=== PATIENT | male | born 1950 | race Caucasian/White ===

== ENCOUNTER → 2017-06-02 10:41 | Outpatient (CLI) | payer MEDICARE, OTHER, SELFPAY ==
--- NOTE | 2017-06-02 11:30 | MRI_ITS ---
STUDY: MRI RIGHT SHOULDER REASON FOR EXAM: Right arm pain and decreased range of motion for 2 months. TECHNIQUE: Standardized fat and water weighted pulse sequences were obtained in all 3 orthogonal planes. COMPARISON: None. FINDINGS: There is a signal void in the distal anterior supraspinatus tendon measuring approximately 1.1 cm in length (T2 coronal image 13) suggestive of calcific tendinitis. There is no discrete tear of the supraspinatus tendon. Normal infraspinatus tendon. Normal subscapularis tendon. Normal teres minor tendon. There is a cyst at the supraspinatus musculotendinous junction (T2 coronal image 16). Normal infraspinatus muscle. Normal subscapularis muscle. Normal teres minor muscle. There is a small glenohumeral joint effusion with fluid extending into the bicipital tendon sheath. There is mild cystic change of the greater tuberosity. There is a branching band of signal in the superior labrum extending into the biceps labral anchor (T2 coronal images 11-13) suggestive of a SLAP lesion. Normal intracapsular long biceps tendon. Normal capsulo- ligamentous complex. There is acromioclavicular arthrosis with undersurface osteophytes of the distal clavicle effacing the subacromial fat (T2 sagittal series 7 images 9, 10). There is a Type I morphology (flat undersurface), with a neutral orientation. There is a small volume of subacromial-subdeltoid bursal fluid (T2 coronal images 9-16). Normal visualized coracohumeral and coracoacromial ligaments. Normal deltoid muscle. Normal trapezius muscle. MRI/Upper Ext Joint Only(Routine) IMPRESSION: Supraspinatus calcific tendinitis. SLAP lesion. Acromioclavicular arthrosis. Mild subacromial-subdeltoid bursitis. Small glenohumeral joint effusion. No demonstrated rotator cuff tear. Electronically Signed: Marino Parekh MD at 14:59 EDT Tel , Service support ,
== END ==
PROVIDERS: Family Provider Family Medicine; PCP Family Medicine
DX: M61.411 Other calcification of muscle, right shoulder (principal); M75.41 Impingement syndrome of right shoulder
CPT/HCPCS: 73221

== ENCOUNTER 2017-06-05 10:00 | Outpatient (RCR) | payer MEDICARE, OTHER, SELFPAY ==
--- NOTE | 2017-05-17 13:00 | HP.OTEVAL_ITS ---
Patient's Visit Information KEEGAN PRIEST is a 66 year old M, referred to Occupational Therapy by KRIS SANTOS,KRIS SANTOS, with a diagnosis of Right LF trigger finger, synovitis and tenosynovitis right forarm/CTS. Date of Evaluation: 05/17/17 Occupational Therapist: Roxanna Matson, AMANDA/Ramiro, CHT - Subjective Subjective: Pt arrives to OT following his 3rd right CTR and a right LF trigger finger release. pt states most numbness/tingling has resolved. pt states tingling through ulnar side of right ring/little finger. Pt states he has had issues with CTS for over a year and decided to have sx. PT staets he feels the sx was sucessful and has started to return to his BADLS. He states sorness or pain stop him from completing tasks. 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 with BADLs and IADLS by D/C Goal:: pt will report pain no greater than 1/10 with use of right hand with BADLS and IADLS such as cleaning and meal prep. by D/C Goal:: pt will demo understanding of scar mtg by end of 2nd session. - Rehabilitation General Assessment: Pt underwent a revision of right CTR and right LF trigger finger release and right wrist flexor tenosynovectomy, and decompression of ulnar nerve right wrist- vascularized hypothenar flap- on April 20, 2017. pt demo a decrease in right functional strength to perform BADls and IADLS at a ind. ability. OT will initiate tx to increase strength and decrease scar adhesions. Rehabilitation Potential: Excellent - Anticipated Interventions Anticipated Interventions: A/AAROM/PROM, Strengthening, Scar Care, Triggerpoint Release, Modalities - Visit Plan Frequency: 2x /Week Duration: 3 Weeks General Plan: OT will initiate tx 2xweek x 3 weeks to increase pts functional strength decrease scar adhesions and increase pts ind. with BADLS and IADLS. Tx will initiate with PRE and progress pt to ind. as able. TEXT: Thank you for the opportunity to evaluate your patient. For Medicare and Medicare HMO plans, please review the plan of care and approve it. It will need to be FAXED BACK to us at [phone] for Medicare purposes. Please let me know if there are questions or concerns regarding this plan of care. Physician Signature: Date:
--- NOTE | 2017-06-05 10:25 | HP.OTDCSUM_ITS ---
HP - OT D/C Summary It has been my pleasure to treat KEEGAN PRIEST under orders from KRIS SANTOS, for the diagnosis of Right LF trigger finger, synovitis and tenosynovitis right forearm/CTS for a total of 6 visit(s). Please see the following information for a summary of their discharge status. - Overall Improvement % Improvement: 90 - Objective Objective/Function: right wrist 55/50. 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 right lateral pinch 14# a increase from 12# right tripod pinch 10# no change in tripod pinch- pt demo increase in functional ROM and strength and has returned to his PLOF- - Goals Patient Goals: Regain Mobility, Regain Strength, Decrease Pain, Use Hand/Wrist/ Arm Normally Again Goal:: pt will demo a increase in right regional transportation manager strength by 30# to increse his ind. with BADLs and IADLS by D/C Goal:: pt will report pain no greater than 1/10 with use of right hand with BADLS and IADLS such as cleaning and meal prep. by D/C Goal:: pt will demo understanding of scar mtg by end of 2nd session. - Plan Plan: D/C - D/C Information Discharge Comments: Pt was seen visits of OT- treatment included ROM- scar mtg- and PRE- pt has met all functional goals in therapy and is D/C at this time. If there are questions or concerns regarding this patient's occupational therapy , please fell free to call me at [phone]. Thank you for the referral of this patient. Sincerely, Roxanna Matson, OTR/L, CHT
== END 2017-06-05 19:00 | disposition home or self-care (01) ==
LOC: OT 10:00
PROVIDERS: Family Provider Family Medicine; PCP Family Medicine
DX: G56.01 Carpal tunnel syndrome, right upper limb (principal); M65.351 Trigger finger, right little finger; M65.839 Other synovitis and tenosynovitis, unspecified forearm
CPT/HCPCS: 97035; 97110; 97140; 97166; 97168

== ENCOUNTER → 2017-08-25 10:17 | Outpatient (CLI) | payer MEDICARE, OTHER, SELFPAY ==
[2017-08-25 12:50] LABS: Vitamin B12 458 pg/mL (211-911)
[2017-08-25 12:53] LABS: AST(SGOT) 23 U/L (15-37); Alanine Aminotransfer ALT/SGPT 34 U/L (16-61); Anion Gap 7 (5-15); BUN 15 mg/dL (7-18); BUN/Creat Ratio 17.3 RATIO (10-20); Calcium,Total 8.2 mg/dL (8.5-10.1); Chloride 104 mmol/L (98-107); Cholesterol 206 mg/dL (200); Creatinine, Serum 0.87 mg/dL (0.70-1.30); EST Glomerular Filtration Rate 93 mL/min (>60); Est Glom Filt Rate - Afr Amer 113 mL/min (>60); Free T3 2.6 pg/mL (2.18-3.98); Glucose 79 mg/dL (74-106); High Density Lipoprotein 51 mg/dL; Sodium Level 141 mmol/L (136-145); T4 Total, Thyroxin 12.3 ug/dL (4.5-12.1); Thyroid Stim Hormone (TSH) 0.87 uIU/mL (0.358-3.74); Triglycerides 111 mg/dL; Very Low Density Lipoprotein 22 mg/dL (5-40)
== END ==
PROVIDERS: Family Provider Family Medicine; PCP Family Medicine; Visit Provider Family Medicine
DX: E78.5 Hyperlipidemia, unspecified (principal); E03.9 Hypothyroidism, unspecified; R20.2 Paresthesia of skin
CPT/HCPCS: 36415; 80048; 80061; 82607; 84436; 84443; 84450; 84460; 84481

== ENCOUNTER → 2017-09-07 12:43 | Outpatient (CLI) | payer MEDICARE, OTHER, SELFPAY ==
--- NOTE | 2017-09-07 12:45 | ECHOCS_ITS ---
Reason For Study: MURMUR Procedure This was a 2D Doppler, Color Flow transthoracic echocardiogram. The study was technically difficult. Contrast injection was performed. Exam performed in department. Left Ventricle Normal LV size. Left ventricular systolic function is normal. The estimated ejection fraction is 70 %. Normal diastology for age. No regional wall motion abnormalities noted. Right Ventricle Normal RV size. Normal systolic function. Atria Normal left atrium. Normal right atrium. No doppler evidence for ASD. Mitral Valve There is no mitral annular calcification. Normal mitral valve. Trivial mitral valve insufficiency. Tricuspid Valve Normal tricuspid valve. Trivial tricuspid valve insufficiency. Unable to estimate RV systolic pressure/pulmonary artery pressure due to technically difficult study. Aortic Valve Trisinus/trileaflet aortic valve. Moderate diffuse aortic valve calcification. Mild aortic stenosis. Pulmonic Valve The pulmonic valve is not well visualized. Great Vessels Moderately dilated ascending aorta. Pericardium/Pleural No pericardial effusion. Medication 22 gauge I.V. with prn adaptor inserted into right arm. Diluted definity 3ml given slow IV push to enhance endocardial definition. MMode/2D Measurements & Calculations LVIDd: 4.4 cm IVSd: 0.86 cm LVOT diam: 2.0 cm LVIDs: 2.6 cm LVPWd: 1.0 cm LVOT area: 3.1 cm2 RVDd: 2.5 cm FS: 41.6 % Ao root diam: 3.6 cm LAV(MOD-bp): 32.0 ml LA A4 area: 11.2 cm2 LA dimension: 2.9 cm LAV(MOD-bp) Indexed: 15.7 ml/m2 LAV(MOD-sp2): 45.8 ml LAV(MOD-sp4): 21.9 ml RA A4 area: 14.1 cm2 Time Measurements MV dec time: 0.24 sec Doppler Measurements & Calculations MV E max thomas: 78.4 cm/sec Lat Peak E' Thomas: 11.4 cm/sec Med Peak E' Thomas: 9.0 cm/sec MV A max thomas: 111.3 cm/sec E/E' lat: 6.9 E/E' med: 8.7 MV E/A: 0.70 Ao V2 max: 224.2 cm/sec LV V1 max: 106.7 cm/sec SV(LVOT): 84.5 ml Ao max P.1 mmHg LV V1 max P.6 mmHg Ao V2 mean: 174.0 cm/sec LV V1 mean P.0 mmHg Ao mean P.0 mmHg LV V1 mean: 82.5 cm/sec Ao V2 VTI: 49.7 cm LV V1 VTI: 27.1 cm DOC(I,D): 1.7 cm2 DOC(V,D): 1.5 cm2 PA V2 max: 96.1 cm/sec Interpretation Summary The study was technically difficult. Contrast injection was performed. Left ventricular systolic function is normal. The estimated ejection fraction is 70 %. Trivial mitral valve insufficiency. Trivial tricuspid valve insufficiency. Mild aortic stenosis. Moderately dilated ascending aorta. (approximately 5.0 cm) Unable to estimate RV systolic pressure/pulmonary artery pressure due to technically difficult study. Normal diastology for age. Comment: Consider further evaluation of the thoracic aorta for thoracic aortic aneurysm with Chest CT scan (IV contrast) if clinically indicated. Ordering Physician: Yecenia Okeefe Referring Physician: Yecenia Okeefe Performed By: Daria Mejias RDCS
== END ==
PROVIDERS: Family Provider Family Medicine; PCP Family Medicine; Visit Provider Family Medicine
DX: R01.1 Cardiac murmur, unspecified (principal)
CPT/HCPCS: 93306; Q9957; A4216; C8929

== ENCOUNTER → 2017-09-21 16:49 | Outpatient (CLI) | payer MEDICARE, OTHER, SELFPAY ==
--- NOTE | 2017-09-21 16:56 | CT_ITS ---
STUDY: CTA CHEST REASON FOR EXAM: Male, 67 years old. Thoracic aortic aneurysm on echo RADIATION DOSAGE (If Supplied By Facility): CTDIvol = ( 17.58 ) mGy, DLP = ( 572.12 ) mGycm TECHNIQUE: The examination was performed with the intravenous administration of 100ml ml of Isovue 370 contrast material. Post-processing of the angiographic images was performed, with multiplanar reformation and 3D reconstruction. Individualized dose optimization techniques were used for this CT. COMPARISON: None. FINDINGS: There is a 5.1 x 4.8 cm aneurysm of the ascending aorta. The aortic arch and descending thoracic aorta are normal in caliber. There is no evidence of thoracic aortic dissection. There is no evidence of pulmonary embolus. There are no pulmonary nodules or masses. There are no pulmonary infiltrates or pleural effusions. The heart is normal size. There is no pericardial effusion. There is no thoracic lymphadenopathy. Images through the upper abdomen demonstrate no significant abnormality. There are no destructive osseous lesions. CT/CTA Chest W/WO Contrast IMPRESSION: 5.1 x 4.8 cm ascending aortic aneurysm. Normal caliber aortic arch and descending thoracic aorta. No evidence of thoracic aortic dissection. No evidence of pulmonary embolus. Clear lungs. Electronically Signed: Akil Reyes, at 16:56 EDT Tel , Service support ,
== END ==
PROVIDERS: Family Provider Family Medicine; PCP Family Medicine; Visit Provider Family Medicine
DX: R93.1 Abnormal findings on diagnostic imaging of heart and coronary circulation (principal)
CPT/HCPCS: 71275; Q9967

== ENCOUNTER → 2017-10-17 11:39 | Outpatient (CLI) | payer MEDICARE, OTHER, SELFPAY ==
[2017-10-17 12:36] LABS: PSA,Total - Annual Screen 3.03 ng/mL (0.00-4.00)
== END ==
PROVIDERS: Family Provider Family Medicine; PCP Family Medicine; Visit Provider Nurse Practitioner Adult Health
DX: Z12.5 Encounter for screening for malignant neoplasm of prostate (principal)
CPT/HCPCS: 36415; 84153; G0103

== ENCOUNTER → 2017-10-24 11:58 | Outpatient (CLI) | payer MEDICARE, OTHER, SELFPAY ==
--- NOTE | 2017-10-24 12:00 | CT_ITS ---
STUDY: CT ABDOMEN AND PELVIS WITH AND WITHOUT CONTRAST REASON FOR EXAM: Male, 67 years old. Gross hematuria RADIATION DOSAGE (If Supplied By Facility): CTDIvol = ( 19.59 ) mGy, DLP = ( 1671.18 ) mGycm TECHNIQUE: Transaxial images were obtained from the dome of the diaphragm to the symphysis pubis without oral contrast. 100 ml of Isovue 300 contrast was administered. Sagittal and coronal images were reconstructed. Individualized dose optimization techniques were used for this CT. COMPARISON: Limited comparison September 21, 2017 CT chest FINDINGS: The visualized lung bases are unremarkable. The visualized portions of the heart are within normal limits. The liver is borderline enlarged and fatty infiltrated. Normal gallbladder and extrahepatic biliary system. Normal spleen. Normal pancreas. Normal bilateral adrenal glands. Normal right kidney. Normal left kidney. Normal visualized stomach. Normal small intestine. There is moderate stool in the colon from the cecum to the rectum. The appendix is visualized and appears normal. There is partial calcification of the aorta. There is calcification of the takeoff of the right greater than left artery. Normal inferior vena cava. Normal retroperitoneum. The wall the bladder is mildly thickened. The prostate is enlarged and lobulated on the cranial side within homogeneity. There prostate pushes into the base of the bladder. The prostate measures approximately 5.7 x 4.0 x 4.1 cm. There few nonspecific pelvic lymph nodes demonstrated measuring less than 1 cm. There are phleboliths in the pelvis. There are bilateral fatty inguinal hernias. There are diffuse degenerative changes of the visualized lumbar spine. CT/CT Abd/Pelvis W/WO Contrast IMPRESSION: No visualize renal ureteral bladder calculi or evidence of mass. Enlarged prostate projecting into the base of the bladder mild wall thickening consider cystitis. Recommend correlation with laboratory values for the prostate and clinical exam. Prostate cancer should be excluded. Borderline enlarged fatty infiltrated liver. Bilateral fatty inguinal hernias. Degenerative change lumbar spine. Electronically Signed: Kyung Kat MD at 17:16 EDT Tel , Service support ,
[2017-10-24 12:10] LABS: CREATININE FINGERSTICK 0.8 mg/dL (0.70-1.30)
== END ==
PROVIDERS: Family Provider Family Medicine; PCP Family Medicine; Visit Provider Nurse Practitioner Adult Health
DX: R31.0 Gross hematuria (principal)
CPT/HCPCS: 74178; Q9967

== ENCOUNTER 2017-11-29 12:51 | Day surgery (SDC) | payer MEDICARE, OTHER, SELFPAY ==
[2017-11-22 09:20] VITALS: BP 129/69; PULSE 83; RESP 16; TEMP 36.5; O2SAT 97; BMI 29.5
[2017-11-22 10:07] LABS: Hematocrit 42.1 % (40-54); Mean Corp Hgb Conc 33.3 g/gl (32-36); Mean Corpuscular Hgb 30.6 pg (27.0-32.0); Mean Corpuscular Volume 91.9 fL (80-94); Mean Platelet Vol. 9.6 fl (6.2-12.0); Platelet Count 234 K/mm3 (150-450); RBC Distribution Width CV 12.6 % (11.6-14.6); RBC Distribution Width SD 42.3 fl (35.1-43.9); Red Blood Count 4.58 M/mm3 (4.6-6.2); Scan Indicated on CBC? Y/N NO
[2017-11-22 10:51] LABS: Anion Gap 6 (5-15); BUN 16 mg/dL (7-18); BUN/Creat Ratio 17.4 RATIO (10-20); Calcium,Total 8.5 mg/dL (8.5-10.1); Chloride 106 mmol/L (98-107); Creatinine, Serum 0.92 mg/dL (0.70-1.30); EST Glomerular Filtration Rate 87 mL/min (>60); Est Glom Filt Rate - Afr Amer 105 mL/min (>60); Estimated Creatinine Clearance 77.92 ml/min; Glucose 95 mg/dL (74-106); Potassium 3.6 mmol/L (3.5-5.1); Sodium Level 139 mmol/L (136-145)
[2017-11-29] VITALS (9 sets, daily range): BP systolic 119–135; BP diastolic 68–98; PULSE 56–82; RESP 16–18; TEMP 36–36.8; O2SAT 94–100; BMI 29.5
[2017-11-29] MEDS: Cefazolin 2 GM in 0.9% Normal Saline 100 ML IV (14:11)
--- NOTE | 2017-11-29 14:40 | PROS_PTH ---
PATIENT: KEEGAN PRIEST LOC[place] [facility] [place][id number] AGE/SX: 67/M ROOM: RE11/29/[address]: Dr. Zach Romero MD : 1950 BED: DIS: 11/30/2017 SPEC #: [id number] RECD: 11/29/17 16:09 STATUS: MANAN REValentine #: [id number] ANDREW: 11/29/17 14:[address]: Zach Romero DEPT: SURGICAL PATHOLOGY RECD BY: You Delacruz ENTERED: 11/30/17 07:52 SP TYPE: TURP OTHR DR: Dr. Yecenia Okeefe MD Tissues: Prostate, NOS Procedures: Surgery Specimen Level IV HEADER OPERATION: Cysto, TUR, prostate, [employer] PRE-OP DIAGNOSIS: Benign prostatic hyperplasia with lower urinary tract symptoms, gross hematuria TISSUE SUBMITTED: Prostate tissue MICROSCOPIC DIAGNOSIS Prostate tissue, TUR: Benign prostatic hyperplasia, glandular and stromal type. Acute and chronic inflammation and basal cell hyperplasia. FLORES:rudy 12/01/17 MICROSCOPIC DESCRIPTION Slides are reviewed. GROSS DESCRIPTION Received is one container labeled with the patient's name and designated prostate tissue. The specimen consists of multiple irregular fragments of pink-meyer, rubbery, soft tissue that in aggregate weigh 9.6 gm and measure in aggregate 5 x 5 x 2 cm. The entire specimen is submitted in ten cassettes. / FLORES:rudy 11/30/17 TC:5 CPT: 91492
--- NOTE | 2017-11-29 14:53 | PCM.OPRPT ---
Report of Operation Date of Procedure: 11/29/17 Pre-Operative Diagnosis: BPH with obstruction Post-Operative Diagnosis: Same Surgery/Procedure Performed:: Transurethral resection of the prostate Description of Surgical Findings:: 67-year-old male been having difficulty with urination bleeding off and on cystoscopy was found to have a large amount of growth of tissue at the floor of the prostate growing into the bladder causing obstruction really at the angle the scope will high up to get over this median lobe growth into the prostate recommend we proceed with a transurethral resection of his growth. 67-year-old male taken back to the operating room after smooth induction of general anesthesia he was placed supine on the table, penis and testicles are prepped and draped in usual sterile fashion, went into the bladder with a 24 Icelandic continuous flow resectoscope I then started by going over the top of his large growth going into the bladder resected all the way back down to the bladder fiber next and brought the bladder neck and then there is a lot of tissue at the floor the bladder this was resected back to the verumontanum he did have a nice wide open channel from the sphincter all the way into the bladder was nice and wide open after resecting all this tissue Ellik out all the tissue, did a flow test and had a nice wide open flow all the chips were removed put a 22 Icelandic catheter into the bladder this is placed on continuous bladder irrigation, the resection time was about 45 minutes. Patient tolerated procedure well taken back to PACU good condition follow-up in a few weeks. Type of Anesthesia:: General Drains: 22fr 3 way - Admit VTE Documentation VTE Present on Admission: No VTE Mechan Device Prophylaxis: SCD's VTE Pharm Prophylaxis ordered?: No Reason prophylaxis not ordered:: Treatment Not Indicated
--- NOTE | 2017-11-29 14:58 | DCINST_ITS ---
Discharge Diet: Light diet - advance as tolerated Discharge Activity: Return to Normal Activity Call your doctor if your incision/area has: Continuous Slow Oozing, Sudden Increased Bleeding, Increased Pain/ Swelling, Increased Redness Suture Line Care: Avoid Pulling/Pushing, Avoid Pinching/Bending Instructions: Transurethral Resection of the Prostate (TURP): Home Recovery Allergies/Adverse Reactions: Allergies mold spores Adverse Reaction (Uncoded 11/22/17 09:18) Unknown Medications to take at Discharge Duloxetine Hcl [Cymbalta] 60 mg PO DAILY 12/13/12 Sumatriptan Succinate [Imitrex] 100 mg PO .X1 PRN PRN 12/13/12 levothyroxine 150 mcg capsule 150 mcg PO DAILY 10/04/17 Acetaminophen [Tylenol Extra Strength] 500 - 1,000 mg PO Q6H PRN PRN 11/22/17 Primary Care Physician: Yecenia Okeefe MD [Primary Care Provider] - Test Results: Test results from this visit will be discussed in further detail at your follow- up appointment, if applicable. Please Follow Up With: Zach Romero MD When: please call to make an appointment. Proposed Discharge Date: 11/29/17
[2017-11-29] MEDS: 0.9% Normal Saline 1,000 ML 75 ML IV (17:52)
[2017-11-29] MEDS: Acetaminophen 325 MG Tablet PO (21:00)
[2017-11-29] MEDS: Ciprofloxacin 500 MG Tablet PO (21:00)
[2017-11-29] MEDS: Docusate Sodium 100 MG Capsule PO (21:00)
[2017-11-30] MEDS: Rizatriptan Benzoate 10 MG Tablet PO (00:22)
[2017-11-30 02:38] VITALS: BP 124/79; PULSE 61; RESP 18; TEMP 36.6; O2SAT 100
[2017-11-30 02:48] VITALS: PULSE 61
[2017-11-30] MEDS: 0.9% Normal Saline 1,000 ML 75 ML IV (07:25)
[2017-11-30 08:05] VITALS: BP 117/57; PULSE 66; RESP 16; TEMP 36.4; O2SAT 100
[2017-11-30] MEDS: Pantoprazole Sodium 40 MG Tablet PO (09:28)
[2017-11-30] MEDS: Ciprofloxacin 500 MG Tablet PO (09:28)
== END 2017-11-30 12:35 | disposition home or self-care (01) ==
LOC: SDC 12:51 → AC 12:52 → MS3 14:23
PROVIDERS: Anesthesiology; Family Provider Family Medicine; PCP Family Medicine; Referring Provider Urology; Visit Provider Urology
PROC: (CPT 52630; principal; 2017-11-29 14:30)
DX: N41.0 Acute prostatitis (principal); N41.1 Chronic prostatitis; N40.1 Benign prostatic hyperplasia with lower urinary tract symptoms; R39.11 Hesitancy of micturition; R31.0 Gross hematuria; F41.9 Anxiety disorder, unspecified; F32.9 Major depressive disorder, single episode, unspecified; E89.0 Postprocedural hypothyroidism; I71.2 Thoracic aortic aneurysm, without rupture; G47.30 Sleep apnea, unspecified; Z23 Encounter for immunization; Z87.891 Personal history of nicotine dependence; Z79.899 Other long term (current) drug therapy
CPT/HCPCS: 00914; 52630; 80048; 84443; 85027; 88305; G0008; J7030; J7120; 90686; J2405

== ENCOUNTER → 2018-04-02 07:40 | Outpatient (CLI) | payer MEDICARE, OTHER, SELFPAY ==
[2017-11-29 16:38] VITALS: BMI 29.5
--- NOTE | 2018-04-02 07:43 | CT_ITS ---
STUDY: CTA CHEST REASON FOR EXAM: Male, 67 years old. Follow-up of abdominal aorta RADIATION DOSAGE (If Supplied By Facility): CTDIvol = ( 22.75 ) mGy, DLP = ( 548.69 ) mGycm TECHNIQUE: The examination was performed with the intravenous administration of Isovue 300 100CC IV. Post-processing of the angiographic images was performed, with multiplanar reformation and 3D reconstruction. Individualized dose optimization techniques were used for this CT. COMPARISON: 09/21/2017 chest x-ray FINDINGS: Normal enhancement of the main pulmonary artery and right and left pulmonary arteries. Normal enhancement of the bilateral peripheral pulmonary arteries. There is no demonstrated pulmonary embolism. The ascending thoracic aorta measures 4.8 x 5.0 cm at the level of the left pulmonary artery. At this same level on the prior study. It measures 4.8 x 5 cm. There is no demonstrated aortic dissection. The heart is of normal size. There is a suggestion of calcification of the left anterior descending coronary arteries. Normal mediastinum. There is a small lymph node in the left hilar region measuring 6.3 mm stable since prior study. Normal visualized trachea and bronchi. The lungs are well expanded. Normal pulmonary parenchyma. Normal pleura. Normal chest wall structures. There are degenerative changes of thoracic spine. Moderate stool in the colon in the upper abdomen. CT/CTA Chest W/WO Contrast IMPRESSION: No evidence of pulmonary embolism. Stable ascending thoracic aortic aneurysm. Electronically Signed: Kyung Kat MD at 23:11 EST Tel , Service support ,
[2018-04-02 08:20] LABS: EGFR FINGERSTICK > 60.0000 mL/min (>60)
[2018-04-02 09:08] LABS: Anion Gap 6 (5-15); BUN 16 mg/dL (7-18); BUN/Creat Ratio 18.3 RATIO (10-20); Calcium,Total 8.5 mg/dL (8.5-10.1); Chloride 107 mmol/L (98-107); Creatinine, Serum 0.88 mg/dL (0.70-1.30); EST Glomerular Filtration Rate 92 mL/min (>60); Est Glom Filt Rate - Afr Amer 112 mL/min (>60); Glucose 88 mg/dL (74-106); Potassium 3.9 mmol/L (3.5-5.1); Sodium Level 141 mmol/L (136-145)
== END ==
PROVIDERS: Family Provider Family Medicine; PCP Family Medicine; Referring Provider Internal Medicine Cardiovascular Disease; Visit Provider Internal Medicine Cardiovascular Disease
DX: I71.2 Thoracic aortic aneurysm, without rupture (principal)
CPT/HCPCS: 36415; 71275; 80048; Q9967

== ENCOUNTER → 2018-04-16 06:28 | Outpatient (CLI) | payer MEDICARE, OTHER, SELFPAY ==
[2018-04-10 14:18] VITALS: BMI 30.1
--- NOTE | 2018-04-16 15:24 | STRESSREP ---
Stress Test Report Exercise myocardial perfusion stress test. 67-year-old man with a history of dyspnea. Medications levothyroxine. Stress protocol. Resting EKG demonstrates normal sinus rhythm with a rate of 60 bpm normal intervals are noted resting blood pressure 130 over 80 mmHg. The patient exercised according to regular Davis protocol for a total duration of 6 minutes completing stage II of the Davis protocol the maximum heart rate attained was 146 bpm which was 95% of maximum predicted heart rate the maximum workload was 7 metabolic equivalents. At rest there were no ST or T wave changes noted to suggest ischemia peak exercise upsloping ST changes were noted we did not meet the criteria for ischemia. The resting blood pressure 7 and 30 over 80 mmHg with a peak blood pressure 174/70 mmHg. Test was terminated due to shortness of breath. Myocardial perfusion protocol. 14.5 mCi of technetium 99m sestamibi was injected at rest. The patient exercised according to regular Davis protocol for 6 minutes. At peak exercise 44.6 mCi of technetium 99m sestamibi was injected stress images were obtained. Stress images were obtained stress and rest images were reconstructed and compared in the short axis vertical and horizontal long axis. Gated images were also obtained.. Perfusion SPECT analysis: Review of the stress images demonstrate normal uptake of tracer noted in all areas of the myocardium stress and rest images demonstrate no evidence of ischemia. No previous infarct is noted. Gated SPECT analysis: The gated ejection fraction is noted to be 79%. Conclusion: Normal exercise myocardial perfusion stress test at a moderate workload. No clinical angina.
== END ==
PROVIDERS: Family Provider Family Medicine; PCP Family Medicine; Referring Provider Internal Medicine Cardiovascular Disease; Visit Provider Internal Medicine Cardiovascular Disease
DX: R06.09 Other forms of dyspnea (principal)
CPT/HCPCS: 78452; 93017; A9500; A4216

== ENCOUNTER → 2018-05-15 07:26 | Outpatient (CLI) | payer MEDICARE, OTHER, SELFPAY ==
[2018-04-10 14:18] VITALS: BMI 30.1
--- NOTE | 2018-05-15 10:43 | NEURO ---
NCS and/or EMG Patient Report Ordering Doctor: Yecenia Okeefe DATE OF SERVICE: 05/15/18 This is a left upper extremity G and nerve conduction study performed on this 67-year-old male with a history of multiple carpal tunnel release surgeries on the right, and carpal tunnel release on the left approximately 15 years ago. He has been experiencing burning sensation in his left forearm. There is also a history of neck fusion. He says none of his fingers are affected but he does have neck pain. Left upper extremity sensory motor nerve conduction study demonstrates mild to moderate prolongation of the median motor distal latency with preservation of amplitudes and mild reduction of conduction velocity. The ulnar motor and sensory and radial sensory responses are normal. The left median F wave is mildly prolonged compared to the ulnar f wave. Left upper extremity needle electromyography is performed. Muscles evaluated included the first interosseous, abductor pollicis brevis, brachial radialis, biceps, triceps and deltoid muscles. The abductor pollicis nevus did demonstrate large motor units but pathologic spontaneous activity and abnormal insertional activity were both absent. All other muscles demonstrated normal insertional activity with absence of pathologic spontaneous activity, and normal motor unit recruitment pattern as well as amplitude. Impression: Abnormal electrophysiologic study of the left upper extremity consistent with mild to moderate carpal tunnel syndrome at the left wrist, likely residual.
== END ==
PROVIDERS: Family Provider Family Medicine; PCP Family Medicine; Referring Provider Family Medicine; Visit Provider Family Medicine
DX: G56.02 Carpal tunnel syndrome, left upper limb (principal)
CPT/HCPCS: 95886; 95909

== ENCOUNTER → 2018-07-23 | Outpatient (CLI) | payer MEDICARE, OTHER, SELFPAY ==
[2018-04-10 14:18] VITALS: BMI 30.1
--- NOTE | 2018-07-23 07:42 | MRI_ITS ---
STUDY: MRI LUMBAR SPINE WITHOUT CONTRAST REASON FOR EXAM: Male, 68 years old. pain in R buttock tingling in thigh burning down leg x 2 yrs. TECHNIQUE: Standardized fat and water weighted pulse sequences were obtained in the sagittal and axial planes. COMPARISON: November 24, 2015 FINDINGS: T12-L1: Sagittal only. There is moderate disc space narrowing and endplates spondylosis. There does not appear to be significant central canal or foraminal stenosis. Findings are stable since the prior examination Normal lumbar lordosis. There is no substantial scoliosis. Normal conus medullaris that terminates at the L1 L1-2: There is mild disc space narrowing and endplates spondylosis. Mild disc bulge and facet arthropathy without significant central canal or foraminal stenosis. Findings are stable since the prior examination L2-3: There is mild disc space narrowing and endplates spondylosis. Mild disc bulge and facet arthropathy. Decompression laminectomy. There is no significant central canal stenosis. There is mild bilateral foraminal stenosis. L3-4: There is mild disc space narrowing and endplates spondylosis.. Mild disc bulge and facet arthropathy. Decompression laminectomy. The central canal widely patent. There is stable moderate right and mild left foraminal stenosis. L4-5: There is minimal disc space narrowing and endplates spondylosis. Mild disc bulge and facet arthropathy with moderate central canal stenosis. There is mild right and mild left foraminal stenosis. Findings are stable since prior examination L5-S1: There is mild disc space narrowing and endplates spondylosis. Mild disc bulge and facets but the without significant central canal or foraminal stenosis. Normal visualized sacral ala. Normal visualized paraspinous soft tissue structures. MRI/Spine Lumbar (Routine) IMPRESSION: Stable multilevel degenerative changes. L3/L4: Moderate right foraminal stenosis. Electronically Signed: Wanda Rojas MD at 8:07 EDT Tel , Service support ,
== END | disposition home or self-care (01) ==
LOC: MRI 07:01
PROVIDERS: Family Provider Family Medicine; PCP Family Medicine; Referring Provider Family Medicine; Visit Provider Family Medicine
DX: M48.061 Spinal stenosis, lumbar region without neurogenic claudication (principal)
CPT/HCPCS: 72148

== ENCOUNTER → 2018-08-27 | Outpatient (CLI) | payer MEDICARE, OTHER, SELFPAY ==
[2018-04-10 14:18] VITALS: BMI 30.1
[2018-08-27 13:03] LABS: T4 Total, Thyroxin 11.2 ug/dL (4.5-12.1); Thyroid Stim Hormone (TSH) 0.31 uIU/mL (0.358-3.74)
== END | disposition home or self-care (01) ==
LOC: MTLAB 10:07
PROVIDERS: Family Provider Family Medicine; PCP Family Medicine; Referring Provider Family Medicine; Visit Provider Family Medicine
DX: E03.9 Hypothyroidism, unspecified (principal)
CPT/HCPCS: 36415; 84436; 84443

== ENCOUNTER → 2018-10-04 | Outpatient (CLI) | payer MEDICARE, OTHER, SELFPAY ==
[2018-04-10 14:18] VITALS: BMI 30.1
--- NOTE | 2018-10-04 07:41 | CT_ITS ---
STUDY: CTA CHEST/THORAX REASON FOR EXAM: Male, 68 years old. Thoracic aortic aneurysm follow-up. RADIATION DOSAGE (If Supplied By Facility): CTDIvol = ( 7.07 ) mGy, DLP = ( 483.19 ) mGycm TECHNIQUE: The examination was performed with the intravenous administration of 100 IV Isovue 370. Post-processing of the angiographic images was performed, with multiplanar reformation and 3D reconstruction. Individualized dose optimization techniques were used for this CT. COMPARISON: CTA Chest April 02, 2018. FINDINGS: Normal enhancement of the main pulmonary artery and right and left pulmonary arteries. Normal enhancement of the bilateral peripheral pulmonary arteries. There is no demonstrated pulmonary embolism. Some calcification again seen at the aortic valve leaflets. There is stable 4.9 x 4.8 cm fusiform aneurysmal dilatation of the mid descending aorta. Borderline diverticulum at the insertion of the ligamentum arteriosum on the inner curve of the posterior thoracic aortic arch. The descending thoracic aorta is mildly tortuous, but normal in caliber. There is no demonstrated aortic dissection. Normal heart and pericardium. There are stable atherosclerotic calcifications of the coronary arteries. Normal mediastinum. Normal hilar regions. Normal visualized trachea and bronchi. The lungs are well expanded. There is stable minor linear scarring in the inferior left lung base. Normal pleura. Normal chest wall structures. There are stable degenerative changes of the thoracic spine with multilevel bridging and near bridging endplate osteophytes. Normal visualized upper abdomen. CT/CTA Chest W/WO Contrast IMPRESSION: 1. Stable 4.9 cm fusiform aneurysmal dilatation of the mid ascending aorta. No demonstrated pulmonary embolism or arterial dissection. 2. Heart size remains within normal limits. Calcific plaquing of the coronary arteries again noted. 3. Stable minor linear scarring in the inferior left lung base. Electronically Signed: Aditya Khan MD at 17:15 EDT , Service support ,
[2018-10-04 08:00] LABS: EGFR FINGERSTICK > 60.0000 mL/min (>60)
== END | disposition home or self-care (01) ==
LOC: CT 07:40
PROVIDERS: Family Provider Family Medicine; PCP Family Medicine; Referring Provider Internal Medicine Cardiovascular Disease; Visit Provider Internal Medicine Cardiovascular Disease
DX: R06.09 Other forms of dyspnea (principal); I35.0 Nonrheumatic aortic (valve) stenosis; I71.2 Thoracic aortic aneurysm, without rupture
CPT/HCPCS: 71275; Q9967

== ENCOUNTER → 2018-12-11 | Outpatient (CLI) | payer MEDICARE, OTHER, SELFPAY ==
[2018-10-12 14:31] VITALS: BMI 28.8
[2018-12-11 14:06] LABS: Thyroid Stim Hormone (TSH) 2.32 uIU/mL (0.358-3.74)
== END | disposition home or self-care (01) ==
LOC: MTLAB 11:18
PROVIDERS: Family Provider Family Medicine; PCP Family Medicine; Referring Provider Family Medicine; Visit Provider Family Medicine
DX: E03.9 Hypothyroidism, unspecified (principal)
CPT/HCPCS: 36415; 84443

== ENCOUNTER → 2019-04-02 13:59 | Outpatient (CLI) | payer MEDICARE, OTHER, SELFPAY ==
[2018-10-12 14:31] VITALS: BMI 28.8
[2019-04-02 14:45] LABS: PSA,Total- Diagnostic 1.31 ng/mL (0.0-4.0)
== END ==
PROVIDERS: PCP Family Medicine; Referring Provider Urology; Visit Provider Urology
DX: N40.1 Benign prostatic hyperplasia with lower urinary tract symptoms (principal)
CPT/HCPCS: 36415; 84153

== ENCOUNTER → 2019-06-28 11:41 | Outpatient (CLI) | payer MEDICARE, OTHER, SELFPAY ==
[2018-10-12 14:31] VITALS: BMI 28.8
[2019-06-28 16:11] LABS: Creatinine, Serum 0.95 mg/dL (0.70-1.30); EST Glomerular Filtration Rate 83 mL/min (>60); Est Glom Filt Rate - Afr Amer 101 mL/min (>60)
== END ==
PROVIDERS: PCP Family Medicine; Referring Provider Nurse Practitioner Acute Care; Visit Provider Nurse Practitioner Acute Care
DX: M48.062 Spinal stenosis, lumbar region with neurogenic claudication (principal)
CPT/HCPCS: 36415; 82565

== ENCOUNTER → 2019-07-03 09:59 | Outpatient (CLI) | payer MEDICARE, OTHER, SELFPAY ==
[2018-10-12 14:31] VITALS: BMI 28.8
--- NOTE | 2019-07-03 10:23 | MRI_ITS ---
STUDY: MRI LUMBAR SPINE WITH AND WITHOUT CONTRAST REASON FOR EXAM: Male, 69 years old. radiculopathy, right leg burning, weakness bilat legs, hx prior surgeries TECHNIQUE: Standardized fat and water weighted pulse sequences were obtained in the sagittal and axial planes. IV Dotarem 20ml was administered for the contrast portion of the examination. COMPARISON: July 23, 2018 FINDINGS: Lumbar lordosis preserved. No scoliosis. Uncomplicated postsurgical changes at the L4-5 levels. No acute fracture. No dislocation. No bone destruction. No abnormal/unexpected contrast enhancement. Paraspinal muscle atrophy. Surgical scar. Sacrum intact. Normal retroperitoneum. Normal aorta. T12-L1: Endplate spondylosis with Schmorl''s nodes. Disc bulge with mild/moderate central canal narrowing (sagittal images only). Facet joint arthrosis. Suspected lateral recess narrowing. Normal bilateral intervertebral neural foramina. L1-2: Endplate spondylosis with Schmorl''s nodes. Disc desiccation. Facet joint arthrosis. Normal central canal and bilateral lateral recesses. Normal bilateral intervertebral neural foramina. L2-3: Endplate spondylosis with Schmorl''s nodes. Shallow disc bulge. Facet joint arthrosis. Normal central canal and bilateral lateral recesses. Normal bilateral intervertebral neural foramina. Postsurgical changes. L3-4: Endplate spondylosis with Schmorl''s nodes. Shallow disc bulge. Facet joint arthrosis. Normal central canal and bilateral lateral recesses. Bilateral neural foraminal narrowing with impingement. Postsurgical changes. L4-5: Endplate spondylosis with Schmorl''s nodes. Shallow disc bulge, slightly prominent centrally, without central canal narrowing. Facet joint arthrosis. Normal central canal and bilateral lateral recesses. Neural foraminal narrowing without impingement. Postsurgical changes. L5-S1: Endplate spondylosis with Schmorl''s nodes. Shallow disc bulge. Facet joint arthrosis. Normal central canal and bilateral lateral recesses. Neural foraminal narrowing with impingement on the right. Postsurgical changes. MRI/Spine Lumbar W/WO Contrast IMPRESSION: Multilevel intervertebral disc disease with central canal narrowing most pronounced at the T12-L1 level (sagittal images only; consider thoracic imaging) Suspected lateral recess narrowing at the T12-L1 level (consider thoracic imaging) Multilevel neural foraminal narrowing with impingement of the bilateral L3 and right L5 nerve roots Uncomplicated postsurgical changes at the lower lumbar spine Electronically Signed: Jay Sanchez DO at 13:04 EDT Tel , Service support ,
== END ==
PROVIDERS: PCP Family Medicine; Referring Provider Nurse Practitioner Acute Care; Visit Provider Nurse Practitioner Acute Care
DX: M54.16 Radiculopathy, lumbar region (principal)
CPT/HCPCS: 72158; A9575

== ENCOUNTER → 2019-09-06 10:42 | Outpatient (CLI) | payer MEDICARE, OTHER, SELFPAY ==
[2018-10-12 14:31] VITALS: BMI 28.8
[2019-09-06 12:46] LABS: Vitamin D,25 Hydroxy 36.6 ng/mL
[2019-09-06 13:01] LABS: T4 Total, Thyroxin 11.7 ug/dL (4.5-12.1); Thyroid Stim Hormone (TSH) 1.02 uIU/mL (0.358-3.74)
== END ==
PROVIDERS: PCP Family Medicine; Referring Provider Family Medicine; Visit Provider Family Medicine
DX: E03.9 Hypothyroidism, unspecified (principal); E55.9 Vitamin D deficiency, unspecified
CPT/HCPCS: 36415; 82306; 84436; 84443

== ENCOUNTER → 2019-10-02 07:36 | Outpatient (CLI) | payer MEDICARE, OTHER, SELFPAY ==
[2018-10-12 14:31] VITALS: BMI 28.8
--- NOTE | 2019-10-02 07:36 | CT_ITS ---
STUDY: CTA CHEST REASON FOR EXAM: Male, 69 years old. TAA FOLLOW-UP RADIATION DOSAGE (If Supplied By Facility): CTDIvol = ( 14.36 ) mGy, DLP = ( 693.89 ) mGycm TECHNIQUE: The examination was performed with the intravenous administration of 100 ML ISOVUE 370. Post-processing of the angiographic images was performed, with multiplanar reformation and 3D reconstruction. Individualized dose optimization techniques were used for this CT. COMPARISON: 10/04/2018 FINDINGS: Normal enhancement of the main pulmonary artery and right and left pulmonary arteries. Normal enhancement of the bilateral peripheral pulmonary arteries. There is no demonstrated pulmonary embolism. Stable 4.9 cm aneurysm of the ascending thoracic aorta without evidence of acute complication. There is no demonstrated aortic dissection. Normal heart and pericardium. Normal mediastinum. Normal hilar regions. Normal visualized trachea and bronchi. The lungs are well expanded. Normal pulmonary parenchyma. Normal pleura. Normal chest wall structures. Cervical spine fusions. Normal visualized upper abdomen. CT/CTA Chest W/WO Contrast IMPRESSION: Stable 4.9 cm aneurysm of the ascending thoracic aorta without evidence of acute complication. Electronically Signed: Damien Nichols MD at 17:26 EDT Tel , Service support ,
[2019-10-02 08:06] LABS: CREATININE FINGERSTICK 0.9 mg/dL (0.70-1.30); EGFR FINGERSTICK > 60.0000 mL/min (>60)
== END ==
PROVIDERS: PCP Family Medicine; Referring Provider Internal Medicine Cardiovascular Disease; Visit Provider Internal Medicine Cardiovascular Disease
DX: I77.810 Thoracic aortic ectasia (principal); I35.0 Nonrheumatic aortic (valve) stenosis; R06.00 Dyspnea, unspecified
CPT/HCPCS: 71275; Q9967

== ENCOUNTER → 2019-10-29 09:41 | Outpatient (CLI) | payer MEDICARE, OTHER, SELFPAY ==
[2019-10-15 09:49] VITALS: BMI 29.3
--- NOTE | 2019-10-29 09:41 | ECHOD_ITS ---
Reason For Study: MURMUR Procedure This was a 2D Doppler, Color Flow transthoracic echocardiogram. Exam performed in department. Left Ventricle Normal LV size. Left ventricular systolic function is normal. The estimated ejection fraction is 65 %. Stage 1 diastolic dysfunction. No regional wall motion abnormalities noted. Right Ventricle Normal right ventricle. Normal systolic function. Atria Normal left atrium. Normal right atrium. Mitral Valve Normal mitral valve. Tricuspid Valve Normal tricuspid valve. Mild tricuspid valve insufficiency. Pulmonary artery systolic pressure is 30 mmHg. Aortic Valve Trisinus/trileaflet aortic valve. Mild focal aortic valve calcification. Peak aortic valve gradient 24 mmHg. Mean aortic valve gradient 14 mmHg. Calculated aortic valve area (continuity equation) is 1.7 cm2. Pulmonic Valve Normal pulmonic valve. Great Vessels Calcified aortic root. Mildly dilated aortic root. The pulmonary artery is normal size. Inferior vena cava collapse with respiration. Pericardium/Pleural No pericardial effusion. MMode/2D Measurements & Calculations LVIDd: 3.8 cm IVSd: 1.0 cm LVOT diam: 2.0 cm LVIDs: 2.6 cm LVPWd: 1.0 cm LVOT area: 3.2 cm2 RVDd: 3.0 cm FS: 31.8 % Ao root diam: 3.9 cm LAV(MOD-bp): 29.3 ml LVAd ap4: 30.8 cm2 LAV(MOD-bp) Indexed: 14.4 ml/m2 EDV(MOD-sp4): 82.5 ml LAV(MOD-sp2): 35.3 ml EDV(sp4-el): 84.4 ml LAV(MOD-sp4): 24.2 ml LVAs ap4: 15.9 cm2 ESV(MOD-sp4): 26.9 ml ESV(sp4-el): 27.8 ml EF(MOD-sp4): 67.4 % EF(sp4-el): 67.0 % SV(MOD-sp4): 55.6 ml SV(sp4-el): 56.6 ml LA A4 area: 12.5 cm2 LA dimension(2D): 3.4 cm RA A4 area: 12.7 cm2 Time Measurements MV dec time: 0.30 sec Doppler Measurements & Calculations MV E max thomas: 81.7 cm/sec Lat Peak E' Thomas: 12.4 cm/sec Med Peak E' Thomas: 9.5 cm/sec MV A max thomas: 99.1 cm/sec E/E' lat: 6.6 E/E' med: 8.6 MV E/A: 0.82 Ao V2 max: 246.2 cm/sec LV V1 max: 130.0 cm/sec SV(LVOT): 103.8 ml Ao max P.2 mmHg LV V1 max P.8 mmHg Ao V2 mean: 181.8 cm/sec LV V1 mean P.0 mmHg Ao mean P.5 mmHg LV V1 mean: 94.4 cm/sec Ao V2 VTI: 54.5 cm LV V1 VTI: 32.4 cm DOC(I,D): 1.9 cm2 DOC(V,D): 1.7 cm2 PA V2 max: 85.9 cm/sec TR max thomas: 251.9 cm/sec TR max P.4 mmHg Interpretation Summary Normal LV size. Left ventricular systolic function is normal. The estimated ejection fraction is 65 %. Mean aortic valve gradient 14 mmHg. Stage 1 diastolic dysfunction. Calcified aortic root. Mildly dilated aortic root. Ordering Physician: Shane Toribio Referring Physician: JOHNSON FOX Performed By: Daria Mejias RDCS
== END ==
PROVIDERS: PCP Family Medicine; Referring Provider Internal Medicine Cardiovascular Disease; Visit Provider Internal Medicine Cardiovascular Disease
DX: Z01.810 Encounter for preprocedural cardiovascular examination (principal); R01.1 Cardiac murmur, unspecified; I36.1 Nonrheumatic tricuspid (valve) insufficiency
CPT/HCPCS: 93306

== ENCOUNTER → 2020-02-19 10:50 | Outpatient (CLI) | payer MEDICARE, OTHER, SELFPAY ==
[2019-10-15 09:49] VITALS: BMI 29.3
--- NOTE | 2020-02-19 10:57 | EKG12_ITS ---
Test Reason : ROUTINE Blood Pressure : / mmHG Vent. Rate : 069 BPM Atrial Rate : 069 BPM P-R Int : 178 ms QRS Dur : 076 ms QT Int : 384 ms P-R-T Axes : 033 014 029 degrees QTc Int : 411 ms Normal sinus rhythm Low voltage QRS Borderline ECG Confirmed by MAGNUS ABAD, ANATOLY ([id number]), supervising editor news reel LOUIE GARCES ([id number]) on 02/20/2020 10:46:12 AM Referred By: Ena Irizarry Confirmed By:ANATOLY AGUDELO MD
[2020-02-19 12:43] LABS: Anion Gap 6 (5-15); BUN 22 mg/dL (7-18); BUN/Creat Ratio 23.3 RATIO (10-20); Calcium,Total 8.5 mg/dL (8.5-10.1); Chloride 104 mmol/L (98-107); Creatinine, Serum 0.94 mg/dL (0.70-1.30); EST Glomerular Filtration Rate 84 mL/min (>60); Est Glom Filt Rate - Afr Amer 102 mL/min (>60); Glucose 77 mg/dL (74-106); Potassium 4.2 mmol/L (3.5-5.1); Sodium Level 139 mmol/L (136-145)
[2020-02-19 12:55] LABS: Absolute Lymphocyte Count 1.82 X10^3/uL (0.83-4.51); Basophil# 0.04 X10^3/uL; Basophil% 0.7 % (0-1); Eosinophil# 0.24 X10^3/uL; Eosinophils% 4.1 % (0-5); Hemoglobin 13.7 g/dL (13.0-16.5); Lymphocyte # 1.82 X10^3/ul (4.0); Lymphocyte % 30.8 % (19-41); Mean Corp Hgb Conc 32.6 g/dL (32-36); Mean Corpuscular Hgb 30.6 pg (27.0-32.0); Mean Corpuscular Volume 93.8 fL (80-94); Mean Platelet Vol. 10.3 fl (6.2-12.0); Monocyte# 0.77 X10^3/uL; Monocyte% 13.1 % (0-10); NRBC Flagged by Analyzer 0 % (0-5); Neutrophil # 3.02 X10^3/uL (2.7-7.7); Neutrophil % 51.1 % (47-70); Platelet Count 273 K/mm3 (150-450); RBC Distribution Width CV 11.9 % (11.6-14.6); Red Blood Count 4.48 M/mm3 (4.6-6.2); White Blood Count 5.9 K/mm3 (4.4-11.0)
== END ==
PROVIDERS: PCP Family Medicine; Referring Provider Registered Nurse; Visit Provider Registered Nurse
DX: Z01.818 Encounter for other preprocedural examination (principal)
CPT/HCPCS: 36415; 80048; 85025; 93005

== ENCOUNTER → 2020-06-25 08:10 | Outpatient (CLI) | payer MEDICARE, OTHER, SELFPAY ==
[2019-10-15 09:49] VITALS: BMI 29.3
--- NOTE | 2020-06-25 10:24 | NEURO_ITS ---
NCS and/or EMG Patient Report Ordering Doctor: Ba Givens DATE OF SERVICE: 06/25/20 Indication: Chronic neck pain status post decompression and fusion. History of carpal tunnel release on the right. Intermittent radicular pain and sensory disturbances in the left upper extremity. Evaluate for cervical radiculopathy and/or entrapment neuropathy. Findings: Nerve conduction studies were performed in the left upper extremity. The left median motor study recording the abductor pollicis brevis showed a normal amplitude, borderline prolonged distal latency and normal conduction velocity. The left ulnar motor study recording the abductor digiti minimi showed a normal amplitude, normal distal latency and normal conduction velocity. No conduction block or focal slowing was present across the elbow. The left median sensory response recording digit two showed a normal amplitude, borderline prolonged latency and slowed conduction velocity. The left ulnar sensory response recording digit five showed a normal amplitude, latency and conduction velocity. The left radial sensory response recording over the extensor snuff box showed a normal amplitude, latency and conduction velocity. As routine median motor and sensory studies only demonstrated mild abnormalities, additional internal comparison studies were done to confirm this finding. Left median-ulnar lumbrical / interosseous motor latencies showed a prolonged median latency compared to the ulnar. Needle EMG of the left upper extremity muscles was performed. The cervical paraspinal muscles were not sampled due to the patient's history of prior neck surgery. No active denervation was present in any of the examined muscles. Motor units were large, long and polyphasic with reduced recruitment in the triceps and flexor carpi radialis. Motor units were slightly large, slightly long duration and mildly polyphasic with normal recruitment in the abductor pollicis brevis. All other muscles demonstrated normal motor unit morphology activation and recruitment patterns. Impression: This is an abnormal and complex study. There is electrophysiologic evidence consistent with: 1. 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 2. A moderate, chronic, left C6-7 radiculopathy without active features. Thus, the patient has a double crush, two separate conditions that may result in upper extremity pain and similar sensory symptoms. Clinical correlation is needed in helping to determine the relative contributions of the two to the [facility] symptoms. Lastly, please note: because of the two co-existent conditions, this study would be theoretically insensitive in detecting an additional superimposed brachial plexopathy. Martir Garg D.O.
== END ==
PROVIDERS: PCP Family Medicine; Referring Provider Physician Assistant; Visit Provider Physician Assistant
DX: G56.02 Carpal tunnel syndrome, left upper limb (principal)
CPT/HCPCS: 95886; 95910

== ENCOUNTER → 2020-09-08 15:06 | Outpatient (CLI) | payer MEDICARE, OTHER, SELFPAY ==
[2019-10-15 09:49] VITALS: BMI 29.3
[2020-09-08 18:11] LABS: PSA,Total - Annual Screen 1.35 ng/mL (0.00-4.00); T4 Total, Thyroxin 9.6 ug/dL (4.5-12.1); Thyroid Stim Hormone (TSH) 3.34 uIU/mL (0.358-3.74)
== END ==
PROVIDERS: PCP Family Medicine; Referring Provider Family Medicine; Visit Provider Family Medicine
DX: E03.9 Hypothyroidism, unspecified (principal); Z12.5 Encounter for screening for malignant neoplasm of prostate
CPT/HCPCS: 36415; 84153; 84436; 84443; G0103

== ENCOUNTER → 2020-11-13 11:41 | Outpatient (CLI) | payer MEDICARE, OTHER, SELFPAY ==
[2020-11-13 12:45] LABS: Anion Gap 5 (5-15); BUN 15 mg/dL (7-18); BUN/Creat Ratio 17.7 RATIO (10-20); Calcium,Total 8.6 mg/dL (8.5-10.1); Chloride 106 mmol/L (98-107); Creatinine, Serum 0.85 mg/dL (0.70-1.30); EST Glomerular Filtration Rate 95 mL/min (>60); Est Glom Filt Rate - Afr Amer 115 mL/min (>60); Glucose 103 mg/dL (74-106); Potassium 3.8 mmol/L (3.5-5.1); Sodium Level 141 mmol/L (136-145)
== END ==
PROVIDERS: PCP Family Medicine; Referring Provider Internal Medicine Cardiovascular Disease; Visit Provider Internal Medicine Cardiovascular Disease
DX: I35.0 Nonrheumatic aortic (valve) stenosis (principal); I71.2 Thoracic aortic aneurysm, without rupture
CPT/HCPCS: 36415; 80048

== ENCOUNTER → 2020-11-30 13:36 | Outpatient (CLI) | payer MEDICARE, OTHER, SELFPAY ==
--- NOTE | 2020-11-30 13:37 | ECHOD_ITS ---
Reason For Study: Murmur Procedure This was a 2D Doppler, Color Flow transthoracic echocardiogram. Exam performed in department. Left Ventricle Normal LV size. Left ventricular systolic function is normal. The estimated ejection fraction is 60 %. Stage 1 diastolic dysfunction. No regional wall motion abnormalities noted. Right Ventricle Normal RV size. Normal systolic function. Atria Normal left atrium. Normal right atrium. Mitral Valve Normal mitral valve. Mild (1+) eccentric mitral valve insufficiency. Tricuspid Valve Normal tricuspid valve. Mild tricuspid valve insufficiency. Pulmonary artery systolic pressure is 25 mmHg. Aortic Valve Trisinus/trileaflet aortic valve. Mild focal aortic valve calcification. Peak aortic valve gradient 22 mmHg. Mean aortic valve gradient 13 mmHg. Pulmonic Valve Normal pulmonic valve. Great Vessels Moderately dilated aortic root. The pulmonary artery is normal size. Inferior vena cava collapse with sniff. Pericardium/Pleural No pericardial effusion. MMode/2D Measurements & Calculations LVIDd: 4.0 cm IVSd: 0.85 cm LVOT diam: 2.0 cm LVIDs: 2.3 cm LVPWd: 1.0 cm LVOT area: 3.3 cm2 RVDd: 3.7 cm FS: 41.4 % Ao root diam: 5.0 cm LAV(MOD-bp): 17.8 ml LVAd ap4: 21.2 cm2 ACS: 0.96 cm LAV(MOD-bp) Indexed: 8.6 ml/m2 LVLd ap4: 8.3 cm LAV(MOD-sp2): 24.1 ml EDV(MOD-sp4): 45.0 ml LAV(MOD-sp4): 11.5 ml EDV(sp4-el): 46.0 ml LVAs ap4: 10.3 cm2 LVLs ap4: 6.5 cm ESV(MOD-sp4): 15.1 ml ESV(sp4-el): 14.0 ml EF(MOD-sp4): 66.5 % EF(sp4-el): 69.6 % SV(MOD-sp4): 29.9 ml SV(sp4-el): 32.0 ml LA A4 area: 7.6 cm2 LA dimension(2D): 3.1 cm RA A4 area: 11.7 cm2 Doppler Measurements & Calculations MV E max thomas: 67.9 cm/sec Lat Peak E' Thomas: 9.2 cm/sec Med Peak E' Thomas: 8.3 cm/sec MV A max thomas: 91.1 cm/sec E/E' lat: 7.4 E/E' med: 8.2 MV E/A: 0.75 Ao V2 max: 236.2 cm/sec LV V1 max: 109.8 cm/sec SV(LVOT): 76.4 ml Ao max P.3 mmHg LV V1 max P.8 mmHg Ao V2 mean: 168.8 cm/sec LV V1 mean P.9 mmHg Ao mean P.7 mmHg LV V1 mean: 82.0 cm/sec Ao V2 VTI: 51.0 cm LV V1 VTI: 23.4 cm DOC(I,D): 1.5 cm2 DOC(V,D): 1.5 cm2 PA V2 max: 81.5 cm/sec TR max thomas: 229.6 cm/sec TR max P.1 mmHg ECHO/Echo Complete Interpretation Summary Normal LV size. Left ventricular systolic function is normal. The estimated ejection fraction is 60 %. Stage 1 diastolic dysfunction. Moderately dilated aortic root. Mean aortic valve gradient 13 mmHg. Compares to the previous the dilated aortic root is worse. Pulmonary artery systolic pressure is 25 mmHg. Ordering Physician: Shane Toribio Referring Physician: Yecenia Okeefe Performed By: Jennifer Treadwell RDCS, RVT
--- NOTE | 2020-11-30 14:33 | CT_ITS ---
STUDY: CTA CHEST REASON FOR EXAM: Male, 70 years old. TAA RADIATION DOSAGE (If Supplied By Facility): CTDIvol = ( 14.45 ) mGy, DLP = ( 610.53 ) mGycm TECHNIQUE: The examination was performed with the intravenous administration of IV 100mL Isovue-370. Post-processing of the angiographic images was performed, with multiplanar reformation and 3D reconstruction. Individualized dose optimization techniques were used for this CT. COMPARISON: 10/02/2019 FINDINGS: Thyroid gland is surgically absent. Normal enhancement of the main pulmonary artery and right and left pulmonary arteries. Normal enhancement of the bilateral peripheral pulmonary arteries. There is no demonstrated pulmonary embolism. Fusiform aneurysm of the ascending thoracic aorta measuring 5.0 cm is not significantly changed since prior study. There is no demonstrated aortic dissection. Normal heart and pericardium. There are calcifications of the coronary arteries. Normal mediastinum. Normal hilar regions. Normal visualized trachea and bronchi. The lungs are well expanded. Normal pulmonary parenchyma. Normal pleura. Normal chest wall structures. There are degenerative changes of thoracic spine. Normal visualized upper abdomen. CT/CTA Chest W/WO Contrast IMPRESSION: Since 10/02/2019, stable ascending thoracic aortic aneurysm. No thoracic aortic dissection. Electronically Signed: Barrington Senior MD ([place]) at 15:24 EDT , Service support ,
== END ==
PROVIDERS: PCP Family Medicine; Visit Provider Internal Medicine Cardiovascular Disease
DX: I71.2 Thoracic aortic aneurysm, without rupture (principal); I35.0 Nonrheumatic aortic (valve) stenosis
CPT/HCPCS: 71275; 93306; Q9967

== ENCOUNTER 2021-05-18 09:44 | Outpatient (CLI) | payer MEDICARE, OTHER, SELFPAY ==
--- NOTE | 2021-05-18 10:18 | CR.ITP_ITS ---
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, HYPERLIPIDEMAI, AORTIC ANEURYSM WITHOUT RUPTURE REPAIR Personal Learning Style:: Audio/Visual, Written Barriers to Learning: Vision Impairment Gave educational material for:: Treating Heart Disease, Emotions & Heart Disease, Stress Management & Relaxation, Sleep Disorders & Heart Disease, How The Heart Works, What it means to have Heart Disease, How Coronary Artery Disease is Diagnosed, Heart Procedures, What Heart Medications Do, Risk Factors & Modifications, Living an Active Life, Nutrition - Education/Goals Individual Counseling: Initial Assessment: Abnormal Cholesterol Levels, Overweight/Obesity Cardiac Rehabilitation Goals: 1. Maintain the individual as the primary focus of care. 2. To improve the patient's quality of life. 3. Identification of cardiac risk factors and provide cardiac risk factor management. 4. Enhance the psychosocial status of the patient. 5. Reconditioning enough to allow the patient to resume customary activities. 6. Control symptoms of cardiac disease Personal Goals: Initial Assessment: Improve management of stress and emotions, Improve energy level, Participate in home exercise program, Get back to work, or to resume activities faster, Improve diet and eating habits (eat healthier), Control risk factors (learn risk factor modification) Scale for measuring improvement of personal goals: Enter appropriate number in Comments. 2 = Unchanged. 3 = Slightly Better. 4 = Moderate Improvement. 5 = Met my Goal - Diagnosis & Disease Process Outcomes/Goals: Pt IDs own risk factors & lifestyle modifications by Session 10, Verbalizes symptoms of angina & response by session 3., Pt independently manages Plan/Interventions: Assist Pt to ID & engage in lifestyle modification to reduce CVD risk, Instruct on individual risk factors, Review symptoms of angina & emergency actions, Review secondary diagnosis & identify educational needs. - Safety Referral to Physical Therapy: No Referral to [facility] Case Management: No Fall Risk Assessed:: No Assistive Devices:: None Exercise - Initial Assessment - Visit Date of Eval: 05/18/21 Session #:: 0 - PRE-CARDIAC REHAB EVALUATION Mets: Pre-: >7 METS for 30 minutes by discharge - Physician Prescribed Exercise Modalities: Treadmill, Airdyne, NuStep, Lateral [place] Frequency: 3x/week for 12 weeks [36 sessions] Intensity: 60-80% of age predicted maximum heart rate reserve Current METSs:: 3.0 Target Heart Rate:: 98-127 Resting Blood Pressure: 122/65 EKG Type: NORMAL SINUS RHYTHM - Outcomes & Goals Goals:: Verbalizes understanding of THR, RPE & goal METS by session 6, Documents in home exercise log/reports 30 min aerobic 5 day/wk by DC, Demonstrates accurate pulse taking by DC - Intervention & Plan Exercise Program Goals: Instruct on personal THR & RPE, Instruct on MET level & personal MET goal, Show patient to take own pulse /validate performance until accurate, Instruct on home exercise - Physical Activity Home Exercise Physical Activity - Home Exercise: Safe Exercise, Warm-up, Self-monitoring, Cool-Down, Home Exercise > 30 min Daily, Sitting Time <3 hours/daily - Outcomes & Goals Outcomes/Goals: Demonstrates correct Warm-up/exercise Cool-Down (S3) if = 2.5 METs, Verbalizes symptoms of exercise intolerance by Session 3 (S3), Demonstrate safe equipment use (S3) & follows exercise prescrition (6) - Intervention & Plan Plan/Intervention: Instruct warm-up & cool-down if exercising at > 2 METs, Instruct on symptoms of exercise intolerance & actions to take, Instruct & monitor on saf, Assess intial functional capacity & safety risk Nutrition - Initial Assessment - Program Goals Nutrition Program Goals: LDL <100 optimal. 100 - 129 Near optimal. 130 - 159 Borderline High. 160 - 189 High. Total Cholesterol <200 desirable. 200 - 239 Borderline High. >/= 240 High. HDL < 40 Low >/=60 High. Triglycerides <150 desirable. <199 optimal. VlDL 5 - 40. HgbA1C <7%. BMI <25 Patient has diagnosis of Hyperlipidemia (ICD E78)?: Yes - Visit Date of Assessment:: 05/18/21 Session #:: 0 - PRE-CARDIAC REHAB EVALUATION - Cholesterol/Lipids Triglycerides (mg/dL): 111 - 08/25/2017 Total Cholesterol (mg/dL): 206 LDL Cholesterol (mg/dL): 133 HDL Cholesterol (mg/dL): 51 Determine presence & major risk factors that modify LDL goal: Hypertension or hypertensive medication, Family history of premature CHD in Male < 55 years: female <65 yearsFa, Age men > 45 years; women >/= 55 years Outcomes/Goals: Pt IDs own risk factors & lifestyle modifications by Session 10, Verbalizes symptoms of angina & response by session 3., Pt independently manages Intervention/Plan: Instruct on personal lipid levels & lipid goals/NCEP guidelines, Instruct on cholesterol Referral to dietitian:: Yes - MEDICAL NUTRITION THERAPY - Diabetes (Other Core Measures) Diabetes Type: Not Applicable - Weight Mgt (Other Care) Height: 5 ft 8 in Weight:: 189 lb BMI: 28.7 Diagnosis Overweight/Obesity BMI> 30% ICD-10 E66: No Diagnosis High BMI/Morbid Obesity BMI> 35% ICD-10 Z68: No Outcomes/Goals: Pt sets, maintains & shows weight loss goal & trend during rehab Intervention/Plan: Instruct on ideal BMI & set weight loss goal w/patient, Assist pt to ID & incorporate diet changes for weight loss by S9 - Healthy Eating Habits Will attend diet classes:: Yes Outcomes/Goals:: Consume diet rich in vegs,fruits,whole grain/high fiber,fish,lean meat, Limit sat/trans fats,cholesterol & added salts & sugars Intervention/Plan:: Assess current eating habits - Education Gave educational materials for:: Healthy eating Nutrition - 30-Day Assessment Nutrition - 60-Day Assessment Nutrition - 90-Day Assessment Nutrition - Final Assessment Medical - Initial Assessment - Visit Date of Eval: 05/18/21 Session #:: 0 - PRE-CARDIAC REHAB EVALUATION - Medication Compliance Preventative Medication(s):: Aspirin, Beta elvis H/O mental health issues: depression, anxiety, or addiction?: No Doesn?t believe in the benefits of treatment?: No Believes medications are unnecessary or harmful?: No Has a concern about medication side effects?: No Expresses concern over the cost of medications?: No Outcomes/Goals: Verbalizes medications,desired effect & common side effects @ DC, Pt self-reports following medication regimen, Keeps card in wallet w/medications listed by DC Interventions/plans: Instruct on medication effects & side effects, Review medication list w/patient every two weeks, Instruct importance of taking meds as ordered & assist problem solving - Tobacco Use Tobacco Use: Non-smoker - Hypertension Resting Blood Pressure:: 122/65 [place] [employer] Hypertension Guidelines: [place] [employer] Hypertension Guidelines. Normal BP Less than 120/80. Elevated BP 120/80. Hypertension Stage 1: BP 130-139/80-89. Hypertesnion Stage 2: BP 140 or higher/90 or higher. Hypertension Crisis: BP higher than 180/120 Outcomes/Goals: Able to verbalize/achieve optimal blood pressure <130/80, Incorporates diet changes & exercise for blood pressure control by DC Interventions/plan: Instruct on optimal blood pressure, hypertension & medications - Tobacco Cessation Referral Smoking Cessation Referral:: No Individual Education/Counseling:: No Education Schedule Given:: Yes Medical- 30-Day Assessment Medical- 60-Day Assessment Medical- 90-Day Assessment Medical - Final Assessment Psychosocial - Initial Assess - VIsit Date of Eval: 05/18/21 Session #:: 0 - PRE-CARDIAC REHAB EVALUATION Not Applicable: Yes History of previous Mental disease:: No - Psychosocial Test Tool Used:: [employer] Power QOL Cardiac, PHQ-9 Questionnaire phq-9 Severity: Severity. 1-4 Minimal Depression. 5-9 Mild Depression. 10-14 Moderate Depression. 15-19 Moderately Sever Depression. 20-27 Severe Depression. Rule: - Referral to Behavioral Health PS - Interventions: Yes Attend Stress Management Classes, No Referral to Behavioral Health if PHQ-9 score >9:, No Referral to [facility], No Referral to Physician if PHQ-9 if score is 5-9: - Outcomes/Goals: See list Psychosocial Outcomes/Goals:: ID's personal stressors & 2 strategies to manage stress by discharge - Intervention/Plan: See List Interventions/Plan:: Assess stressors,coping strategies & signs of derpression on admission, Instruct/assist pt to develop coping & personal stress Mgt strategies, Instruct patient to recognize signs & symptoms of depression, Instruct patient to recog Psychosocial - 30-Day Assess Psychosocial - 60-Day Assess Psychosocial - 90-Day Assess Psychosocial - Final Assessmen Patient Health Questionnaire Initial Assessment 1. Little interest or pleasure in doing things: Not at all 2. Feeling down, depressed, or hopeless: Not at all 3. Trouble falling or staying asleep, or sleeping too much: Several days 4. Feeling tired or having little energy: Several days 5. Poor appetite or overeating: Not at all 6. Feeling bad about yourself -- or that you are a failure or have let yourself or your family down: Not at all 7. Trouble concentrating on things, such as reading the newspaper or watching television: Not at all 8. Moving or speaking so slowly that other people could have noticed. Or the opposite - being so fidgety or restless that you have been moving around a lot more than usual: Not at all 9. Thoughts that you would be better off , or of hurting yourself in some way: Not at all How difficult have these problems made it for you to do your work, take care of things at home, or get along with other people?: Not difficult at all Total Score: 2 RAVEN-Q SV Test - Statements CAD is a disease of the arteries in the heart: False Examples of risk factors for heart disease: True Angina is chest pain or discomfort: True The benefits of resistance training include: True Eating more meat and dairy products: False Anti-platelet medications such as aspirin are important: True The only effective way to manage stress: False An exercise warm-up slowly increases heart rate: True Prepared, processed foods usually have high sodium: True Depression is common after a heart attack: True The statin medications lower cholesterol: I Don't Know To control blood pressure, lower the amount of sodium: I Don't Know If someone gets chest discomfort during walking: False Transfats are partially hydrogenated vegetable oils: True Sleep apnea that is not treated increases the risk: False To control cholesterol, one should become a vegetarian: False Someone knows if he/she is exercising at the right level: I Don't Know Diabetes cannot be prevented with exercise & health eating: False Stress is a large risk for heart attack: True A diet that can help lower blood pressure is rich in: True - Total Score Total Correct Responses: 17 Self-Efficacy Initial Assessment We would like to know how confident you are in doing certain activities. Please select your confidence level for:: Select your confidence level for the following using the scale 1-10 where 1 is not at all confident and 10 is totally confident. Your score is the average of all 6 responses. Fatigue: How confident are you that you can keep the fatigue caused by your disease from interfering with the things you want to do? Select Number: 9 Physical Discomfort or Pain: How confident are you that you can keep the physical discomfort or pain of your disease from interfering with the things you want to do? Select Number: 9 Emotional Distress: How confident are you that you can keep the emotional distress caused by your disease from interfering with the things you want to do? Select Number: 10 Other Symptoms or Health Problems: How confident are you that you can keep other symptoms or health problems from interfering with the things you want to do? Select Number: 7 Different Tasks and Activities: How confident are you that you can do the different tasks and activities needed to manage your health condition so as to reduce your need to see a doctor? Select Number: 9 Medication: How confident are you that you can do things other than just taking medication to reduce how much your illness affects your everyday life? Select Number: 9 Total Score:: 8 Nutrition Survey - Nutrition Survey Initial Have you lost >10 lbs over the past 2 months without trying?: Yes Are you following a special diet at home for diabetes, low fat, or low salt?: No Are you interested in meeting with a dietitian for help understanding your diet?: Yes Do you eat less than 3 meals a day?: No Do you eat fatty meats (vance, sausage, ribs, etc), fried foods, desserts, large amounts of salad dressings, margarine, butter, or cheese most days?: No Do you have food allergies? [Enter types in comment field]: No Do you eat in restaurants more than 3 times a week?: No Do you season food with salt, seasoning salt, or garlic salt?: Yes Do you used canned, boxed, frozen meals, or soups, seasoning packets?: Yes Total Score:: 4
--- NOTE | 2021-05-18 10:18 | PCM.CR.HP2 ---
CR - History & Physical - General Arrival date:: 05/18/21 Arrival time:: 10:00 Date of Referral:: 05/03/20 Date of CR Evaluation:: 05/18/21 Referring Physician: DR. SHANE AGUDELO Primary Diagnosis: S/P SINGLE VESSEL BYPASS - HEART VALVE REPLACEMENT - History of Present Cardiac Event Onset Date: Enter Onset Date of cardiac illnesses in Comment field below Coronary Artery Bypass Graft:: Yes - 04/22/2021 SINGLE VESSEL BYPASS - AORTIC ANEURYSM REPAIR Heart valve replacement or repair:: Yes - AORTIC VALVE REPLACEMENT - XENOGENIC HEART VALVE ON 04/22/2021 Type of Symptoms:: NO SYMPTOMS, STARTED WITH THE HEART MURMER AND OVER TIME BECAME MORE SHORT OF BREATH WITH ACTIVITIES AND A LOSS OF ENERGY ETC. Were there any complications?: NONE - Sleep Disorder Evaluation Hx of Sleep Apnea: Yes Do you snore loudly (louder than talking or can be heard through closed doors)?: Yes Do you often feel tired/ fatigued/ sleepy during daytime?: No Has anyone observed you stop breathing during sleep?: No History of Hypertension (for STOP score): Yes - PREVIOUS DIAGNOSIS BUBBA - HAS HOME EQUIPMENT STOP Results: Positive - Medications Home Medications: Ambulatory Orders Medication Instructions Recorded duloxetine 60 mg PO DAILY 12/13/12 levothyroxine 150 mcg capsule 150 mcg PO DAILY 10/04/17 acetaminophen 500 - 1,000 mg PO Q6H PRN PRN 11/22/17 sumatriptan succinate 100 mg tablet 100 mg PO .X1 PRN PRN 10/15/19 gabapentin 100 mg capsule 100 mg PO BID 11/13/20 aspirin 81 mg tablet,delayed 81 mg PO DAILY 05/03/21 release atorvastatin 20 mg tablet 20 mg PO QPM 05/03/21 metoprolol succinate 50 mg 50 mg PO DAILY 05/03/21 tablet,extended release 24 hr - Allergies Allergies/Adverse Reactions: Allergies mold spores Adverse Reaction (Uncoded 11/13/20 10:51) Unknown Advanced Directives - Advanced Directives Power of [employer] Professor: Yes - SPOUSE IS POA FOR HEALTH CARE Living Will: Yes Advance Directives Information Provided: No Advance Directives on File: Yes DNR Order?:: No - MOLST See MOLST form: No Past Medical History - Covid-19 Screening Fever: No Unexplained muscle aches: No Current respiratory symptoms: No Upper respiratory infections symptoms: No Gastro-intestinal symptoms: No [id number] symptoms: No Date of testin05/18/21 - FULLY VACCINED WITH BOOSTER Had contact w/person w/symptoms or Covid-19 (+) last 14 days: No Has High Risk Exposures ID'd by Health dept/Inf Control team: No 65 years or older:: Yes Lives in Assisted Living facility:: No Has a chronic lung disease or moderate to severe asthma:: No Has a serious heart condition:: Yes Immunocompromised:: Yes Severely obese (Body Mass Index of 40 or higher):: No Diabetic:: No Has chronic kidney disease undergoing dialysis:: No Has liver disease:: No - Past Medical Illness Medical History: Past Medical History (Last Updated 05/03/21 @ 12:25 by Miriam Ricketts) Atherosclerotic heart disease of [place] coronary artery without angina pectoris I25.10 BPH (benign prostatic hyperplasia) N40.0 DDD (degenerative disc disease), cervical M50.30 Depression F32.9 Erectile dysfunction N52.9 Hyperlipidemia E78.5 Hypothyroidism E03.9 Lupus anticoagulant disorder D68.62 Migraines G43.909 Non-rheumatic aortic stenosis I35.0 Obstructive sleep apnea G47.33 Paresthesia and pain of extremity R20.2, M79.609 Thoracic aortic aneurysm I71.2 Fusiform aneurysm of the ascending thoracic aorta measuring 5.0 cm is not significantly changed since prior study - Past Surgical History Surgical History: Past Surgical History (Last Updated 05/03/21 @ 12:01 by Miriam Ricketts) Cervical vertebral fusion M43.22 H/O coronary artery bypass surgery Onset Date: 04/22/21 Z95.1 CABG x 1 MAC-LAD and AVR(#23 Inspiris), Ascending aortic replacement( #30 Gelweave graft) 04/22/2021 H/O thyroidectomy Z98.890 History of aortic valve replacement with bioprosthetic valve Onset Date: 04/22/21 Z95.3 AVR(#23 Inspiris), Ascending aortic replacement( #30 Gelweave graft)04/22/2021 History of ascending aorta repair Onset Date: 04/22/21 Z98.890 AVR(#23 Inspiris), Ascending aortic replacement( #30 Gelweave graft) 04/22/2021 History of back surgery Onset Date: 08/2018 Z98.890 History of bilateral carpal tunnel release Z98.890 History of left heart catheterization Onset Date: 03/22/21 Z98.890 History of lumbar laminectomy Z98.890 History of nasal septoplasty Z98.890 History of rhinoplasty Z98.890 History of transurethral resection of prostate Z98.890, Z90.79 History of uvulopalatopharyngoplasty Z98.890 S/P trigger finger release Z98.890 - Family History Summary Family History: Family History (Last Reviewed 11/13/20 @ 11:[address] Shane Agudelo MD) Brother CAD (coronary artery disease) Cancer Myocardial infarction age 69 Father Cancer CVA (cerebral vascular accident) CAD (coronary artery disease) Mother Heart disease chf Social History - Smoking History Smoking Status: Former smoker - Alcohol Use Alcohol Usage: Yes - OCCASIONALLY; DOUBLE SCOTCH NOW AND THEN - Substance Abuse Hx Substance Use: No - Occupation Occupation (List type of work in comments):: Retired - Hobbies, Recreation, Social Activities Hobbies: Other - [employer] Recreational Activities: I am able to engage in all my recreational activities - WALKING TO THE MAILBOX NOW AND WALKING Social Environment - Status Marital Status: - Current Living Arrangements Living Environment:: Spouse - Children How many children do you have?: 0 Do any of your children live nearby?: No - Safety Do you feel safe in your surroundings?: Yes - Assistance Do you need any assistance at home?: NO Review of Systems - Review of Systems Hints: Right click = Denies (Slash). Left click = Reports ([place]) Review of Present Symptoms: Reports: Wound Healing, Appetite - Normal - TOO NORMAL, Appetite - Special Diet - REDUCE TO NO SODIUM, DECREASE SWEETS, Sleep - Normal. Denies: Shortness of Breath at Rest, Shortness of Breath with Exertion, Dizziness/Lightheadedness, Fatigue, Heart Arrhythmia/Irregularities, Sexual Changes - Pain Is Patient Pain Free?: Yes Pain Location: back - SEVERE LUMBAR STENOSIS, LUMBARECTOMY, FUSIONS ETC. Risk Factor Assessment - Chief Complaint Chief Complaint: PT IS A 70 YR OLD MALE WITH MEDICAL HISTORY SIGNIFICANT FOR CAD, THORACIC AORTIC ANEURYSM, BICUSPID AORTIC VALVE, BUBBA, GERD HYPOTHYROIDISM ADN HYPERTENSION. - Vital Signs Temperature: 96.8 F Respiratory Rate: 20 Pulse Ox: 98 Blood Pressure: 122/65 - Pulse Pulse Rate: 74 Pulse Rhythm: Regular - Hypertension Blood Pressure Sitting - Left Arm: 122/65 - Blood Cholesterol/Lipids Total Cholesterol (mg/dL) Goal = less than 200 mg/dL: 206 - 08/25/2017 HDL Cholesterol (mg/dL) Goal = less than 40 mg/dL: 51 LDL Cholesterol (mg/dL) Goal = less than 70 mg/dL: 133 Triglycerides (mg/dL) Goal = less than 150 mg/dL: 111 - Obesity Height: 5 ft 9 in Weight:: 189 lb Weight in Pounds: 189.0 lbs Weight Source: Stated by Patient Body Mass Index (BMI): 27.8 Nutritional Referral for Obesity: No - Physical Inactivity Physical Inactivity: Reg Exercise 30 min/day, Recreational activity - WALKING DAILY - Risk Stratification Risk Guidelines: Lowest Risk: Risk Factor for Dyslipidemia - Family History Family History: Family History (Last Reviewed 11/13/20 @ 11:[address] Shane Agudelo MD) Brother CAD (coronary artery disease) Cancer Myocardial infarction Father Cancer CVA (cerebral vascular accident) CAD (coronary artery disease) Mother Heart disease Motivation - Motivation to Participate On a scale of 1 to 10, how prepared are you to commit to attending program?: 10 What do you see as barriers to successfully being able to complete the program?: NO What do you see as the benefits of succesfully completing the program? In other words, what do you hope to get out of participating in the program?: ENDURANCE, STRENGTH Are there issues you are dealing with that will interfere with completing the program?: STENOSIS Do you have a spouse or signficant other, family or friends who will help support you to complete the program?: YES
[2021-05-18 10:45] VITALS: BP 122/65; PULSE 74; RESP 20; TEMP 36; O2SAT 98; BMI 27.8; BMI 28.7
== END 2021-05-18 23:59 | disposition home or self-care (01) ==
LOC: CR 09:49
PROVIDERS: PCP Family Medicine; Referring Provider Internal Medicine Cardiovascular Disease; Visit Provider Internal Medicine Cardiovascular Disease
DX: E03.9 Hypothyroidism, unspecified (principal); E78.5 Hyperlipidemia, unspecified; I25.10 Atherosclerotic heart disease of native coronary artery without angina pectoris

== ENCOUNTER 2021-05-25 14:27 | Outpatient (CLI) | payer MEDICARE, OTHER, SELFPAY ==
[2021-05-18 10:45] VITALS: BMI 28.7
[2021-05-25 15:27] LABS: AST(SGOT) 24 U/L (15-37); Alanine Aminotransfer ALT/SGPT 34 U/L (16-61); Albumin, Serum 3.7 g/dL (3.2-5.0); Alkaline Phosphatase 124 U/L (45-117); Bilirubin, Direct 0.12 mg/dL (0.00-0.30); Cholesterol 124 mg/dL (200); Globulin 3.8 g/dL (2.2-4.2); High Density Lipoprotein 42 mg/dL; Protein, Total 7.5 g/dL (6.4-8.2); Triglycerides 93 mg/dL; Very Low Density Lipoprotein 19 mg/dL (5-40)
== END 2021-05-25 23:59 | disposition home or self-care (01) ==
LOC: LAB 14:29
PROVIDERS: PCP Family Medicine; Referring Provider Internal Medicine Cardiovascular Disease; Visit Provider Internal Medicine Cardiovascular Disease
DX: E78.00 Pure hypercholesterolemia, unspecified (principal)
CPT/HCPCS: 36415; 80061; 80076

== ENCOUNTER 2021-06-11 10:30 | Outpatient (RCR) | payer MEDICARE, OTHER, SELFPAY ==
[2021-05-18 10:45] VITALS: BMI 28.7
== END 2021-06-12 23:59 ==
LOC: CR 10:30
PROVIDERS: PCP Family Medicine; Referring Provider Internal Medicine Cardiovascular Disease; Visit Provider Internal Medicine Cardiovascular Disease
DX: I25.10 Atherosclerotic heart disease of native coronary artery without angina pectoris (principal); Z95.3 Presence of xenogenic heart valve; Z98.890 Other specified postprocedural states; Z95.1 Presence of aortocoronary bypass graft; I71.2 Thoracic aortic aneurysm, without rupture; I35.0 Nonrheumatic aortic (valve) stenosis; E78.5 Hyperlipidemia, unspecified
CPT/HCPCS: 93798

== ENCOUNTER 2021-07-09 10:30 | Outpatient (RCR) | payer MEDICARE, OTHER, SELFPAY ==
[2021-05-18 10:45] VITALS: BMI 28.7
--- NOTE | 2021-06-15 06:39 | CR.ITP_ITS ---
Diagnosis Exercise - 30-day Assessment - Visit Date of Eval: 06/15/21 Session #:: 10 - Patient 100% compliance to date - Physician Prescribed Exercise Modalities: Treadmill, Airdyne, NuStep Frequency: 3x/week for 12 weeks [36 sessions] Intensity: 60-80% of age predicted maximum heart rate reserve Current METSs:: 5.0 Target Heart Rate:: 98-127 Current RPE:: 11-13 Maximum Excercise HR:: 131 Resting Blood Pressure: 122/64 Maximum Exercise Blood Pressure: 158/72 EKG Type: NSR to sinus tach with occasional PAC and PVC Current Physical Activity or Exercising minutes: 46 - Outcomes & Goals Goals:: Verbalizes understanding of THR, RPE & goal METS by session 6, Documents in home exercise log/reports 30 min aerobic 5 day/wk by DC, Demonstrates accurate pulse taking by DC - Intervention & Plan Exercise Program Goals: Instruct on personal THR & RPE, Instruct on MET level & personal MET goal, Show patient to take own pulse /validate performance until accurate, Instruct on home exercise - 30-day Reassessments 30 day Reassessments:: Progressing - Physical Activity Home Exercise Physical Activity - Home Exercise: Safe Exercise, Warm-up, Self-monitoring, Cool-Down, Home Exercise > 30 min Daily, Sitting Time <3 hours/daily - Outcomes & Goals Outcomes/Goals: Demonstrates correct Warm-up/exercise Cool-Down (S3) if = 2.5 METs, Verbalizes symptoms of exercise intolerance by Session 3 (S3), Demonstrate safe equipment use (S3) & follows exercise prescrition (6) - Intervention & Plan Plan/Intervention: Instruct warm-up & cool-down if exercising at > 2 METs, Instruct on symptoms of exercise intolerance & actions to take, Instruct & monitor on saf, Assess intial functional capacity & safety risk - 30-day Reassessments 30 day Reassessments:: Met Nutrition - Initial Assessment Nutrition - 30-Day Assessment - Program Goals Nutrition Program Goals: LDL <100 optimal. 100 - 129 Near optimal. 130 - 159 Borderline High. 160 - 189 High. Total Cholesterol <200 desirable. 200 - 239 Borderline High. >/= 240 High. HDL < 40 Low >/=60 High. Triglycerides <150 desirable. <199 optimal. VlDL 5 - 40. HgbA1C <7%. BMI <25 Patient has diagnosis of Hyperlipidemia (ICD E78)?: Yes - Visit Date of Assessment:: 06/15/21 Session #:: 10 - Cholesterol/Lipids Triglycerides (mg/dL): 111 Total Cholesterol (mg/dL): 206 LDL Cholesterol (mg/dL): 133 HDL Cholesterol (mg/dL): 51 Determine presence & major risk factors that modify LDL goal: Hypertension or hypertensive medication, Family history of premature CHD in Male < 55 years: female <65 yearsFa, Age men > 45 years; women >/= 55 years Outcomes/Goals: Pt IDs own risk factors & lifestyle modifications by Session 10, Verbalizes symptoms of angina & response by session 3., Pt independently manages Intervention/Plan: Instruct on personal lipid levels & lipid goals/NCEP guidelines, Instruct on cholesterol Referral to dietitian:: Yes - Medical Nutrition Therapy 30-day Reassessments:: Progressing - Diabetes (Other Core Measures) Diabetes Type: Not Applicable - Weight Mgt (Other Care) Not Applicable: Yes Height: 5 ft 8 in Weight:: 182 lb 8 oz BMI: 27.7 Diagnosis Overweight/Obesity BMI> 30% ICD-10 E66: No Diagnosis High BMI/Morbid Obesity BMI> 35% ICD-10 Z68: No Outcomes/Goals: Pt sets, maintains & shows weight loss goal & trend during rehab Intervention/Plan: Instruct on ideal BMI & set weight loss goal w/patient 30 day Reassessments:: Progressing - Healthy Eating Habits Will attend diet classes:: Yes Outcomes/Goals:: Consume diet rich in vegs,fruits,whole grain/high fiber,fish,lean meat, Limit sat/trans fats,cholesterol & added salts & sugars Intervention/Plan:: Assess current eating habits 30-day Reassessments:: Progressing - Education Gave educational materials for:: Healthy eating Nutrition - 60-Day Assessment Nutrition - 90-Day Assessment Nutrition - Final Assessment Medical - Initial Assessment Medical- 30-Day Assessment - Visit Date of Eval: 06/15/21 Session #:: 10 - Medication Compliance Preventative Medication(s):: Aspirin, Statin/lipid, Beta elvis H/O mental health issues: depression, anxiety, or addiction?: No Doesn?t believe in the benefits of treatment?: No Believes medications are unnecessary or harmful?: No Has a concern about medication side effects?: No Expresses concern over the cost of medications?: No Outcomes/Goals: Verbalizes medications,desired effect & common side effects @ DC, Pt self-reports following medication regimen, Keeps card in wallet w/medications listed by DC Interventions/plans: Instruct on medication effects & side effects, Review medication list w/patient every two weeks, Instruct importance of taking meds as ordered & assist problem solving 30-day Reassessments:: Progressing - Tobacco Use Tobacco Use: Non-smoker - Hypertension Hypertension Diagnosis:: Hypertension ICD-10 I10 Resting Blood Pressure:: 122/64 [place] [employer] Hypertension Guidelines: [place] [employer] Hypertension Guidelines. Normal BP Less than 120/80. Elevated BP 120/80. Hypertension Stage 1: BP 130-139/80-89. Hypertesnion Stage 2: BP 140 or higher/90 or higher. Hypertension Crisis: BP higher than 180/120 Peak Exercise Blood Pressure:: 158/72 Outcomes/Goals: Able to verbalize/achieve optimal blood pressure <130/80, Incorporates diet changes & exercise for blood pressure control by DC Interventions/plan: Instruct on optimal blood pressure, hypertension & medications, Instruct on effects of sodium, alcohol, stress, exercise &hypertension 30 day Reassessments:: Progressing - Tobacco Cessation Referral Smoking Cessation Referral:: No Individual Education/Counseling:: No Education Schedule Given:: Yes Medical- 60-Day Assessment Medical- 90-Day Assessment Medical - Final Assessment Psychosocial - Initial Assess Psychosocial - 30-Day Assess - VIsit Date of Eval: 06/15/21 Session #:: 10 Not Applicable: Yes History of previous Mental disease:: No - Psychosocial Test Tool Used:: PHQ-9 Questionnaire phq-9 Severity: Severity. 1-4 Minimal Depression. 5-9 Mild Depression. 10-14 Moderate Depression. 15-19 Moderately Sever Depression. 20-27 Severe Depression. Rule: - Referral to Behavioral Health PS - Interventions: Yes Attend Stress Management Classes, No Referral to Behavioral Health if PHQ-9 score >9:, No Referral to [facility], No Referral to Physician if PHQ-9 if score is 5-9: - Outcomes/Goals: See list Psychosocial Outcomes/Goals:: ID's personal stressors & 2 strategies to manage stress by discharge - Intervention/Plan: See List Interventions/Plan:: Assess stressors,coping strategies & signs of derpression on admission, Instruct/assist pt to develop coping & personal stress Mgt strategies, Instruct patient to recognize signs & symptoms of depression, Instruct patient to recog - 30-day Reassessments: 30 day Reassessments:: Progressing Psychosocial - 60-Day Assess Psychosocial - 90-Day Assess Psychosocial - Final Assessmen Patient Health Questionnaire 30-Day Re-eval Assessment 1. Little interest or pleasure in doing things: Not at all 2. Feeling down, depressed, or hopeless: Not at all 3. Trouble falling or staying asleep, or sleeping too much: Not at all 4. Feeling tired or having little energy: Not at all 5. Poor appetite or overeating: Not at all 6. Feeling bad about yourself -- or that you are a failure or have let yourself or your family down: Not at all 7. Trouble concentrating on things, such as reading the newspaper or watching television: Not at all 8. Moving or speaking so slowly that other people could have noticed. Or the opposite - being so fidgety or restless that you have been moving around a lot more than usual: Not at all 9. Thoughts that you would be better off , or of hurting yourself in some way: Not at all How difficult have these problems made it for you to do your work, take care of things at home, or get along with other people?: Not difficult at all Total Score: 0 Self-Efficacy 30-Day Re-eval Assessment We would like to know how confident you are in doing certain activities. Please select your confidence level for:: Select your confidence level for the following using the scale 1-10 where 1 is not at all confident and 10 is totally confident. Your score is the average of all 6 responses. Fatigue: How confident are you that you can keep the fatigue caused by your disease from interfering with the things you want to do? Select Number: 9 Physical Discomfort or Pain: How confident are you that you can keep the physical discomfort or pain of your disease from interfering with the things you want to do? Select Number: 10 Emotional Distress: How confident are you that you can keep the emotional distress caused by your disease from interfering with the things you want to do? Select Number: 10 Other Symptoms or Health Problems: How confident are you that you can keep other symptoms or health problems from interfering with the things you want to do? Select Number: 8 Different Tasks and Activities: How confident are you that you can do the different tasks and activities needed to manage your health condition so as to reduce your need to see a doctor? Select Number: 9 Medication: How confident are you that you can do things other than just taking medication to reduce how much your illness affects your everyday life? Select Number: 10 Total Score:: 9 Nutrition Survey
[2021-06-15 06:58] VITALS: BP 122/64; BP 158/72; BMI 27.7
== END 2021-07-13 23:59 ==
LOC: CR 10:30
PROVIDERS: PCP Family Medicine; Referring Provider Internal Medicine Cardiovascular Disease; Visit Provider Internal Medicine Cardiovascular Disease
DX: I25.10 Atherosclerotic heart disease of native coronary artery without angina pectoris (principal); Z95.3 Presence of xenogenic heart valve; Z98.890 Other specified postprocedural states; Z95.1 Presence of aortocoronary bypass graft; I71.2 Thoracic aortic aneurysm, without rupture; I35.0 Nonrheumatic aortic (valve) stenosis; E78.5 Hyperlipidemia, unspecified
CPT/HCPCS: 93798

== ENCOUNTER 2021-08-11 10:30 | Outpatient (RCR) | payer MEDICARE, OTHER, SELFPAY ==
[2021-06-15 06:58] VITALS: BMI 27.7
[2021-07-14 01:04] VITALS: BP 122/64; BP 158/72
--- NOTE | 2021-07-16 12:07 | PCM.CR.ITP ---
Diagnosis Exercise - 60-day Assessment - Visit Date of Eval: 07/16/21 Session #:: 23 - Physician Prescribed Exercise Modalities: Treadmill, Airdyne, NuStep Frequency: 3x/week for 12 weeks [36 sessions] Intensity: 60-80% of age predicted maximum heart rate reserve Current METSs:: 5.5 Target Heart Rate:: 98-127 Current RPE:: 12-13 Maximum Excercise HR:: 120 Resting Blood Pressure: 110/56 Maximum Exercise Blood Pressure: 140/70 EKG Type: NSR to sinus tach w/occasional PAC and PVC Current Physical Activity or Exercising minutes: 38:08 - Outcomes & Goals Goals:: Verbalizes understanding of THR, RPE & goal METS by session 6, Documents in home exercise log/reports 30 min aerobic 5 day/wk by DC, Demonstrates accurate pulse taking by DC - Intervention & Plan Exercise Program Goals: Instruct on personal THR & RPE, Instruct on MET level & personal MET goal, Show patient to take own pulse /validate performance until accurate, Instruct on home exercise - 30-day Reassessments 30 day Reassessments:: Progressing - Physical Activity Home Exercise Physical Activity - Home Exercise: Safe Exercise, Warm-up, Self-monitoring, Cool-Down, Home Exercise > 30 min Daily, Sitting Time <3 hours/daily - Outcomes & Goals Outcomes/Goals: Demonstrates correct Warm-up/exercise Cool-Down (S3) if = 2.5 METs, Verbalizes symptoms of exercise intolerance by Session 3 (S3), Demonstrate safe equipment use (S3) & follows exercise prescrition (6) - Intervention & Plan Plan/Intervention: Instruct warm-up & cool-down if exercising at > 2 METs, Instruct on symptoms of exercise intolerance & actions to take, Instruct & monitor on saf, Assess intial functional capacity & safety risk - 30-day Reassessments 30 day Reassessments:: Progressing Nutrition - Initial Assessment Nutrition - 30-Day Assessment Nutrition - 60-Day Assessment - Program Goals Nutrition Program Goals: LDL <100 optimal. 100 - 129 Near optimal. 130 - 159 Borderline High. 160 - 189 High. Total Cholesterol <200 desirable. 200 - 239 Borderline High. >/= 240 High. HDL < 40 Low >/=60 High. Triglycerides <150 desirable. <199 optimal. VlDL 5 - 40. HgbA1C <7%. BMI <25 Patient has diagnosis of Hyperlipidemia (ICD E78)?: Yes - Visit Date of Assessment:: 07/16/21 Session #:: 23 - Cholesterol/Lipids Triglycerides (mg/dL): 111 Total Cholesterol (mg/dL): 206 LDL Cholesterol (mg/dL): 133 HDL Cholesterol (mg/dL): 51 Determine presence & major risk factors that modify LDL goal: Hypertension or hypertensive medication, Family history of premature CHD in Male < 55 years: female <65 yearsFa, Age men > 45 years; women >/= 55 years Outcomes/Goals: Pt IDs own risk factors & lifestyle modifications by Session 10, Verbalizes symptoms of angina & response by session 3., Pt independently manages Intervention/Plan: Instruct on personal lipid levels & lipid goals/NCEP guidelines, Instruct on cholesterol Referral to dietitian:: No - Patient declined services 30-day Reassessments:: Progressing - Diabetes (Other Core Measures) Diabetes Type: Not Applicable - Weight Mgt (Other Care) Height: 5 ft 8 in Weight:: 183 lb 8 oz BMI: 27.8 Diagnosis Overweight/Obesity BMI> 30% ICD-10 E66: No Diagnosis High BMI/Morbid Obesity BMI> 35% ICD-10 Z68: No Outcomes/Goals: Pt sets, maintains & shows weight loss goal & trend during rehab Intervention/Plan: Instruct on ideal BMI & set weight loss goal w/patient 30 day Reassessments:: Met - Healthy Eating Habits Will attend diet classes:: Yes Outcomes/Goals:: Consume diet rich in vegs,fruits,whole grain/high fiber,fish,lean meat, Limit sat/trans fats,cholesterol & added salts & sugars Intervention/Plan:: Assess current eating habits 30-day Reassessments:: Met - Education Gave educational materials for:: Healthy eating Nutrition - 90-Day Assessment Nutrition - Final Assessment Medical - Initial Assessment Medical- 30-Day Assessment Medical- 60-Day Assessment - Visit Date of Eval: 07/16/21 Session #:: 23 - Medication Compliance Preventative Medication(s):: Aspirin, Statin/lipid, Beta elvis H/O mental health issues: depression, anxiety, or addiction?: No Doesn?t believe in the benefits of treatment?: No Believes medications are unnecessary or harmful?: No Has a concern about medication side effects?: No Expresses concern over the cost of medications?: No Outcomes/Goals: Verbalizes medications,desired effect & common side effects @ DC, Pt self-reports following medication regimen, Keeps card in wallet w/medications listed by DC Interventions/plans: Instruct on medication effects & side effects, Review medication list w/patient every two weeks, Instruct importance of taking meds as ordered & assist problem solving 30-day Reassessments:: Met - Tobacco Use Tobacco Use: Non-smoker - Hypertension Hypertension Diagnosis:: Hypertension ICD-10 I10 Resting Blood Pressure:: 110/56 [employer] Hypertension Guidelines: [place] [employer] Hypertension Guidelines. Normal BP Less than 120/80. Elevated BP 120/80. Hypertension Stage 1: BP 130-139/80-89. Hypertesnion Stage 2: BP 140 or higher/90 or higher. Hypertension Crisis: BP higher than 180/120 Peak Exercise Blood Pressure:: 140/70 Outcomes/Goals: Able to verbalize/achieve optimal blood pressure <130/80, Incorporates diet changes & exercise for blood pressure control by DC Interventions/plan: Instruct on optimal blood pressure, hypertension & medications, Instruct on effects of sodium, alcohol, stress, exercise &hypertension 30 day Reassessments:: Met - Tobacco Cessation Referral Smoking Cessation Referral:: No Individual Education/Counseling:: No Education Schedule Given:: Yes Medical- 90-Day Assessment Medical - Final Assessment Psychosocial - Initial Assess Psychosocial - 30-Day Assess Psychosocial - 60-Day Assess - VIsit Date of Eval: 07/16/21 Session #:: 23 Not Applicable: Yes History of previous Mental disease:: No - Psychosocial Test Tool Used:: PHQ-9 Questionnaire phq-9 Severity: Severity. 1-4 Minimal Depression. 5-9 Mild Depression. 10-14 Moderate Depression. 15-19 Moderately Sever Depression. 20-27 Severe Depression. Rule: - Referral to Behavioral Health PS - Interventions: Yes Attend Stress Management Classes, No Referral to Behavioral Health if PHQ-9 score >9:, No Referral to [facility], No Referral to Physician if PHQ-9 if score is 5-9: - Outcomes/Goals: See list Psychosocial Outcomes/Goals:: ID's personal stressors & 2 strategies to manage stress by discharge - Intervention/Plan: See List Interventions/Plan:: Assess stressors,coping strategies & signs of derpression on admission, Instruct/assist pt to develop coping & personal stress Mgt strategies, Instruct patient to recognize signs & symptoms of depression, Instruct patient to recog - 30-day Reassessments: 30 day Reassessments:: Met Psychosocial - 90-Day Assess Psychosocial - Final Assessmen Patient Health Questionnaire 60-Day Re-eval Assessment 1. Little interest or pleasure in doing things: Not at all 2. Feeling down, depressed, or hopeless: Not at all 3. Trouble falling or staying asleep, or sleeping too much: Not at all 4. Feeling tired or having little energy: Not at all 5. Poor appetite or overeating: Not at all 6. Feeling bad about yourself -- or that you are a failure or have let yourself or your family down: Not at all 7. Trouble concentrating on things, such as reading the newspaper or watching television: Not at all 8. Moving or speaking so slowly that other people could have noticed. Or the opposite - being so fidgety or restless that you have been moving around a lot more than usual: Not at all 9. Thoughts that you would be better off , or of hurting yourself in some way: Not at all How difficult have these problems made it for you to do your work, take care of things at home, or get along with other people?: Not difficult at all Total Score: 0 Self-Efficacy 60-Day Re-eval Assessment We would like to know how confident you are in doing certain activities. Please select your confidence level for:: Select your confidence level for the following using the scale 1-10 where 1 is not at all confident and 10 is totally confident. Your score is the average of all 6 responses. Fatigue: How confident are you that you can keep the fatigue caused by your disease from interfering with the things you want to do? Select Number: 9 Physical Discomfort or Pain: How confident are you that you can keep the physical discomfort or pain of your disease from interfering with the things you want to do? Select Number: 10 Emotional Distress: How confident are you that you can keep the emotional distress caused by your disease from interfering with the things you want to do? Select Number: 10 Other Symptoms or Health Problems: How confident are you that you can keep other symptoms or health problems from interfering with the things you want to do? Select Number: 10 Different Tasks and Activities: How confident are you that you can do the different tasks and activities needed to manage your health condition so as to reduce your need to see a doctor? Select Number: 10 Medication: How confident are you that you can do things other than just taking medication to reduce how much your illness affects your everyday life? Select Number: 10 Total Score:: 9 Nutrition Survey
[2021-07-16 12:14] VITALS: BP 110/56; BP 140/70; BMI 27.8
--- NOTE | 2021-08-13 08:11 | CR.ITP_ITS ---
Diagnosis Exercise - Final/Discharge - Visit Date of Eval: 08/13/21 Session #:: 33 - Physician Prescribed Exercise Modalities: Treadmill, Airdyne, NuStep Frequency: 3x/week for 12 weeks [36 sessions] Intensity: 60-80% of age predicted maximum heart rate reserve Current METSs:: 5.5 Target Heart Rate:: 98-127 Current RPE:: 13-14 Maximum Excercise HR:: 131 Resting Blood Pressure: 112/60 Maximum Exercise Blood Pressure: 164/72 EKG Type: NSR to sinus tach with occasional PAC and PVC Current Physical Activity or Exercising minutes: 38:24 - Outcomes & Goals Goals:: Verbalizes understanding of THR, RPE & goal METS by session 6, Documents in home exercise log/reports 30 min aerobic 5 day/wk by DC, Demonstrates accurate pulse taking by DC - Intervention & Plan Exercise Program Goals: Instruct on personal THR & RPE, Instruct on MET level & personal MET goal, Show patient to take own pulse /validate performance until accurate, Instruct on home exercise - 30-day Reassessments 30 day Reassessments:: Met - Physical Activity Home Exercise Physical Activity - Home Exercise: Safe Exercise, Warm-up, Self-monitoring, Cool-Down, Home Exercise > 30 min Daily, Sitting Time <3 hours/daily - Outcomes & Goals Outcomes/Goals: Demonstrates correct Warm-up/exercise Cool-Down (S3) if = 2.5 METs, Verbalizes symptoms of exercise intolerance by Session 3 (S3), Demonstrate safe equipment use (S3) & follows exercise prescrition (6) - Intervention & Plan Plan/Intervention: Instruct warm-up & cool-down if exercising at > 2 METs, Instruct on symptoms of exercise intolerance & actions to take, Instruct & monitor on saf, Assess intial functional capacity & safety risk - 30-day Reassessments 30 day Reassessments:: Met Nutrition - Initial Assessment Nutrition - 30-Day Assessment Nutrition - 60-Day Assessment Nutrition - 90-Day Assessment Nutrition - Final Assessment - Program Goals Nutrition Program Goals: LDL <100 optimal. 100 - 129 Near optimal. 130 - 159 Borderline High. 160 - 189 High. Total Cholesterol <200 desirable. 200 - 239 Borderline High. >/= 240 High. HDL < 40 Low >/=60 High. Triglycerides <150 desirable. <199 optimal. VlDL 5 - 40. HgbA1C <7%. BMI <25 Patient has diagnosis of Hyperlipidemia (ICD E78)?: Yes - Visit Date of Assessment:: 08/13/21 Session #:: 33 - Cholesterol/Lipids Determine presence & major risk factors that modify LDL goal: Hypertension or hypertensive medication, Age men > 45 years; women >/= 55 years Outcomes/Goals: Pt IDs own risk factors & lifestyle modifications by Session 10, Verbalizes symptoms of angina & response by session 3., Pt independently manages Intervention/Plan: Instruct on personal lipid levels & lipid goals/NCEP guidelines, Instruct on cholesterol Referral to dietitian:: No 30-day Reassessments:: Progressing - Diabetes (Other Core Measures) Diabetes Type: Not Applicable - Weight Mgt (Other Care) Not Applicable: Yes Height: 5 ft 8 in Weight:: 184 lb BMI: 27.9 Diagnosis Overweight/Obesity BMI> 30% ICD-10 E66: No Diagnosis High BMI/Morbid Obesity BMI> 35% ICD-10 Z68: No Outcomes/Goals: Pt sets, maintains & shows weight loss goal & trend during rehab Intervention/Plan: Instruct on ideal BMI & set weight loss goal w/patient 30 day Reassessments:: Met - Healthy Eating Habits Will attend diet classes:: Yes Outcomes/Goals:: Consume diet rich in vegs,fruits,whole grain/high fiber,fish,lean meat, Limit sat/trans fats,cholesterol & added salts & sugars Intervention/Plan:: Assess current eating habits 30-day Reassessments:: Met - Education Gave educational materials for:: Healthy eating Medical - Initial Assessment Medical- 30-Day Assessment Medical- 60-Day Assessment Medical- 90-Day Assessment Medical - Final Assessment - Visit Date of Eval: 08/13/21 Session #:: 33 - Medication Compliance Preventative Medication(s):: Aspirin, Statin/lipid, Beta elvis H/O mental health issues: depression, anxiety, or addiction?: No Doesn?t believe in the benefits of treatment?: No Believes medications are unnecessary or harmful?: No Has a concern about medication side effects?: No Expresses concern over the cost of medications?: No Outcomes/Goals: Verbalizes medications,desired effect & common side effects @ DC, Pt self-reports following medication regimen, Keeps card in wallet w/medications listed by DC Interventions/plans: Instruct on medication effects & side effects, Review medication list w/patient every two weeks, Instruct importance of taking meds as ordered & assist problem solving 30-day Reassessments:: Met - Tobacco Use Tobacco Use: Non-smoker - Hypertension Hypertension Diagnosis:: Hypertension ICD-10 I10 Resting Blood Pressure:: 112/60 [place] [employer] Hypertension Guidelines: [place] [employer] H ypertension Guidelines. Normal BP Less than 120/80. Elevated BP 120/80. Hypertension Stage 1: BP 130-139/80-89. Hypertesnion Stage 2: BP 140 or higher/90 or higher. Hypertension Crisis: BP higher than 180/120 Peak Exercise Blood Pressure:: 164/72 Outcomes/Goals: Able to verbalize/achieve optimal blood pressure <130/80, Incorporates diet changes & exercise for blood pressure control by DC Interventions/plan: Instruct on optimal blood pressure, hypertension & medications, Instruct on effects of sodium, alcohol, stress, exercise &hypertension 30 day Reassessments:: Met - Tobacco Cessation Referral Smoking Cessation Referral:: No Individual Education/Counseling:: No Education Schedule Given:: Yes Psychosocial - Initial Assess Psychosocial - 30-Day Assess Psychosocial - 60-Day Assess Psychosocial - 90-Day Assess Psychosocial - Final Assessmen - VIsit Date of Eval: 08/13/21 Session #:: 33 Not Applicable: Yes History of previous Mental disease:: No - Psychosocial Test Tool Used:: PHQ-9 Questionnaire phq-9 Severity: Severity. 1-4 Minimal Depression. 5-9 Mild Depression. 10-14 Moderate Depression. 15-19 Moderately Sever Depression. 20-27 Severe Depression. Rule: - Referral to Behavioral Health PS - Interventions: Yes Attend Stress Management Classes, No Referral to Behavioral Health if PHQ-9 score >9:, No Referral to [facility], No Referral to Physician if PHQ-9 if score is 5-9: - Outcomes/Goals: See list Psychosocial Outcomes/Goals:: ID's personal stressors & 2 strategies to manage stress by discharge - Intervention/Plan: See List Interventions/Plan:: Assess stressors,coping strategies & signs of derpression on admission, Instruct/assist pt to develop coping & personal stress Mgt strategies, Instruct patient to recognize signs & symptoms of depression, Instruct patient to recog - 30-day Reassessments: 30 day Reassessments:: Met Patient Health Questionnaire Discharge Assessment 1. Little interest or pleasure in doing things: Not at all 2. Feeling down, depressed, or hopeless: Not at all 3. Trouble falling or staying asleep, or sleeping too much: Not at all 4. Feeling tired or having little energy: Not at all 5. Poor appetite or overeating: Not at all 6. Feeling bad about yourself -- or that you are a failure or have let yourself or your family down: Not at all 7. Trouble concentrating on things, such as reading the newspaper or watching television: Not at all 8. Moving or speaking so slowly that other people could have noticed. Or the opposite - being so fidgety or restless that you have been moving around a lot more than usual: Not at all 9. Thoughts that you would be better off , or of hurting yourself in some way: Not at all How difficult have these problems made it for you to do your work, take care of things at home, or get along with other people?: Not difficult at all Total Score: 0 Self-Efficacy Discharge Assessment We would like to know how confident you are in doing certain activities. Please select your confidence level for:: Select your confidence level for the following using the scale 1-10 where 1 is not at all confident and 10 is totally confident. Your score is the average of all 6 responses. Fatigue: How confident are you that you can keep the fatigue caused by your disease from interfering with the things you want to do? Select Number: 10 Physical Discomfort or Pain: How confident are you that you can keep the physical discomfort or pain of your disease from interfering with the things you want to do? Select Number: 10 Emotional Distress: How confident are you that you can keep the emotional distress caused by your disease from interfering with the things you want to do? Select Number: 10 Other Symptoms or Health Problems: How confident are you that you can keep other symptoms or health problems from interfering with the things you want to do? Select Number: 10 Different Tasks and Activities: How confident are you that you can do the differ ent tasks and activities needed to manage your health condition so as to reduce your need to see a doctor? Select Number: 10 Medication: How confident are you that you can do things other than just taking medication to reduce how much your illness affects your everyday life? Select Number: 10 Total Score:: 10 Nutrition Survey
[2021-08-13 08:17] VITALS: BP 112/60; BP 164/72; BMI 27.9
== END 2021-08-12 23:59 ==
LOC: CR 10:30
PROVIDERS: PCP Family Medicine; Referring Provider Internal Medicine Cardiovascular Disease; Visit Provider Internal Medicine Cardiovascular Disease
DX: I25.10 Atherosclerotic heart disease of native coronary artery without angina pectoris (principal); I71.2 Thoracic aortic aneurysm, without rupture; I35.0 Nonrheumatic aortic (valve) stenosis; E78.5 Hyperlipidemia, unspecified; Z95.3 Presence of xenogenic heart valve; Z98.890 Other specified postprocedural states; Z95.1 Presence of aortocoronary bypass graft
CPT/HCPCS: 93798

== ENCOUNTER 2021-08-13 08:53 | Outpatient (RCR) | payer MEDICARE, OTHER, SELFPAY ==
[2021-07-16 12:14] VITALS: BMI 27.8
[2021-08-13 00:37] VITALS: BP 110/56; BP 140/70
== END 2021-09-12 23:59 ==
LOC: CR 08:53
PROVIDERS: PCP Family Medicine; Referring Provider Internal Medicine Cardiovascular Disease; Visit Provider Internal Medicine Cardiovascular Disease
DX: I25.10 Atherosclerotic heart disease of native coronary artery without angina pectoris (principal); I71.2 Thoracic aortic aneurysm, without rupture; I35.0 Nonrheumatic aortic (valve) stenosis; E78.5 Hyperlipidemia, unspecified; Z95.3 Presence of xenogenic heart valve; Z98.890 Other specified postprocedural states; Z95.1 Presence of aortocoronary bypass graft
CPT/HCPCS: 93798

== ENCOUNTER → 2021-11-18 | Outpatient (CLI) | payer MEDICARE, OTHER, SELFPAY ==
[2021-09-13 00:28] VITALS: BMI 27.8
[2021-11-18 09:53] LABS: AST(SGOT) 26 U/L (15-37); Alanine Aminotransfer ALT/SGPT 40 U/L (16-61); Albumin, Serum 3.7 g/dL (3.2-5.0); Alkaline Phosphatase 82 U/L (45-117); Bilirubin, Direct 0.11 mg/dL (0.00-0.30); Cholesterol 155 mg/dL (200); Globulin 3.7 g/dL (2.2-4.2); High Density Lipoprotein 51 mg/dL; Protein, Total 7.4 g/dL (6.4-8.2); Triglycerides 113 mg/dL; Very Low Density Lipoprotein 23 mg/dL (5-40)
== END | disposition home or self-care (01) ==
LOC: LAB 08:00
PROVIDERS: PCP Family Medicine; Visit Provider Internal Medicine Cardiovascular Disease
DX: E78.00 Pure hypercholesterolemia, unspecified (principal); I25.10 Atherosclerotic heart disease of native coronary artery without angina pectoris
CPT/HCPCS: 36415; 80061; 80076

== ENCOUNTER → 2022-02-15 | Outpatient (CLI) | payer MEDICARE, OTHER, SELFPAY ==
[2021-09-13 00:28] VITALS: BMI 27.8
[2022-02-15 15:58] LABS: PSA,Total - Annual Screen 0.97 ng/mL (0.00-4.00)
== END | disposition home or self-care (01) ==
LOC: LAB 14:46
PROVIDERS: PCP Family Medicine; Visit Provider Registered Nurse
DX: Z12.5 Encounter for screening for malignant neoplasm of prostate (principal)
CPT/HCPCS: 36415; 84153; G0103

== ENCOUNTER → 2022-03-30 | Outpatient (CLI) | payer MEDICARE, OTHER, SELFPAY ==
[2021-09-13 00:28] VITALS: BMI 27.8
[2022-03-30 18:04] LABS: T4 Total, Thyroxin 10.1 ug/dL (4.5-12.1); Thyroid Stim Hormone (TSH) 3.81 uIU/mL (0.358-3.74)
== END | disposition home or self-care (01) ==
LOC: MFPLAB 11:14
PROVIDERS: PCP Family Medicine; Referring Provider Family Medicine; Visit Provider Family Medicine
DX: E03.9 Hypothyroidism, unspecified (principal)
CPT/HCPCS: 36415; 84436; 84443

== ENCOUNTER → 2022-04-27 | Outpatient (CLI) | payer MEDICARE, OTHER, SELFPAY ==
[2021-09-13 00:28] VITALS: BMI 27.8
--- NOTE | 2022-04-27 12:46 | CT_ITS ---
STUDY: CTA CHEST REASON FOR EXAM: Male, 71 years old. Aortic valve placement RADIATION DOSAGE (If Supplied By Facility): CTDIvol = ( 12.43 ) mGy, DLP = ( 366.63 ) mGycm TECHNIQUE: The examination was performed with the intravenous administration of IV 100mL Isovue-370. Post-processing of the angiographic images was performed, with multiplanar reformation and 3D reconstruction. Individualized dose optimization techniques were used for this CT. COMPARISON: 11/30/2020 FINDINGS: Normal enhancement of the main pulmonary artery and right and left pulmonary arteries. Normal enhancement of the bilateral peripheral pulmonary arteries. There is no demonstrated pulmonary embolism. Since the previous study, patient has undergone aortic valve replacement. There is a significant decrease in size of the descending thoracic aorta since the previous study. On the previous study it measured 4.8 cm, on current study it measures 3.43 cm. There is no demonstrated aortic dissection. There has been a previous CABG No suspicious axillary, mediastinal, or perihilar mass or adenopathy. There is peribronchial thickening. The lungs are well expanded. Interstitial edema noted in both lung bl[place] without an organized infiltrate or effusion. No suspicious noncalcified mass or nodule. Normal pleura. Normal chest wall structures. There are degenerative changes of thoracic spine. Normal visualized upper abdomen. CT/CTA Chest W/WO Contrast IMPRESSION: Since the previous study, patient has undergone aortic valve repair and there is significant decrease in size of the thoracic aorta compared to the previous study. There is no longer aneurysmal dilatation of the descending thoracic aorta. On the previous study measured 4.8 cm, on current study measures 3.4 cm. No demonstrated PE, or thoracic aortic dissection Interstitial edema in the lung bl[place] without organized infiltrate or effusion No suspicious adenopathy Degenerative bony changes Electronically Signed: Aditya Ledesma MD at 14:16 EDT ,
[2022-04-27 13:25] LABS: CREATININE FINGERSTICK < 0.9 mg/dL (0.70-1.30); EGFR FINGERSTICK > 60.0000 mL/min (>60)
== END | disposition home or self-care (01) ==
LOC: CT 12:45
PROVIDERS: PCP Family Medicine; Referring Provider Internal Medicine Cardiovascular Disease; Visit Provider Internal Medicine Cardiovascular Disease
DX: Z98.890 Other specified postprocedural states (principal)
CPT/HCPCS: 71275; Q9967

== ENCOUNTER → 2022-05-02 | Outpatient (CLI) | payer MEDICARE, OTHER, SELFPAY ==
[2021-09-13 00:28] VITALS: BMI 27.8
--- NOTE | 2022-05-02 07:52 | RAD_ITS ---
STUDY: X-RAY - ESOPHAGUS (BARIUM SWALLOW) WITH FLUOROSCOPY REASON FOR EXAM: Male, 71 years old. DYSPHAGIA TECHNIQUE: 14 view(s) of the esophagus were obtained following swallowing of barium. FLUOROSCOPY TIME (if supplied): (26 seconds) minutes/seconds. 8.05 mgy COMPARISON: None. FINDINGS: There is no demonstrated esophageal foreign body. There is no demonstrated stricture or mucosal abnormality. Normal gastroesophageal junction, without a demonstrated hiatal hernia. The patient ingested a 12 mm tablet of barium without any difficulty. There is atherosclerotic calcification of the aortic arch with tortuosity of the descending aorta. Normal visualized pulmonary parenchyma. Evidence of prior mitral valve placement. There are diffuse degenerative changes of the visualized thoracic spine. RAD/Esophagus Dual Contrast IMPRESSION: Normal plain film x-ray examination (barium swallow) of the esophagus. Electronically Signed: Dinesh Mojica MD at 15:14 EDT ,
== END | disposition home or self-care (01) ==
LOC: RAD 07:51
PROVIDERS: PCP Family Medicine; Referring Provider Otolaryngology; Visit Provider Otolaryngology
DX: R13.10 Dysphagia, unspecified (principal)
CPT/HCPCS: 74221

== ENCOUNTER → 2022-05-26 | Outpatient (CLI) | payer MEDICARE, OTHER, SELFPAY ==
[2021-09-13 00:28] VITALS: BMI 27.8
[2022-05-26 09:56] LABS: AST(SGOT) 41 U/L (15-37); Alanine Aminotransfer ALT/SGPT 51 U/L (16-61); Albumin, Serum 3.7 g/dL (3.2-5.0); Alkaline Phosphatase 72 U/L (45-117); Bilirubin, Direct 0.13 mg/dL (0.00-0.30); Cholesterol 163 mg/dL (200); Globulin 3.3 g/dL (2.2-4.2); High Density Lipoprotein 56 mg/dL; Triglycerides 70 mg/dL; Very Low Density Lipoprotein 14 mg/dL (5-40)
== END | disposition home or self-care (01) ==
LOC: LAB 08:41
PROVIDERS: PCP Family Medicine; Referring Provider Internal Medicine Cardiovascular Disease; Visit Provider Internal Medicine Cardiovascular Disease
DX: E78.5 Hyperlipidemia, unspecified (principal); I25.10 Atherosclerotic heart disease of native coronary artery without angina pectoris
CPT/HCPCS: 36415; 80061; 80076

== ENCOUNTER → 2022-06-07 | Outpatient (CLI) | payer MEDICARE, OTHER, SELFPAY ==
[2021-09-13 00:28] VITALS: BMI 27.8
--- NOTE | 2022-06-07 08:52 | ECHOD_ITS ---
Reason For Study: S/P CABG Procedure This was a 2D Doppler, Color Flow transthoracic echocardiogram. Exam performed in department. Left Ventricle Normal LV size. Left ventricular systolic function is normal. The estimated ejection fraction is 70 %. No regional wall motion abnormalities noted. Right Ventricle Normal RV size. Normal systolic function. Atria Normal left atrium. Normal right atrium. Mitral Valve Normal mitral valve. Tricuspid Valve Normal tricuspid valve. Mild tricuspid valve insufficiency. Aortic Valve Peak aortic valve gradient 16 mmHg. Mean aortic valve gradient 8.5 mmHg. Normal prosthetic aortic valve. Pulmonic Valve Normal pulmonic valve. Great Vessels Normal aortic root. The pulmonary artery is normal size. Normal inferior vena cava. Pericardium/Pleural No pericardial effusion. MMode/2D Measurements & Calculations LVIDd: 3.9 cm IVSd: 0.81 cm LVOT diam: 2.0 cm LVIDs: 2.9 cm LVPWd: 1.2 cm LVOT area: 3.1 cm2 RVDd: 3.3 cm FS: 25.2 % Ao root diam: 2.9 cm LAV(MOD-bp): 36.9 ml LVAd ap4: 19.2 cm2 LAV(MOD-bp) Indexed: 18.1 ml/m2 LVLd ap4: 7.5 cm LAV(MOD-sp2): 52.4 ml EDV(MOD-sp4): 39.5 ml LAV(MOD-sp4): 22.3 ml EDV(sp4-el): 41.7 ml LVAs ap4: 9.6 cm2 LVLs ap4: 6.2 cm ESV(MOD-sp4): 13.9 ml ESV(sp4-el): 12.7 ml EF(MOD-sp4): 64.7 % EF(sp4-el): 69.5 % SV(MOD-sp4): 25.6 ml SV(sp4-el): 29.0 ml LA A4 area: 12.2 cm2 LA dimension(2D): 4.0 cm RA A4 area: 12.6 cm2 Time Measurements MV dec time: 0.28 sec Doppler Measurements & Calculations MV E max thomas: 83.0 cm/sec Lat Peak E' Thomas: 11.9 cm/sec Med Peak E' Thomas: 7.3 cm/sec MV A max thomas: 78.0 cm/sec E/E' lat: 7.0 E/E' med: 11.3 MV E/A: 1.1 MV V2 max: 91.4 cm/sec Ao V2 max: 201.8 cm/sec MV max P.3 mmHg MV dec slope: 303.0 cm/sec2 Ao max P.3 mmHg MV V2 mean: 64.8 cm/sec Ao V2 mean: 133.7 cm/sec MV mean P.8 mmHg Ao mean P.5 mmHg MV V2 VTI: 35.0 cm Ao V2 VTI: 49.3 cm AV (velocity ratio): 0.70 MVA(VTI): 3.1 cm2 DOC(I,D): 2.2 cm2 DOC(V,D): 2.3 cm2 LV V1 max: 150.8 cm/sec SV(LVOT): 107.2 ml PA V2 max: 94.6 cm/sec LV V1 max P.1 mmHg PA V2 mean: 75.6 cm/sec LV V1 mean P.8 mmHg LV V1 mean: 115.1 cm/sec LV V1 VTI: 34.6 cm TR max thomas: 217.1 cm/sec TR max P.9 mmHg ECHO/Echo Complete Interpretation Summary Normal LV size. Left ventricular systolic function is normal. The estimated ejection fraction is 70 %. Normal prosthetic aortic valve. Mean aortic valve gradient 8.5 mmHg. Mild tricuspid valve insufficiency. Ordering Physician: Shane Toribio Referring Physician: Shane Toribio Performed By: Evelyn Hines RCS
== END | disposition home or self-care (01) ==
LOC: CVS 08:52
PROVIDERS: PCP Family Medicine; Referring Provider Internal Medicine Cardiovascular Disease; Visit Provider Internal Medicine Cardiovascular Disease
DX: I25.10 Atherosclerotic heart disease of native coronary artery without angina pectoris (principal)
CPT/HCPCS: 93306

== ENCOUNTER → 2022-10-07 | Outpatient (CLI) | payer MEDICARE, OTHER, SELFPAY ==
[2021-09-13 00:28] VITALS: BMI 27.8
[2022-10-07 12:41] LABS: Thyroid Stim Hormone (TSH) 1.29 uIU/mL (0.358-3.74)
== END | disposition home or self-care (01) ==
LOC: MFPLAB 11:02
PROVIDERS: PCP Family Medicine; Visit Provider Family Medicine
DX: E03.9 Hypothyroidism, unspecified (principal)
CPT/HCPCS: 36415; 84443

== ENCOUNTER → 2022-11-22 | Outpatient (CLI) | payer MEDICARE, OTHER, SELFPAY ==
[2021-09-13 00:28] VITALS: BMI 27.8
[2022-11-22 11:25] LABS: AST(SGOT) 25 U/L (15-37); Alanine Aminotransfer ALT/SGPT 51 U/L (16-61); Albumin, Serum 3.6 g/dL (3.2-5.0); Alkaline Phosphatase 88 U/L (45-117); Bilirubin, Direct 0.11 mg/dL (0.00-0.30); Cholesterol 159 mg/dL (200); Globulin 3.4 g/dL (2.2-4.2); High Density Lipoprotein 51 mg/dL; Triglycerides 93 mg/dL; Very Low Density Lipoprotein 19 mg/dL (5-40)
== END | disposition home or self-care (01) ==
LOC: LAB 10:22
PROVIDERS: PCP Family Medicine; Referring Provider Nurse Practitioner Family; Visit Provider Nurse Practitioner Family
DX: E78.00 Pure hypercholesterolemia, unspecified (principal)
CPT/HCPCS: 80061; 80076

== ENCOUNTER → 2023-03-13 | Outpatient (CLI) | payer MEDICARE, OTHER, SELFPAY ==
[2021-09-13 00:28] VITALS: BMI 27.8
--- OUTSIDE RECORDS SUMMARY | 2023-03-13 12:04 | XMS RPT_ITS | CCD ---
Author Name Unknown Address [address] [place] [address] Organization [facility] Care Team Providers Care Submersible Pilot Name Role Phone Eduardo Harvey Unavailable Unavailable PROVIDER, UNKNOWN Unavailable Unavailable Yecenia Okeefe Unavailable Unavailable Yecenia Okeefe Primary Care Provider [phone] [place], [place] Unavailable Ken Quintanilla MD Unavailable Yecenia Okeefe Primary Care Provider [phone] [place], [place] Unavailable Ken Quintanilla MD Unavailable [phone] JOSIAH MCGOVERN Referring Unavailable YECENIA OKEEFE Primary Care Unavailable YECENIA OKEEFE Primary Care Unavailable ANNIE HSU Attending Unavailable LIAM RICHARDS Referring Unavailable Allergies Allergy Classification Reported Allergen(s) Allergy Type Date of Onset Reaction(s) Facility (4 sources) Mold Spores; Translations: [MOLD SPORES] Propensity to adverse reactions 04-17-2006 Intolerance [facility] Medications Current Medications Medication Drug Class(es) Dates Sig (Normalized) Sig (Original) perflutren lipid microspheres 1.3 mL in NaCl (PF) 0.9% 10 mL injection (DEFINITY) (1 source) Start: 07-27-2021 End: 10-26-2022 perflutren lipid microspheres 1.3 mL in NaCl (PF) 0.9% 10 mL injection (DEFINITY) 125 ml sodium chloride 9 mg/ml prefilled syringe (1 source) Start: 07-27-2021 End: 10-26-2022 sodium chloride 0.9 % (flush) 10 mL (BD POSIFLUSH) Completed/Discontinued Medications Medication Drug Class(es) Dates Sig (Normalized) Sig (Original) acetaminophen 1000 mg oral tablet (3 sources) take 1000 mg by mout h once daily at bedtime acetaminophen (TYLENOL ORAL) Take 1,000 mg by mouth daily at bedtime. 0 Active Problems Active Problems Problem Classification Problem Date Documented Da te Episodic/Chronic Aortic; peripheral; and visceral artery aneurysms (6 sources) Dissection of thoracic aorta; Translations: [Dissection of thoracic aorta] Onset: 1 01-18-2021 Chronic Cardiac and circulatory congenital anomalies (3 sources) Bicuspid aortic valve; Translations: [Congenital insufficiency of aortic valve] Onset: 2 04-27-2021 Chronic Coagulation and hemorrhagic disorders (3 sources) Platelet count below reference range; Translations: [Thrombocytopenia, unspecified] Onset: 2 04-27-2021 Chronic Coronary atherosclerosis and other heart disease (9 sources) Stable angina; Translations: [Other forms of angina pectoris] Onset: 1 01-18-2021 Chronic Disorders of lipid metabolism (3 sources) Dyslipidemia; Translations: [Hyperlipidemia, unspecified] Onset: 1 01-18-2021 Chronic Esophageal disorders (3 sources) Gastroesophageal reflux disease; Translations: [Gastro-esophageal reflux disease without esophagitis] Onset: 0 09-29-2009 Chronic Essential hypertension (3 sources) Essential hypertension; Translations: [Essential (primary) hypertension] Onset: 2 04-27-2021 Chronic Heart valve disorders (6 sources) Aortic stenosis, non-rheumatic ; Translations: [Nonrheumatic aortic (valve) stenosis] Onset: 2 03-23-2021 Chronic Hyperplasia of prostate (6 sources) Benign prostatic hypertrophy with outflow obstruction; Translations: [Benign prostatic hyperplasia with lower urinary tract symptoms] Onset: 6 10-03-2005 Chronic Other diseases of bladder and urethra (3 sources) Bladder neck obstruction; Translations: [Bladder-neck obstruction] Onset: 6 10-03-2005 Chronic Other gastrointestinal disorders (3 sources) Irritable bowel syndrome; Translations: [Irritable bowel syndrome without diarrhea] Onset: 0 09-22-2009 Chronic Other injuries and conditions due to external causes (1 source) Injury of blood vessel; Translations: [Other injury of unspecified body region, initial encounter] Episodic Other male genital disorders (3 sources) Secondary erectile dysfunction; Translations: [Male erectile dysfunction, unspecified] Onset: 9 01-05-2009 Chronic Other male genital disorders (3 sources) Male erectile dysfunction, unspecified; Translations: [Impotence of organic origin] Onset: 2 03-31-2011 Chronic Other nutritional; endocrine; and metabolic disorders (3 sources) Obese class I; Translations: [Obesity, unspecified] Onset: 2 04-25-2021 Chronic Residual codes; unclassified (3 sources) Obstructive sleep apnea syndrome; Translations: [Obstructive sleep apnea (adult) (pediatric)] Onset: 1 01-18-2021 Chronic Thyroid disorders (3 sources) Acquired hypothyroidism; Translations: [Hypothyroidism, unspecified] Onset: 2 04-27-2021 Chronic Unclassified (2 sources) Other cervical disc degeneration at C6-C7 level; Translations: [Other cervical disc degeneration at C6-C7 level] Onset: 7 Past or Other Problems Problem Classification Problem Date Documented Date Episodic/Chronic Administrative/social admission (3 sources) Patient encounter status; Translations: [Persons encountering health services in other specified circumstances] Onset: 04-26-2021 04-28-2021 Episodic Deficiency and other anemia (3 sources) Anemia; Translations: [Anemia, unspecified] Onset: 04-24-2021 04-27-2021 Episodic Fluid and electrolyte disorders (3 sources) Hypervolemia; Translations: [Fluid overload, unspecified] Onset: 04-24-2021 04-27-2021 Episodic Gastritis and duodenitis (3 sources) Acute gastritis; Translations: [Acute gastritis without bleeding] Onset: 09-29-2009 09-29-2009 Episodic Genitourinary symptoms and ill-defined conditions (12 sources) Urgent desire to urinate; Translations: [Urgency of urination] Onset: 03-31-2011 03-31-2011 Episodic Other connective tissue disease (2 sources) Arthrodesis status; Translations: [Arthrodesis status] Onset: 12-29-2016 Episodic Other nervous system disorders (3 sources) Postoperative pain ; Translations: [Other acute postprocedural pain] Onset: 04-22-2021 04-27-2021 Episodic Other screening for suspected conditions (not mental disorders or infectious disease) (3 sources) Raised prostate specific antigen; Translations: [Elevated prostate specific antigen [PSA]] Onset: 03-31-2011 03-31-2011 Episodic Pleurisy; pneumothorax; pulmonary collapse (3 sources) Atelectasis; Translations: [Atelectasis] Onset: 04-22-2021 04-27-2021 Episodic Residual codes; unclassified (3 sources) Family history of cancer of colon; Translations: [Family history of malignant neoplasm of digestive organs] Onset: 08-30-2017 08-30-2017 Episodic Residual codes; unclassified (3 sources) Family history of cardiac disorder; Translations: [Family history of ischemic heart disease and other diseases of the circulatory system] Onset: 01-18-2021 01-18-2021 Episodic Spondylosis; intervertebral disc disorders; other back problems (2 sources) Spinal stenosis, cervical region; Translations: [Spinal stenosis, cervical region] Onset: 12-29-2016 Episodic Results Test Name Value Interpretation Reference Range Facil ity Encounters Encounter Date Encounter Type Care Provider Facility Start: 04-28-2022 ambulatory Roxann Huizar RN [facility] Start: 07-26-2021 End: 07-26-2021 ambulatory YECENIA OKEEFE Facility:[facility] Start: 07-26-2021 End: 07-26-2021 Subsequent hospital visit by physician Ct Main J (I-Stat) Work Phone: Radiology Procedures Date Procedure Procedure Detail Performing Clinician Start: 07-26-2021 Ct angiography chest w/contrast/noncontrast Josiah Mcgovern SR. MEDIA MANAGER.ASSOCIATE PROGRAM MANAGER Work Phone: Start: 07-26-2021 Creatinine [Mass/vol ume] in Serum or Plasma [facility] Provider Start: 03-23-2021 History of thyroidectomy S/P thyroid ectomy Maggy Oneill RN Start: 09-25-2017 Colonoscopy Maggy Skinner RN Plan of Treatment Date Care Activity Detail Author Start: 04-28-2024 DIABETES SCREEN DIABETES SCREEN [facility] Start: 05-15-2023 Urine microalbumin profile DTA P,TDAP,TD (2 - Td or Tdap) [facility] Start: 09-25-2022 Colonoscopy COLONOSCOPY [facility] Start: 09-25-2022 COLORECTAL CANCER SCREENING COLORECTAL CANCER SCREENING [facility] Start: 07-26-2022 BP CONTROLLED (<130/80) BP CONTROLLE D (<130/80) [facility] Start: 03-24-2022 BP CONTROLLED (<130/80) BP CONTROLLE D (<130/80) [facility] Start: 02-13-2022 ADVANCE DIRECTIVE DISCUSSION ADVANCE DIRECTIVE DISCUSSION [facility] Start: 02-13-2022 DEPRESSION ASSESSMENT DEPRESSION ASS ESSMENT [facility] Start: 10-14-2021 Influenza vaccination INFLUENZA (#1) [facility] Start: 08-05-2021 COVID-19 VACCINE (4 - Booster for [place] series) COVID-19 VACCINE (4 - Booster for [place]ce[place] series) [facility] Start: 02-13-2021 ADVANCE DIRECTIVE DISCUSSION ADVANCE DIRECTIVE DISCUSSION [facility] Start: 06-25-2015 PNEUMOVAX AGE 65 AND OVER WITH 5YR LOOKBACK (#1) PNEUMOVAX AGE 65 AND OVER WITH 5YR LOOKBACK (#1) [facility] Start: 02-28-2015 FECAL OCCULT BLOOD FECAL OCCULT BLOO D [facility] Start: 2000 SHINGRIX VACCINE (1 of 2) SHINGRIX V ACCINE (1 of 2) [facility] Start: 06-25-1995 COLOGUARD (FIT-DNA) COLOGUARD (FIT-D NA) [facility] Start: 06-25-[address] COLONOGRAPHY [facility] Start: 06-25-1995 SIGMOIDOSCOPY SIGMOIDOSCOPY [facility] Start: 1985 LIPID SCREEN LIPID SCREEN [facility] Start: 1969 Urine microalbumin profile DTAP,TDAP ,TD (1 - Tdap) [facility] Start: 1968 ANNUAL PCP TEAM MULCHER OPERATOR MATT DISEASE VISIT ANNUAL PCP TEAM CHRONIC DISEASE VISIT [facility] Start: 1968 Hepatitis B surface antibody level LDL CHOLESTEROL [facility] Start: 1968 HEPATITIS C SCREENING HEPATITIS C SC VELASQUEZNING [facility] Start: 1962 Adult depression scr eening assessment DEPRESSION SCREENING [facility] Start: 1950 ABDOMINAL AORTIC ANE URYSM SCREENING ABDOMINAL AORTIC ANEURYSM SCREENING [facility] Immunizations Immunization Date Immunization Notes Care Provider Chary dascarolina 12-02-2020 influenza, injectabl e, quadrivalent, preservative free Ct (I-Stat) Work Phone: [facility] 11-29-2019 influenza, injectabl e, quadrivalent, preservative free Ct (I-Stat) Work Phone: [facility] 03-20-[address] (I-Stat) Work Phone: [facility] 01-15-[address] (I-Stat) Work Phone: [facility] 12-12-2018 pneumococcal polysaccharide vaccine, [address] (I-Stat) Work Phone: [facility] 12-07-2018 Seasonal trivalent influenza vaccine, adjuvanted, preservative free Ct (I-Stat) Work Phone: [facility] 11-30-2017 influenza, seasonal, injectable, preservative free Ct (I-Stat) Work Phone: [facility] 12-19-2016 influenza, injectabl e, quadrivalent, contains preservative Ct (I-Stat) Work Phone: [facility] 05-20-2016 pneumococcal conjuga te vaccine, [address] (I-Stat) Work Phone: [facility] 11-09-2015 influenza, seasonal, injectable Ct (I-Stat) Work Phone: [facility] 11-21-2014 influenza, seasonal, injectable Ct (I-Stat) Work Phone: [facility] 05-14-2013 tetanus toxoid, redu dalia diphtheria toxoid, and acellular pertussis vaccine, adsorbed Ct (I-Stat) Work Phone: [facility] 02-23-2009 novel influenza-H1N1 -09, preservative-free, injectable Ct (I-Stat) Work Phone: [facility] Payers Date Payer Category Payer Medicare 2015 Medicare MEDICARE MEDICAR E A AND B [id number] 2015-Present [phone] [address] [address] [place] [address] Medicare [id number] 2015 Medicare [id number] 2015 Private Health Insurance [facility] AARP SUPPLEMENT [id number] 2015-Present [phone] [address] [place] [address] Indemnity [id number] 2015 Private Health Insurance [facility] AARP SUPPLEMENT [id number] 2015-Present [phone] [address] [place] [address] Indemnity [id number] 2015 Unknown [id number] Social History Date Type Detail Facility [facility]: [facility] End: 04-04-2001 History of tobacco use Current smoker [facility] End: 04-04-2001 History of tobacco use Pipe Smoker [facility] End: 05-14-2016 History of tobacco use User of smokeless tobacco [facility] Start: 03-23-2021 End: 07-26-2021 Alcohol intake Current drinker of alcohol (finding) [facility] Start: 01-18-2021 History SDOH Alcohol Comment qod scotch [facility] Start: 1950 Sex Assigned At Not on file [facility] Start: 03-23-2021 End: 07-26-2021 Exposure to SARS-CoV-2 (event) Not sure [facility] Start: 01-18-2021 Tobacco use and exposure Nikki tavarez smokeless tobacco user [facility] Medical Equipment Procedure Code Equipment Code Equipment Original Text Equipment Identifier Dates Graft Gelweave 3 0mm Straight Gelatin Polyester Woven 30cm Cardiovascular - [id number] Start: 04-22-2021 [place] Thk1.65mm P tfe 4x.5in Cardiovascular Sterile - [id number] Start: 04-22-2021 Patch Thk.5mm Bruce vine Pericardial 67o57fe Cardiovascular Resilience Durable - [id number] Start: 04-22-2021 Valve James In spiris Resilia 23mm Pericardial Aortic Bioprosthesis - [id number] Start: 04-22-2021 Clinical Notes 04-22-2021 to 04-28-2022 Roxann Huizar RN - 04/28/2022 10:16 AM RT Trevor(R) - 07/26/2021 11:15 AM Zohra Cortez RN - 07/26/2021 11:15 AM EDT Note Date & Type Note Facility 04-28-2022 Note Patient Outreach (ABBY BROOKSN) MARINO HERRERA ([id number]) 1950 M Date Time Provider Department 04/28/22 ROXANN HUIZAR During your visit today, we recorded the following information about you: Roxann Huizar RN 04/28/2022 10:17 AM Signed QOL Call Tracking Documentation Follow-Up Type: Phone Call Call Attempt: 1st Attempt Call Status: Left Message Allergies As of Date: 04/28/2022 Noted Allergy Reaction MOLD SPORES 04/17/2006 5 - Intolerance Date Reviewed: 07/26/2021 Reviewed by: Alie Quesada Ma - Fully Assessed Prescriptions as of 04/28/2022 - aspirin 81 mg chewable tablet Take 1 tablet by mouth once daily. - atorvastatin (LIPITOR) 20 mg tablet Take 1 tablet by mouth daily at bedtime. - furosemide (LASIX) 20 mg tablet Take 1 tablet by mouth once daily. - metoprolol succinate ER (TOPROL XL) 50 mg 24 hr tablet Take 1 tablet by mouth once daily. - potassium chloride ER (K-DUR, KLOR-CON) 10 mEq tablet Take 1 tablet by mouth once daily. - levothyroxine (SYNTHROID) 150 mcg tablet 150 mcg as directed. 6 days week - gabapentin (NEURONTIN) 100 mg capsule Take 100 mg by mouth once daily. - SUMAtriptan (IMITREX) 100 mg tablet Take 100 mg by mouth as needed. - acetaminophen (TYLENOL ORAL) Take 1,000 mg by mouth daily at bedtime. - DULoxetine (CYMBALTA) 60 mg capsule Take 60 mg by mouth once daily. Facility-Administered Medications as of 04/28/2022 - perflutren lipid microspheres 1.3 mL in NaCl (PF) 0.9% 10 mL injection (DEFINITY) - sodium chloride 0.9 % (flush) 10 mL (BD POSIFLUSH) Problem List As Of Date 04/28/2022 Noted Resolved BLADDER NECK OBSTRUCTION [N32.0] 10/03/2005 HYPERTROPHY PROSTATE WITH OBST [N40.1, N13.8] 10/03/2005 Impotence of Organic Origin [N52.9] 01/05/2009 IBS (Irritable Bowel Syndrome) [K58.9] 09/22/2009 Esophageal Reflux [K21.9] 09/29/2009 Acute Gastritis without Mention of Hemorrhage [*09/29/2009 Impotence [N52.9] 03/31/2011 Elevated PSA [R97.20] 03/31/2011 Urgency of urination [R39.15] 03/31/2011 Frequency of urination [R35.0] 03/31/2011 Nocturia [R35.1] 03/31/2011 BPH (benign prostatic hyperplasia) [N40.0] 12/19/2012 Hematuria [R31.9] 12/19/2012 Family history of colon cancer in father [Z80.0]08/30/2017 Dissection of thoracic aorta (HCC) [I71.019] 01/18/2021 Thoracic ascending aortic aneurysm (HCC) [I71.2*01/18/2021 Stable angina (HCC) [I20.8] 01/18/2021 Coronary artery calcification [I25.10, I25.84] 01/18/2021 Family history of heart disease [Z82.49] 01/18/2021 BUBBA (obstructive sleep apnea) [G47.33] 01/18/2021 Dyslipidemia [E78.5] 01/18/2021 Discharge planning issues [Z02.9] 03/22/2021 04/26/2021 Pre-op testing [Z01.818] 03/22/2021 04/26/2021 S/P thyroidectomy [E89.0] 03/23/2021 Nonrheumatic aortic valve stenosis [I35.0] 03/23/2021 Nonrheumatic aortic valve insufficiency [I35.1] 03/23/2021 Bicuspid aortic valve [Q23.1] 03/23/2021 Coronary artery disease involving [place]an*04/22/2021 Atelectasis [J98.11] 04/22/2021 Post-op pain [G89.18] 04/22/2021 Postoperative hypovolemia [E89.89, E86.1] 04/22/2021 04/23/2021 Acquired hypothyroidism [E03.9] 04/22/2021 Fluid overload [E87.70] 04/24/2021 Thrombocytopenia (HCC) [D69.6] 04/24/2021 Postoperative anemia [D64.9] 04/24/2021 Essential hypertension [I10] 04/25/2021 Obesity, Class I, BMI 30-34.9 [E66.9] 04/25/2021 Encounter for support and coordination of trans*04/26/2021 Encounter Status:Closed by ROXANN HUIZAR on 04/28/22 [facility] 04-28-2022 Note HNO ID: [id number] Author: Roxann Huizar RN Service: ? Author Type: Registered Nurse Type: Progress Notes Filed: 04/28/2022 10:17 AM Note Text: QOL Call Tracking Documentation Follow-Up Type: Phone Call Call Attempt: 1st Attempt Call Status: Left Message [facility] 04-28-2022 History of Presen t illness Narrative QOL Call Tracking Documentation Follow-Up Type: Phone Call Call Attempt: 1st Attempt Call Status: Left Message documented in this encounter [facility] 07-26-2021 Note HNO ID: [id number] Author: Annie Hsu APRN.GAME TRAPPER Service: ? Author Type: Clinical Nurse Specialist Type: Progress Notes Filed: 07/27/2021 11:23 AM Note Text: FOLLOW-UP Aortic Aneurysm, Aortic Repair, Bicuspid Aortic Valve and AVR Patient Type: Established PCP: Yecenia Okeefe MD ([facility]) [address] [place] [address] Other Physician: Liam Richards [address] [facility] [address] Patient Mr. Herrera returns, now 3 months following the open repair of his ascending Aortic Aneurysm and Bicuspid Aortic Valve. The patient is asymptomatic He does report an increase with migraines since surgery. The CT scan was reviewed and reveals a stable aortic repair and normal caliber aorta beyond the graft. 04/22/2021 -- Dr Richards AVR(#23 Inspiris), Ascending aortic replacement( #30 Gelweave graft), CABG x1 (LAD-MAC) REVIEW OF SYSTEMS GENERAL: No weight loss, malaise or fevers HEENT: No changes in hearing or vision, no nose bleeds or other nasal problems RESPIRATORY: Negative for cough, hemoptysis, wheezing, COPD, dyspnea or shortness of breath CARDIOVASCULAR: Negative for chest pain, leg swelling, CHF or palpitations MUSCULOSKELETAL: back pain HEMATOLOGY/LYMPHOLOGY: Negative for prolonged bleeding, bruising easily or swollen nodes NEURO: Migraine headaches ENDOCRINE: Negative for cold or heat intolerance, polyuria, polydipsia and goiter All other systems reviewed and are negative. PHYSICAL EXAMINATION: BP 108/54 Pulse 65 Resp 12 Ht 172.7 cm (5' 8 ) Wt 78.9 kg (174 lb) SpO2 98% BMI 26.46 kg/m? General appearance: Well appearing, alert, in no acute distress, well-hydrated, well nourished. Lungs: lungs clear to auscultation. No wheezing, rhonchi, rales Heart: RRR without murmur, gallop, or rubs. No ectopy Abdomen: Abdomen soft, non-tender. Bowel sounds normal. Extremities: No deformities, edema, skin discoloration, clubbing or cyanosis. Good capillary refill. Musculoskeletal: No joint swelling, deformity, or tenderness Neuro: Gait normal. Sensation grossly intact. Impression: The patient is doing well, after aortic repair. Plan: He will return to see us in 9 months The following studies will be necessary: - CT gated thoracic aorta with contrast - Echocardiogram Annie Hsu APRN.GAME TRAPPER Medical Decision Making: Problems: Moderate: 2+ stable chronic illnesses Data: Unique test result(s) reviewed: 2 Unique test(s) ordered: 2 Medical Decision Making Level: 4 - Moderate [facility] 07-26-2021 Note HNO ID: [id number] Author: RT Jo(R) Service: Radiology Author Type: Technologist Type: Progress Notes Filed: 07/26/2021 11:29 AM Note Text: Radiology Service Progress Note PATIENT NAME: Marino Herrera DATE OF SERVICE: July 26, 2021 TIME: 11:29 AM PATIENT IDENTITY VERIFICATION COMPLETED USING TWO (2) IDENTIFIERS: Name and Date of confirmed by patient verbally and Name and Date of confirmed by identification band. FALL SCREENING: Has the patient had 2 falls in the last year or 1 fall with injury or currently using an Ambulatory Assistive Device (Walker, Cane, Wheelchair, Crutches, etc.)? No PATIENT GENDER DATA: Male PATIENT RELEVANT IMPLANT DATA REVIEWED: Yes RADIOLOGY DEPARTMENT: CT; Exam(s) Completed: Cardiac PERIPHERAL IV DATA: Site assessment: Clean,Dry and Intact, Site disposition Discontinued SIGNED BY: RT Jo(R) July 26, 2021 11:29 AM [facility] 07-26-2021 Note HNO ID: [id number] Author: Otf Cortez RN Service: Nursing Author Type: Registered Nurse Type: Progress Notes Filed: 07/26/2021 11:08 AM Note Text: Radiology Service Progress Note DATE OF SERVICE: July 26, 2021 TIME: 11:00 AM PATIENT WEIGHT: 184LBS PATIENT IDENTITY VERIFICATION COMPLETED USING TWO (2) STANDARD IDENTIFIERS: Name and Date of confirmed by patient verbally. FALL SCREENING: Has the patient had 2 falls in the last year or 1 fall with injury or currently using an Ambulatory Assistive Device (Walker, Cane, Wheelchair, Crutches, etc.)? No PATIENT GENDER DATA: Male ALLERGIES: Reviewed and unchanged CONTRAST ALLERGY: No EXAM: CT -CONTRAST INDUCED NEPHROPATHY RISK FACTORS: Patient age > 60 years CREATININE: Creatinine Date Value Ref Range Status 04/28/2021 0.88 0.73 - 1.22 mg/dL Final 04/27/2021 0.79 0.73 - 1.22 mg/dL Final 04/26/2021 0.74 0.73 - 1.22 mg/dL Final Estimated Glomerular Filtration Rate Date Value Ref Range Status 04/28/2021 93 >=60 mL/min/1.73m? Final Comment: Estimated Glomerular Filtration Rate (eGFR) is calculated using the 2020 CKD-EPI creatinine equation. This equation utilizes serum creatinine, sex, and age as parameters. The creatinine assay has traceable calibration to isotope dilution-mass spectrometry. Refer to KDIGO guidelines for clinical interpretation. In patients with unstable renal function, e.g. those with acute kidney injury, the eGFR may not accurately reflect actual GFR. eGFR- Date Value Ref Range Status 03/22/2021 >60 Final P.O.C.T. RESULTS: POC done: Yes, See Lab Tab July 26, 2021 TREATMENT: No Hydration needed. IV SITE: Ambulatory: A peripheral IV was started in the Right antecubital site with a Angio cath: 20 gauge. and A Saline lock was inserted per protocol IV SITE APPEARANCE: Clean,Dry and Intact SIGNATURE: Otf Cortez RN PATIENT NAME: Marino Herrera DATE: July 26, 2021 TIME: 11:00 AM [facility] 07-26-2021 History of Presen t illness Narrative Radiology Service Progress Note PATIENT NAME: Marino Herrera DATE OF SERVICE: July 26, 2021 TIME: 11:29 AM PATIENT IDENTITY VERIFICATION COMPLETED USING TWO (2) IDENTIFIERS: Name and Date of confirmed by patient verbally and Name and Date of confirmed by identification band. FALL SCREENING: Has the patient had 2 falls in the last year or 1 fall with injury or currently using an Ambulatory Assistive Device (Walker, Cane, Wheelchair, Crutches, etc.)? No PATIENT GENDER DATA: Male PATIENT RELEVANT IMPLANT DATA REVIEWED: Yes RADIOLOGY DEPARTMENT: CT; Exam(s) Completed: Cardiac PERIPHERAL IV DATA: Site assessment: Clean,Dry and Intact, Site disposition Discontinued SIGNED BY: RT Jo(R) July 26, 2021 11:29 AM Radiology Service Progress Note DATE OF SERVICE: July 26, 2021 TIME: 11:00 AM PATIENT WEIGHT: 184LBS PATIENT IDENTITY VERIFICATION COMPLETED USING TWO (2) STANDARD IDENTIFIERS: Name and Date of confirmed by patient verbally. FALL SCREENING: Has the patient had 2 falls in the last year or 1 fall with injury or currently using an Ambulatory Assistive Device (Walker, Cane, Wheelchair, Crutches, etc.)? No PATIENT GENDER DATA: Male ALLERGIES: Reviewed and unchanged CONTRAST ALLERGY: No EXAM: CT -CONTRAST INDUCED NEPHROPATHY RISK FACTORS: Patient age > 60 years CREATININE: Creatinine Date Value Ref Range Status 04/28/2021 0.88 0.73 - 1.22 mg/dL Final 04/27/2021 0.79 0.73 - 1.22 mg/dL Final 04/26/2021 0.74 0.73 - 1.22 mg/dL Final Estimated Glomerular Filtration Rate Date Value Ref Range Status 04/28/2021 93 >=60 mL/min/1.73m Final Comment: Estimated Glomerular Filtration Rate (eGFR) is calculated using the 2020 CKD-EPI creatinine equation. This equation utilizes serum creatinine, sex, and age as parameters. The creatinine assay has traceable calibration to isotope dilution-mass spectrometry. Refer to KDIGO guidelines for clinical interpretation. In patients with unstable renal function, e.g. those with acute kidney injury, the eGFR may not accurately reflect actual GFR. eGFR- Date Value Ref Range Status 03/22/2021 >60 Final P.O.C.T. RESULTS: POC done: Yes, See Lab Tab July 26, 2021 TREATMENT: No Hydration needed. IV SITE: Ambulatory: A peripheral IV was started in the Right antecubital site with a Angio cath: 20 gauge. and A Saline lock was inserted per protocol IV SITE APPEARANCE: Clean,Dry and Intact SIGNATURE: Otf Cortez RN PATIENT NAME: Marino Herrera DATE: July 26, 2021 TIME: 11:00 AM documented in this encounter [facility] 05-04-2021 Miscellaneous Notes SURVEY INFORMATION #1 Registered Nurse: Maggy Oneill Date: 05/04/2021 1:03:46 PM Call Outcome: All Clear Call Day: 6 Summary: 1. We are calling to check on how you are doing since our last phone call. Are you having any medical concerns we can help you with today? (Standard Question) No Overall Comments: all clear Maggy Oneill RN documented in this encounter [facility] documented as of this encounter (statuses as of 05/04/2021) [facility]03-10-2022 History of Past illness Narrative* Problem Noted Date Resolved Date Postoperative hypovolemia 04/22/20212021 Overview: History: post op Assessment: fluid shifting Plan: PRN volume resuscitation Discharge planning issues 03/22/20212021 Overview: This is a 70 y/o male from [place], [place] here for surgery that may benefit from [facility]. Pre-op testing 03/22/2021 04/26/2021 [facility] Informed Consent Completed:yes ptt runs high saw hem ok to have surgery per Gabby Mcguire rescheduled STS Score: REDO:No CAD: No Is intended procedure a CABG: No - is a beta elvis ordered? No - reason: ni H & P completed: Yes PA/LAT: Completed CT: Completed MRI: N/A LE US: N/A Cath: Yes - reviewed: Yes EKG: Completed Is patient on Amiodarone? No Echo:Completed EF %: 62% PI's: done Carotid: done Mapping: N/A Dental: Cleared PFT's: N/A Recent Labs 03/22/21 0824 WBC 5.37 HB 13.6 HCT 40.7 PLT 254 INR 1.0 CREAT 0.81 UA: Normal HCG:N/A ABO/ABO Confirmed: yes NEEDS TS DOS OK BY RUFUS Blood ordered: No SA Swab: Yes - results: Pending Last Dose of Anticoagulation: none Anticoagulant & Antiplatelet Medications Patient Encounter Information Not Found Op Note: N/A Pacer Check: NA Implants: no Consults: heme ok to proceed GABBY K DM: No Cardiac Surgical prep: N/A SIGNATURE: Kiran Priest RN DATE of SERVICE: 03/22/2021 TIME of SERVICE: 1:58 PM CHECKED BY: bill documented as of this encounter (statuses as of 07/27/2021) [facility]03-10-2022 History of Past illness Narrative* Problem Noted Date Resolved Date Postoperative hypovolemia 04/22/20212021 Overview: History: post op Assessment: fluid shifting Plan: PRN volume resuscitation Discharge planning issues 03/22/20212021 Overview: This is a 70 y/o male from [place], [place] here for surgery that may benefit from [facility]. Pre-op testing 03/22/2021 04/26/2021 [facility] Informed Consent Completed:yes ptt runs high saw hem ok to have surgery per Gabby Mcguire rescheduled STS Score: REDO:No CAD: No Is intended procedure a CABG: No - is a beta elvis ordered? No - reason: ni H & P completed: Yes PA/LAT: Completed CT: Completed MRI: N/A LE US: N/A Cath: Yes - reviewed: Yes EKG: Completed Is patient on Amiodarone? No Echo:Completed EF %: 62% PI's: done Carotid: done Mapping: N/A Dental: Cleared PFT's: N/A Recent Labs 03/22/21 0824 WBC 5.37 HB 13.6 HCT 40.7 PLT 254 INR 1.0 CREAT 0.81 UA: Normal HCG:N/A ABO/ABO Confirmed: yes NEEDS TS DOS OK BY RUFUS Blood ordered: No SA Swab: Yes - results: Pending Last Dose of Anticoagulation: none Anticoagulant & Antiplatelet Medications Patient Encounter Information Not Found Op Note: N/A Pacer Check: NA Implants: no Consults: heme ok to proceed GABBY K DM: No Cardiac Surgical prep: N/A SIGNATURE: Kiran Priest RN DATE of SERVICE: 03/22/2021 TIME of SERVICE: 1:58 PM CHECKED BY: bill documented as of this encounter (statuses as of 04/28/2022) [facility] V[facility] Injury to blood vessels, unspecified site documented in this encounter [facility] Summary Purpose Family History No Family History Records FoundNo Family History Records Found Advance Directives No Advanced Directives Records FoundDocuments on File Type Date 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 Advance Directive(s) 03/27/2021 4:31 PM Advance Directive(s) 03/22/2021 6:47 AM Advance Directive(s) 03/02/2021 2:10 PM Mc Advance Directive(s) 02/25/2021 3:34 PM Advance Directive(s) 02/01/2021 10:19 AM Advance Directive(s) 01/29/2021 4:33 PM Advance Directive(s) 09/25/2017 11:09 AM Documents on File Type Date 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 Advance Directive(s) 03/27/2021 4:31 PM Advance Directive(s) 03/22/2021 6:47 AM Advance Directive(s) 03/02/2021 2:10 PM Mc Advance Directive(s) 02/25/2021 3:34 PM Advance Directive(s) 02/01/2021 10:19 AM Advance Directive(s) 01/29/2021 4:33 PM Advance Directive(s) 09/25/2017 11:09 AM Documents on File Type Date 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 Advance Directive(s) 03/22/2021 6:47 AM Reason for Referral Specialty Diagnoses / Procedures Referred By Lynette t Referred To Contact CT IMAGING Diagnoses Vascular injury Procedures CTA CHEST (GATED) W IVCON CT ANGIOGRAPHY CHEST W/CONTRAST/NONCONTRAST Josiah Mcgovern APRN.ASSOCIATE PROGRAM MANAGER [id number] [place] [address] Ct Imaging Referral ID Status Reason Start Date Expiration Date V isits Requested Visits Authorized [id number] Closed Auto-Generate d Referral 07/27/2021 05/26/2022 1 1 Additional Source Comments (unrecognized sect ion and content) No Status Records FoundNo Status Records Found INFORMATION SOURCE (unrecogn ized section and content) DATE CREATED AUTHOR AUTHOR'S LAURO ATION 04/29/2022 [facility] Source Comments (unrecognize d section and content) In the event this informatio n is protected by the Federal Confidentiality of Alcohol and Drug Abuse Patient Records regulations: The Federal rules restrict any use of the information to criminally investigate or prosecute any alcohol or drug abuse patient.[facility] the event this information is protected by the Federal Confidentiality of Alcohol and Drug Abuse Patient Records regulations: The Federal rules restrict any use of the information to criminally investigate or prosecute any alcohol or drug abuse patient.[facility] the event this information is protected by the Federal Confidentiality of Alcohol and Drug Abuse Patient Records regulations: The Federal rules restrict any use of the information to criminally investigate or prosecute any alcohol or drug abuse patient.[facility] Reason for Visit (unrecogniz ed section and content) Reason Comments Radiology CT Specialty Diagnoses / Procedures Referred By Contac t Referred To Contact CT IMAGING Diagnoses Vascular injury Procedures CTA CHEST (GATED) W IVCON CT ANGIOGRAPHY CHEST W/CONTRAST/NONCONTRAST Josiah Mcgovern APRN.ASSOCIATE PROGRAM MANAGER [id number] [place] [address] Ct Imaging Referral ID Status Reason Start Date Expiration Date V isits Requested Visits Authorized [id number] Closed Auto-Generate d Referral 07/27/2021 05/26/2022 1 1 Care Teams (unrecognized sec tion and content) Submersible Pilot Relationship Specialty Start Date End Date Yecenia Okeefe [address] [place] [address] PCP - General 05/27/03 Catarino, [place] S [address] [place] [address] Referring Cardiology 01/18/21 Ken Quintanilla MD [address] [place] [address] Primary Staff Physician Cardiology 03/01/21 Submersible Pilot Relationship Specialty Start Date End Date Yecenia Okeefe [address] [place] [address] PCP - General 05/27/03 Actarino, Shane S [address] [place] [address] Referring Cardiology 01/18/21 Kne Quintanilla MD [address] [place] [address] Primary Staff Physician Cardiology 03/01/21 FOR RECORDS PERTAINING TO PATIENTS WHO ARE OR HAVE BEEN ENROLLED IN A CHEMICAL DEPENDENCY/SUBSTANCEABUSE PROGRAM, SOME INFORMATION MAY BE OMITTED. This clinical summary was aggregated from multiple sources. Caution should be exercised in using it in the provision of clinical care. This summary normalizes information from multiple sources, and as a consequence, information in this document may materially change the coding, format and clinical context of patient data. In addition, data may be omitted in some cases. CLINICAL DECISIONS SHOULD BE BASED ON THE PRIMARY CLINICAL RECORDS. [facility]. provides no warranty or guarantee of the accuracy or completeness of information in this document.
[2023-03-13 13:01] LABS: PSA,Total - Annual Screen 0.98 ng/mL (0.00-4.00)
== END | disposition home or self-care (01) ==
LOC: LAB 11:26
PROVIDERS: PCP Family Medicine; Referring Provider Nurse Practitioner; Visit Provider Nurse Practitioner
DX: Z12.5 Encounter for screening for malignant neoplasm of prostate (principal)
CPT/HCPCS: 36415; 84153; G0103

== ENCOUNTER → 2023-04-10 | Outpatient (CLI) | payer MEDICARE, OTHER, SELFPAY ==
[2021-09-13 00:28] VITALS: BMI 27.8
[2023-04-10 16:17] LABS: Anion Gap 6 (5-15); BUN 20 mg/dL (7-18); BUN/Creat Ratio 24.6 RATIO (10-20); Calcium,Total 8.9 mg/dL (8.5-10.1); Chloride 107 mmol/L (98-107); Creatinine, Serum 0.81 mg/dL (0.70-1.30); EST Glomerular Filtration Rate 99 mL/min (>60); Est Glom Filt Rate - Afr Amer 120 mL/min (>60); Glucose 77 mg/dL (74-106); Potassium 3.8 mmol/L (3.5-5.1); Sodium Level 140 mmol/L (136-145); T4 Total, Thyroxin 12.6 ug/dL (4.5-12.1); Thyroid Stim Hormone (TSH) 0.24 uIU/mL (0.358-3.74)
== END | disposition home or self-care (01) ==
LOC: MFPLAB 11:29
PROVIDERS: PCP Family Medicine; Visit Provider Family Medicine
DX: I10 Essential (primary) hypertension (principal); E03.9 Hypothyroidism, unspecified
CPT/HCPCS: 36415; 80048; 84436; 84443

== ENCOUNTER → 2023-05-24 | Outpatient (CLI) | payer MEDICARE, OTHER, SELFPAY ==
[2021-09-13 00:28] VITALS: BMI 27.8
--- NOTE | 2023-05-24 15:34 | MRI_ITS ---
STUDY: MRI THORACIC SPINE WITH CONTRAST REASON FOR EXAM: Male, 72 years old. S/P LUMBAR FUSION TECHNIQUE: Standardized fat and water weighted pulse sequences were obtained in the sagittal and axial planes. 17 mL of Clariscan intravenous contrast used for the exam. COMPARISON: Lumbar spine MRI obtained in conjunction with this exam. FINDINGS: Normal kyphosis of the thoracic spine. There is no substantial scoliosis. T8 vertebral body, 11 mm focal circumscribed lesion with peripheral fatty signal consistent with benign lesion, likely atypical hemangioma. Typical high T1 and high T2 subcentimeter hemangioma seen at T1 and T2 vertebral bodies; benign findings. Degenerative endplate herniation pits seen at T9-10, T10-11 and T11-T12 and T12-L1 levels. Multilevel disc desiccation and height loss. Anterior disc herniations and anterior osteophyte formation noted/distal thoracic spine. T3-4 tiny posterior disc herniation slightly indenting the anterior thecal sac with no significant central spinal canal stenosis. No neural foraminal narrowing. T6-7 small posterior disc herniation slightly indents the anterior thecal sac with trace flattening of the anterior cord despite generous CSF anterior to the cord, mild stenosis. T7-8 small central disc protrusion focally indents the anterior thecal sac with trace anterior cord flattening, mild stenosis. No other posterior disc herniations. There are no areas of neural foraminal narrowing. Neurostimulator wire posterior to the thecal sac assistance up to the T7-8 disc level. There is some susceptibility artifact, most notably at the T10, T11, T12 and L1 vertebral body levels limiting visualization of the cord and with very limited assessment of the central spinal canal. Normal visualized thoracic cord. Normal conus medullaris that terminates below the [id number]. Please reference comparison lumbar spine MRI. Normal signal of the cord no myelopathy. Paraspinal soft tissues are within normal limits. Postcontrast enhanced images show no evidence of intramedullary mass. No paraspinal fluid collection or laboratory changes. MRI/Spine Thoracic W/WO Contrast IMPRESSION: 1. Small, posterior disc herniations T3-4, T6-7 and T7-8 result in mild central spinal canal narrowing. 2. Neurostimulator wires posterior thecal sac extend up to the T7-8 disc level. This results in susceptibility artifact limiting assessment of the central spinal canal, especially at the T10-L1 levels. 3. Multilevel degenerative disc and endplate changes as described above. Electronically Signed: Guero Moise DO at 21:46 EDT ,
--- NOTE | 2023-05-24 15:35 | MRI_ITS ---
INDICATION: LUMBAR FUSION EXAMINATION: MRI - MR Spine Lumbar W/ Contrast TECHNIQUE: Multiplanar and multisequence MR images of the lumbar spine. IV Contrast Dosage and Agent: None. COMPARISON: MR Lumbar SpineMay 2019 FINDINGS: VERTEBRAE: Vertebral body heights are preserved. Normal vertebral bodies and posterior elements. VERTEBRAL ALIGNMENT: No spondylolisthesis. There is preservation of the normal lumbar lordosis. CORD: Normal position and signal intensity of the conus medullaris. L1/L2, L2/L3: Mild degenerative disc disease without significant stenosis of the spinal canal, lateral recesses and neuroforamina. L3/L4: Endplate spondylosis. Decreased disc height and small circumferential disc bulge. Degenerative changes of the bilateral facet joints. Mild narrowing of the central canal and moderate narrowing of the intervertebral neural foramina. L4/L5: Postsurgical changes and posterior fusion in good alignment Normal spinal canal, lateral recesses and neuroforamina. L5/S1: Mild degenerative changes in the facet joints and in the disc without significant disc bulge. Mild narrowing of the neuroforamina. SOFT TISSUES: There is no abnormal enhancement after contrast administration. MRI/Spine Lumbar WITH Contrast IMPRESSION: Multilevel degenerative changes more prominent at L3-4 Electronically Signed: Tracie Ernandez MD at 8:18 EDT ,
[2023-05-24 16:08] LABS: CREATININE FINGERSTICK < 1.0 mg/dL (0.70-1.30); EGFR FINGERSTICK > 60.0000 mL/min (>60)
== END | disposition home or self-care (01) ==
LOC: MRI 15:23
PROVIDERS: PCP Family Medicine; Referring Provider Orthopaedic Surgery; Visit Provider Orthopaedic Surgery
DX: Z98.1 Arthrodesis status (principal)
CPT/HCPCS: 72149; 72157; A9575

== ENCOUNTER → 2023-05-26 | Outpatient (CLI) | payer MEDICARE, OTHER, SELFPAY ==
[2021-09-13 00:28] VITALS: BMI 27.8
--- NOTE | 2023-05-26 11:38 | CT_ITS ---
INDICATION: Arthrodesis status EXAMINATION: CT THORACIC SPINE - CT Spine Thoracic with internal thecal contrast administration. TECHNIQUE: Helically acquired images were obtained of the thoracic spine. 2D reformats were reviewed. A radiation dose optimization technique was used for this scan. IV Contrast dosage and agent: None. COMPARISON: None. FINDINGS: VERTEBRAE: Mild degree of multilevel spondylosis. No discrete lytic or blastic abnormality observed. VERTEBRAL ALIGNMENT: Unremarkable. There is preservation of the normal thoracic kyphosis. DISCS: Mild degree of multilevel disc space narrowing. Minimal posterior central spondylosis at the T6-T7 level causing minimal central deformity of the anterior thecal sac. There is evidence of a hypertrophy of the ligamenta flava on the right posterior-lateral aspect of the T12 vertebral level causing narrowing of the right intervertebral foramen. VISUALIZED THORAX: Electrodes from a spinal cord stimulator device are seen. CT/Spine Thoracic WITH Contrast IMPRESSION: Right posterolateral spinal stenosis T12 vertebral level due to posterior spondylosis and hypertrophy of the ligamenta flava. Electronically Signed: Dinesh Mojica MD at 14:50 EDT ,
--- NOTE | 2023-05-26 11:38 | CT_ITS ---
STUDY: CT LUMBAR SPINE WITH INTRATHECAL CONTRAST (LUMBAR CT MYELOGRAM) REASON FOR EXAM: Male, 72 years old. Arthrodesis status RADIATION DOSAGE (If Supplied By Facility): CTDIvol = ( 27.17 ) mGy, DLP = ( 756.84 ) mGycm TECHNIQUE: Transaxial images were obtained from the L1 vertebra through the S1 vertebral level, following intrathecal administration of 15 ml of Isovue-M 300 contrast material, performed by Dr. Mojica. Please refer to this physicians technical notes for procedural details. Coronal and sagittal reconstructions were obtained. Individualized dose optimization techniques were used for this CT. COMPARISON: None. FINDINGS: Normal lumbar lordosis. There is no substantial scoliosis. Normal vertebrae of the lumbar spine. There is dependent layering of contrast material in the distal thecal sac. The conus medullaris terminates in a normal position at the T12-L1 level. There is no demonstrated cauda equina nerve root abnormality or intraspinal mass. Right paracentral disc protrusion and spondylosis and hypertrophy of the right ligamenta flava and right facet joint at the T12-L1 level causing canal stenosis and right neural foraminal stenosis. L1-2: Mild degree of disc space narrowing and spondylosis. No significant stenosis is seen. L2-3: Mild degree of disc space narrowing and disc degeneration with spondylosis. Facet joint osteoarthritis. Mild bilateral neural foraminal stenosis. L3-4: Mild degree of disc space narrowing and spondylosis. L4-5: The patient is status post L4-L5 laminectomy with interpedicular screw fixation. L5-S1: Normal endplates. Normal disc height and morphology. Normal bilateral facet joints. Normal central canal and bilateral lateral recesses. Normal bilateral intervertebral neural foramina. Normal visualized sacroiliac joints. Normal visualized paraspinous soft tissue structures. CT/Spine Lumbar WITH Contrast IMPRESSION: Status post laminectomy and pedicle screw fixation at the L4-L5 level. Right paracentral disc protrusion and spondylosis and hypertrophy of the right ligamenta flava and facet joint causing narrowing at the T12-L1 level with canal stenosis and right neural foraminal stenosis. Electronically Signed: Dinesh Mojica MD at 14:56 EDT ,
--- NOTE | 2023-05-26 11:43 | RAD_ITS ---
PROCEDURE: LUMBAR MYELOGRAM DATE OF EXAMINATION: May 26, 2023. INDICATION: Male, 72 years old. Low back pain. PHYSICIAN: Dinesh Mojica M.D. CONSENT: The patient''s history and physical findings were reviewed. The lumbar myelogram procedure was discussed with the patient prior to signing a consent. SEDATION: Local anesthesia with 3 mL of 1% lidocaine was used. FLUOROSCOPY TIME (if supplied): (2:45) minutes/seconds. 55.32 mGy. Injection Information: 10 cc of the Isovue-M 300 Number of images obtained: 4 TECHNIQUE: Digital fluoroscopy was used to identify a safe approach for the lumbar myelogram. The back was prepped and draped in usual fashion. Local anesthesia was utilized. Under fluoroscopic guidance a 22-gauge spinal needle was inserted into the spinal canal at the L4-5 level. Clear spinal fluid was seen. 20 mL of Isovue 200 M was injected into the spinal canal. There is good opacification of the spinal fluid. The nerve root sheaths are asymmetrically identified. There is no extradural defects. The patient is status post laminectomy and fusion at the L4-L5 level. RAD/Myelography 2/> Spine Regions IMPRESSION: Status post laminectomy and fusion at the L4-L5 level. Electronically Signed: Dinesh Mojica MD at 14:44 EDT ,
[2023-05-26 11:55] VITALS: BP 159/66; PULSE 74; RESP 16; TEMP 35.7; O2SAT 98; BMI 28.5
[2023-05-26] MEDS: Lidocaine 2% (5ml sdv) 5 ML VIAL.MPF INFILT (12:35)
[2023-05-26 13:07] VITALS: BP 149/69; PULSE 64; RESP 16; O2SAT 99
[2023-05-26 13:15] VITALS: BP 148/73; PULSE 62; RESP 18; O2SAT 100
[2023-05-26 13:30] VITALS: BP 142/72; PULSE 63; RESP 16; O2SAT 99
[2023-05-26 13:50] VITALS: BP 143/67; PULSE 61; RESP 16; O2SAT 99
== END | disposition home or self-care (01) ==
PROVIDERS: PCP Family Medicine; Referring Provider Orthopaedic Surgery; Visit Provider Orthopaedic Surgery
DX: Z98.1 Arthrodesis status (principal)
CPT/HCPCS: 62305; 72129; 72132; Q9967

== ENCOUNTER → 2024-01-03 | Outpatient (CLI) | payer MEDICARE, OTHER, SELFPAY ==
[2021-09-13 00:28] VITALS: BMI 27.8
== END | disposition home or self-care (01) ==
LOC: MFPLAB 15:26
PROVIDERS: PCP Family Medicine; Visit Provider Family Medicine
DX: E03.9 Hypothyroidism, unspecified (principal)
CPT/HCPCS: 36415; 84443

== ENCOUNTER → 2024-03-19 | Outpatient (CLI) | payer MEDICARE, OTHER, SELFPAY ==
[2021-09-13 00:28] VITALS: BMI 27.8
[2024-03-19 13:16] LABS: PSA,Total - Annual Screen 1.02 ng/mL (0.00-4.00)
== END | disposition home or self-care (01) ==
LOC: MFPLAB 11:03
PROVIDERS: PCP Family Medicine; Referring Provider Family Medicine; Visit Provider Family Medicine
DX: Z12.5 Encounter for screening for malignant neoplasm of prostate (principal)
CPT/HCPCS: 36415; 84153; G0103

== ENCOUNTER → 2024-03-26 | Outpatient (CLI) | payer MEDICARE, OTHER, SELFPAY ==
[2021-09-13 00:28] VITALS: BMI 27.8
[2024-03-26 13:53] LABS: PSA,Total - Annual Screen 1.05 ng/mL (0.00-4.00)
== END | disposition home or self-care (01) ==
LOC: LAB 10:34
PROVIDERS: PCP Family Medicine; Referring Provider Urology; Visit Provider Urology
DX: Z12.5 Encounter for screening for malignant neoplasm of prostate (principal)
CPT/HCPCS: 36415; 84153; G0103

== ENCOUNTER → 2024-07-25 | Outpatient (CLI) | payer MEDICARE, OTHER, SELFPAY ==
[2021-09-13 00:28] VITALS: BMI 27.8
[2024-07-25 12:36] LABS: Absolute Lymphocyte Count 1.61 X10^3/uL (0.83-4.51); Basophil# 0.03 X10^3/uL; Basophil% 0.7 % (0-1); Eosinophil# 0.23 X10^3/uL; Eosinophils% 5.2 % (0-5); Hematocrit 40.6 % (40-54); Hemoglobin 13.6 g/dL (13.0-16.5); Lymphocyte # 1.61 X10^3/ul (0.83-4.51); Lymphocyte % 36.5 % (19-41); Mean Corp Hgb Conc 33.5 g/dL (32-36); Mean Corpuscular Hgb 30.4 pg (27.0-32.0); Mean Corpuscular Volume 90.6 fL (80-94); Mean Platelet Vol. 10.3 fl (6.2-12.0); Monocyte# 0.55 X10^3/uL; Monocyte% 12.5 % (0-10); NRBC Flagged by Analyzer 0 % (0-5); Neutrophil # 1.98 X10^3/uL (2.7-7.7); Neutrophil % 44.9 % (47-70); Platelet Count 237 K/mm3 (150-450); RBC Distribution Width CV 12.3 % (11.6-14.6); RBC Distribution Width SD 41.1 fl (35.1-43.9); Red Blood Count 4.48 M/mm3 (4.6-6.2); White Blood Count 4.4 K/mm3 (4.4-11.0)
[2024-07-25 13:14] LABS: Anion Gap 11 (5-15); BUN 17 mg/dL (4-19); BUN/Creat Ratio 18.5 RATIO (10-20); Carbon Dioxide 26.5 mmol/L (21.0-32.0); Chloride 104 mmol/L (98-108); Creatinine, Serum 0.93 mg/dL (0.70-1.20); EST Glomerular Filtration Rate 86 (>60); Glucose 85 mg/dL (70-99); Potassium 4.3 mmol/L (3.3-5.1); Pro- Brain NATRIURETIC PEPTIDE 77 pg/mL (<=900); Sodium Level 142 mmol/L (133-145); Thyroid Stim Hormone (TSH) 0.575 uIU/mL (0.300-4.200)
== END | disposition home or self-care (01) ==
LOC: LAB 11:32
PROVIDERS: PCP Family Medicine; Referring Provider Nurse Practitioner Family; Visit Provider Nurse Practitioner Family
DX: R06.09 Other forms of dyspnea (principal); R53.83 Other fatigue; Z95.1 Presence of aortocoronary bypass graft; Z95.3 Presence of xenogenic heart valve; Z98.890 Other specified postprocedural states
CPT/HCPCS: 36415; 80048; 83880; 84439; 84443; 85025

== ENCOUNTER 2024-08-21 11:15 | Day surgery (SDC) | payer MEDICARE, OTHER, SELFPAY ==
[2021-09-13 00:28] VITALS: BMI 27.8
--- NOTE | 2024-08-20 14:49 | PAT.ANESEVAL ---
Pre-Assessment Diagnosis/Proposed Procedure Planned Operative Procedure(s): COLONOSCOPY/EGD Anesthesia History Anesthesia History - customer resource specialist: Anesthesia History - customer resource specialist Hx Hospitalization Yes: BACK SURGERY 12/0608/20/24 14:40 Any Problems With Anesthesia No 08/20/24 14:40 Cholinesterase deficiency No 08/20/24 14:40 You/Your Family Experience No 08/20/24 14:40 fever (hyperthermia) with Relationship Recent Exposure to Contagious No 11/29/17 13:19 Disease Does patient have nerve No 08/20/24 14:40 stimulator Patient instructed to have device shut off --Does patient have Pacemaker or ICD? When Was Last Pacemaker Check QUESTION #4 FULL TEXT: You/Your Family Experience fever (hyperthermia) with Anesthesia Last Oral Intake Last Oral intake: Last Oral Intake NPO since Meds taken in AM with sips of water? Meds patient instructed to take am of surgery PONV PONV - customer resource specialist: PONV - customer resource specialist Female No 08/20/24 14:40 HX of Motion Sickness No 08/20/24 14:40 HX of N/V After Surgery No 08/20/24 14:40 Non-Smoker Yes 08/20/24 14:40 Duration of Surgery greater No 08/20/24 14:40 than 60 minutes Number of Risk Factors 1 08/20/24 14:40 PONV Score Low Risk 08/20/24 14:40 Height & Weight Height & Weight: Anesthesia: Height & Weight Height 5 ft 9 in 07/25/24 10:46 Respiratory Assessment Respiratory Assessment - customer resource specialist: Respiratory Tract Infection Hx - customer resource specialist Hx Respiratory Tract Infection No 08/20/24 14:40 STOP Sleep Apnea STOP Sleep Apnea - customer resource specialist: STOP Sleep Apnea - customer resource specialist Hx Hypertension No 08/20/24 14:40 Hx Sleep Apnea No 08/20/24 14:40 CPAP No 08/20/24 14:40 BIPAP No 08/20/24 14:40 Do you snore loudly (louder No 08/20/24 14:40 than talking or can be heard Do you often feel tired/ No 08/20/24 14:40 fatigued/ sleepy during daytime? Has anyone observed you stop No 08/20/24 14:40 breathing during sleep? STOP Results Negative 08/20/24 14:40 QUESTION #5 FULL TEXT : Do you snore loudly (louder than talking or can be heard through closed doors)? 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 Specify any problems LARGE BUMPS/GOOSEBUMPS 08/20/24 14:40 Hx of Preganancy in last 3 N/A 08/20/24 14:40 Months Nurse Filling Out Transfusion VCHRISTIN 08/20/24 14:40 & Questions: Date: 08/20/24 08/20/24 14:40 Time: 14:42 08/20/24 14:40 Patient unable to answer at this time (ie. confused, unrespo /Reproduction History /Reproductive History - customer resource specialist: /Reproductive Hx- customer resource specialist Hx Now No 08/20/24 14:40 Gestational Age (in weeks): EDC: Hx Hx Para Hx Section SAB No 08/20/24 14:40 PFS Medical History (Updated 08/20/24 @ 14:40 by Gracie Marquis) Wears hearing aid Cancer Wears glasses Anxiety Alcohol use Thyroid disease Arthritis Back pain History of IBS Gastric reflux Former smoker CPAP (continuous positive airway pressure) dependence Sleep apnea History of echocardiogram History of stress test Hypertension Cardiology follow-up encounter Chest pain Aortic stenosis with bicuspid valve Lupus anticoagulant disorder Atherosclerotic heart disease of [place] coronary artery without angina pectoris Obstructive sleep apnea Paresthesia and pain of extremity Hyperlipidemia DDD (degenerative disc disease), cervical Erectile dysfunction Depression BPH (benign prostatic hyperplasia) Migraines Hypothyroidism Thoracic aortic aneurysm Home Medications ?Medication ?Instructions ?Recorded ?Last Taken ?Type sumatriptan succinate 100 mg tablet 100 mg PO .X1 PRN PRN MIGRAINES 10/15/19 Unknown History amoxicillin 500 mg capsule 2,000 mg (4 x 500 mg) PO .COMPLEX 06/21/21 Unknown Rx #4 caps levothyroxine 150 mcg tablet 150 mcg PO MOTUWETHFRSA 05/26/22 Unknown History aspirin 81 mg tablet,delayed 81 mg PO QDAY 02/01/24 Unknown History release (Adult Low Dose Aspirin) duloxetine 60 mg capsule,delayed 60 mg PO QDAY 06/21/24 Unknown History release pantoprazole 40 mg tablet,delayed 40 mg PO BID #60 tabs 06/21/24 Unknown Rx release clobetasol 0.05 % topical cream 1 applic topical PRN 07/25/24 Unknown History atorvastatin 20 mg tablet 20 mg PO QPM #90 tabs 08/06/24 Unknown Rx metoprolol succinate 25 mg 25 mg PO DAILY #90 tabs 08/06/24 Unknown Rx tablet,extended release 24 hr gabapentin 100 mg capsule 100 mg PO BID 08/20/24 Unknown History gabapentin 100 mg capsule 200 mg PO QHS 08/20/24 Unknown History methocarbamol 750 mg tablet 750 mg PO 4X/DAY 08/20/24 Unknown History Allergy/AdvReac Type Severity Reaction Status Date / Time No Known Allergies Allergy Verified 08/20/24 14:22 Family History Brother CAD (coronary artery disease) Cancer Myocardial infarction age 69 Father Cancer CVA (cerebral vascular accident) CAD (coronary artery disease) Mother Heart disease chf Surgical History (Updated 08/20/24 @ 14:40 by Gracie Marquis) History of open heart surgery History of spinal fusion (~11/2023) Spinal cord stimulator status (10/2022) History of left heart catheterization (03/22/21) History of ascending aorta repair (04/22/21) History of aortic valve replacement with bioprosthetic valve (04/22/21) H/O coronary artery bypass surgery (04/22/21) History of back surgery (08/2018) S/P trigger finger release History of transurethral resection of prostate Cervical vertebral fusion History of uvulopalatopharyngoplasty H/O thyroidectomy History of nasal septoplasty History of rhinoplasty History of lumbar laminectomy History of bilateral carpal tunnel release Social History Smoking Status: Former smoker how long ago did patient quit smoking: Stopped smoking a pipe 15 year ago, Stopped chewing tobacco 4 years ago alcohol intake: current alcohol intake frequency: holidays/special occasions only Alcohol type: beer and other substance use type: does not use caffeine: No Audit: Pertinent Findings Pertinent Findings EKG Perinent findings: May 25, 2021. Sinus rhythm. Negative precordial T waves. May be normal?consider anterior-septal ischemia. In 2020 inverted T waves are noticed in V1 but not in V2. So T inversion in V2 is new. Echo (EF%) pertinent findings: June 07, 2022. EF is 70%. Mean aortic valve gradient is 8.5 mmHg. Normal prosthetic aortic valve. Heart catheterization pertinent findings: March 22, 2021. Proximal LAD narrowed 60%. Mid LAD narrowed 75%. Third diagonal is narrowed at 70% at the ostium. Consult pertinent findings: July 25, 2024. Roof NPC. 1. History of coronary artery bypass surgery-CABG x 1?chronic patient has a CABG 2 MAC to the LAD and AVR. Ascending aortic replacement. Patient's chest pain has improved since last visit. However his worsening of fatigue and shortness of breath warrants a stress test. 2. History of aortic valve replacement with bioprosthetic valve?chronic-stable. Patient is to continue antibiotic prophylaxis. Repeat echo to evaluate ongoing shortness of breath. 3. History of ascending aorta repair?acute-most recent CTA showed improvement in the aortic size to 3.4 cm. Continue blood pressure and heart rate control. 4. Dyspnea on exertion-this could be due to general deconditioning and musculoskeletal limitation. However could be also related to cardiac history. Proceed with stress test and echo. Recommendation Anesthesia Recommendation Anesthesia recommendation: F/U recommended (Last cardiac workup July 25, 2024, indicated patient needs a stress test and echo. These have not been done at this time. Would like these completed prior to elective procedure.)
--- NOTE | 2024-08-20 16:57 | PAT.ANESEVAL ---
Pre-Assessment Diagnosis/Proposed Procedure Planned Operative Procedure(s): COLONOSCOPY/EGD Anesthesia History Anesthesia History - supply chain vice president: Anesthesia History - supply chain vice president Hx Hospitalization Yes: BACK SURGERY 12/0608/20/24 14:40 Any Problems With Anesthesia No 08/20/24 14:40 Cholinesterase deficiency No 08/20/24 14:40 You/Your Family Experience No 08/20/24 14:40 fever (hyperthermia) with Relationship Recent Exposure to Contagious No 11/29/17 13:19 Disease Does patient have nerve No 08/20/24 14:40 stimulator Patient instructed to have device shut off --Does patient have Pacemaker or ICD? When Was Last Pacemaker Check QUESTION #4 FULL TEXT: You/Your Family Experience fever (hyperthermia) with Anesthesia Last Oral Intake Last Oral intake: Last Oral Intake NPO since Meds taken in AM with sips of water? Meds patient instructed to take am of surgery PONV PONV - supply chain vice president: PONV - supply chain vice president Female No 08/20/24 14:40 HX of Motion Sickness No 08/20/24 14:40 HX of N/V After Surgery No 08/20/24 14:40 Non-Smoker Yes 08/20/24 14:40 Duration of Surgery greater No 08/20/24 14:40 than 60 minutes Number of Risk Factors 1 08/20/24 14:40 PONV Score Low Risk 08/20/24 14:40 Height & Weight Height & Weight: Anesthesia: Height & Weight Height 5 ft 9 in 07/25/24 10:46 Respiratory Assessment Respiratory Assessment - supply chain vice president: Respiratory Tract Infection Hx - supply chain vice president Hx Respiratory Tract Infection No 08/20/24 14:40 STOP Sleep Apnea STOP Sleep Apnea - supply chain vice president: STOP Sleep Apnea - supply chain vice president Hx Hypertension No 08/20/24 14:40 Hx Sleep Apnea No 08/20/24 14:40 CPAP No 08/20/24 14:40 BIPAP No 08/20/24 14:40 Do you snore loudly (louder No 08/20/24 14:40 than talking or can be heard Do you often feel tired/ No 08/20/24 14:40 fatigued/ sleepy during daytime? Has anyone observed you stop No 08/20/24 14:40 breathing during sleep? STOP Results Negative 08/20/24 14:40 QUESTION #5 FULL TEXT : Do you snore loudly (louder than talking or can be heard through closed doors)? Tobacco Use History Tobacco Use History - supply chain vice president: Tobacco Use History - supply chain vice president Tobacco Use Smoking Status Former smoker 08/20/24 14:40 Hx Tobacco Use Yes 08/20/24 14:40 Years Smoking Packs Smoked per Day Smoking Cessation Date was No - quit smoking greater 08/20/24 14:40 within the last 15 years than 15 years ago Hx Smoking Cessation Date Hx Smoking Cessation Counseling Hematologic Medial History Hematologic Hx - supply chain vice president: Hematologic Medical Hx - dog food dough mixer Hx of Blood Transfusion Yes 08/20/24 14:40 Hx of Transfusion in last 3 No 08/20/24 14:40 Months Date of Last Transfusion (if within last 3 months) Ever experience any problems Yes 08/20/24 14:40 with transfusion(s)? Specify any problems LARGE BUMPS/GOOSEBUMPS 08/20/24 14:40 Hx of Preganancy in last 3 N/A 08/20/24 14:40 Months Nurse Filling Out Transfusion VCHRISTIN 08/20/24 14:40 & Questions: Date: 08/20/24 08/20/24 14:40 Time: 14:42 08/20/24 14:40 Patient unable to answer at this time (ie. confused, unrespo /Reproduction History /Reproductive History - supply chain vice president: /Reproductive Hx- supply chain vice president Hx Now No 08/20/24 14:40 Gestational Age (in weeks): EDC: Hx Hx Para Hx Section SAB No 08/20/24 14:40 PFS Medical History (Updated 08/20/24 @ 14:40 by Gracie Marquis) Wears hearing aid Cancer Wears glasses Anxiety Alcohol use Thyroid disease Arthritis Back pain History of IBS Gastric reflux Former smoker CPAP (continuous positive airway pressure) dependence Sleep apnea History of echocardiogram History of stress test Hypertension Cardiology follow-up encounter Chest pain Aortic stenosis with bicuspid valve Lupus anticoagulant disorder Atherosclerotic heart disease of [place] coronary artery without angina pectoris Obstructive sleep apnea Paresthesia and pain of extremity Hyperlipidemia DDD (degenerative disc disease), cervical Erectile dysfunction Depression BPH (benign prostatic hyperplasia) Migraines Hypothyroidism Thoracic aortic aneurysm Home Medications ?Medication ?Instructions ?Recorded ?Last Taken ?Type sumatriptan succinate 100 mg tablet 100 mg PO .X1 PRN PRN MIGRAINES 10/15/19 Unknown History amoxicillin 500 mg capsule 2,000 mg (4 x 500 mg) PO .COMPLEX 06/21/21 Unknown Rx #4 caps levothyroxine 150 mcg tablet 150 mcg PO MOTUWETHFRSA 05/26/22 Unknown History aspirin 81 mg tablet,delayed 81 mg PO QDAY 02/01/24 Unknown History release (Adult Low Dose Aspirin) duloxetine 60 mg capsule,delayed 60 mg PO QDAY 06/21/24 Unknown History release pantoprazole 40 mg tablet,delayed 40 mg PO BID #60 tabs 06/21/24 Unknown Rx release clobetasol 0.05 % topical cream 1 applic topical PRN 07/25/24 Unknown History atorvastatin 20 mg tablet 20 mg PO QPM #90 tabs 08/06/24 Unknown Rx metoprolol succinate 25 mg 25 mg PO DAILY #90 tabs 08/06/24 Unknown Rx tablet,extended release 24 hr gabapentin 100 mg capsule 100 mg PO BID 08/20/24 Unknown History gabapentin 100 mg capsule 200 mg PO QHS 08/20/24 Unknown History methocarbamol 750 mg tablet 750 mg PO 4X/DAY 08/20/24 Unknown History Allergy/AdvReac Type Severity Reaction Status Date / Time No Known Allergies Allergy Verified 08/20/24 14:22 Family History Brother CAD (coronary artery disease) Cancer Myocardial infarction age 69 Father Cancer CVA (cerebral vascular accident) CAD (coronary artery disease) Mother Heart disease chf Surgical History (Updated 08/20/24 @ 14:40 by Gracie Marquis) History of open heart surgery History of spinal fusion (~11/2023) Spinal cord stimulator status (10/2022) History of left heart catheterization (03/22/21) History of ascending aorta repair (04/22/21) History of aortic valve replacement with bioprosthetic valve (04/22/21) H/O coronary artery bypass surgery (04/22/21) History of back surgery (08/2018) S/P trigger finger release History of transurethral resection of prostate Cervical vertebral fusion History of uvulopalatopharyngoplasty H/O thyroidectomy History of nasal septoplasty History of rhinoplasty History of lumbar laminectomy History of bilateral carpal tunnel release Social History Smoking Status: Former smoker how long ago did patient quit smoking: Stopped smoking a pipe 15 year ago, Stopped chewing tobacco 4 years ago alcohol intake: current alcohol intake frequency: holidays/special occasions only Alcohol type: beer and other substance use type: does not use caffeine: No Audit: Pertinent Findings HISTORY of Pertinent Findings History of Pertinent Findings: EKG Pertinent Findings EKG Perinent findings May 25, 2021. Sinus 08/20/24 14:57 rhythm. Negative precordial T waves. May be normal? consider anterior-septal ischemia. In 2020 inverted T waves are noticed in V1 but not in V2. So T inversion in V2 is new. Echo Pertinent Findings Echo (EF%) pertinent findings June 07, 2022. EF is 70%. 08/20/24 15:01 Mean aortic valve gradient is 8.5 mmHg. Normal prosthetic aortic valve. Heart Catheterization Pertinent Findings Heart catheterization March 22, 2021. Proximal 08/20/24 15:10 pertinent findings LAD narrowed 60%. Mid LAD narrowed 75%. Third diagonal is narrowed at 70% at the ostium. Consult Pertinent Findings Consult pertinent findings July 25, 2024. Eben FOOTE. 08/20/24 15:16 1. History of coronary artery bypass surgery-CABG x 1?chronic patient has a CABG 2 MAC to the LAD and AVR. Ascending aortic replacement. Patient's chest pain has improved since last visit. However his worsening of fatigue and shortness of breath warrants a stress test. 2. History of aortic valve replacement with bioprosthetic valve?chronic- stable. Patient is to continue antibiotic prophylaxis. Repeat echo to evaluate ongoing shortness of breath. 3. History of ascending aorta repair?acute-most recent CTA showed improvement in the aortic size to 3.4 cm. Continue blood pressure and heart rate control. 4. Dyspnea on exertion-this could be due to general deconditioning and musculoskeletal limitation. However could be also related to cardiac history. Proceed with stress test and echo. Pertinent Findings Consult pertinent findings: August 20, 2024. Eben [place]. Patient may proceed with monitored anesthesia care despite not having echocardiogram or stress test. Recommendation Anesthesia Recommendation Anesthesia recommendation: OPTIMIZED for anesthesia (According to cardiology note. Patient is cleared to proceed with MAC anesthesia.)
[2024-08-21] VITALS (8 sets, daily range): BP systolic 103–121; BP diastolic 66–73; PULSE 60–65; RESP 14–16; TEMP 36.2–36.8; O2SAT 97–99; BMI 27.0
--- NOTE | 2024-08-21 12:04 | PCM.HP.STD ---
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 He said his father had colon cancer and would like screening. States last colon was 5 years ago. Has HX of GERD. Takes Pantoprazole 40mg qd. Says his sx are only somewhat controlled. Does have abdominal pain when he eats. Sates he had lumbar surgery last November and used to have constipation. States his BMs are better now. [facility] Medical History Wears hearing aid Cancer Wears glasses Anxiety Alcohol use Thyroid disease Arthritis Back pain History of IBS Gastric reflux Former smoker CPAP (continuous positive airway pressure) dependence Sleep apnea History of echocardiogram History of stress test Hypertension Cardiology follow-up encounter Chest pain Aortic stenosis with bicuspid valve Lupus anticoagulant disorder Atherosclerotic heart disease of [place] coronary artery without angina pectoris Obstructive sleep apnea Paresthesia and pain of extremity Hyperlipidemia DDD (degenerative disc disease), cervical Erectile dysfunction Depression BPH (benign prostatic hyperplasia) Migraines Hypothyroidism Thoracic aortic aneurysm Home Medications ?Medication ?Instructions ?Recorded ?Last Taken ?Type sumatriptan succinate 100 mg tablet 100 mg PO .X1 PRN PRN MIGRAINES 10/15/19 Unknown History amoxicillin 500 mg capsule 2,000 mg (4 x 500 mg) PO .COMPLEX 06/21/21 Unknown Rx #4 caps levothyroxine 150 mcg tablet 150 mcg PO MOTUWETHFRSA 05/26/22 08/21/24 08:00 History aspirin 81 mg tablet,delayed 81 mg PO QDAY 02/01/24 Unknown History release (Adult Low Dose Aspirin) duloxetine 60 mg capsule,delayed 60 mg PO QDAY 06/21/24 Unknown History release pantoprazole 40 mg tablet,delayed 40 mg PO BID #60 tabs 06/21/24 Unknown Rx release clobetasol 0.05 % topical cream 1 applic topical PRN 07/25/24 Unknown History atorvastatin 20 mg tablet 20 mg PO QPM #90 tabs 08/06/24 Unknown Rx metoprolol succinate 25 mg 25 mg PO DAILY #90 tabs 08/06/24 08/20/24 Rx tablet,extended release 24 hr gabapentin 100 mg capsule 100 mg PO BID 08/20/24 Unknown History gabapentin 100 mg capsule 200 mg PO QHS 08/20/24 Unknown History methocarbamol 750 mg tablet 750 mg PO 4X/DAY 08/20/24 Unknown History Allergy/AdvReac Type Severity Reaction Status Date / Time No Known Allergies Allergy Verified 08/21/24 11:52 Family History Brother CAD (coronary artery disease) Cancer Myocardial infarction age 69 Father Cancer CVA (cerebral vascular accident) CAD (coronary artery disease) Mother Heart disease chf Surgical History History of open heart surgery History of spinal fusion (~11/2023) Spinal cord stimulator status (10/2022) History of left heart catheterization (03/22/21) History of ascending aorta repair (04/22/21) History of aortic valve replacement with bioprosthetic valve (04/22/21) H/O coronary artery bypass surgery (04/22/21) History of back surgery (08/2018) S/P trigger finger release History of transurethral resection of prostate Cervical vertebral fusion History of uvulopalatopharyngoplasty H/O thyroidectomy History of nasal septoplasty History of rhinoplasty History of lumbar laminectomy History of bilateral carpal tunnel release Social History Smoking Status: Former smoker how long ago did patient quit smoking: Stopped smoking a pipe 15 year ago, Stopped chewing tobacco 4 years ago alcohol intake: current alcohol intake frequency: holidays/special occasions only Alcohol type: beer and other substance use type: does not use caffeine: No ROS Constitutional Constitutional: Denies fatigue, fever(s), poor appetite, weight gain or weight loss Gastrointestinal Gastrointestinal: Denies belching, bloating, change in bowel habits, change in stool character, chewing difficulty, coffee ground emesis, constipation, cramping, diarrhea, dyspepsia, dysphagia, early satiety, excessive flatus, fecal incontinence, heartburn, hematemesis, hematochezia, hemorrhoids, loose stools, melena, nausea, odynophagia, rectal bleeding, tenesmus, vomiting or weight changes Physical Exam Const alert, oriented x3, no apparent distress and healthy appearing General Appearance: cooperative GI normal to inspection, nondistended, normoactive bowel sounds, soft to palpation, non-tender and non-distended Percussion: normal to percussion Rectal Exam: deferred Assessment & Plan Assessment/Plan (1) Screening for colon cancer: (2) Abdominal pain: PLAN: Assessment and Plan Assessment and Plan (1) Abdominal pain: Status: Acute Plan: Differential diagnosis for his abdominal pain does include peptic ulcer disease, H. pylori associated gastritis, hiatal hernia, NSAID induced gastritis secondary to aspirin therapy. He is also having atypical reflux symptoms. He will undergo upper endoscopy noted upper GI tract. I will increase his pantoprazole to 40 mg p.o. twice daily until we undergo upper endoscopy. (2) Screening for colon cancer: Status: Acute Plan: He would need to undergo screening colonoscopy. He was explained alternatives, risk and benefits of the nondistended bleeding, infection, sepsis, perforation, need for surgery . He will have an ASA of 3. Medications:
[2024-08-21] MEDS: Lactated Ringers 1,000 ML 15 ML IV (12:15)
--- NOTE | 2024-08-21 12:47 | PCM.PRE.AN2 ---
ASA Classification* ASA Classification ASA Classification: 2 Assessment & Plan Anesthesia* Anesthesia Assessment Anesthesia Assessment: Discussed sedation and/or anesthesia options, risks, benefits, and alternatives with patient/parents/legal guardian/POA. Questions invited. The patient/parents/legal guardian/POA seems to understand and agrees to proceed with anesthesia plan. Reviewed the physical assessment, medical history, allergy history and patient home medications list prior to surgery/procedure/anesthetic and documented any changes. Performed airway and anesthesia risk assessments. Anesthesia Type Anesthesia Type: MAC History Source History Obtained from:: Patient and Chart Anesthesia Focused Assessment* Temperature: 98.3 F Pulse Rate: 65 Blood Pressure: 117/66 Respiratory Rate: 16 Pulse Ox: 99 Oxygen Delivery Method: Room Air Airway Assessment Mouth opens: >3 cm Mallampati Score: II Teeth Condition: Intact Neck Range of motion (ROM): Full ROM Labs Anesthesia Preop lab: CBC WBC 4.4 K/mm3 (4.4-11.0) 07/25/24 11:40 07/25/24 RBC 4.48 M/mm3 (4.6-6.2) L 07/25/24 11:40 07/25/24 Hgb 13.6 g/dL (13.0-16.5) 07/25/24 11:40 07/25/24 Hct 40.6 % (40-54) 07/25/24 11:40 07/25/24 Plt Count 237 K/mm3 (150-450) 07/25/24 11:40 07/25/24 CHEMISTRY Potassium 4.3 mmol/L (3.3-5.1) 07/25/24 11:40 07/25/24 Sodium 142 mmol/L (133-145) 07/25/24 11:40 07/25/24 BUN 17 mg/dL (4-19) 07/25/24 11:40 07/25/24 Creatinine 0.93 mg/dL (0.70-1.20) 07/25/24 11:40 07/25/24 Glucose 85 mg/dL (70-99) 07/25/24 11:40 07/25/24 TSH 0.575 uIU/mL (0.300-4.200) 07/25/24 11:40 07/25/24 COAG PT 12.4 SECONDS (11.9-14.4) 02/15/13 15:57 02/15/13 Pre-Assessment Diagnosis/Proposed Procedure Planned Operative Procedure(s): COLONOSCOPY/EGD Anesthesia History Anesthesia History - pediatric dermatologist: Anesthesia History - pediatric dermatologist Hx Hospitalization Yes: BACK SURGERY 12/0608/20/24 14:40 Any Problems With Anesthesia No 08/20/24 14:40 Cholinesterase deficiency No 08/20/24 14:40 You/Your Family Experience No 08/20/24 14:40 fever (hyperthermia) with Relationship Recent Exposure to Contagious No 08/21/24 11:55 Disease Does patient have nerve No 08/20/24 14:40 stimulator Patient instructed to have device shut off --Does patient have Pacemaker No 08/21/24 11:55 or ICD? When Was Last Pacemaker Check QUESTION #4 FULL TEXT: You/Your Family Experience fever (hyperthermia) with Anesthesia Last Oral Intake Last Oral intake: Last Oral Intake NPO since 09:08/21/24 11:55 Meds taken in AM with sips of Yes 08/21/24 11:55 water? Meds patient instructed to take am of surgery PONV PONV - pediatric dermatologist: PONV - pediatric dermatologist Female No 08/20/24 14:40 HX of Motion Sickness No 08/20/24 14:40 HX of N/V After Surgery No 08/20/24 14:40 Non-Smoker Yes 08/20/24 14:40 Duration of Surgery greater No 08/20/24 14:40 than 60 minutes Number of Risk Factors 1 08/20/24 14:40 PONV Score Low Risk 08/20/24 14:40 Height & Weight Height & Weight: Anesthesia: Height & Weight Height 5 ft 9 in 08/21/24 11:55 Weight: 83 kg 08/21/24 11:55 Body Mass Index (BMI) 27.0 08/21/24 11:55 Respiratory Assessment Respiratory Assessment - pediatric dermatologist: Respiratory Tract Infection Hx - pediatric dermatologist Hx Respiratory Tract Infection No 08/20/24 14:40 STOP Sleep Apnea STOP Sleep Apnea - pediatric dermatologist: STOP Sleep Apnea - pediatric dermatologist Hx Hypertension No 08/20/24 14:40 Hx Sleep Apnea No 08/20/24 14:40 CPAP No 08/20/24 14:40 BIPAP No 08/20/24 14:40 Do you snore loudly (louder No 08/20/24 14:40 than talking or can be heard Do you often feel tired/ No 08/20/24 14:40 fatigued/ sleepy during daytime? Has anyone observed you stop No 08/20/24 14:40 breathing during sleep? STOP Results Negative 08/20/24 14:40 QUESTION #5 FULL TEXT : Do you snore loudly (louder than talking or can be heard through closed doors)? 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 Specify any problems LARGE BUMPS/GOOSEBUMPS 08/20/24 14:40 Hx of Preganancy in last 3 N/A 08/20/24 14:40 Months Nurse Filling Out Transfusion VCHRISTIN 08/20/24 14:40 & Questions: Date: 08/20/24 08/20/24 14:40 Time: 14:42 08/20/24 14:40 Patient unable to answer at this time (ie. confused, unrespo /Reproduction History /Reproductive History - pediatric dermatologist: /Reproductive Hx- pediatric dermatologist Hx Now No 08/20/24 14:40 Gestational Age (in weeks): EDC: Hx Hx Para Hx Section SAB No 08/20/24 14:40 Active Medications Active Medications: Current Medications Generic Name Dose Route Start Last Admin Trade Name Freq PRN Reason Stop Dose Admin Lactated Ringer's 1,000 mls @ 15 mls/hr 08/21/24 11:45 08/21/24 12:15 IV 15 mls/hr .Q48H ANNABELLA Administration PFSH Medical History Wears hearing aid Cancer Wears glasses Anxiety Alcohol use Thyroid disease Arthritis Back pain History of IBS Gastric reflux Former smoker CPAP (continuous positive airway pressure) dependence Sleep apnea History of echocardiogram History of stress test Hypertension Cardiology follow-up encounter Chest pain Aortic stenosis with bicuspid valve Lupus anticoagulant disorder Atherosclerotic heart disease of [place] coronary artery without angina pectoris Obstructive sleep apnea Paresthesia and pain of extremity Hyperlipidemia DDD (degenerative disc disease), cervical Erectile dysfunction Depression BPH (benign prostatic hyperplasia) Migraines Hypothyroidism Thoracic aortic aneurysm Home Medications ?Medication ?Instructions ?Recorded ?Last Taken ?Type sumatriptan succinate 100 mg tablet 100 mg PO .X1 PRN PRN MIGRAINES 10/15/19 Unknown History amoxicillin 500 mg capsule 2,000 mg (4 x 500 mg) PO .COMPLEX 06/21/21 Unknown Rx #4 caps levothyroxine 150 mcg tablet 150 mcg PO MOTUWETHFRSA 05/26/22 08/21/24 08:00 History aspirin 81 mg tablet,delayed 81 mg PO QDAY 02/01/24 Unknown History release (Adult Low Dose Aspirin) duloxetine 60 mg capsule,delayed 60 mg PO QDAY 06/21/24 Unknown History release pantoprazole 40 mg tablet,delayed 40 mg PO BID #60 tabs 06/21/24 Unknown Rx release clobetasol 0.05 % topical cream 1 applic topical PRN 07/25/24 Unknown History atorvastatin 20 mg tablet 20 mg PO QPM #90 tabs 08/06/24 Unknown Rx metoprolol succinate 25 mg 25 mg PO DAILY #90 tabs 08/06/24 08/20/24 Rx tablet,extended release 24 hr gabapentin 100 mg capsule 100 mg PO BID 08/20/24 Unknown History gabapentin 100 mg capsule 200 mg PO QHS 08/20/24 Unknown History methocarbamol 750 mg tablet 750 mg PO 4X/DAY 08/20/24 Unknown History Allergy/AdvReac Type Severity Reaction Status Date / Time No Known Allergies Allergy Verified 08/21/24 11:52 Family History Brother CAD (coronary artery disease) Cancer Myocardial infarction age 69 Father Cancer CVA (cerebral vascular accident) CAD (coronary artery disease) Mother Heart disease chf Surgical History History of open heart surgery History of spinal fusion (~11/2023) Spinal cord stimulator status (10/2022) History of left heart catheterization (03/22/21) History of ascending aorta repair (04/22/21) History of aortic valve replacement with bioprosthetic valve (04/22/21) H/O coronary artery bypass surgery (04/22/21) History of back surgery (08/2018) S/P trigger finger release History of transurethral resection of prostate Cervical vertebral fusion History of uvulopalatopharyngoplasty H/O thyroidectomy History of nasal septoplasty History of rhinoplasty History of lumbar laminectomy History of bilateral carpal tunnel release Social History Smoking Status: Former smoker how long ago did patient quit smoking: Stopped smoking a pipe 15 year ago, Stopped chewing tobacco 4 years ago alcohol intake: current alcohol intake frequency: holidays/special occasions only Alcohol type: beer and other substance use type: does not use caffeine: No Review of Systems (Anesthesia) ROS Narrative System reviewed and no additional complaints, except as documented.
--- NOTE | 2024-08-21 13:00 | EGD_PTH ---
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 Isaiah Will DO : 1950 BED: DIS: 08/21/2024 SPEC #: [id number] RECD: 08/21/24 14:59 STATUS: MANAN REValentine #: [id number] ANDREW: 08/21/24 13:[address]: Isaiah Will DEPT: SURGICAL PATHOLOGY RECD BY: Yo Jones ENTERED: 08/21/24 15:45 SP TYPE: EGD BIOPSY DAVIDSON DR: Dr. Yecenia Okeefe MD Tissues: A - Duodenum, NOS B - Gastric mucous membrane C - Esophagus, NOS Procedures: Immunohistochemical Stains Surgery Specimen Level IV HEADER OPERATION: Colonoscopy, EGD, biopsy PRE-OP DIAGNOSIS: Screening for colon cancer, abdominal pain TISSUE SUBMITTED: A- Duodenum biopsy, B- Gastric body biopsy, C- Distal esophagus biopsy MICROSCOPIC DIAGNOSIS A. Duodenum, colon, biopsy: Unremarkable duodenal mucosa. Negative for histologic signs of celiac disease.B. Gastric body, biopsy: Focal reactive gastropathy. Negative for H. pylori on routine stains. C. Distal esophagus, biopsy: Unremarkable gastric type mucosa. Negative for intestinal metaplasia, dysplasia or malignancy. MICROSCOPIC DESCRIPTION Slides are reviewed. All matched controls reacted appropriately. These tests were developed and their performance characteristics determined by [facility]. They may not have been cleared or approved by the U.S. Food and Drug Administration. The FDA has determined that such clearance or approval is not necessary. The above immunohistochemical/dualISH markers are viewed by the Pathologist. GROSS DESCRIPTION A. Received in fixative is one container labeled with the patient's name and designated Duodenum biopsy. The specimen consists of one irregular fragment of light meyer soft tissue that measures 0.6 cm. The specimen is totally submitted in one cassette. B. Received in fixative is one container labeled with the patient's name and designated Gastric body biopsy. The specimen consists of three irregular fragments of light meyer soft tissue that in aggregate measure 0.3 to 0.5 cm. The specimen is totally submitted in one cassette. C. Received in fixative is one container labeled with the patient's name and designated Distal esophagus biopsy. The specimen consists of one irregular fragment of light meyer soft tissue that measures 0.6 cm. The specimen is totally submitted in one cassette. 08/21/2024 CPT:63046i5
--- NOTE | 2024-08-21 13:50 | OP.CCLET_ITS ---
08/21/2024 Yecenia Okeefe [address] [place] [address] Re : Upper GI endoscopy procedure for Marino Herrera Dear Dr. Okeefe This procedure was performed on Wednesday, August 21, 2024. My impressions and recommendations are as follows: Impressions : - Z-line irregular, 40 cm from the incisors. Biopsied. - Erythematous mucosa in the gastric body and antrum. Biopsied. - Erythematous duodenopathy. Biopsied. Recommendations : - Discharge patient to home. - Resume previous diet. - Continue present medications. - Await pathology results. My findings are described in the full procedure note, which is enclosed. If I can be of further assistance, please feel free to contact me at . Sincerely, Isaiah Will, 08/21/2024 1:50:17 PM This report has been signed electronically.
--- NOTE | 2024-08-21 13:50 | OP.EGD_ITS ---
Patient Name: Marino Herrera Procedure Date: 08/21/2024 1:11 PM Date of : 1950 Age: 74 Procedure: Upper GI endoscopy Indications: Epigastric abdominal pain, Functional Dyspepsia, Suspected esophageal reflux Providers: Isaiah Will DO Referring MD: Yecenia Okeefe Medicines: Monitored Anesthesia Care Patient Profile: This is a 74 year old male. Refer to note in patient chart for documentation of history and physical. Patient has symptoms of acute epigastric abdominal pain, chronic dyspepsia and chronic heartburn. Complications: No immediate complications. Procedure: Pre-Anesthesia Assessment: - Prior to the procedure, a History and Physical was performed, and patient medications and allergies were reviewed. The patient is competent. The risks and benefits of the procedure and the sedation options and risks were discussed with the patient. All questions were answered and informed consent was obtained. Patient identification and proposed procedure were verified by the physician in the pre-procedure area. Mental Status Examination: alert and oriented. Airway Examination: normal oropharyngeal airway and neck mobility. Respiratory Examination: clear to auscultation. CV Examination: normal. Prophylactic Antibiotics: The patient does not require prophylactic antibiotics. Prior Anticoagulants: The patient has taken no anticoagulant or antiplatelet agents except for NSAID medication. ASA Grade Assessment: III - A patient with severe systemic disease. After reviewing the risks and benefits, the patient was deemed in satisfactory condition to undergo the procedure. The anesthesia plan was to use monitored anesthesia care (MAC). Immediately prior to administration of medications, the patient was re-assessed for adequacy to receive sedatives. The heart rate, respiratory rate, oxygen saturations, blood pressure, adequacy of pulmonary ventilation, and response to care were monitored throughout the procedure. The physical status of the patient was re-assessed after the procedure. After obtaining informed consent, the endoscope was passed under direct vision. Throughout the procedure, the patient's blood pressure, pulse, and oxygen saturations were monitored continuously. The Colonoscope was introduced through the mouth, and advanced to the fourth part of the duodenum. Small bowel enteroscopy was deemed necessary. The upper GI endoscopy was accomplished without difficulty. The patient tolerated the procedure well. Scope In: 1:26:50 PM Scope Out: 1:30:35 PM Total Procedure Duration Time 0 hours 3 minutes 45 seconds Findings: The Z-line was irregular and was found 40 cm from the incisors. Biopsies were taken with a cold forceps for histology. Verification of patient identification for the specimen was done. Estimated blood loss was minimal. Patchy mildly erythematous mucosa without bleeding was found in the gastric body and in the gastric antrum. Biopsies were taken with a cold forceps for histology. Biopsies were taken with a cold forceps for Helicobacter pylori testing. Verification of patient identification for the specimen was done. Estimated blood loss was minimal. Patchy mildly erythematous mucosa without active bleeding and with no stigmata of bleeding was found in the entire duodenum. Biopsies were taken with a cold forceps for histology. Verification of patient identification for the specimen was done. Estimated blood loss was minimal. Impression: - Z-line irregular, 40 cm from the incisors. Biopsied. - Erythematous mucosa in the gastric body and antrum. Biopsied. - Erythematous duodenopathy. Biopsied. Recommendation: - Discharge patient to home. - Resume previous diet. - Continue present medications. - Await pathology results. Procedure Code(s): --- Professional --- 22449, Small intestinal endoscopy, enteroscopy beyond second portion of duodenum, not including ileum; with biopsy, single or multiple CPT copyright 2021 [employer]. All rights reserved. The codes documented in this report are preliminary and upon segmental wall installer review may be revised to meet current compliance requirements. Isaiah Will DO 08/21/2024 1:50:17 PM This report has been signed electronically. Number of Addenda: 0 Note Initiated On: 08/21/2024 1:11 PM
--- NOTE | 2024-08-21 13:53 | PCM.POST.ANE ---
Anesthesia: Postop Eval I Current Vital Signs Temperature: 97.1 F Pulse Rate: 61 Blood Pressure: 103/71 Respiratory Rate: 16 Pulse Ox: 98 Oxygen Delivery Method: Room Air Assessment Airway patent: Yes Spontaneous unlabored respirations: Yes Mental status: Asleep nausea: No Vomiting: No Anesthesia Complication: No Fluid Hydration Crystalloid volume administer (ml): 700 Total IV fluid infused: 700 Progress Note Anesthesia document: Postop Eval 1 completed: Yes
--- NOTE | 2024-08-21 13:54 | OP.CCLET_ITS ---
08/21/2024 Yecenia Okeefe [address] [place] [address] Re : Colonoscopy procedure for Marino Herrera Dear Dr. Okeefe This procedure was performed on Wednesday, August 21, 2024. My impressions and recommendations are as follows: Impressions : - Diverticulosis in the recto-sigmoid colon and in the sigmoid colon. - The examination was otherwise normal on direct and retroflexion views. - No specimens collected. Recommendations : - Discharge patient to home. - Resume previous diet. - Continue present medications. - Repeat colonoscopy in 10 years for screening purposes. My findings are described in the full procedure note, which is enclosed. If I can be of further assistance, please feel free to contact me at . Sincerely, Isaiah Will, 08/21/2024 1:53:56 PM This report has been signed electronically.
--- NOTE | 2024-08-21 13:54 | OP.COLON_ITS ---
Patient Name: Marino Herrera Procedure Date: 08/21/2024 1:30 PM Date of : 1950 Age: 74 Procedure: Colonoscopy Indications: Screening for colorectal malignant neoplasm Providers: Isaiah Will DO Referring MD: Yecenia Okeefe Medicines: Monitored Anesthesia Care Patient Profile: This is a 74 year old male. Refer to note in patient chart for documentation of history and physical. Patient has symptoms of acute epigastric abdominal pain, chronic dyspepsia and chronic heartburn. Last Colonoscopy: more than 10 years ago. Complications: No immediate complications. Procedure: Pre-Anesthesia Assessment: - Prior to the procedure, a History and Physical was performed, and patient medications and allergies were reviewed. The patient is competent. The risks and benefits of the procedure and the sedation options and risks were discussed with the patient. All questions were answered and informed consent was obtained. Patient identification and proposed procedure were verified by the physician in the pre-procedure area. Mental Status Examination: alert and oriented. Airway Examination: normal oropharyngeal airway and neck mobility. Respiratory Examination: clear to auscultation. CV Examination: normal. Prophylactic Antibiotics: The patient does not require prophylactic antibiotics. Prior Anticoagulants: The patient has taken no anticoagulant or antiplatelet agents except for NSAID medication. ASA Grade Assessment: III - A patient with severe systemic disease. After reviewing the risks and benefits, the patient was deemed in satisfactory condition to undergo the procedure. The anesthesia plan was to use monitored anesthesia care (MAC). Immediately prior to administration of medications, the patient was re-assessed for adequacy to receive sedatives. The heart rate, respiratory rate, oxygen saturations, blood pressure, adequacy of pulmonary ventilation, and response to care were monitored throughout the procedure. The physical status of the patient was re-assessed after the procedure. After I obtained informed consent, the scope was passed under direct vision. Throughout the procedure, the patient's blood pressure, pulse, and oxygen saturations were monitored continuously. The Colonoscope was introduced through the anus and advanced to the terminal ileum. The colonoscopy was performed without difficulty. The patient tolerated the procedure well. The quality of the bowel preparation was adequate. The ileocecal valve, appendiceal orifice, and rectum were photographed. Scope In: 1:32:02 PM Scope Withdrawal Time 0 hours 7 minutes 37 seconds Scope Out: 1:43:01 PM Total Procedure Duration Time 0 hours 10 minutes 59 seconds Findings: The perianal and digital rectal examinations were normal. Multiple small and large-mouthed diverticula were found in the recto-sigmoid colon and sigmoid colon. The exam was otherwise without abnormality on direct and retroflexion views. Impression: - Diverticulosis in the recto-sigmoid colon and in the sigmoid colon. - The examination was otherwise normal on direct and retroflexion views. - No specimens collected. Recommendation: - Discharge patient to home. - Resume previous diet. - Continue present medications. - Repeat colonoscopy in 10 years for screening purposes. Procedure Code(s): --- Professional --- 78379, Colonoscopy, flexible; diagnostic, including collection of specimen(s) by brushing or washing, when performed (separate procedure) CPT copyright 2021 [employer]. All rights reserved. The codes documented in this report are preliminary and upon aluminum container tester review may be revised to meet current compliance requirements. Isaiah Will DO 08/21/2024 1:53:56 PM This report has been signed electronically. Number of Addenda: 0 Note Initiated On: 08/21/2024 1:30 PM
--- NOTE | 2024-08-21 14:13 | PCM.POSTANE2 ---
Anesthesia Postop Eval I Sum Postop Eval Completion status Anesthesia document: Postop Eval 1 completed: Yes Anesthesia Postop Eval I Summary Anesthesia Postop Eval I Summary: Anesthesia Postop Eval I: Assessment Summary Airway patent Yes 08/21/24 13:54 [email or web address] Spontaneous unlabored Yes 08/21/24 13:54 [email or web address] respirations Mental status Asleep 08/21/24 13:54 [email or web address] nausea No 08/21/24 13:54 [email or web address] Vomiting No 08/21/24 13:54 [email or web address] Anesthesia Postop Eval I: Fluid Summary Crystalloid volume administer 700 08/21/24 13:54 [email or web address] (ml) Colloids volume administered ( ml) Blood Product volume administered (ml) Total IV fluid infused 700 08/21/24 13:54 [email or web address] Anesthesia Postop Eval I: Summary Notes Anesthesia Complication No 08/21/24 13:54 [email or web address] Anesthesia Complication Comment: Post-operative progress note Anesthesia: Postop Eval II Evaluation Mental status: Awake and Calm Pain Level: 1 nausea: No Vomiting: No Complications Anesthesia Complication: No
== END 2024-08-21 15:05 | disposition home or self-care (01) ==
LOC: EN 11:17 → AC 11:18
PROVIDERS: PCP Family Medicine; Referring Provider Family Medicine; Visit Provider Internal Medicine Gastroenterology
PROC: 0DJD8ZZ Inspection of Lower Intestinal Tract, Via Natural or Artificial Opening Endoscopic (ICD-10-PCS; CPT 45378; principal; 2024-08-21 12:55)
DX: Z12.11 Encounter for screening for malignant neoplasm of colon (principal); I10 Essential (primary) hypertension; Z87.891 Personal history of nicotine dependence; I25.10 Atherosclerotic heart disease of native coronary artery without angina pectoris; E78.5 Hyperlipidemia, unspecified; K21.9 Gastro-esophageal reflux disease without esophagitis; Z80.0 Family history of malignant neoplasm of digestive organs; E03.9 Hypothyroidism, unspecified; Z79.890 Hormone replacement therapy; Z79.899 Other long term (current) drug therapy; K57.30 Diverticulosis of large intestine without perforation or abscess without bleeding; K31.9 Disease of stomach and duodenum, unspecified
CPT/HCPCS: 43239; 45378; 88305; 88342; J2405

== ENCOUNTER → 2024-09-02 | Outpatient (CLI) | payer MEDICARE, OTHER, SELFPAY ==
[2021-09-13 00:28] VITALS: BMI 27.8
--- NOTE | 2024-09-02 07:02 | ECHOD_ITS ---
Reason For Study Reason For Study: VALVE REPLACEMENT Procedure This was a 2D Doppler, Color Flow transthoracic echocardiogram. Exam performed in department. Left Ventricle Normal LV size. The left ventricular ejection fraction is 65 %. No regional wall motion abnormalities noted. Right Ventricle Normal RV size. Normal systolic function. Mitral Valve Normal mitral valve. Tricuspid Valve Normal tricuspid valve. Aortic Valve Peak aortic valve gradient 17 mmHg. Mean aortic valve gradient 9 mmHg. Bioprosthetic aortic valve. Pulmonic Valve Normal pulmonic valve. Great Vessels Normal aortic root. The pulmonary artery is normal size. Normal inferior vena cava. Pericardium/Pleural No pericardial effusion. MMode/2D Measurements & Calculations LVIDd: 4.7 cm IVSd: 0.84 cm LVOT diam: 2.0 cm LVIDs: 2.3 cm LVPWd: 0.65 cm LVOT area: 3.2 cm2 RVDd: 3.2 cm FS: 49.8 % Ao root diam: 3.1 cm LAV(MOD-bp): 46.3 ml LVAd ap4: 23.9 cm2 LAV(MOD-bp) Indexed: 23.4 ml/m2 LVLd ap4: 8.8 cm LAV(MOD-sp2): 51.3 ml EDV(MOD-sp4): 53.6 ml LAV(MOD-sp4): 37.3 ml EDV(sp4-el): 54.9 ml LVAs ap4: 12.1 cm2 LVLs ap4: 7.0 cm ESV(MOD-sp4): 18.2 ml ESV(sp4-el): 17.6 ml EF(MOD-sp4): 65.9 % EF(sp4-el): 67.9 % SV(MOD-sp4): 35.3 ml SV(sp4-el): 37.3 ml LA A4 area: 16.0 cm2 SI(MOD-sp4): 17.8 ml/m2 LA dimension(2D): 4.1 cm RA A4 area: 14.4 cm2 Time Measurements MV dec time: 0.20 sec Doppler Measurements & Calculations MV E max thomas: 88.0 cm/sec Lat Peak E' Thomas: 10.9 cm/sec Med Peak E' Thomas: 6.3 cm/sec MV A max thomas: 82.9 cm/sec E/E' lat: 8.1 E/E' med: 13.9 MV E/A: 1.1 MV V2 max: 123.1 cm/sec Ao V2 max: 207.5 cm/sec MV max P.1 mmHg MV dec slope: 439.8 cm/sec2 Ao max P.2 mmHg MV V2 mean: 67.3 cm/sec Ao V2 mean: 141.4 cm/sec MV mean P.2 mmHg Ao mean P.3 mmHg MV V2 VTI: 45.6 cm Ao V2 VTI: 55.7 cm AV (velocity ratio): 0.74 MVA(VTI): 2.9 cm2 DOC(I,D): 2.4 cm2 DOC(V,D): 2.4 cm2 LV V1 max: 159.2 cm/sec SV(LVOT): 130.9 ml PA V2 max: 73.9 cm/sec LV V1 max P.1 mmHg PA V2 mean: 55.2 cm/sec LV V1 mean P.0 mmHg LV V1 mean: 116.4 cm/sec LV V1 VTI: 41.4 cm ECHO/Echo Complete Interpretation Summary Normal LV size. The left ventricular ejection fraction is 65 %. Bioprosthetic aortic valve. Mean aortic valve gradient 9 mmHg. Ordering Physician: Reji Treadwell Referring Physician: Reji Treadwell Performed By: Evelyn Hines RCS
--- OUTSIDE RECORDS SUMMARY | 2024-09-02 07:06 | XMS RPT_ITS | CCD ---
Author Organization [facility] Care Team Providers Care Hydrostatic Tubing Tester Name Role Phone Eduardo Angulo Unavailable Unavailable PROVIDER, UNKNOWN Unavailable Unavailable Yecenia Okeefe Unavailable Unavailable Yecenia Okeefe Primary Care Provider Shane Toribio Unavailable Dwight ABAD, Ken Antoine Unavailable Dr. Yecenia Okeefe Primary Care Provider Miriam Ricketts Attending Provider Unavailable Dr. Yecenia Okeefe Referring Provider Dr. Shane Toribio Attending Provider Dr. Yecenia Okeefe Primary Care Provider Dr. Yecenia Okeefe Primary Care Provider Dr. Yecenia Okeefe Referring Provider [facility] CABLE BRAIDER, CABLE BRAIDER-Zhane Deleon Attending Provider Dr. Shane Toribio Attending Provider Dr. Yecenia Okeefe Primary Care Provider Dr. Yecenia Okeefe Referring Provider Dr. Shane Toribio Attending Provider Yecenia Okeefe Primary Care Provider Shane Toribio Unavailable Ken Quintanilla MD Unavailable [phone] Dr. Yecenia Okeefe Primary Care Provider Dr. Yecenia Okeefe Referring Provider Roof CABLE BRAIDER, MARIJA-C Reji Deleon Attending Provider Dr. Shane Toribio Attending Provider Jolliff, Yecenia Nehemiah Primary Care Provider [phone] Shane Toribio MD Unavailable Dwight ABAD, Ken Antoine Unavailable CORKY WRIGHT Attending Unavailable CORKY WRIGHT Admitting Unavailable JOLLIFF, YECENIA NEHEMIAH Primary Care Unavailable JOLLIFF, YECENIA NEHEMIAH Primary Care Unavailable PACENTA, JORDAN Referring Unavailable JOLLIFF, YECENIA NEHEMIAH Primary Care Unavailable BUTT, BILAL DONNA Referring Unavailable JOLLIFF, YECENIA NEHEMIAH Primary Care Unavailable VAUGHN D ELOS SANTOS Referring Unavailable JOLLIFF, YECENIA NEHEMIAH Primary Care Unavailable JOLLIFF, YECENIA NEHEMIAH Primary Care Unavailable PACENTA, JORDAN Referring Unavailable BUTT, BILAL DONNA Attending Unavailable JOLLIFF, YECENIA NEHEMIAH Primary Care Unavailable JOLLIFF, YECENIA NEHEMIAH Primary Care Unavailable BUTT, BILAL DONNA Referring Unavailable JOLLIFF, YECENIA NEHEMIAH Primary Care Unavailable BUTT, BILAL DONNA Referring Unavailable BUTT, BILAL DONNA Attending Unavailable BUTT, BILAL DONNA Admitting Unavailable JOLLIFF, YECENIA NEHEMIAH Primary Care Unavailable BUTT, BILAL DONNA Attending Unavailable JOLLIFF, YECENIA NEHEMIAH Primary Care Unavailable JOLLIFF, YECENIA NEHEMIAH Primary Care Unavailable BUTT, BILAL DONNA Attending Unavailable JOLLIFF, YECENIA NEHEMIAH Primary Care Unavailable BUTT, BILAL DONNA Attending Unavailable JOLLIFF, YECENIA NEHEMIAH Primary Care Unavailable BUTT, BILAL DONNA Attending Unavailable JOLLIFF, YECENIA NEHEMIAH Primary Care Unavailable BUTT, BILAL DONNA Referring Unavailable JOLLIFF, YECENIA NEHEMIAH Primary Care Unavailable JENNYFER BRITO Attending Unavail able JOLLIFF, YECENIA NEHEMIAH Primary Care Unavailable BUTT, BILAL DONNA Attending Unavailable Friend, Isaiah Consulting Unavailable Friend, Isaiah Attending Unavailable Jolliff, Yecenia S Referring Unavailable Jolliff, Yecenia S Primary Care Unavailable Friend, Isaiah Attending Unavailable Jolliff, Yecenia S Referring Unavailable Jolliff, Yecenia S Primary Care Unavailable Jolliff, Yecenia S Primary Care Unavailable Roof CABLE BRAIDERReji Attending Unavailable Roof CABLE BRAIDERReji Referring Unavailable Jolliff, Yecenia S Primary Care Unavailable HeatherZach Attending Unavailable HeatherZach Referring Unavailable Jolliff, Yecenia S Primary Care Unavailable Roof CABLE BRAIDER, Reji Deleon Attending Unavailable Roof CABLE BRAIDER, Reji Deleon Referring Unavailable Jolliff, Yecenia S Primary Care Unavailable Jolliff, Yecenia S Attending Unavailable Jolliff, Yecenia S Referring Unavailable Jolliff, Yecenia S Primary Care Unavailable Jolliff, Yecenia S Attending Unavailable Isaiah Will Attending Unavailable Jolliff, Yecenia S Referring Unavailable Jolliff, Yecenia S Primary Care Unavailable Jolliff, Yecenia S Primary Care Unavailable Jolliff, Yecenia S Referring Unavailable Roof CABLE BRAIDER, Reji Deleon Attending Unavailable Jolliff, Yecenia S Referring Unavailable Jolliff, Yecenia S Primary Care Unavailable Roof CABLE BRAIDER, Reji Deleon Attending Unavailable Allergies Allergy Classification Reported Allergen(s) Allergy Type Date of Onset Reaction(s) Facility Mold Extract (1 source) Mold Extract Drug Allergy 2 Other: See Comments [facility] (20 sources) Mold Spores; Translations: [MOLD SPORES] Propensity to adverse reactions 7 Intolerance [facility] (20 sources) Mold Extract; Translations: [MOLD] Drug Allergy 2 Other: See Comments [facility] (1 source) Mold Extract Drug Allergy 4 [facility] Repository Medications Current Medications Medication Drug Class(es) Dates Sig (Normalized) Sig (Original) acetaminophen 500 mg oral tablet (20 sources) Start: 11-30-2023 take 2 tablets enteral route every eight hours as needed acetaminophen (TYLENOL) 500 mg tablet 2 tablets by ORAL/FEEDING TUBE route every 8 hours as needed for pain. 11/30/2023 Active Start: 11-22-2017 take 500-1000 mg by mouth every six hours as needed Acetaminophen Active 500 - 1000 MG PO EVERY 6 HOURS NEEDED November 22, 2017 12:00am take 1000 mg by mout h once daily at bedtime acetaminophen (TYLENOL ORAL) Take 1,000 mg by mouth daily at bedtime. Active Comment on above: Take 1,000 mg by raúl th daily at bedtime. amoxicillin 500 mg oral capsule (18 sources) Penicillin-class Antibacterial Start: 06-22-19 End: 06-22-19 take 4 capsules by mouth every hour Amoxicillin Active 2000 MG PO .COMPLEX June 21, 2021 4:38pm 2,000 mg PO Take 4 caps 1 hour prior to dental visit; aspirin 81 mg delayed release oral tablet (20 sources) Platelet Aggregation Inhibitor, Nonsteroidal Anti-inflammatory Drug Start: 05-04-19 take 1 tablet by mouth once daily Aspirin (Adult Aspirin Regimen) 81 mg tablet,delayed release (DR/EC) Active 81 MG PO DAILY May 03, 2021 12:00am Start: 04-29-2021 End: 07-28-2021 take 1 tablet by mouth once daily in the evening aspirin 81 mg chewable tablet Take 1 tablet by mouth once daily. 90 tablet 04/28/2021 1:15 PM EDT 04/29/2021 Active Comment on above: Take 1 tablet by raúl th once daily. atorvastatin 20 mg oral tablet (20 sources) HMG-CoA Reductase Inhibitor Start: 04-29-19 End: 07-28-19 take 1 tablet by mouth once daily at bedtime atorvastatin (LIPITOR) 20 mg tablet Take 1 tablet by mouth daily at bedtime. 90 tablet 04/28/2021 1:15 PM EDT 04/28/2021 Active Comment on above: Take 1 tablet by raúl th daily at bedtime. DULoxetine 60 mg delayed release oral capsule (20 sources) Serotonin and Norepinephrine Reuptake Inhibitor Start: 12-14-19 End: 05-27-19 take 60 mg by mouth once daily Duloxetine Active 60 MG PO DAILY May 26, 2022 9:26am Comment on above: Take 60 mg by mouth once daily. gabapentin 100 mg oral capsule (20 sources) Anti-epileptic Agent Start: 04-04-19 End: 07-04-19 take 1 capsule by mouth twice daily, then take 2 capsules by mouth once daily at bedtime gabapentin (NEURONTIN) 100 mg capsule Indications: Spinal stenosis of thoracolumbar region , S/P lumbar fusion Take 1 capsule by mouth two times a day AND 2 capsules daily at bedtime. Do all this for 90 days. 120 capsule 2 04/04/2024 Active Start: 12-18-2023 End: 04-25-2024 take 1 capsule by mouth three times daily gabapentin (NEURONTIN) 100 mg capsule Indications: Spinal stenosis of thoracolumbar region , S/P lumbar fusion Take 1 capsule by mouth three times a day for 90 days. 90 capsule 2 01/26/2024 04/04/2024 Discontinued Start: 11-13-2020 take 100 mg by mouth twice daily Gabapentin Active 100 MG PO TWICE A DAY November 13, 2020 12:00am Start: 10-22-2020 End: 12-18-2023 take 1 capsule by mouth once daily gabapentin (NEURONTIN) 100 mg capsule Take 100 mg by mouth once daily. 10/22/2020 12/18/2023 Discontinued Comment on above: Take 100 mg by mouth once daily. levothyroxine sodium 0.15 mg oral tablet (20 sources) l-Thyroxine Start: 09-24-2021 End: 05-26-2022 take 150 ug by mouth once daily Levothyroxine Active 150 MCG PO DAILY May 26, 2022 9:26am Start: 01-15-2021 levothyroxine (SYNTHROID) 150 mcg tablet 150 mcg as directed. 6 days week 01/15/2021 Active Start: 10-04-2017 End: 09-24-2021 take 1 capsule by mouth once daily levothyroxine 150 mcg capsule Discontinued 150 MCG PO DAILY October 04, 2017 12:00am September 24, 2021 8:45am Start: 12-13-2012 End: 10-04-2017 take 125 ug by mouth once daily Levothyroxine Disconti nued 125 MCG PO DAILY December 13, 2012 12:00am October 04, 2017 2:16pm Comment on above: 150 mcg as directed. 6 days week methocarbamol 750 mg oral tablet (14 sources) Muscle Relaxant Start: End: take 1 tablet by mouth four times daily methocarbamol (ROBAXIN) 750 mg tablet Indications: Spinal stenosis of thoracolumbar region , S/P lumbar fusion Take 1 tablet by mouth four times daily. 120 tablet 2 04/04/2024 07/03/2024 Active Start: 01-01-2024 End: 01-31-2024 take 1 tablet by mouth four times daily methocarbamol (ROBAXIN) 750 mg tablet Take 1 tablet by mouth four times daily. 120 tablet 01/01/2024 01/31/2024 Active Start: 11-30-2023 End: 01-01-2024 take 1 tablet by mouth every eight hours as needed methocarbamol (ROBAXIN) 750 mg tablet Take 1 tablet by mouth every 8 hours as needed for muscle spasm. 60 tablet 11/30/2023 01/01/2024 Discontinued 24 hr metoprolol succinate 50 mg extended release oral tablet (20 sources) beta-Adrenergic Elvis Start: 04-28-2021 End: 07-27-2021 take 1 tablet by mouth once daily in the evening metoprolol succinate ER (TOPROL XL) 50 mg 24 hr tablet Take 1 tablet by mouth once daily. 90 tablet 04/28/2021 1:15 PM EDT 04/28/2021 Active Comment on above: Take 1 tablet by ralú once daily. oxyCODONE hydrochloride 5 mg oral tablet (3 sources) Opioid Agonist Start: 12-18-2023 End: 12-25-2023 take 1 tablet by mouth every six hours as needed for pain oxyCODONE IR (ROXICODONE) 5 mg immediate release tablet Indications: Post-operative pain Take 1 tablet by mouth every 6 hours as needed for pain for up to 7 days. 28 tablet 12/18/2023 12/25/2023 Active Start: 11-30-2023 End: 12-07-2023 take 1 tablet by mouth every four hours as needed for pain oxyCODONE IR (ROXICODONE) 5 mg immediate release tablet Indications: Post-operative pain Take 1 tablet by mouth every 4 hours as needed for pain for up to 7 days. 42 tablet 11/30/2023 12/07/2023 Active perflutren lipid microspheres 1.3 mL in NaCl (PF) 0.9% 10 mL injection (DEFINITY) (1 source) Start: 07-27-2021 End: 10-26-2022 perflutren lipid microspheres 1.3 mL in NaCl (PF) 0.9% 10 mL injection (DEFINITY) 125 ml sodium chloride 9 mg/ml prefilled syringe (1 source) Start: 07-27-2021 End: 10-26-2022 sodium chloride 0.9 % (flush) 10 mL (BD POSIFLUSH) SUMAtriptan 100 mg oral tablet (20 sources) Serotonin-1b and Serotonin-1d Receptor Agonist Start: 12-13-2012 End: 10-15-2019 Sumatriptan Succinate Active 100 MG PO .X1 PRN October 15, 2019 10:16am Comment on above: Take 100 mg by mouth as needed. traMADol hydrochloride 50 mg oral tablet (20 sources) Opioid Agonist Start: 08-31-2023 traMADol (ULTR AM) 50 mg tablet TAKE 1/2 (ONE-HALF) TO 1 TABLET THREE TIMES DAILY NEEDED FOR PAIN 08/31/2023 Active Completed/Discontinued Medications Medication Drug Class(es) Dates Sig (Normalized) Sig (Original) docusate sodium 50 mg / sennosides, detention 8.6 mg oral tablet (15 sources) Start: 11-30-2023 End: 04-04-2024 take 2 tablets by mouth twice daily senna-docusate (SENNA-S) 8.6-50 mg per tablet Take 2 tablets by mouth two times a day. 26 tablet 11/30/2023 04/04/2024 Discontinued furosemide 20 mg oral tablet (20 sources) Loop Diuretic Start: 04-28-2021 End: 04-04-2024 take 1 tablet by mouth once daily in the evening furosemide (LASIX) 20 mg tablet Take 1 tablet by mouth once daily. 5 tablet 04/28/2021 1:15 PM EDT 04/28/2021 04/04/2024 Discontinued Comment on above: Take 1 tablet by raúl th once daily. losartan potassium 25 mg oral tablet (12 sources) Angiotensin 2 Receptor Elvis Start: 11-13-2020 End: 05-03-2021 take 25 mg by mouth once daily Losartan Discontinued 25 MG PO DAILY November 13, 2020 12:00am May 03, 2021 12:28pm meclizine hydrochloride 25 mg oral tablet (12 sources) Antiemetic Start: 12-13-2012 End: 09-30-2017 Meclizine Discontinued 25 MG PO December 13, 2012 12:00am September 30, 2017 1:48pm phenazopyridine hydrochloride 200 mg oral tablet (12 sources) Start: 12-13-2012 End: 09-30-2017 take 200 mg by mouth three times daily Phenazopyridine Discontinued 200 MG PO THREE TIMES A DAY December 13, 2012 12:00am September 30, 2017 1:48pm microencapsulated potassium chloride 10 meq extended release oral tablet (20 sources) Start: 04-28-2021 End: 12-18-2023 take 1 tablet by mouth once daily potassium chloride ER (K-DUR, KLOR-CON) 10 mEq tablet Take 1 tablet by mouth once daily. 5 tablet 04/28/2021 12/18/2023 Discontinued Comment on above: Take 1 tablet by raúl th once daily. sulfamethoxazole 800 mg / trimethoprim 160 mg oral tablet (12 sources) Dihydrofolate Reductase Inhibitor Antibacterial, Sulfonamide Antimicrobial Start: 12-13-2012 End: 09-30-2017 take 1 tablet by mouth twice daily Sulfamethoxazole-Tr imethoprim Discontinued 1 TABLET PO TWICE A DAY 14 December 13, 2012 12:00am September 30, 2017 1:49pm Problems Active Problems Problem Classification Problem Date Documented Da te Episodic/Chronic Abdominal pain (1 source) Unspecified abdominal pain; Translations: [Unspecified abdominal pain] Onset: 5 Episodic Aortic; peripheral; and visceral artery aneurysms (20 sources) Dissection of thoracic aorta; Translations: [Dissection of thoracic aorta] Onset: 1 01-18-2021 Chronic Cardiac and circulatory congenital anomalies (20 sources) Bicuspid aortic valve; Translations: [Congenital insufficiency of aortic valve] Onset: 2 04-27-2021 Chronic Coagulation and hemorrhagic disorders (20 sources) Platelet count below reference range; Translations: [Thrombocytopenia, unspecified] Onset: 2 04-27-2021 Chronic Coronary atherosclerosis and other heart disease (20 sources) Stable angina; Translations: [Other forms of angina pectoris] Onset: 1 01-18-2021 Chronic Coronary atherosclerosis and other heart disease (11 sources) Presence of aortocoronary bypass graft; Translations: [Aortocoronary bypass status] Onset: 2 Episodic Disorders of lipid metabolism (20 sources) Dyslipidemia; Translations: [Hyperlipidemia, unspecified] Onset: 1 01-18-2021 Chronic Esophageal disorders (20 sources) Gastroesophageal reflux disease; Translations: [Gastro-esophageal reflux disease without esophagitis] Onset: 0 09-29-2009 Chronic Essential hypertension (20 sources) Essential hypertension; Translations: [Essential (primary) hypertension] Onset: 2 04-27-2021 Chronic Heart valve disorders (20 sources) Aortic stenosis, non-rheumatic ; Translations: [Nonrheumatic aortic (valve) stenosis] Onset: 2 03-23-2021 Chronic Hyperplasia of prostate (20 sources) Benign prostatic hypertrophy with outflow obstruction; Translations: [Benign prostatic hyperplasia with lower urinary tract symptoms] Onset: 6 10-03-2005 Chronic Malaise and fatigue (1 source) Other fatigue; Translations: [Other fatigue] Onset: 5 Episodic Nonspecific chest pain (12 sources) Chest pain; Translations: [Chest pain, unspecified] 07-30-2018 Episodic Other acquired deformities (2 sources) Acquired spondylolisthesis; Translations: [Spondylolisthesis, site unspecified] 10-06-2023 Episodic Other connective tissue disease (3 sources) Arthrodesis status; Translations: [Arthrodesis status] Onset: 7 Episodic Other connective tissue disease (6 sources) History of lumbar fusion; Translations: [Arthrodesis status] 08-10-2023 Episodic Other diseases of bladder and urethra (20 sources) Bladder neck obstruction; Translations: [Bladder-neck obstruction] Onset: 6 10-03-2005 Chronic Other fractures (1 source) Pseudoarthrosis of spine; Translations: [Unspecified fracture of unspecified lumbar vertebra, subsequent encounter for fracture with nonunion] 11-01-2023 Episodic Other gastrointestinal disorders (20 sources) Irritable bowel syndrome; Translations: [Irritable bowel syndrome without diarrhea] Onset: 0 09-22-2009 Chronic Other injuries and conditions due to external causes (1 source) Injury of blood vessel; Translations: [Other injury of unspecified body region, initial encounter] Episodic Other lower respiratory disease (12 sources) Dyspnea on exertion; Translations: [Dyspnea, unspecified] 07-30-2018 Episodic Other lower respiratory disease (2 sources) Other forms of dyspnea; Translations: [Other forms of dyspnea] Onset: 5 Episodic Other lower respiratory disease (1 source) Dyspnea, unspecified; Translations: [Dyspnea, unspecified] Onset: 5 Episodic Other male genital disorders (20 sources) Secondary erectile dysfunction; Translations: [Male erectile dysfunction, unspecified] Onset: 9 01-05-2009 Chronic Other male genital disorders (20 sources) Male erectile dysfunction, unspecified; Translations: [Impotence of organic origin] Onset: 2 03-31-2011 Chronic Other nutritional; endocrine; and metabolic disorders (20 sources) Obese class I; Translations: [Obesity, unspecified] Onset: 2 04-25-2021 Chronic Other screening for suspected conditions (not mental disorders or infectious disease) (20 sources) Raised prostate specific antigen; Translations: [Elevated prostate specific antigen [PSA]] Onset: 2 03-31-2011 Episodic Residual codes; unclassified (20 sources) Obstructive sleep apnea syndrome; Translations: [Obstructive sleep apnea (adult) (pediatric)] Onset: 1 01-18-2021 Chronic Residual codes; unclassified (1 source) Obstructive sleep apnea (adult) (pediatric); Translations: [BUBBA (obstructive sleep apnea)] Onset: 1 Chronic Residual codes; unclassified (13 sources) Other specified postprocedural states; Translations: [Personal history of surgery to heart and great vessels, presenting hazards to health] Onset: 2 Episodic Thyroid disorders (20 sources) Acquired hypothyroidism; Translations: [Hypothyroidism, unspecified] Onset: 2 04-27-2021 Chronic Unclassified (2 sources) Other cervical disc degeneration at C6-C7 level; Translations: [Other cervical disc degeneration at C6-C7 level] Onset: 7 Unclassified (1 source) Spinal stenosis of thoracolumbar region 07-09-2024 Unclassified (1 source) Ascending aortic aneurysm, unspecified whether ruptured (HCC); Translations: [Ascending aortic aneurysm, unspecified whether ruptured (HCC)] Onset: 2 Past or Other Problems Problem Classification Problem Date Documented Date Episodic/Chronic Administrative/social admission (20 sources) Patient encounter status; Translations: [Persons encountering health services in other specified circumstances] Onset: 03-22-2021 Resolved: 04-26-2021 04-28-2021 Episodic Complications of surgical procedures or medical care (20 sources) Hypovolemia; Translations: [Other postprocedural endocrine and metabolic complications and disorders] Onset: 04-22-2021 Resolved: 04-23-2021 04-23-2021 Episodic Deficiency and other anemia (20 sources) Anemia; Translations: [Anemia, unspecified] Onset: 04-24-2021 04-27-2021 Episodic Deficiency and other anemia (1 source) Anemia, unspecified; Translations: [Anemia following surgery] Onset: 11-01-2023 Episodic Fluid and electrolyte disorders (20 sources) Hypervolemia; Translations: [Fluid overload, unspecified] Onset: 04-24-2021 04-27-2021 Episodic Gastritis and duodenitis (20 sources) Acute gastritis; Translations: [Acute gastritis without bleeding] Onset: 09-29-2009 09-29-2009 Episodic Genitourinary symptoms and ill-defined conditions (20 sources) Urgent desire to urinate; Translations: [Urgency of urination] Onset: 03-31-2011 03-31-2011 Episodic Nausea and vomiting (20 sources) Postoperative nausea and vomiting; Translations: [Nausea with vomiting, unspecified] Onset: 11-01-2023 11-01-2023 Episodic Other acquired deformities (1 source) Spondylolisthesis, site unspecified; Translations: [Acquired spondylolisthesis] Onset: 11-01-2023 Episodic Other fractures (1 source) Unspecified fracture of unspecified lumbar vertebra, subsequent encounter for fracture with nonunion; Translations: [Pseudoarthrosis of lumbar spine] Onset: 11-01-2023 Episodic Other nervous system disorders (20 sources) Postoperative pain ; Translations: [Other acute postprocedural pain] Onset: 04-22-2021 04-27-2021 Episodic Other nervous system disorders (1 source) Other acute postprocedural pain; Translations: [Post-operative pain] Onset: 11-29-2023 Episodic Pleurisy; pneumothorax; pulmonary collapse (20 sources) Atelectasis; Translations: [Atelectasis] Onset: 04-22-2021 04-27-2021 Episodic Residual codes; unclassified (20 sources) Family history of cancer of colon; Translations: [Family history of malignant neoplasm of digestive organs] Onset: 08-30-2017 08-30-2017 Episodic Residual codes; unclassified (20 sources) Family history of cardiac disorder; Translations: [Family history of ischemic heart disease and other diseases of the circulatory system] Onset: 01-18-2021 01-18-2021 Episodic Residual codes; unclassified (12 sources) History of repair of ascending aorta; Translations: [Other specified postprocedural states] Onset: 04-22-2021 05-03-2021 Episodic Spondylosis; intervertebral disc disorders; other back problems (20 sources) Spinal stenosis, cervical region; Translations: [Spinal stenosis, thoracolumbar region] Onset: 12-29-2016 08-10-2023 Episodic Unclassified (3 sources) History of lumbar fusion 07-08-2024 Results Test Name Value Interpretation Reference Range Facility Colonoscopy Reporton 025 Colonoscopy Report [facility] Medical Records Department [address] [address] Colonoscopy Report MR#: [id number] Acct: [id number] Name: MARINO HERRERA Rep #: [id number] : 1950 74 From: Isaiah Will DO PCP: Dr. Yecenia Okeefe MD Status:[facility] Patient Name: Marino Herrera Procedure Date: 08/21/2024 1:30 PM Date of : 1950 Age: 74 Procedure: Colonoscopy Indications: Screening for colorectal malignant neoplasm Providers: Isaiah Will DO Referring MD: Yecenia Okeefe Medicines: Monitored Anesthesia Care Patient Profile: This is a 74 year old male. Refer to note in patient chart for documentation of history and physical. Patient has symptoms of acute epigastric abdominal pain, chronic dyspepsia and chronic heartburn. Last Colonoscopy: more than 10 years ago. Complications: No immediate complications. Procedure: Pre-Anesthesia Assessment: - Prior to the procedure, a History and Physical was performed, and patient medications and allergies were reviewed. The patient is competent. The risks and benefits of the procedure and the sedation options and risks were discussed with the patient. All questions were answered and informed consent was obtained. Patient identification and proposed procedure were verified by the physician in the pre-procedure area. Mental Status Examination: alert and oriented. Airway Examination: normal oropharyngeal airway and neck mobility. Respiratory Examination: clear to auscultation. CV Examination: normal. Prophylactic Antibiotics: The patient does not require prophylactic antibiotics. Prior Anticoagulants: The patient has taken no anticoagulant or antiplatelet agents except for NSAID medication. ASA Grade Assessment: III - A patient with severe systemic disease. After reviewing the risks and benefits, the patient was deemed in satisfactory condition to undergo the procedure. The anesthesia plan was to use monitored anesthesia care (MAC). Immediately prior to administration of medications, the patient was re-assessed for adequacy to receive sedatives. The heart rate, respiratory rate, oxygen saturations, blood pressure, adequacy of pulmonary ventilation, and response to care were monitored throughout the procedure. The physical status of the patient was re-assessed after the procedure. After I obtained informed consent, the scope was passed under direct vision. Throughout the procedure, the patient's blood pressure, pulse, and oxygen saturations were monitored continuously. The Colonoscope was introduced through the anus and advanced to the terminal ileum. The colonoscopy was performed without difficulty. The patient tolerated the procedure well. The quality of the bowel preparation was adequate. The ileocecal valve, appendiceal orifice, and rectum were photographed. Scope In: 1:32:02 PM Scope Withdrawal Time 0 hours 7 minutes 37 seconds Scope Out: 1:43:01 PM Total Procedure Duration Time 0 hours 10 minutes 59 seconds Findings: The perianal and digital rectal examinations were normal. Multiple small and large-mouthed diverticula were found in the recto-sigmoid colon and sigmoid colon. The exam was otherwise without abnormality on direct and retroflexion views. Impression: - Diverticulosis in the recto-sigmoid colon and in the sigmoid colon. - The examination was otherwise normal on direct and retroflexion views. - No specimens collected. Recommendation: - Discharge patient to home. - Resume previous diet. - Continue present medications. - Repeat colonoscopy in 10 years for screening purposes. Procedure Code(s): --- Professional --- 20542, Colonoscopy, flexible; diagnostic, including collection of specimen(s) by brushing or washing, when performed (separate procedure) CPT copyright 2021 [employer]. All rights reserved. The codes documented in this report are preliminary and upon production control planner review may be revised to meet current compliance requirements. Isaiah Will DO 08/21/2024 1:53:56 PM This report has been signed electronically. Number of Addenda: 0 Note Initiated On: 08/21/2024 1:30 PM 08/21/24 1354 Date Isaiah Gutierrez Signature: Date (if indicated) CC: Dr. Yecenia Okeefe MD; Isaiah Will DO Date Dictated: 08/21/24 1330 Date Transcribed: Credit Resolution Representative: RF Signed Normal [facility] EGD Reporton 08-21-2024 EGD Report [facility] Medical Records Department [address] [place] [address] EGD Report MR#: [id number] Acct: [id number] Name: MARINO HERRERA Rep #: [id number] : 1950 74 From: Isaiah Will DO PCP: Dr. Yecenia Okeefe MD Status:[facility] Patient Name: Marino Herrera Procedure Date: 08/21/2024 1:11 PM Date of : 1950 Age: 74 Procedure: Upper GI endoscopy Indications: Epigastric abdominal pain, Functional Dyspepsia, Suspected esophageal reflux Providers: Isaiah Will DO Referring MD: Yecenia Okeefe Medicines: Monitored Anesthesia Care Patient Profile: This is a 74 year old male. Refer to note in patient chart for documentation of history and physical. Patient has symptoms of acute epigastric abdominal pain, chronic dyspepsia and chronic heartburn. Complications: No immediate complications. Procedure: Pre-Anesthesia Assessment: - Prior to the procedure, a History and Physical was performed, and patient medications and allergies were reviewed. The patient is competent. The risks and benefits of the procedure and the sedation options and risks were discussed with the patient. All questions were answered and informed consent was obtained. Patient identification and proposed procedure were verified by the physician in the pre-procedure area. Mental Status Examination: alert and oriented. Airway Examination: normal oropharyngeal airway and neck mobility. Respiratory Examination: clear to auscultation. CV Examination: normal. Prophylactic Antibiotics: The patient does not require prophylactic antibiotics. Prior Anticoagulants: The patient has taken no anticoagulant or antiplatelet agents except for NSAID medication. ASA Grade Assessment: III - A patient with severe systemic disease. After reviewing the risks and benefits, the patient was deemed in satisfactory condition to undergo the procedure. The anesthesia plan was to use monitored anesthesia care (MAC). Immediately prior to administration of medications, the patient was re-assessed for adequacy to receive sedatives. The heart rate, respiratory rate, oxygen saturations, blood pressure, adequacy of pulmonary ventilation, and response to care were monitored throughout the procedure. The physical status of the patient was re-assessed after the procedure. After obtaining informed consent, the endoscope was passed under direct vision. Throughout the procedure, the patient's blood pressure, pulse, and oxygen saturations were monitored continuously. The Colonoscope was introduced through the mouth, and advanced to the fourth part of the duodenum. Small bowel enteroscopy was deemed necessary. The upper GI endoscopy was accomplished without difficulty. The patient tolerated the procedure well. Scope In: 1:26:50 PM Scope Out: 1:30:35 PM Total Procedure Duration Time 0 hours 3 minutes 45 seconds Findings: The Z-line was irregular and was found 40 cm from the incisors. Biopsies were taken with a cold forceps for histology. Verification of patient identification for the specimen was done. Estimated blood loss was minimal. Patchy mildly erythematous mucosa without bleeding was found in the gastric body and in the gastric antrum. Biopsies were taken with a cold forceps for histology. Biopsies were taken with a cold forceps for Helicobacter pylori testing. Verification of patient identification for the specimen was done. Estimated blood loss was minimal. Patchy mildly erythematous mucosa without active bleeding and with no stigmata of bleeding was found in the entire duodenum. Biopsies were taken with a cold forceps for histology. Verification of patient identification for the specimen was done. Estimated blood loss was minimal. Impression: - Z-line irregular, 40 cm from the incisors. Biopsied. - Erythematous mucosa in the gastric body and antrum. Biopsied. - Erythematous duodenopathy. Biopsied. Recommendation: - Discharge patient to home. - Resume previous diet. - Continue present medications. - Await pathology results. Procedure Code(s): --- Professional --- 86472, Small intestinal endoscopy, enteroscopy beyond second portion of duodenum, not including ileum; with biopsy, single or multiple CPT copyright 2021 [employer]. All rights reserved. The codes documented in this report are preliminary and upon production control planner review may be revised to meet current compliance requirements. Isaiah Will DO 08/21/2024 1:50:17 PM This report has been signed electronically. Number of Addenda: 0 Note Initiated On: 08/21/2024 1:11 PM 08/21/24 1350 Date Isaiah Gutierrez Signature: Date (if indicated) CC: Dr. Yecenia Okeefe MD; DO [place] (more content not included)... [facility] MR/POSTOP.[facility] 08-21-2024 MR/POSTOP.[facility] Medical Records Department [address] [place] [address] Anesthesia Postop Eval I 08/21/24 1353 MR#: [id number] Acct: [id number] Name: MARINO HERRERA [place] Rep #: [id number] : 1950 74 From: Ba Hill PCP: Dr. Yecenia Okeefe MD Status:[place] [facility] [place] Race: C Location: [place] [address] Anesthesia: Postop Eval I Current Vital Signs Temperature: 97.1 F Pulse Rate: 61 Blood Pressure: 103/71 Respiratory Rate: 16 Pulse Ox: 98 Oxygen Delivery Method: Room Air Assessment Airway patent: Yes Spontaneous unlabored respirations: Yes Mental status: Asleep nausea: No Vomiting: No Anesthesia Complication: No Fluid Hydration Crystalloid volume administer (ml): 700 Total IV fluid infused: 700 Progress Note Anesthesia document: Postop Eval 1 completed: Yes 08/21/24 1354 Date Ba Capone Signature: Date CC: Signed Normal [facility] MR/[id number] 08-21-2024 MR/POSTOPAN2 [facility] Medical Records Department [address] [place] [address] Anesthesia Postop Eval II 08/21/24 1413 MR#: [id number] Acct: [id number] Name: MARINO HERRERA Rep #: [id number] : 1950 74 From: Constantin Colon MD PCP: Dr. Yecenia Okeefe MD Status:REG [facility] Y Race: C Location: [place] [address]- Anesthesia Postop Eval I Sum Postop Eval Completion status Anesthesia document: Postop Eval 1 completed: Yes Anesthesia Postop Eval I Summary Anesthesia Postop Eval I Summary: Anesthesia Postop Eval I: Assessment Summary Airway patent Yes 08/21/24 13:54 [email or web address] Spontaneous unlabored Yes 08/21/24 13:54 [email or web address] respirations Mental status Asleep 08/21/24 13:54 [email or web address] nausea No 08/21/24 13:54 [email or web address] Vomiting No 08/21/24 13:54 [email or web address] Anesthesia Postop Eval I: Fluid Summary Crystalloid volume administer 700 08/21/24 13:54 [email or web address] (ml) Colloids volume administered ( ml) Blood Product volume administered (ml) Total IV fluid infused 700 08/21/24 13:54 [email or web address] Anesthesia Postop Eval I: Summary Notes Anesthesia Complication No 08/21/24 13:54 [email or web address] Anesthesia Complication Comment: Post-operative progress note Anesthesia: Postop Eval II Evaluation Mental status: Awake and Calm Pain Level: 1 nausea: No Vomiting: No Complications Anesthesia Complication: No 08/21/24 1413 Date Constantin Colon MD Cosigner Signature: Date CC: Signed Normal [facility] Surgery Specimen Level Barron 08-21-2024 Surgery Specimen Level IV -------- Patient Age/Sex Location Account Attending Physician -------- MARINO HERRERA/Arash DESOUZA [id number] Isaiah Will DO -------- Specimen: [id number] Received: 08/21/24 Status: MANAN Gandhi Num: [id number] Spec Type: EGD BIOPSY Geno Dr: Isaiah Will DO HEADER OPERATION: Colonoscopy, EGD, biopsy PRE-OP DIAGNOSIS: Screening for colon cancer, abdominal pain TISSUE SUBMITTED: A- Duodenum biopsy, B- Gastric body biopsy, C- Distal esophagus biopsy -------- MICROSCOPIC DIAGNOSIS A. Duodenum, colon, biopsy: Unremarkable duodenal mucosa. Negative for histologic signs of celiac disease.B. Gastric body, biopsy: Focal reactive gastropathy. Negative for H. pylori on routine stains. C. Distal esophagus, biopsy: Unremarkable gastric type mucosa. Negative for intestinal metaplasia, dysplasia or malignancy. MICROSCOPIC DESCRIPTION Slides are reviewed. All matched controls reacted appropriately. These tests were developed and their performance characteristics determined by [facility]. They may not have been cleared or approved by the U.S. Food and Drug Administration. The FDA has determined that such clearance or approval is not necessary. The above immunohistochemical/dualISH markers are viewed by the Pathologist. GROSS DESCRIPTION A. Received in fixative is one container labeled with the patient's name and designated Duodenum biopsy. The specimen consists of one irregular fragment of light meyer soft tissue that measures 0.6 cm. The specimen is totally submitted in one cassette. B. Received in fixative is one container labeled with the patient's name and designated Gastric body biopsy. The specimen consists of three irregular fragments of light meyer soft tissue that in aggregate measure 0.3 to 0.5 cm. The specimen is totally submitted in one cassette. C. Received in fixative is one container labeled with the patient's name and designated Distal esophagus biopsy. The specimen consists of one irregular fragment of light meyer soft tissue that measures 0.6 cm. The specimen is totally submitted in one cassette. 08/21/2024 [facility]:[id number] -------- Patient Age/Sex Location Account Attending Physician -------- MARINO HERRERA 74/M EN [id number] Isaiah Nicolette DO -------- Signed (signature on file) Dr. Abbi Pierre MD 08/28/24 1454 -------- Normal [facility] Comment on above: Performed By: #### P SUIV #### [facility] [address] [place], [place], [address] /PATDinesh 08-20-2024 MR/PAT.JADE [facility] Medical Records Department [address] [place] [address] PAT - Anesthesia 08/20/24 1657 MR#: [id number] Acct: [id number] Name: MARINO HERRERA Rep #: [id number] : 1950 74 From: Paco Shell MD PCP: Dr. Yecenia Okeefe MD Status:PRE [facility] [place] Race: C Location: EN Pre-Assessment Diagnosis/Proposed Procedure Planned Operative Procedure(s): COLONOSCOPY/EGD Anesthesia History Anesthesia History - kiln hand: Anesthesia History - kiln hand Hx Hospitalization Yes: BACK SURGERY 12/0608/20/24 14:40 Any Problems With Anesthesia No 08/20/24 14:40 Cholinesterase deficiency No 08/20/24 14:40 You/Your Family Experience No 08/20/24 14:40 fever (hyperthermia) with Relationship Recent Exposure to Contagious No 11/29/17 13:19 Disease Does patient have nerve No 08/20/24 14:40 stimulator Patient instructed to have device shut off --Does patient have Pacemaker or ICD? When Was Last Pacemaker Check QUESTION #4 FULL TEXT: You/Your Family Experience fever (hyperthermia) with Anesthesia Last Oral Intake Last Oral intake: Last Oral Intake NPO since Meds taken in AM with sips of water? Meds patient instructed to take am of surgery PONV PONV - kiln hand: PONV - kiln hand Female No 08/20/24 14:40 HX of Motion Sickness No 08/20/24 14:40 HX of N/V After Surgery No 08/20/24 14:40 Non-Smoker Yes 08/20/24 14:40 Duration of Surgery greater No 08/20/24 14:40 than 60 minutes Number of Risk Factors 1 08/20/24 14:40 PONV Score Low Risk 08/20/24 14:40 Height Weight Height Weight: Anesthesia: Height Weight Height 5 ft 9 in 07/25/24 10:46 Respiratory Assessment Respiratory Assessment - kiln hand: Respiratory Tract Infection Hx - kiln hand Hx Respiratory Tract Infection No 08/20/24 14:40 STOP Sleep Apnea STOP Sleep Apnea - kiln hand: STOP Sleep Apnea - kiln hand Hx Hypertension No 08/20/24 14:40 Hx Sleep Apnea No 08/20/24 14:40 CPAP No 08/20/24 14:40 BIPAP No 08/20/24 14:40 Do you snore loudly (louder No 08/20/24 14:40 than talking or can be heard Do you often feel tired/ No 08/20/24 14:40 fatigued/ sleepy during daytime? Has anyone observed you stop No 08/20/24 14:40 breathing during sleep? STOP Results Negative 08/20/24 14:40 QUESTION #5 FULL TEXT : Do you snore loudly (louder than talking or can be heard through closed doors)? Tobacco Use History Tobacco Use History - kiln hand: Tobacco Use History - kiln hand Tobacco Use Smoking Status Former smoker 08/20/24 14:40 Hx Tobacco Use Yes 08/20/24 14:40 Years Smoking Packs Smoked per Day Smoking Cessation Date was No - quit smoking greater 08/20/24 14:40 within the last 15 years than 15 years ago Hx Smoking Cessation Date Hx Smoking Cessation Counseling Hematologic Medial History Hematologic Hx - kiln hand: Hematologic Medical Hx - relationship manager Hx of Blood Transfusion Yes 08/20/24 14:40 Hx of Transfusion in last 3 No 08/20/24 14:40 Months Date of Last Transfusion (if within last 3 months) Ever experience any problems Yes 08/20/24 14:40 with transfusion(s)? Specify any problems LARGE BUMPS/GOOSEBUMPS 08/20/24 14:40 Hx of Preganancy in last 3 N/A 08/20/24 14:40 Months Nurse Filling Out Transfusion VCHRISTIN 08/20/24 14:40 Questions: Date: 08/20/24 08/20/24 14:40 Time: 14:42 08/20/24 14:40 Patient unable to answer at this time (ie. confused, unrespo /Reproduction History /Reproductive History - kiln hand: /Reproductive Hx- kiln hand Hx Now No 08/20/24 14:40 Gestational Age (in weeks): EDC: Hx Hx Para Hx Section SAB No 08/20/24 14:40 PFS Medical History (Updated 08/20/24 @ 14:40 by Gracie Marquis) Wears hearing aid Cancer Wears glasses Anxiety Alcohol use Thyroid disease Arthritis Back pain History of IBS Gastric reflux Former smoker CPAP (continuous positive airway pressure) dependence Sleep apnea History of echocardiogram History of stress test Hypertension Cardiology follow-up encounter Chest pain Aortic stenosis with bicuspid valve Lupus anticoagulant disorder Atherosclerotic heart disease of [place] coronary artery without angina pectoris Obstructive sleep apnea Paresthesia and pain of extremity Hyperlipidemia DDD (degenerative disc disease), cervical Erectile dysfunction Depression BPH (benign prostatic hyperplasia) Migraines Hypothyroidism Thoracic aortic aneurysm Home Medications ???Medication ?? (more content not included)... Normal [facility] MR/PAT.ANE [facility] Medical Records Department [address] [place] [address] PAT - Anesthesia 08/20/24 1449 MR#: [id number] Acct: [id number] Name: MARINO HERRERA Rep #: [id number] : 1950 74 From: Paco Shell MD PCP: Dr. Yecenia Okeefe MD Status:PRE [facility] Y Race: C Location: EN Pre-Assessment Diagnosis/Proposed Procedure Planned Operative Procedure(s): COLONOSCOPY/EGD Anesthesia History Anesthesia History - kiln hand: Anesthesia History - kiln hand Hx Hospitalization Yes: BACK SURGERY 12/0608/20/24 14:40 Any Problems With Anesthesia No 08/20/24 14:40 Cholinesterase deficiency No 08/20/24 14:40 You/Your Family Experience No 08/20/24 14:40 fever (hyperthermia) with Relationship Recent Exposure to Contagious No 11/29/17 13:19 Disease Does patient have nerve No 08/20/24 14:40 stimulator Patient instructed to have device shut off --Does patient have Pacemaker or ICD? When Was Last Pacemaker Check QUESTION #4 FULL TEXT: You/Your Family Experience fever (hyperthermia) with Anesthesia Last Oral Intake Last Oral intake: Last Oral Intake NPO since Meds taken in AM with sips of water? Meds patient instructed to take am of surgery PONV PONV - kiln hand: PONV - kiln hand Female No 08/20/24 14:40 HX of Motion Sickness No 08/20/24 14:40 HX of N/V After Surgery No 08/20/24 14:40 Non-Smoker Yes 08/20/24 14:40 Duration of Surgery greater No 08/20/24 14:40 than 60 minutes Number of Risk Factors 1 08/20/24 14:40 PONV Score Low Risk 08/20/24 14:40 Height Weight Height Weight: Anesthesia: Height Weight Height 5 ft 9 in 07/25/24 10:46 Respiratory Assessment Respiratory Assessment - kiln hand: Respiratory Tract Infection Hx - kiln hand Hx Respiratory Tract Infection No 08/20/24 14:40 STOP Sleep Apnea STOP Sleep Apnea - kiln hand: STOP Sleep Apnea - kiln hand Hx Hypertension No 08/20/24 14:40 Hx Sleep Apnea No 08/20/24 14:40 CPAP No 08/20/24 14:40 BIPAP No 08/20/24 14:40 Do you snore loudly (louder No 08/20/24 14:40 than talking or can be heard Do you often feel tired/ No 08/20/24 14:40 fatigued/ sleepy during daytime? Has anyone observed you stop No 08/20/24 14:40 breathing during sleep? STOP Results Negative 08/20/24 14:40 QUESTION #5 FULL TEXT : Do you snore loudly (louder than talking or can be heard through closed doors)? Tobacco Use History Tobacco Use History - kiln hand: Tobacco Use History - kiln hand Tobacco Use Smoking Status Former smoker 08/20/24 14:40 Hx Tobacco Use Yes 08/20/24 14:40 Years Smoking Packs Smoked per Day Smoking Cessation Date was No - quit smoking greater 08/20/24 14:40 within the last 15 years than 15 years ago Hx Smoking Cessation Date Hx Smoking Cessation Counseling Hematologic Medial History Hematologic Hx - kiln hand: Hematologic Medical Hx - relationship manager Hx of Blood Transfusion Yes 08/20/24 14:40 Hx of Transfusion in last 3 No 08/20/24 14:40 Months Date of Last Transfusion (if within last 3 months) Ever experience any problems Yes 08/20/24 14:40 with transfusion(s)? Specify any problems LARGE BUMPS/GOOSEBUMPS 08/20/24 14:40 Hx of Preganancy in last 3 N/A 08/20/24 14:40 Months Nurse Filling Out Transfusion VCHRISTIN 08/20/24 14:40 Questions: Date: 08/20/24 08/20/24 14:40 Time: 14:42 08/20/24 14:40 Patient unable to answer at this time (ie. confused, unrespo /Reproduction History /Reproductive History - kiln hand: /Reproductive Hx- kiln hand Hx Now No 08/20/24 14:40 Gestational Age (in weeks): EDC: Hx Hx Para Hx Section SAB No 08/20/24 14:40 PFSH Medical History (Updated 08/20/24 @ 14:40 by Gracie Marquis) Wears hearing aid Cancer Wears glasses Anxiety Alcohol use Thyroid disease Arthritis Back pain History of IBS Gastric reflux Former smoker CPAP (continuous positive airway pressure) dependence Sleep apnea History of echocardiogram History of stress test Hypertension Cardiology follow-up encounter Chest pain Aortic stenosis with bicuspid valve Lupus anticoagulant disorder Atherosclerotic heart disease of [place] coronary artery without angina pectoris Obstructive sleep apnea Paresthesia and pain of extremity Hyperlipidemia DDD (degenerative disc disease), cervical Erectile dysfunction Depression BPH (benign prostatic hyperplasia) Migraines Hypothyroidism Thoracic aortic aneurysm Home Medications ???Medication ?? (more content not included)... Normal [facility] CNOVon 08-06-2024 [facility] Office Visit ([facility] ) MARINO HERRERA ([id number]) 1950 M Date Time Provider Department 08/06/24 3:40 PM STEPHANIE KIDD [facility] During your visit today, we recorded the following information about you: Pulse Blood pressure 71/minute 118/57 Stephanie Kidd MD 08/06/2024 2:25 PM Signed SPINE SURGERY FOLLOW UP This is an in-person visit. SERVICE DATE: 08/06/2024 SURGERY DATE: 11-28-2023 alif with posterior screws Marino Nuñez Herrera is seen for 8 month post operative follow up. Marino reports that he has good days and bad days. He is doing well. He is participating in physical therapy and he is pleased with the results of his surgery. He acknowledges that he will be kyphotic likely forever ANTIPLATELET OR ANTICOAGULATION STATUS: No Patient Entered Questionnaires PROMIS Score Percentiles 07/19/2021 04/29/2022 PROMIS Global Health Scale Physical Health Percentile 41 31 Mental Health Percentile 63 34 Percentiles provide an indication of how the patient's score ranks in relation to the general population. Higher percentile rankings indicate better function/quality of life. 50th percentile is the average of the general population and indicates half of respondents had a worse score. Depression Screening: PHQ-9 Self-Harm (Item 9) response options: 0 Not at all 1 Several days 2 More than half the days 3 Nearly every day PHQ-9 Levels: 0-4 No to mild depression 5-9 Mild depression 10-14 Moderate depression 15-19 Moderately severe depression 20-27 Severe depression PHYSICAL EXAM: BP 118/57 Pulse 71 GENERAL APPEARANCE: Well nourished, well developed, and no apparent distress. NEURO PSYCH: Patient oriented to person, place, and time. Mood pleasant. Benign affect. MUSCULOSKELETAL VISUAL INSPECTION CERVICAL: WNL THORACIC: WNL LUMBAR: WNL MOTOR: 5/5 in all muscle groups. SENSORY: Normal sensory exam GAIT: Normal. REFLEXES: +2 to bilateral U/L extremities. DATA REVIEW [facility] records independently reviewed Upright x-rays demonstrate an anterior lumbar interbody fusion at L5-S1, with an L4-5 fusion as well no evidence of hardware failure no changes to overall alignment ASSESSMENT/PLAN (M48.062) Spinal stenosis of lumbar region with neurogenic claudication (primary encounter diagnosis) Marino Herrera will continue with medical management of his/her condition. 1. 8 months status post anterior lumbar interbody fusion with extension of fusion posteriorly. He is doing well. He will follow-up at his 1 year eileen. All questions were answered he was thankful encounter and in agreement with plan 2. Follow up: Following above Imaging Ordered: XR lumbar The majority of the visit was spent counseling and/or coordinating care for the patient. The patient was counseled regarding adjacent segment stenosis. Total face to face time was 15 minutes. SIGNATURE: Stephanie Kidd MD PATIENT NAME: Marino Herrera DATE: August 06, 2024 TIME: 2:05 PM PAGER: Allergies As of Date: 08/06/2024 Noted Allergy Reaction MOLD 12/01/2021 14 - Other: See Comments MOLD SPORES 04/17/2006 5 - Intolerance Date Reviewed: 08/06/2024 Reviewed by: Claudia Winston MA - Fully Assessed Reason for Visit: Follow Up [171] Primary Visit Diagnosis:Spinal stenosis of lumbar region with neurogenic claudication [M48.062] Prescriptions as of 08/06/2024 - gabapentin (NEURONTIN) 100 mg capsule Take 1 capsule by mouth two times a day AND 2 capsules daily at bedtime. Do all this for 90 days. - acetaminophen (TYLENOL) 500 mg tablet 2 tablets by ORAL/FEEDING TUBE route every 8 hours as needed for pain. - aspirin 81 mg chewable tablet Take 1 tablet by mouth once daily. - atorvastatin (LIPITOR) 20 mg tablet Take 1 tablet by mouth daily at bedtime. - metoprolol succinate ER (TOPROL XL) 50 mg 24 hr tablet Take 1 tablet by mouth once daily. - levothyroxine (SYNTHROID) 150 mcg tablet 150 mcg as directed. 6 days week - SUMAtriptan (IMITREX) 100 mg tablet Take 100 mg by mouth as needed. - DULoxetine (CYMBALTA) 60 mg capsule Take 60 mg by mouth once daily. Problem List As Of Date 08/06/2024 Noted Resolved BLADDER NECK OBSTRUCTION [N32.0] 10/03/2005 [...] of thoracic aorta (HCC) [I71.019] 01/18/2021 Thoracic ascen (more content not included)... Normal [facility] XR LUMBAR 2V AP/LATon 2024 XR LUMBAR 2V AP/LAT * * *Final Report* * * DATE OF EXAM: Aug 06 2024 1:57PM M2X 5229 - XR LUMBAR 2V AP/LAT / PROCEDURE REASON: S/P lumbar fusion * * * * Physician Interpretation * * * * HISTORY (as given from clinical provider): S/P lumbar fusion . Additional history provided by the performing technologist (if any): --> S/P lumbar fusion TECHNIQUE: XR LUMBAR 2V AP/LAT COMPARISON: 01/09/2024 RESULT: Counting reference: Lumbosacral junction. For the purposes of this report, L4-5 is considered the level of the iliac crest and there are 5 lumbar-type vertebrae. Anatomic Variants: None. Posterior decompression L2-L5. Surgical fusion L4-S1 using bilateral rods and pedicle screws. 1 mm zone of lucency around the right S1 screw. Metallic intervertebral spacer at L5-S1. Moderate to severe degenerative disc disease L1-2, L2-3 and L3-4. Degenerative disc disease in the lower thoracic spine. There is a stimulator device in the region of the right buttock that is partially seen. The visualized wires extend into the spinal canal around the T12 level and extending dorsally with the leads are seen around the T9 and T10 levels. The visualized portions are intact. No other significant abnormality. IMPRESSION: EXPECTED POSTOPERATIVE APPEARANCE Credit Resolution Representative: PSCJayna Transcribe Date/Time: Aug 06 2024 2:05P Dictated by : SARA VARGHESE MD This examination was interpreted and the report reviewed and electronically signed by: SARA VARGHESE MD on Aug 06 2024 2:08PM EST [id number] Normal [facility] XR Lumbar spine AP and Later radha 08-06-2024 Radiology Study observation (narrative) [facility] IMPRESSION: EXPECTED POSTOPERATIVE APPEARANCE Credit Resolution Representative: [facility] Transcribe Date/Time: Aug 06 2024 2:05P Dictated by : SARA VARGHESE MD This examination was interpreted and the report reviewed and electronically signed by: SARA VARGHESE MD on Aug 06 2024 2:08PM EST DIVISION OF RADIOLOGY * * *Final Report* * * DATE OF EXAM: Aug 06 2024 1:57PM M2X 5229 - XR LUMBAR 2V AP/LAT / PROCEDURE REASON: S/P lumbar fusion * * * * Physician Interpretation * * * * HISTORY (as given from clinical provider): S/P lumbar fusion . Additional history provided by the performing technologist (if any): --> S/P lumbar fusion TECHNIQUE: XR LUMBAR 2V AP/LAT COMPARISON: 01/09/2024 RESULT: Counting reference: Lumbosacral junction. For the purposes of this report, L4-5 is considered the level of the iliac crest and there are 5 lumbar-type vertebrae. Anatomic Variants: None. Posterior decompression L2-L5. Surgical fusion L4-S1 using bilateral rods and pedicle screws. 1 mm zone of lucency around the right S1 screw. Metallic intervertebral spacer at L5-S1. Moderate to severe degenerative disc disease L1-2, L2-3 and L3-4. Degenerative disc disease in the lower thoracic spine. There is a stimulator device in the region of the right buttock that is partially seen. The visualized wires extend into the spinal canal around the T12 level and extending dorsally with the leads are seen around the T9 and T10 levels. The visualized portions are intact. No other significant abnormality. DIVISION OF RADIOLOGY Provider, Dorota cook [place] - 08/06/2024 * * *Final Report* * * DATE OF EXAM: Aug 06 2024 1:57PM M2X 5229 - XR LUMBAR 2V AP/LAT / PROCEDURE REASON: S/P lumbar fusion * * * * Physician Interpretation * * * * HISTORY (as given from clinical provider): S/P lumbar fusion . Additional history provided by the performing technologist (if any): --> S/P lumbar fusion TECHNIQUE: XR LUMBAR 2V AP/LAT COMPARISON: 01/09/2024 RESULT: Counting reference: Lumbosacral junction. For the purposes of this report, L4-5 is considered the level of the iliac crest and there are 5 lumbar-type vertebrae. Anatomic Variants: None. Posterior decompression L2-L5. Surgical fusion L4-S1 using bilateral rods and pedicle screws. 1 mm zone of lucency around the right S1 screw. Metallic intervertebral spacer at L5-S1. Moderate to severe degenerative disc disease L1-2, L2-3 and L3-4. Degenerative disc disease in the lower thoracic spine. There is a stimulator device in the region of the right buttock that is partially seen. The visualized wires extend into the spinal canal around the T12 level and extending dorsally with the leads are seen around the T9 and T10 levels. The visualized portions are intact. No other significant abnormality. IMPRESSION IMPRESSION: EXPECTED POSTOPERATIVE APPEARANCE Credit Resolution Representative: BRENDA Transcribe Date/Time: Aug 06 2024 2:05P Dictated by : SARA VARGHESE MD This examination was interpreted and the report reviewed and electronically signed by: SARA VARGHESE MD on Aug 06 2024 2:08PM [facility] XR Lumbar spine AP and Later alOrdered By: Ccf Provider on 08-06-2024 [facility] Basic Metabolic Profile (BMP )on 07-25-2024 BUN/CRE 18.5 RATIO Normal 10-20 [facility] Comment on above: Performed By: #### L 500.2500, L503.7505, L506.0400, L501.9520, L100.0100 #### [facility] [address] [place], [address] Calcium [Mass/Vol] 9.0 mg/dL Normal 7.6-11.0 [facility] Comment on above: Performed By: #### L 500.2500, L503.7505, L506.0400, L501.9520, L100.0100 #### [facility] [address] [place], [address] Chloride [Moles/Vol] 104 mmol/L Normal 98-108 [facility] Comment on above: Performed By: #### L 500.2500, L503.7505, L506.0400, L501.9520, L100.0100 #### [facility] [address] [place], [address] CO2 [Moles/Vol] 26.5 mmol/L Normal 21.0-32.0 [facility] Comment on above: Performed By: #### L 500.2500, L503.7505, L506.0400, L501.9520, L100.0100 #### [facility] [address] [place], [address] Creatinine [Mass/Vol] 0.93 mg/dL Normal 0.70-1.20 [facility] Comment on above: Performed By: #### L 500.2500, L503.7505, L506.0400, L501.9520, L100.0100 #### [facility] [address] [place], [address] GAP 11 Normal 5-15 [facility] Comment on above: Performed By: #### L 500.2500, L503.7505, L506.0400, L501.9520, L100.0100 #### [facility] [address] [place], [address] GFR/1.73 sq M.predicted among non-blacks MDRD (S/P/Bld) [Vol rate/Area] 86 mL/min/{1.73_m2} Normal >60 [facility] Comment on above: Result Comment: mL/m in/1.73m2 CKD-EPI Creatinine Equation (2020) Performed By: #### L 500.2500, L503.7505, L506.0400, L501.9520, L100.0100 #### [facility] [address] [place], [address] Glucose [Mass/Vol] 85 mg/dL Normal 70-99 [facility] Comment on above: Performed By: #### L 500.2500, L503.7505, L506.0400, L501.9520, L100.0100 #### [facility] [address] [place], [address] Potassium [Moles/Vol] 4.3 mmol/L Normal 3.3-5.1 [facility] Comment on above: Performed By: #### L 500.2500, L503.7505, L506.0400, L501.9520, L100.0100 #### [facility] [address] [place], [address] Sodium [Moles/Vol] 142 mmol/L Normal 133-145 [facility] Comment on above: Performed By: #### L 500.2500, L503.7505, L506.0400, L501.9520, L100.0100 #### [facility] [address] [place], [address] Urea nitrogen [Mass/Vol] 17 mg/dL Normal 4-19 [facility] Comment on above: Performed By: #### L 500.2500, L503.7505, L506.0400, L501.9520, L100.0100 #### [facility] [address] [place], [address] CBC W/Diff, Automatedon 07-14 Absolute Lymph 1.61 X10 3/uL Normal 0.83-4.51 [facility] Comment on above: Performed By: #### L 500.2500, L503.7505, L506.0400, L501.9520, L100.0100 #### [facility] [address] [place], [address] Absolute Neut 2.0 X10 3/uL Normal 2.0-7.7 [facility] Comment on above: Performed By: #### L 500.2500, L503.7505, L506.0400, L501.9520, L100.0100 #### [facility] [address] [place], [address] Basophils/100 WBC (Bld) 0.7 % Normal 0-1 [facility] Comment on above: Performed By: #### L 500.2500, L503.7505, L506.0400, L501.9520, L100.0100 #### [facility] [address] [place], [address] Eosinophils/100 WBC (Bld) 5.2 % High 0-5 [facility] Comment on above: Performed By: #### L 500.2500, L503.7505, L506.0400, L501.9520, L100.0100 #### [facility] [address] [place], [address] Erythrocyte distribution width (RBC) [Ratio] 12.3 % Normal 11.6-14.6 [facility] Comment on above: Performed By: #### L 500.2500, L503.7505, L506.0400, L501.9520, L100.0100 #### [facility] [address] [place], [address] Hematocrit (Bld) [Volume fraction] 40.6 % Normal 40-54 [facility] Comment on above: Performed By: #### L 500.2500, L503.7505, L506.0400, L501.9520, L100.0100 #### [facility] [address] [place], [address] Hemoglobin (Bld) [Mass/Vol] 13.6 g/dL Normal 13.0-16.5 [facility] Comment on above: Performed By: #### L 500.2500, L503.7505, L506.0400, L501.9520, L100.0100 #### [facility] [address] [place], [address] IG% 0.200 Normal 0.0-0.9 [facility] Comment on above: Result Comment: IG% - Immature Granulocytes (promyelocytes, myelocytes and metamyelocytes) > 1% indicates that a LEFT SHIFT is Present. Performed By: #### L 500.2500, L503.7505, L506.0400, L501.9520, L100.0100 #### [facility] [address] [place], [address] Lymphocytes/100 WBC (Bld) 36.5 % Normal 19-41 [facility] Comment on above: Performed By: #### L 500.2500, L503.7505, L506.0400, L501.9520, L100.0100 #### [facility] [address] [place], [address] MCH (RBC) [Entitic mass] 30.4 pg Normal 27.0-32.0 [facility] Comment on above: Performed By: #### L 500.2500, L503.7505, L506.0400, L501.9520, L100.0100 #### [facility] [address] [place], [address] MCHC (RBC) [Mass/Vol] 33.5 g/dL Normal 32-36 [facility] Comment on above: Performed By: #### L 500.2500, L503.7505, L506.0400, L501.9520, L100.0100 #### [facility] [address] [place], [address] MCV (RBC) [Entitic vol] 90.6 fL Normal 80-94 [facility] Comment on above: Performed By: #### L 500.2500, L503.7505, L506.0400, L501.9520, L100.0100 #### [facility] [address] [place], [address] Monocytes/100 WBC (Bld) 12.5 % High 0-10 [facility] Comment on above: Performed By: #### L 500.2500, L503.7505, L506.0400, L501.9520, L100.0100 #### [facility] [address] [place], [address] Neutrophils/100 WBC (Bld) 44.9 % Low 47-70 [facility] Comment on above: Performed By: #### L 500.2500, L503.7505, L506.0400, L501.9520, L100.0100 #### [facility] [address] [place], [address] Nucleated RBC (Bld) [#/Vol] 0 10*3/uL Normal 0-5 [facility] Comment on above: Performed By: #### L 500.2500, L503.7505, L506.0400, L501.9520, L100.0100 #### [facility] [address] [place], [address] Platelet mean volume (Bld) [Entitic vol] 10.3 fL Normal 6.2-12.0 [facility] Comment on above: Performed By: #### L 500.2500, L503.7505, L506.0400, L501.9520, L100.0100 #### [facility] [address] [place], [address] Platelets (Bld) [#/Vol] 237 10*3/uL Normal 150-450 [facility] Comment on above: Performed By: #### L 500.2500, L503.7505, L506.0400, L501.9520, L100.0100 #### [facility] [address] [place], [address] RBC (Bld) [#/Vol] 4.48 10*6/uL Low 4.6-6.[address] [facility] Comment on above: Performed By: #### L 500.2500, L503.7505, L506.0400, L501.9520, L100.0100 #### [facility] [address] [place], [address] RDW SD 41.1 fl Normal 35.1-43.9 [facility] Comment on above: Performed By: #### L 500.2500, L503.7505, L506.0400, L501.9520, L100.0100 #### [facility] [address] [place], [address] WBC (Bld) [#/Vol] 4.4 10*3/uL Normal 4.4-11.0 [facility] Comment on above: Performed By: #### L 500.2500, L503.7505, L506.0400, L501.9520, L100.0100 #### [facility] [address] [place], [address] Cardiology Visit Reporton Cardiology Visit Report [facility] [address] [place] [address] OFFICE VISIT Date of Service: 07/25/24 MR#: [id number] Acct: [id number] Name: MARINO HERRERA Rep #: [id number] : 1950 Provider: ABHINAV zepeda Age/Sex: 74/M [place] [facility] [place]: Signed HPI HPI History of Present Illness Details: MARINO HERRERA, is a 74 M who presents to the office today for a follow-up visit. He is a gentleman with a history of mild aortic regurgitation and a dilated ascending aorta. He had had an echocardiogram which demonstrated a dilated aortic root measuring approximately [address] scan confirmed this. He was sent to the [facility] for an evaluation of the above. He underwent a left heart catheterization which demonstrated a proximal 60% stenosis, mid 75% stenosis in the left anterior descending artery and a third diagonal vessel with a 70% stenosis. The circumflex artery and the right coronary artery had mild disease. He subsequently underwent coronary artery bypass graft surgery with a left internal mammary artery to the left anterior descending artery, and aortic valve replacement with a 23 mm InspirEase bioprosthetic valve in his ascending aortic root was also replaced. Postop he did develop anemia and thrombocytopenia he was thought to have had lupus anticoagulant. However it appears that that has all resolved. He acknowledges left sided chest burning sensation. He describes this as a prickle. He notes it with both activity and at rest. This is short lasting. It resolves on its own. This improves reposit ioning. He denies palpitations. He denies bilateral lower extremity edema. He acknowledges shortness of breath with activity. He denies shortness of breath at rest or orthopnea. He states lightheadedness. He denies dizziness, near-syncope, or syncope. He acknowledges fatigue that he feels to be worsening. 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 [employer] Required: No Accompanied by: Self Is patient in pain?: No Allergies No Known Allergies Allergy (Unverified 07/25/24 10:49) Medications ???Medication ???Instructions ???Recorded ???Confirmed ???Type sumatriptan succinate 100 mg tablet 100 mg PO .X1 PRN PRN MIGRAINES 10/15/19 07/25/24 History amoxicillin 500 mg capsule 2,000 mg (4 x 500 mg) PO .COMPLEX 06/21/21 07/25/24 Rx #4 caps levothyroxine 150 mcg tablet 150 mcg PO DAILY 05/26/22 07/25/24 History atorvastatin 20 mg tablet 20 mg PO QPM #90 tabs 07/28/2302/06 Rx metoprolol succinate 25 mg 25 mg PO DAILY #90 tabs 08/08/23 0 07/25/24 Rx tablet,extended release 24 hr aspirin 81 mg tablet,delayed 81 mg PO QDAY 02/01/24 07/25/24 Hi story release (Adult Low Dose Aspirin) duloxetine 60 mg capsule,delayed 60 mg PO QDAY 06/21/24 07/25/24 Hi story release pantoprazole 40 mg tablet,delayed 40 mg PO BID #60 tabs 06/21/24 Rx release clobetasol 0.05 % topical cream topical 07/25/24 07/25/24 History Have you fallen in the past year?: No PFSH Medical History Aortic stenosis with bicuspid valve Lupus anticoagulant disorder Atherosclerotic heart disease of [place] coronary artery without angina pectoris Obstructive sleep apnea Paresthesia and pain of extremity Hyperlipidemia DDD (degenerative disc disease), cervical Erectile dysfunction Depression BPH (benign prostatic hyperplasia) Migraines Hypothyroidism Thoracic aortic aneurysm Surgical History History of spinal fusion ( 11/2023) Spinal cord stimulator status (10/2022) History of left heart catheterization (03/22/21) History of ascending aorta repair (04/22/21) History of aortic valve replacement with bioprosthetic valve (04/22/21) H/O coronary artery bypass surgery (04/22/21) History of back surgery (08/2018) S/P trigger finger release History of transurethral resection of prostate Cervical vertebral fusion History of uvulopalatopharyngoplasty H/O thyroidectomy History of nasal septoplasty History of rhinoplasty History of lumbar laminectomy History of bilateral carpal tunnel release Family History Brother CAD (coronary artery disease) Cancer Myocardial infarction age 69 Father Cancer CVA (cerebral vascular accident) CAD (coronary artery disease) Mother Heart disease chf Social History (more content not included)... Normal [facility] L503.7505on 07-25-2024 Natriuretic peptide B (Bld) [Mass/Vol] 77 pg/mL Normal <=900 [facility] Comment on above: Result Comment: Hear t Failure Unlikely: < 300 pg/mL Heart Failure Likely < 50 Years: > 450 pg/mL 50-75 Years: > 900 pg/mL >75 Years: > 1800 pg/mL Performed By: #### L 500.2500, L503.7505, L506.0400, L501.9520, L100.0100 #### [facility] [address] [place], [address] T4 Free Directon 07-25-2024 T4 FREE DIRECT 1.40 ng/dL Normal 0.76-1.46 [facility] Comment on above: Performed By: #### L 500.2500, L503.7505, L506.0400, L501.9520, L100.0100 #### [facility] [address] [place], [address] Thyroid Stim Hormone (TSH)on 07-25-2024 TSH 0.575 uIU/mL Normal 0.300-4.200 [facility] Comment on above: Performed By: #### L 500.2500, L503.7505, L506.0400, L501.9520, L100.0100 #### [facility] [address] [place], [address] [facility] ([facility]) HERRERAMARINO Quezada ([id number]) 1950 M Date Time Provider Department 07/05/24 STEPHANIE KIDD During your visit today, we recorded the following information about you: Merary Webb 07/05/2024 1:17 PM Signed Patient called; states he has not been able to start PT due to 's illness; patient called to schedule and was told that PT order has ; requesting that new PT order be placed and faxed as follows: [facility] Patient would like to be notified when faxed; ph. [phone] Salvador Cruz RN 07/05/2024 1:26 PM Signed SERVICE DATE: 02/27/2024 SURGERY DATE: 11-28-2023 alif with posterior screws Pt has postponed his PT due to illness. Multiple spinal FX and in and out of hospital for pain control. Pt would like start PT but will need new script. Routed to SELINA for review Salvador Cruz RN 07/09/2024 1:51 PM Signed PT script faxed. Call to update pt. Allergies As of Date: 07/05/2024 Noted Allergy Reaction MOLD 12/01/2021 14 - Other: See Comments MOLD SPORES 04/17/2006 5 - Intolerance Date Reviewed: 01/09/2024 Reviewed by: Brenda Hernandes OCCA - Fully Assessed Primary Visit Diagnosis:Spinal stenosis of thoracolumbar region [M48.05] Other Visit Diagnosis:S/P lumbar fusion [Z98.1] Order(s):CONSULT TO PHYSICAL THERAPY [9032] Order #: [id number]: 1 FUTURE Prescriptions as of 07/09/2024 - gabapentin (NEURONTIN) 100 mg capsule Take 1 capsule by mouth two times a day AND 2 capsules daily at bedtime. Do all this for 90 days. - acetaminophen (TYLENOL) 500 mg tablet 2 tablets by ORAL/FEEDING TUBE route every 8 hours as needed for pain. - aspirin 81 mg chewable tablet Take 1 tablet by mouth once daily. - atorvastatin (LIPITOR) 20 mg tablet Take 1 tablet by mouth daily at bedtime. - metoprolol succinate ER (TOPROL XL) 50 mg 24 hr tablet Take 1 tablet by mouth once daily. - levothyroxine (SYNTHROID) 150 mcg tablet 150 mcg as directed. 6 days week - SUMAtriptan (IMITREX) 100 mg tablet Take 100 mg by mouth as needed. - DULoxetine (CYMBALTA) 60 mg capsule Take 60 mg by mouth once daily. Problem List As Of Date 07/05/2024 Noted Resolved BLADDER NECK OBSTRUCTION [N32.0] 10/03/2005 [...] aortic aneurysm (HCC) [I71.2*01/18/2021 Stable angina (HCC) [I20.89] 01/18/2021 Coronary artery calcification [I25.10] 01/18/2021 Family history of heart disease [Z82.49] 01/18/2021 BUBBA (obstructive sleep apnea) [G47.33] 01/18/2021 Dyslipidemia [E78.5] 01/18/2021 Discharge planning issues [Z75.8] 03/22/2021 04/26/2021 Pre-op testing [Z01.818] 03/22/2021 04/26/2021 S/P thyroidectomy [Z98.890, Z90.89] 03/23/2021 Nonrheumatic aortic valve stenosis [I35.0] 03/23/2021 Nonrheumatic aortic valve insufficiency [I35.1] 03/23/2021 Bicuspid aortic valve [Q23.81] 03/23/2021 Coronary artery disease involving [place] swan*04/22/2021 Atelectasis [J98.11] 04/22/2021 Post-operative pain [G89.18] 04/22/2021 Postoperative hypovolemia [E89.89, E86.1] 04/22/2021 04/23/2021 Acquired hypothyroidism [E03.9] 04/22/2021 Fluid overload [E87.70] 04/24/2021 Thrombocytopenia (HCC) [D69.6] 04/24/2021 Postoperative anemia [D64.9] 04/24/2021 Essential hypertension [I10] 04/25/2021 Obesity, Class I, BMI 30-34.9 [E66.811] 04/25/2021 Encounter for support and coordination of trans*04/26/2021 PONV (postoperative nausea and vomiting) [R11.2*11/01/2023 Spinal stenosis of lumbar region with radiculop*11/28/2023 Encounter Status:Closed by JORDAN CAMPUZANO on 07/09/24 Normal [facility] Gastroenterology Visit Repor ton 06-21-2024 Gastroenterology Visit Report [facility] [address] [place] [address] OFFICE VISIT Date of Service: 06/21/24 MR#: [id number] Acct: [id number] Name: MARINO HERRERA Rep #: [id number] : 1950 Provider: Isaiah Will DO Age/Sex: 73/M [place] [facility] [place] Status: Signed Intake Vital Signs 02/01/24 09:20 Height 5 ft 9 in Weight: 189 lb BMI 27.8 BP 129/70 H Blood Pressure Location Lt brachial Position Sitting Respiration 18 Pulse 70 Pulse Source NIBP Intake Visit Reasons: New Patient Allergies No Known Allergies Allergy (Unverified 02/01/24 09:27) Medications ???Medication ???Instructions ???Recorded ???Confirmed ???Type sumatriptan succinate 100 mg tablet 100 mg PO .X1 PRN PRN MIGRAINES 10/15/19 06/21/24 History amoxicillin 500 mg capsule 2,000 mg (4 x 500 mg) PO .COMPLEX 06/21/21 02/01/24 Rx #4 caps levothyroxine 150 mcg tablet 150 mcg PO DAILY 05/26/22 06/21/24 History atorvastatin 20 mg tablet 20 mg PO QPM #90 tabs 07/28/2311/07 Rx metoprolol succinate 25 mg 25 mg PO DAILY #90 tabs 08/08/23 0 06/21/24 Rx tablet,extended release 24 hr aspirin 81 mg tablet,delayed 81 mg PO QDAY 02/01/24 06/21/24 Hi story release (Adult Low Dose Aspirin) duloxetine 60 mg capsule,delayed 60 mg PO QDAY 06/21/24 06/21/24 Hi story release pantoprazole 40 mg tablet,delayed 40 mg PO BID #60 tabs 06/21/24 Rx release Have you fallen in the past year?: No PFSH Medical History Aortic stenosis with bicuspid valve Lupus anticoagulant disorder Atherosclerotic heart disease of [place] coronary artery without angina pectoris Obstructive sleep apnea Paresthesia and pain of extremity Hyperlipidemia DDD (degenerative disc disease), cervical Erectile dysfunction Depression BPH (benign prostatic hyperplasia) Migraines Hypothyroidism Thoracic aortic aneurysm Surgical History History of spinal fusion ( 11/2023) Spinal cord stimulator status (10/2022) History of left heart catheterization (03/22/21) History of ascending aorta repair (04/22/21) History of aortic valve replacement with bioprosthetic valve (04/22/21) H/O coronary artery bypass surgery (04/22/21) History of back surgery (08/2018) S/P trigger finger release History of transurethral resection of prostate Cervical vertebral fusion History of uvulopalatopharyngoplasty H/O thyroidectomy History of nasal septoplasty History of rhinoplasty History of lumbar laminectomy History of bilateral carpal tunnel release Family History Brother CAD (coronary artery disease) Cancer Myocardial infarction age 69 Father Cancer CVA (cerebral vascular accident) CAD (coronary artery disease) Mother Heart disease chf Social History Smoking Status: Former smoker how long ago did patient quit smoking: Stopped smoking a pipe 15 year ago, Stopped chewing tobacco 4 years ago alcohol intake: current alcohol intake frequency: holidays/special occasions only Alcohol type: beer and other substance use type: does not use caffeine: No HPI HPI Details: MARINO HERRERA, is a 73 M who presents to the office today for initial consult. Pt reports he is due for his screening colonoscopy. He said his father had colon cancer and would like screening. States last colon was 5 years ago. Has HX of GERD. Takes Pantoprazole 40mg qd. Says his sx are only somewhat controlled. Does have abdominal pain when he eats. Sates he had lumbar surgery last November and used to have constipation. States his BMs are better now. ROS Const Constitutional: No fatigue, fever(s) or weight change ENT ENT: No difficulty swallowing Gastro GI: No abdominal pain, belching, bloating, change in bowel habits, change in stool character, coffee ground emesis, constipation, cramping, diarrhea, heartburn, difficulty swallowing, feeling full early, excessive flatus, incontinent of stools, Vomiting blood/hematemesis, Blood in stool, loose stools, Black,tarry stools, nausea/dyspepsia, pain with swallowing, vomiting or other Musc Musculoskeletal: No joint pain Skin Skin: No yellowing of the eye or itchy eyes Psych Psychiatric: No anxiety and No depression Endo Endocrine: No fatigue or weight change Aller/Imm Allergy/Immunologic: No itchy eyes Reilly/Lymp Hematologic/Lymphatic: No easy bleeding or easy bruising Exam Const General: cooperative, healthy appearing and comfortable Nutritional Appearance: well nourished Orientation: oriented x3 HENMT Head: normal to inspection Ears: hearing grossly normal bilaterally Eyes Scler (more content not included)... Normal [facility] Stefan 04-04-2024 [facility] Telephone (NIQ) MARINO HERRERA ([id number]) 1950 M Date Time Provider Department 04/04/24 STEPHANIE KIDD NIQ During your visit today, we recorded the following information about you: Isidro Mcintyre 04/04/2024 1:51 PM Signed Pt called to get a refill - refused my help. Stated that pharmacy won't refill because Pt up his dosage. Requesting call back from RN Salvador Cruz RN 04/04/2024 3:22 PM Signed Neuro SPINE CARE COORDINATION QUICK NOTE SERVICE DATE: 02/27/2024 SURGERY DATE: 11-28-2023 alif with posterior screws Meds Neurontin 100-100-200 Robaxin 750 QID LBP - described as heaviness. Scripts to [facility] for refill sent Allergies As of Date: 04/04/2024 Noted Allergy Reaction MOLD 12/01/2021 14 - Other: See Comments MOLD SPORES 04/17/2006 5 - Intolerance Date Reviewed: 01/09/2024 Reviewed by: Brenda Hernandes OCCA - Fully Assessed Reason for Visit: Medication Problem [65] Primary Visit Diagnosis:Spinal stenosis of thoracolumbar region [M48.05] Other Visit Diagnosis:S/P lumbar fusion [Z98.1] Order(s):methocarbamol (ROBAXIN) 750 mg tabletTake 1 tablet by mouth four times daily.Disp: 120 tabletRfl: 2 gabapentin (NEURONTIN) 100 mg capsuleTake 1 capsule by mouth two times a day AND 2 capsules daily at bedtime. Do all this for 90 days.Disp: 120 capsuleRfl: 2 Prescriptions as of 04/04/2024 - methocarbamol (ROBAXIN) 750 mg tablet Take 1 tablet by mouth four times daily. - gabapentin (NEURONTIN) 100 mg capsule Take 1 capsule by mouth two times a day AND 2 capsules daily at bedtime. Do all this for 90 days. - acetaminophen (TYLENOL) 500 mg tablet 2 tablets by ORAL/FEEDING TUBE route every 8 hours as needed for pain. - aspirin 81 mg chewable tablet Take 1 tablet by mouth once daily. - atorvastatin (LIPITOR) 20 mg tablet Take 1 tablet by mouth daily at bedtime. - metoprolol succinate ER (TOPROL XL) 50 mg 24 hr tablet Take 1 tablet by mouth once daily. - levothyroxine (SYNTHROID) 150 mcg tablet 150 mcg as directed. 6 days week - SUMAtriptan (IMITREX) 100 mg tablet Take 100 mg by mouth as needed. - DULoxetine (CYMBALTA) 60 mg capsule Take 60 mg by mouth once daily. Problem List As Of Date 04/04/2024 Noted Resolved BLADDER NECK OBSTRUCTION [N32.0] 10/03/2005 [...] aortic aneurysm (HCC) [I71.2*01/18/2021 Stable angina (HCC) [I20.89] 01/18/2021 Coronary artery calcification [I25.10] 01/18/2021 Family history of heart disease [Z82.49] 01/18/2021 BUBBA (obstructive sleep apnea) [G47.33] 01/18/2021 Dyslipidemia [E78.5] 01/18/2021 Discharge planning issues [Z75.8] 03/22/2021 04/26/2021 Pre-op testing [Z01.818] 03/22/2021 04/26/2021 S/P thyroidectomy [E89.0] 03/23/2021 Nonrheumatic aortic valve stenosis [I35.0] 03/23/2021 Nonrheumatic aortic valve insufficiency [I35.1] 03/23/2021 Bicuspid aortic valve [Q23.81] 03/23/2021 Coronary artery disease involving [place] swan*04/22/2021 Atelectasis [J98.11] 04/22/2021 Post-operative pain [G89.18] 04/22/2021 Postoperative hypovolemia [E89.89, E86.1] 04/22/2021 04/23/2021 Acquired hypothyroidism [E03.9] 04/22/2021 Fluid overload [E87.70] 04/24/2021 Thrombocytopenia (HCC) [D69.6] 04/24/2021 Postoperative anemia [D64.9] 04/24/2021 Essential hypertension [I10] 04/25/2021 Obesity, Class I, BMI 30-34.9 [E66.811] 04/25/2021 Encounter for support and coordination of trans*04/26/2021 PONV (postoperative nausea and vomiting) [R11.2*11/01/2023 Spinal stenosis of lumbar region with radiculop*11/28/2023 Prescriptions ordered this encounter Disp Refills Start End METHOCARBAMOL 750 MG TABLET 120 * 2 04/04/2024 07/03/2024 Route: ORAL Sig: Take 1 tablet by mouth four times daily. GABAPENTIN 100 MG CAPSULE 120 * 2 04/04/2024 07/03/2024 Route: ORAL Sig: Take 1 capsule by mouth two times a day AND 2 capsules daily at bedtime. Do all this for 90 days. Medications Discontinued During This Encounter Prescriptions - senna-docusate (SENNA-S) 8.6-50 mg per tablet (Discontinued) Reported on 01/09/2024 - furosemide (LASIX) 20 mg tablet (Discontinued) Reported on 12/12/2023 - gabapentin (NEURONTIN) 100 mg capsule (Discontinued) Take 1 capsule by mouth three times a day for 90 (more content not included)... Normal [facility] PSA,Total - Annual Screenon 03-26-2024 PSA,TOT SCREEN 1.05 ng/mL Normal 0.00-4.00 [facility] Comment on above: Result Comment: This test was performed using the TPSA assay method for the Dimension chemistry system. Values obtained with different assay methods cannot be used interchangably. When changing PSA assays in the course of monitoring a patient, additional sequential testing should be carried out to confirm baseline values. Performed By: #### L [id number] #### [facility] [address] [place], [address] PSA,Total - Annual Screenon 03-19-2024 PSA,TOT SCREEN 1.02 ng/mL Normal 0.00-4.00 [facility] Comment on above: Order Comment: Order Date: 10/09/23 Order Info: [id number] - PSA Result Comment: This test was performed using the TPSA assay method for the Dimension chemistry system. Values obtained with different assay methods cannot be used interchangably. When changing PSA assays in the course of monitoring a patient, additional sequential testing should be carried out to confirm baseline values. Performed By: #### L [id number] #### [facility] [address] [place], [address] Cardiology Visit Reporton Cardiology Visit Report [facility] [address] [place], [place] [address] OFFICE VISIT Date of Service: 02/01/24 MR#: [id number] Acct: [id number] Name: MARINO HERRERA Rep #: [id number] : 1950 Provider: ABHINAV zepeda Age/Sex: 73/M [place] [facility] [place] Status: Signed HPI HPI History of Present Illness Details: MARINO HERRERA, is a 73 M who presents to the office today for a follow-up visit. He is a gentleman with a history of mild aortic regurgitation and a dilated ascending aorta. He had had an echocardiogram which demonstrated a dilated aortic root measuring approximately [address] scan confirmed this. He was sent to the [facility] for an evaluation of the above. He underwent a left heart catheterization which demonstrated a proximal 60% stenosis, mid 75% stenosis in the left anterior descending artery and a third diagonal vessel with a 70% stenosis. The circumflex artery and the right coronary artery had mild disease. He subsequently underwent coronary artery bypass graft surgery with a left internal mammary artery to the left anterior descending artery, and aortic valve replacement with a 23 mm InspirEase bioprosthetic valve in his ascending aortic root was also replaced. Postop he did develop anemia and thrombocytopenia he was thought to have had lupus anticoagulant. However it appears that that has all resolved. He acknowledges left sided chest burning sensation. He describes this as a prickle. He notes it with both activity and at rest. This is short lasting. It resolves on its own. This improves reposit ioning. He denies palpitations. He denies bilateral lower extremity edema. He acknowledges shortness of breath with activity. He denies shortness of breath at rest or orthopnea. He denies lightheadedness, dizziness, near-syncope, or syncope. He acknowledges fatigue that he attributes to recent spinal surgery. 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 [employer] Required: No Is patient in pain?: No Allergies No Known Allergies Allergy (Unverified 02/01/24 09:27) Medications ???Medication ???Instructions ???Recorded ???Confirmed ???Type acetaminophen 500 mg tablet 500 - 1,000 mg PO Q6H PRN PRN Pain 11/22/17 02/01/24 History sumatriptan succinate 100 mg tablet 100 mg PO .X1 PRN PRN MIGRAINES 10/15/19 02/01/24 History amoxicillin 500 mg capsule 2,000 mg (4 x 500 mg) PO .COMPLEX 06/21/21 02/01/24 Rx #4 caps duloxetine 60 mg capsule,delayed 60 mg PO DAILY ANXIETY 05/26/22 02/01/24 History release levothyroxine 150 mcg tablet 150 mcg PO DAILY 05/26/22 02/01/24 History pantoprazole 40 mg tablet,delayed 40 mg PO DAILY 11/22/22 02/01/24 History release atorvastatin 20 mg tablet 20 mg PO QPM #90 tabs 07/28/23 02/01/24 Rx metoprolol succinate 25 mg 25 mg PO DAILY #90 tabs 08/08/23 02/01/24 Rx tablet,extended release 24 hr aspirin 81 mg tablet,delayed 81 mg PO QDAY 02/01/24 02/01/24 History release (Adult Low Dose Aspirin) gabapentin 100 mg capsule 100 mg PO TID 02/01/24 02/01/24 History methocarbamol 750 mg tablet mg PO 02/01/24 02/01/24 History Ejection fraction %: 70 Have you fallen in the past year?: No PFSH Medical History Aortic stenosis with bicuspid valve Lupus anticoagulant disorder Atherosclerotic heart disease of [place] coronary artery without angina pectoris Obstructive sleep apnea Paresthesia and pain of extremity Hyperlipidemia DDD (degenerative disc disease), cervical Erectile dysfunction Depression BPH (benign prostatic hyperplasia) Migraines Hypothyroidism Thoracic aortic aneurysm Surgical History (Updated 02/01/24 @ 09:31 by Joanna Garcia) History of spinal fusion ( 11/2023) Spinal cord stimulator status (10/2022) History of left heart catheterization (03/22/21) History of ascending aorta repair (04/22/21) History of aortic valve replacement with bioprosthetic valve (04/22/21) H/O coronary artery bypass surgery (04/22/21) History of back surgery (08/2018) S/P trigger finger release History of transurethral resection of prostate Cervical vertebral fusion History of uvulopalatopharyngoplasty H/O thyroidectomy History of nasal septoplasty History of rhinoplasty History of lumbar laminectomy History of bilateral carpal tunnel release Family History Brother CAD (coronary artery disease) Cancer Myocardial infarction age 69 Father Cancer CVA (cerebral vascular accident) CAD (coronary a (more content not included)... [facility] Stefan 01-26-2024 [facility] Telephone (NIQ) HERRERAMARINO Quezada ([id number]) 1950 M Date Time Provider Department 01/26/24 STEPHANIE KIDD During your visit today, we recorded the following information about you: Maria Isabel Solo 01/26/2024 2:24 PM Signed Call received for Stephanie Kidd MD regarding Marino Nuñez Herrera. Caller: self Patient Identified by Name and : Marino Nuñez Herrera 1950 Reason for Call: Patient states Dr. Kidd was suppose to give him to see how he is doing Patient states he is still experiencing pain below his buttock and it is constant Patient states the pain level is at a 8-9 Is there any additional information the provider should know? No Last Office Visit: 01/26/2024 Next scheduled appointment: 02/27/2024 Best number to reach caller: [phone] Best time to reach caller: anytime Is it OK to leave a detailed voice message? Yes Salvador Rodriguez RN 01/26/2024 3:48 PM Signed Neuro SPINE CARE COORDINATION QUICK NOTE SURGERY DATE: SURGERY DATE: 11/27 alif L5/S1, posterior extension of fusion CC- Left buttock pain ( achy ) for the past 5 weeks- worse with sitting. - occasional left post thigh pain. . Finds that he wants to bend forward while standing. Neurontin 100 mg TID - out for the past 2 days. Robaxin 750 TID Tylenol 650 mg TID Pt will restart the Neurontin and continue to monitor. The will continue to update the office. He would like to consider increase to 400 mg per day. He will continue to monitor. Allergies As of Date: 01/26/2024 Noted Allergy Reaction MOLD 12/01/2021 14 - Other: See Comments MOLD SPORES 04/17/2006 5 - Intolerance Date Reviewed: 01/09/2024 Reviewed by: Brenda Hernandes OCCA - Fully Assessed Reason for Visit: Patient Question [6867] Patient Update [1234] Prescriptions as of 01/26/2024 - gabapentin (NEURONTIN) 100 mg capsule Take 1 capsule by mouth three times a day for 90 days. - methocarbamol (ROBAXIN) 750 mg tablet Take 1 tablet by mouth four times daily. - senna-docusate (SENNA-S) 8.6-50 mg per tablet Take 2 tablets by mouth two times a day. - acetaminophen (TYLENOL) 500 mg tablet 2 tablets by ORAL/FEEDING TUBE route every 8 hours as needed for pain. - aspirin 81 mg chewable tablet Take [...] mcg as directed. 6 days week - SUMAtriptan (IMITREX) 100 mg tablet Take 100 mg by mouth as needed. - DULoxetine (CYMBALTA) 60 mg capsule Take 60 mg by mouth once daily. Problem List As Of Date 01/26/2024 Noted Resolved BLADDER NECK OBSTRUCTION [N32.0] 10/03/2005 [...] aortic aneurysm (HCC) [I71.2*01/18/2021 Stable angina (HCC) [I20.89] 01/18/2021 Coronary artery calcification [I25.10] 01/18/2021 Family history of heart disease [Z82.49] 01/18/2021 BUBBA (obstructive sleep apnea) [G47.33] 01/18/2021 Dyslipidemia [E78.5] 01/18/2021 Discharge planning issues [Z75.8] 03/22/2021 04/26/2021 Pre-op testing [Z01.818] 03/22/2021 04/26/2021 S/P thyroidectomy [E89.0] 03/23/2021 Nonrheumatic aortic valve stenosis [I35.0] 03/23/2021 Nonrheumatic aortic valve insufficiency [I35.1] 03/23/2021 Bicuspid aortic valve [Q23.81] 03/23/2021 Coronary artery disease involving [place] swan*04/22/2021 Atelectasis [J98.11] 04/22/2021 Post-operative pain [G89.18] 04/22/2021 Postoperative hypovolemia [E89.89, E86.1] 04/22/2021 04/23/2021 Acquired hypothyroidism [E03.9] 04/22/2021 Fluid overload [E87.70] 04/24/2021 Thrombocytopenia (HCC) [D69.6] 04/24/2021 Postoperative anemia [D64.9] 04/24/2021 Essential hypertension [I10] 04/25/2021 Obesity, Class I, BMI 30-34.9 [E66.811] 04/25/2021 Encounter for support and coordination of trans*04/26/2021 PONV (postoperative nausea and vomiting) [R11.2*11/01/2023 Spinal stenosis of lumbar region with radiculop*11/28/2023 Encounter Status:Closed by SALVADOR CRUZ on 01/26/24 Normal [facility] CNOVon 01-09-2024 CNOV Office Visit ([facility] ) MARINO HERRERA ([id number]) 1950 M Date Time Provider Department 01/09/24 1:00 PM STEPHANIE KIDD [facility] During your visit today, we recorded the following information about you: Pulse Blood pressure 80/minute 141/75 Stephanie Kidd MD 01/09/2024 11:47 AM Signed SPINE SURGERY FOLLOW UP This is an in-person visit. SERVICE DATE: 01/09/2024 SURGERY DATE: SURGERY DATE: 11/27 alif L5/S1, posterior extension of fusion Marino Herrera is seen for 6 week post operative follow up. He reported he is doing well. Reports occasional low back pain. Has been ambulating with the use of a walking stick. No issues with his incision ANTIPLATELET OR ANTICOAGULATION STATUS: No Patient Entered Questionnaires PROMIS Score Percentiles 07/19/2021 04/29/2022 PROMIS Global Health Scale Physical Health Percentile 41 31 Mental Health Percentile 63 34 Percentiles provide an indication of how the patient's score ranks in relation to the general population. Higher percentile rankings indicate better function/quality of life. 50th percentile is the average of the general population and indicates half of respondents had a worse score. Depression Screening: PHQ-9 Self-Harm (Item 9) response options: 0 Not at all 1 Several days 2 More than half the days 3 Nearly every day PHQ-9 Levels: 0-4 No to mild depression 5-9 Mild depression 10-14 Moderate depression 15-19 Moderately severe depression 20-27 Severe depression PHYSICAL EXAM: BP 141/75 (BP Site: Right Arm, BP Position: Sitting, BP Cuff Size: Regular Adult) Pulse 80 GENERAL APPEARANCE: Well nourished, well developed, and no apparent distress. NEURO PSYCH: Patient oriented to person, place, and time. Mood pleasant. Benign affect. MUSCULOSKELETAL VISUAL INSPECTION CERVICAL: WNL THORACIC: WNL LUMBAR: WNL MOTOR: 5/5 in all muscle groups. SENSORY: Normal sensory exam DATA REVIEW [facility] records independently reviewed Upright xrays with L4-S1 fusion noted. No signs of hardware failure. ASSESSMENT/PLAN (M48.062) Spinal stenosis of lumbar region with neurogenic claudication (primary encounter diagnosis) Marino Herrera will continue with medical management of his/her condition. 1. Long discussion was had with patient regarding his clinical presentation. He has slight left-sided SI joint pain. He is improved from surgery. He will continue with the 10 pound lifting restriction. We will have a phone call in 6 weeks time to lift restrictions. We discussed overall his kyphosis is largely unchanged. If he does progress, a T10 to the pelvis will be the only option if he complains of this deformity. 2. Follow up: Following above Imaging Ordered: None The majority of the visit was spent counseling and/or coordinating care for the patient. The patient was counseled regarding lumbar radiculopathy. Total face to face time was 30 minutes. SIGNATURE: Stephanie Kidd MD PATIENT NAME: Marino Herrera DATE: January 09, 2024 TIME: 11:24 AM PAGER: Allergies As of Date: 01/09/2024 Noted Allergy Reaction MOLD 12/01/2021 14 - Other: See Comments MOLD SPORES 04/17/2006 5 - Intolerance Date Reviewed: 01/09/2024 Reviewed by: Brenda Hernandes OCCA - Fully Assessed Reason for Visit: Post Op [174] Primary Visit Diagnosis:Spinal stenosis of lumbar region with neurogenic claudication [M48.062] Prescriptions as of 01/09/2024 - methocarbamol (ROBAXIN) 750 mg tablet Take 1 tablet by mouth four times daily. - gabapentin (NEURONTIN) 100 mg capsule Take 1 capsule by mouth three times a day for 30 days. - senna-docusate (SENNA-S) 8.6-50 mg per tablet Take 2 tablets by mouth two times a day. - acetaminophen (TYLENOL) 500 mg tablet 2 tablets by ORAL/FEEDING TUBE route every 8 hours as needed for pain. - aspirin 81 mg chewable tablet Take [...] mcg as directed. 6 days week - SUMAtriptan (IMITREX) 100 mg tablet Take 100 mg by mouth as needed. - DULoxetine (CYMBALTA) 60 mg capsule Take 60 mg by mouth once daily. 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 (more content not included)... Normal [facility] XR LUMBAR 2V AP/LATon 2023 XR LUMBAR 2V AP/LAT * * *Final Report* * * DATE OF EXAM: Jan 09 2024 10:53AM M2X [id number] - XR LUMBAR 2V AP/LAT / PROCEDURE REASON: multiple diagnoses * * * * Physician Interpretation * * * * HISTORY: Spinal stenosis of lumbar region with radiculopathy Spinal stenosis of lumbar region with radiculopathy . Pt c/o Acute Low Back Pain TECHNIQUE: XR LUMBAR 2V AP/LAT COMPARISON: 11/28/2023 RESULT: Counting reference: Lumbosacral junction. For the purposes of this report, L4-5 is considered the level of the iliac crest and there are 5 lumbar-type vertebrae. Anatomic Variants: None. No significant interval change. Postoperative changes of posterior decompression fusion from L4 to S1 and interbody fusion at L5-S1 with metallic spacer. Hardware in normal position without evidence of failure or loosening. No fractures. Multilevel degenerative disc disease in the visualized lower thoracic and upper lumbar spine with slightly kyphosis in the lower thoracic spine. Partially visualized spinal electrodes. No other significant abnormality. IMPRESSION: Postoperative and degenerative changes as described. Credit Resolution Representative: BRENDA Transcribe Date/Time: Jan 09 2024 1:41P Dictated by : RUFINO WINTERS MD This examination was interpreted and the report reviewed and electronically signed by: RUFINO WINTERS MD on Jan 09 2024 1:43PM EST [id number] Normal [facility] XR Lumbar spine AP and Later radha 01-09-2024 IMPRESSION: Postoperative and degenerative changes as described. Credit Resolution Representative: PSCB Transcribe Date/Time: Jan 09 2024 1:41P Dictated by : RUFINO WINTERS MD This examination was interpreted and the report reviewed and electronically signed by: RUFINO WINTERS MD on Jan 09 2024 1:43PM EST DIVISION OF RADIOLOGY * * *Final Report* * * DATE OF EXAM: Jan 09 2024 10:53AM M2X [id number] - XR LUMBAR 2V AP/LAT / PROCEDURE REASON: multiple diagnoses * * * * Physician Interpretation * * * * HISTORY: Spinal stenosis of lumbar region with radiculopathy Spinal stenosis of lumbar region with radiculopathy . Pt c/o Acute Low Back Pain TECHNIQUE: XR LUMBAR 2V AP/LAT COMPARISON: 11/28/2023 RESULT: Counting reference: Lumbosacral junction. For the purposes of this report, L4-5 is considered the level of the iliac crest and there are 5 lumbar-type vertebrae. Anatomic Variants: None. No significant interval change. Postoperative changes of posterior decompression fusion from L4 to S1 and interbody fusion at L5-S1 with metallic spacer. Hardware in normal position without evidence of failure or loosening. No fractures. Multilevel degenerative disc disease in the visualized lower thoracic and upper lumbar spine with slightly kyphosis in the lower thoracic spine. Partially visualized spinal electrodes. No other significant abnormality. DIVISION OF RADIOLOGY Provider, Dorota Centeno - 01/09/2024 * * *Final Report* * * DATE OF EXAM: Jan 09 2024 10:53AM [id number] - XR LUMBAR 2V AP/LAT / PROCEDURE REASON: multiple diagnoses * * * * Physician Interpretation * * * * HISTORY: Spinal stenosis of lumbar region with radiculopathy Spinal stenosis of lumbar region with radiculopathy . Pt c/o Acute Low Back Pain TECHNIQUE: XR LUMBAR 2V AP/LAT COMPARISON: 11/28/2023 RESULT: Counting reference: Lumbosacral junction. For the purposes of this report, L4-5 is considered the level of the iliac crest and there are 5 lumbar-type vertebrae. Anatomic Variants: None. No significant interval change. Postoperative changes of posterior decompression fusion from L4 to S1 and interbody fusion at L5-S1 with metallic spacer. Hardware in normal position without evidence of failure or loosening. No fractures. Multilevel degenerative disc disease in the visualized lower thoracic and upper lumbar spine with slightly kyphosis in the lower thoracic spine. Partially visualized spinal electrodes. No other significant abnormality. IMPRESSION IMPRESSION: Postoperative and degenerative changes as described. Credit Resolution Representative: PSCB Transcribe Date/Time: Jan 09 2024 1:41P Dictated by : RUFINO WINTERS MD This examination was interpreted and the report reviewed and electronically signed by: RUFINO WINTERS MD on Jan 09 2024 1:43PM EST [facility] Radiology Study observation (narrative) [facility] XR Lumbar spine AP and Later alOrdered By: Ccf Provider on 01-09-2024 [facility] Thyroid Stim Hormone (TSH)on 01-03-2024 TSH 3.450 uIU/mL Normal 0.358-3.740 [facility] Comment on above: Performed By: #### L [id number] #### [facility] [address] [place], [address] Stefan 12-18-2023 CNPN Telephone (PUMT) CEMMARINO ([id number]) 1950 M Date Time Provider Department 12/18/23 KALYAN GOMEZ During your visit today, we recorded the following information about you: Allergies As of Date: 12/18/2023 Noted Allergy Reaction MOLD 12/01/2021 14 - Other: See Comments MOLD SPORES 04/17/2006 5 - Intolerance Date Reviewed: 12/12/2023 Reviewed by: Brenda Hernandes OCCA - Fully Assessed Prescriptions as of 12/18/2023 - oxyCODONE IR (ROXICODONE) 5 mg immediate release tablet Take 1 tablet by mouth every 6 hours as needed for pain for up to 7 days. - gabapentin (NEURONTIN) 100 mg capsule Take 1 capsule by mouth three times a day for 30 days. - methocarbamol (ROBAXIN) 750 mg tablet Take 1 tablet by mouth every 8 hours as needed for muscle spasm. - senna-docusate (SENNA-S) 8.6-50 mg per tablet Take 2 tablets by mouth two times a day. - acetaminophen (TYLENOL) 500 mg tablet 2 tablets by ORAL/FEEDING TUBE route every 8 hours as needed for pain. - aspirin 81 mg chewable tablet Take [...] mcg as directed. 6 days week - SUMAtriptan (IMITREX) 100 mg tablet Take 100 mg by mouth as needed. - DULoxetine (CYMBALTA) 60 mg capsule Take 60 mg by mouth once daily. Problem List As Of Date 12/18/2023 Noted Resolved BLADDER NECK OBSTRUCTION [N32.0] 10/03/2005 [...] aortic aneurysm (HCC) [I71.2*01/18/2021 Stable angina (HCC) [I20.89] 01/18/2021 Coronary artery calcification [I25.10] 01/18/2021 Family history of heart disease [Z82.49] 01/18/2021 BUBBA (obstructive sleep apnea) [G47.33] 01/18/2021 Dyslipidemia [E78.5] 01/18/2021 Discharge planning issues [Z75.8] 03/22/2021 04/26/2021 Pre-op testing [Z01.818] 03/22/2021 04/26/2021 S/P thyroidectomy [E89.0] 03/23/2021 Nonrheumatic aortic valve stenosis [I35.0] 03/23/2021 Nonrheumatic aortic valve insufficiency [I35.1] 03/23/2021 Bicuspid aortic valve [Q23.81] 03/23/2021 Coronary artery disease involving winnebago swan*04/22/2021 Atelectasis [J98.11] 04/22/2021 Post-operative pain [G89.18] 04/22/2021 Postoperative hypovolemia [E89.89, E86.1] 04/22/2021 04/23/2021 Acquired hypothyroidism [E03.9] 04/22/2021 Fluid overload [E87.70] 04/24/2021 Thrombocytopenia (HCC) [D69.6] 04/24/2021 Postoperative anemia [D64.9] 04/24/2021 Essential hypertension [I10] 04/25/2021 Obesity, Class I, BMI 30-34.9 [E66.811] 04/25/2021 Encounter for support and coordination of trans*04/26/2021 PONV (postoperative nausea and vomiting) [R11.2*11/01/2023 Spinal stenosis of lumbar region with radiculop*11/28/2023 Encounter Status:Closed by TAYLOR MOSLEY on 12/18/23 Normal [facility] CNOVon 12-12-2023 CNOV Office Visit ([facility] ) MARINO HERRERA ([id number]) 1950 M Date Time Provider Department 12/12/23 1:00 PM STEPHANIE KIDD [facility] During your visit today, we recorded the following information about you: Pulse Blood pressure Weight Height 79/minute 131/70 86.8 kg 1.721 m Stephanie Kidd MD 12/12/2023 12:58 PM Signed SPINE SURGERY FOLLOW UP This is an in-person visit. SERVICE DATE: 12/12/2023 SURGERY DATE: 11/27 alif L5/S1, posterior extension of fusion Marino Herrera is seen for 2 week post operative follow up. Patient reports that his mobility has improved since surgery. He does notice that he is walking better. He reports at bedtime he has significant low back pain and buttock pain. He has trouble getting comfortable. Denies any weakness. No issues with his incision both anterior and posterior. He has been taking oxycodone only at bed. He does notice an improvement from his preoperative state ANTIPLATELET OR ANTICOAGULATION STATUS: No Patient Entered Questionnaires PROMIS Score Percentiles 07/19/2021 04/29/2022 PROMIS Global Health Scale Physical Health Percentile 41 31 Mental Health Percentile 63 34 Percentiles provide an indication of how the patient's score ranks in relation to the general population. Higher percentile rankings indicate better function/quality of life. 50th percentile is the average of the general population and indicates half of respondents had a worse score. Depression Screening: PHQ-9 Self-Harm (Item 9) response options: 0 Not at all 1 Several days 2 More than half the days 3 Nearly every day PHQ-9 Levels: 0-4 No to mild depression 5-9 Mild depression 10-14 Moderate depression 15-19 Moderately severe depression 20-27 Severe depression PHYSICAL EXAM: BP 131/70 (BP Site: Right Arm, BP Position: Sitting, BP Cuff Size: Regular Adult) Pulse 79 Ht 172.1 cm (5' 7.76) Wt 86.8 kg (191 lb 7.5 oz) BMI 29.32 kg/m? GENERAL APPEARANCE: Well nourished, well developed, and no apparent distress. NEURO PSYCH: Patient oriented to person, place, and time. Mood pleasant. Benign affect. MUSCULOSKELETAL VISUAL INSPECTION CERVICAL: WNL THORACIC: WNL LUMBAR: WNL MOTOR: 5/5 in all muscle groups. SENSORY: Normal sensory exam GAIT: Normal. Anterior based incision clean dry intact posterior based incision ismael removed today no evidence of infection no erythema. Steri-Strips applied DATA REVIEW No additional images reviewed today ASSESSMENT/PLAN (M48.062) Spinal stenosis of lumbar region with neurogenic claudication (primary encounter diagnosis) Marino Herrera will continue with medical management of his/her condition. 1. 2 weeks out from an anterior lumbar interbody fusion with extension of hardware posteriorly. Patient reports that he is doing okay. He does report some difficulty with pain control at bedtime. But when he is awake he is ambulating better. I do believe that there is an heightened state of inflammatory moderators at this time. We discussed taking narcotic before bedtime. We discussed that should he need more he can contact the office. If he feels like he is worsening at any time point we will obtain updated imaging. All questions were answered patient was in agreement with plan and thanked for the encounter 2. Follow up: Following above Imaging Ordered: None The majority of the visit was spent counseling and/or coordinating care for the patient. The patient was counseled regarding lumbar stenosis with radiculopathy. Total face to face time was 30 minutes. SIGNATURE: Stephanie Kidd MD PATIENT NAME: Marino Herrera DATE: December 12, 2023 TIME: 12:55 PM PAGER: Referring Provider: STEPHANIE KIDD [[id number]] Allergies As of Date: 12/12/2023 Noted Allergy Reaction MOLD 12/01/2021 14 - Other: See Comments MOLD SPORES 04/17/2006 5 - Intolerance Date Reviewed: 12/12/2023 Reviewed by: Brenda Hernandes OCCA - Fully Assessed Reason for Visit: Follow Up [171] Primary Visit Diagnosis:Spinal stenosis of lumbar region with neurogenic claudication [M48.062] Prescriptions as of 12/12/2023 - methocarbamol (ROBAXIN) 750 mg tablet Take 1 tablet by mouth every 8 hours as needed for muscle spasm. - senna-docusate (SENNA-S) 8.6-50 mg per tablet Take 2 tablets by mouth two times a day. - acetaminophen (TYLENOL) 500 mg tablet 2 tablets by ORAL/FEEDING TUBE route every 8 hours as needed for pain. - aspirin 81 mg chewable tablet Take [...] tablet Take 1 tablet by mouth once thais (more content not included)... Normal [facility] 12-07-2023 [facility] MAR[facility] H[facility] ([id number]) 1950 M Date Time Provider Department 12/07/23 STEPHANIE KIDD [facility] During your visit today, we recorded the following information about you: Bakari Patient Tactical Debriefer Rufus Monroy 12/07/2023 1:11 PM Signed Name of Caller: Marino Herrera Relationship to patient: patient Last visit in this department: Visit date not found Reason for Call: Other : Patient calling to see if his follow up appointments can be at [facility] because its really difficult for him to go to [facility]. Please call to discuss if possible. Callback number: [phone] Fax Number (if necessary): N/A Additional info if needed (Prior Auth #, Claim #, etc?): N/A Rufus Villegas Patient Tactical Debriefer Eliana BarrettEna 12/08/2023 1:52 PM Signed Pt called back. He stated that he spoke with Dr. Kidd before the surgery that it was to hard for him to get to [facility], Dr. Kidd assured him that he could have his clamps removed there. Appt is 12/11 It still has not change. 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 He also stated that he is not taking his Oxycodone and Robaxin because he drives his . He did last night and he slept. Wants to know if he can take them in the evening, every 4 hrs and still be ok to drive in the morning. If possible he would like a call back today. Salvador Cruz RN 12/08/2023 2:20 PM Addendum Neuro SPINE CARE COORDINATION QUICK NOTE 11-29-23 Procedure(s): Anterior lumbar interbody fusion L5/S1 Posterior spinal instrumentation L4-S1 Posterior spinal fusion L5/S1 CC- LBP - tightness but notes that he is increasing his activities . No LE pain . He will continue with Robaxin and take the Roxicodone at night. Pt requests post op apt with Dr. Kidd on 12-12-23 @ 1 00 pm @ [place] due to distance. 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 Allergies As of Date: 12/07/2023 Noted Allergy Reaction MOLD 12/01/2021 14 - Other: See Comments MOLD SPORES 04/17/2006 5 - Intolerance Date Reviewed: 11/29/2023 Reviewed by: Tuyet Hopper, RN - Fully Assessed Prescriptions as of 12/08/2023 - methocarbamol (ROBAXIN) 750 mg tablet Take 1 tablet by mouth every 8 hours as needed for muscle spasm. - senna-docusate (SENNA-S) 8.6-50 mg per tablet Take 2 tablets by mouth two times a day. - acetaminophen (TYLENOL) 500 mg tablet 2 tablets by ORAL/FEEDING TUBE route every 8 hours as needed for pain. - aspirin 81 mg chewable tablet Take [...] 100 mg by mouth as needed. - DULoxetine (CYMBALTA) 60 mg capsule Take 60 mg by mouth once daily. Problem List As Of Date 12/07/2023 Noted Resolved BLADDER NECK OBSTRUCTION [N32.0] 10/03/2005 [...] aortic aneurysm (HCC) [I71.2*01/18/2021 Stable angina (HCC) [I20.89] 01/18/2021 Coronary artery calcification [I25.10] 01/18/2021 Family history of heart disease [Z82.49] 01/18/2021 BUBBA (obstructive sleep apnea) [G47.33] 01/18/2021 Dyslipidemia [E78.5] 01/18/2021 Discharge planning issues [Z75.8] 03/22/2021 04/26/2021 Pre-op testing [Z01.818] 03/22/2021 04/26/2021 S/P thyroidectomy [E89.0] 03/23/2021 Nonrheumatic aortic valve stenosis [I35.0] 03/23/2021 Nonrheumatic aortic valve insufficiency [I35.1] 03/23/2021 Bicuspid aortic valve [Q23.81] 03/23/2021 Coronary artery disease involving winnebago swan*04/22/2021 Atelectasis [J98.11] 04/22/2021 Post-operative pain [G89.18] 04/22/2021 Postoperative hypovolemia [E89.89, E86.1] 04/22/2021 04/23/2021 Acquired hypothyroidism [E03.9] 04/22/2021 Fluid overload [E87.70] 04/24/2021 Thrombocytopenia (HCC) [D69.6] 04/24/2021 Postoperat (more content not included)... [facility] MARINO HERRERA ([id number]) 1950 M Date Time Provider Department 12/05/23 ROB COLBY [facility] During your visit today, we recorded the following information about you: Rob ColbyKIMMYW 12/05/2023 9:55 AM Signed CM was able to make contact with pt in regard to HC services. Pt declined services at this time. Pt reports he is doing well with walking , no reports of falls, has been receiving help from and her TRANSCRIPTION COORDINATOR when they are there. Pt expressed he is not taking pain medication just muscle relaxer as needed. Pt has been able to make small trips driving to the store and walking up and down the street with . Pt is seeking for 2wk follow up to possibly be moved to [facility] due to making travel easier for him. CM sent message to team Allergies As of Date: 12/05/2023 Noted Allergy Reaction MOLD 12/01/2021 14 - Other: See Comments MOLD SPORES 04/17/2006 5 - Intolerance Date Reviewed: 11/29/2023 Reviewed by: Tuyet Hopper RN - Fully Assessed Reason for Visit: Follow Up [171] Prescriptions as of 12/05/2023 - methocarbamol (ROBAXIN) 750 mg tablet Take 1 tablet by mouth every 8 hours as needed for muscle spasm. - oxyCODONE IR (ROXICODONE) 5 mg immediate release tablet Take 1 tablet by mouth every 4 hours as needed for pain for up to 7 days. - senna-docusate (SENNA-S) 8.6-50 mg per tablet Take 2 tablets by mouth two times a day. - acetaminophen (TYLENOL) 500 mg tablet 2 tablets by ORAL/FEEDING TUBE route every 8 hours as needed for pain. - aspirin 81 mg chewable tablet Take [...] 100 mg by mouth as needed. - DULoxetine (CYMBALTA) 60 mg capsule Take 60 mg by mouth once daily. Problem List As Of Date 12/05/2023 Noted Resolved BLADDER NECK OBSTRUCTION [N32.0] 10/03/2005 [...] aortic aneurysm (HCC) [I71.2*01/18/2021 Stable angina (HCC) [I20.89] 01/18/2021 Coronary artery calcification [I25.10] 01/18/2021 Family history of heart disease [Z82.49] 01/18/2021 BUBBA (obstructive sleep apnea) [G47.33] 01/18/2021 Dyslipidemia [E78.5] 01/18/2021 Discharge planning issues [Z75.8] 03/22/2021 04/26/2021 Pre-op testing [Z01.818] 03/22/2021 04/26/2021 S/P thyroidectomy [E89.0] 03/23/2021 Nonrheumatic aortic valve stenosis [I35.0] 03/23/2021 Nonrheumatic aortic valve insufficiency [I35.1] 03/23/2021 Bicuspid aortic valve [Q23.81] 03/23/2021 Coronary artery disease involving winnebago swan*04/22/2021 Atelectasis [J98.11] 04/22/2021 Post-operative pain [G89.18] 04/22/2021 Postoperative hypovolemia [E89.89, E86.1] 04/22/2021 04/23/2021 Acquired hypothyroidism [E03.9] 04/22/2021 Fluid overload [E87.70] 04/24/2021 Thrombocytopenia (HCC) [D69.6] 04/24/2021 Postoperative anemia [D64.9] 04/24/2021 Essential hypertension [I10] 04/25/2021 Obesity, Class I, BMI 30-34.9 [E66.811] 04/25/2021 Encounter for support and coordination of trans*04/26/2021 PONV (postoperative nausea and vomiting) [R11.2*11/01/2023 Spinal stenosis of lumbar region with radiculop*11/28/2023 Encounter Status:Closed by ROB COLBY on 12/05/23 [facility] ANES POSTPROC EVALon 024 ANES POSTPROC EVAL HNO ID: [id number] Author: MANNY LOBO MD Service: ? Author Type: Anesthesiologist Type: Anesthesia Postprocedure Evaluation Filed: 12/01/2023 09:44 Note Text: POST ANESTHESIA EVALUATION NOTE : 1950 Procedure Summary Date: 11/28/23 Room / Location: [address] [facility] Anesthesia Start: 730 Anesthesia Stop: 1423 Procedures: INSERTION INTERBODY BIOMED DEVICE(S) W/ANT INSTR ANCHORING TO DISC SPACE W/INTERBODY FUSION,EA INTERSPACE (Back) ALIF DECOMPRESSION LAMINECTOMY INTERBODY FUSION LUMBAR LEVEL 1 (Abdomen) Diagnosis: Spinal stenosis of lumbar region with radiculopathy (Spinal stenosis of lumbar region with radiculopathy [M48.061, M54.16]) Surgeons: Stephanie Kidd MD; Kaycee Pelaez MD Responsible Provider: Manny Lobo MD Anesthesia Type: general ASA Status: 3 Anesthesia Type: general Airway Type: ETT Last Vitals Vitals Value Taken Time BP 129/56 11/30/23 0932 Temp 36.9 ?C (98.4 ?F) 11/30/23931 Pulse 90 11/30/23931 Resp 18 11/30/2339 SpO2 96 % 11/30/23931 Post Anesthesia Patient Status Patient Evaluation: PACU. PACU/ICU Patient Condition: stable. Anticipated Disposition: inpatient floor planned admission. Neurological Status: aware and responsive. Pulmonary Status: breathing comfortably on room air Airway Control: returned to baseline unsupported. Cardiovascular Status: stable. Postoperative Hydration: acceptable. Intraoperative Events: no significant anesthesia events Post Operative Nausea/Vomiting Status: no significant post operative nausea or vomiting Recommendation: continue current plan of care. Anesthesia Observations No Documentation SIGNATURE: Manny Gomez MD PATIENT NAME: Marino Herrera DATE: December 01, 2023 TIME: 9:44 AM CSN: [id number] Normal [facility] Basic metabolic 2000 panelon 11-30-2023 Anion gap [Moles/Vol] 9 mmol/L Normal 8-15 [facility] Comment on above: Order Comment: Speci men Type: BLOOD SPECIMENOrdering Facility: [facility] Address: [address] [place] [address] Performed By: #### 2 4321-2 ####[facility] LABCLIA [id number] [place] [address] [place] Calcium [Mass/Vol] 8.0 mg/dL Low 8.5-10.2 [facility] Comment on above: Order Comment: Speci men Type: BLOOD SPECIMENOrdering Facility: [facility] Address: [address] [place] [address] Performed By: #### 2 4321-2 ####[facility]CL[facility] [id number] [place] [id number] [place] Chloride [Moles/Vol] 104 mmol/L Normal 98-107 [facility] Comment on above: Order Comment: Speci men Type: BLOOD SPECIMENOrdering Facility: [facility] Address: [address] [place] [address] Performed By: #### 2 4321-2 ####[facility]CL[facility] [id number] [place] [address] [place] CO2 [Moles/Vol] 26 mmol/L Normal 22-30 [facility] Comment on above: Order Comment: Speci men Type: BLOOD SPECIMENOrdering Facility: [facility] Address: [address] [place] [address] Performed By: #### 2 4321-2 ####[facility]CL[facility] [id number] [place] [address] [place] Creatinine [Mass/Vol] 0.82 mg/dL Normal 0.73-1.22 [facility] Comment on above: Order Comment: Speci men Type: BLOOD SPECIMENOrdering Facility: [facility] Address: [address] [place] [address] Performed By: #### 2 4321-2 ####[facility] LABIA [id number] [place] [address] [place] Creatinine and Glomerular filtration rate.predicted panel (S/P/Bld) 93 mL/min/1.73m??? Normal >=60 [facility] Comment on above: Order Comment: Speci men Type: BLOOD SPECIMENOrdering Facility: [facility] Address: [address] [place] [address] Result Comment: Deanna mated Glomerular Filtration Rate (eGFR) is calculated using the 2020 CKD-EPI creatinine equation. This equation utilizes serum creatinine, sex, and age as parameters. The creatinine assay has traceable calibration to isotope dilution-mass spectrometry. Refer to KDIGO guidelines for clinical interpretation. In patients with unstable renal function, e.g. those with acute kidney injury, the eGFR may not accurately reflect actual GFR. Performed By: #### 2 4321-2 ####[facility]CL[facility] [id number] [place] [address] [place] Glucose [Mass/Vol] 104 mg/dL High 74-99 [facility] Comment on above: Order Comment: Speci men Type: BLOOD SPECIMENOrdering Facility: [facility] Address: [address] [place] [address] Result Comment: The [place] Diabetes Association (ADA) provides guidance for cutoff values for fasting glucose and random glucose. The ADA defines fasting as no caloric intake for at least 8 hours. Fasting plasma glucose results between 100 to 125 mg/dL indicate increased risk for diabetes (prediabetes). Fasting plasma glucose results greater than or equal to 126 mg/dL meet the criteria for diagnosis of diabetes. In the absence of unequivocal hyperglycemia, results should be confirmed by repeat testing. In a patient with classic symptoms of hyperglycemia or hyperglycemic crisis, random plasma glucose results greater than or equal to 200 mg/dL meet the criteria for diagnosis of diabetes. Reference: Standards of Medical Care in Diabetes 2016, [place] [employer] Association. Diabetes Care. 2016.39(Suppl 1). Performed By: #### 2 4321-2 ####[facility]CLIA [id number] [place] [address] [place] Potassium [Moles/Vol] 4.0 mmol/L Normal 3.7-5.1 [facility] Comment on above: Order Comment: Abiola maria l Type: BLOOD SPECIMENOrdering Facility: [facility] Address: [address] [place] [address] Performed By: #### 2 4321-2 ####[facility]CLIA [id number] [place] [address] [place] Sodium [Moles/Vol] 139 mmol/L Normal 136-144 [facility] Comment on above: Order Comment: Iveti men Type: BLOOD SPECIMENOrdering Facility: [facility] Address: [address] [place] [address] Performed By: #### 2 4321-2 ####[facility]CLIA [id number] [place] [address] [place] Urea nitrogen [Mass/Vol] 17 mg/dL Normal 9-24 [facility] Comment on above: Order Comment: Speci men Type: BLOOD SPECIMENOrdering Facility: [facility] Address: [address] [place] [address] Performed By: #### 2 4321-2 ####[facility]CLIA [id number] [place] [address] [place] CBC panel Auto (Bld)on 11-29 Erythrocyte distribution width (RBC) [Ratio] 12.0 % Normal 11.5-15.0 [facility] Comment on above: Order Comment: Speci men Type: BLOOD SPECIMENOrdering Facility: [facility] Address: [address] [place] [address] Performed By: #### 5 8410-2 ####[facility]CLIA [id number] [place] [address] [place] Hematocrit (Bld) [Volume fraction] 27.4 % Low 39.0-51.0 [facility] Comment on above: Order Comment: Speci men Type: BLOOD SPECIMENOrdering Facility: [facility] Address: [address] [place] [address] Performed By: #### 5 8410-2 ####[facility] LABIA [id number] [place] [address] [place] Hemoglobin (Bld) [Mass/Vol] 9.0 g/dL Low 13.0-17.0 [facility] [facility] Comment on above: Order Comment: Speci men Type: BLOOD SPECIMENOrdering Facility: [facility] Address: [address] [place] [address] Performed By: #### 5 8410-2 ####[facility] LABCLIA [id number] [place] [id number] [place] MCH (RBC) [Entitic mass] 31.3 pg Normal 26.0-34.0 [facility] Comment on above: Order Comment: Speci men Type: BLOOD SPECIMENOrdering Facility: [facility] Address: [address] [place] [address] Performed By: #### 5 8410-2 ####[facility] LABCLIA [id number] [place] [address] [place] MCHC (RBC) [Mass/Vol] 32.8 g/dL Normal 30.5-36.0 [facility] Comment on above: Order Comment: Speci men Type: BLOOD SPECIMENOrdering Facility: [facility] Address: [address] [place] [address] Performed By: #### 5 8410-2 ####[facility] LABIA [id number] [place] [address] [place] MCV (RBC) [Entitic vol] 95.1 fL Normal 80.0-100.0 [facility] Comment on above: Order Comment: Speci men Type: BLOOD SPECIMENOrdering Facility: [facility] Address: [address] [place] [address] Performed By: #### 5 8410-2 ####[facility] [id number] [place] [address] [place] Nucleated RBC (Bld) [#/Vol] 10*3/uL Normal <0.01 [facility] Comment on above: Order Comment: Speci men Type: BLOOD SPECIMENOrdering Facility: [facility] Address: [address] [place] [address] Performed By: #### 5 8410-2 ####[facility] [id number] [place] [address] [place] Platelet mean volume (Bld) [Entitic vol] 10.2 fL Normal 9.0-12.7 [facility] Comment on above: Order Comment: Speci men Type: BLOOD SPECIMENOrdering Facility: [facility] Address: [address] [place] [address] Performed By: #### 5 8410-2 ####[facility] LABIA [id number] [place] [address] [place] Platelets (Bld) [#/Vol] 151 10*3/uL Normal 150-400 [facility] Comment on above: Order Comment: Speci men Type: BLOOD SPECIMENOrdering Facility: [facility] Address: [address] [place] [address] Result Comment: Resu lts checked and verified.No clot detected. Performed By: #### 5 8410-2 ####[facility]CLIA [id number] [place] [address] [place] RBC (Bld) [#/Vol] 2.88 10*6/uL Low 4.20-6.00 [facility] Comment on above: Order Comment: Speci men Type: BLOOD SPECIMENOrdering Facility: [facility] Address: [address] [place] [address] Performed By: #### 5 8410-2 ####[facility]CLIA [id number] [place] [address] [place] WBC (Bld) [#/Vol] 9.04 10*3/uL Normal 3.70-11.00 [facility] Comment on above: Order Comment: Speci men Type: BLOOD SPECIMENOrdering Facility: [facility] Address: [address] [place] [address] Performed By: #### 5 8410-2 ####[facility] LABCLIA [id number] [address] [place] CNDSon 11-30-2023 CNDS HNO ID: [id number] Author: IRVIN SÁNCHEZ PA-C Service: Neurosurgery Author Type: Physician Comfort Advisor Type: Discharge Summary Filed: 11/30/2023 13:46 Note Text: Attestation signed by Stephanie Kidd MD at 11/30/2023 3:09 PM I have personally seen and examined the above patient. I have confirmed the reese components of the history and physical exam with the patient and agree with the findings, assesment and plan documented above by the PA . Stephanie Kidd MD Spine Surgery. DISCHARGE SUMMARY NEUROLOGICAL [facility] PATIENT NAME: Marino Herrera ADMISSION DATE: 11/28/2023 DISCHARGE DATE: 11/30/2023 Attending Physician: Stephanie Kidd MD PCP: Yecenia Okeefe MD [phone] Code Status: Not on file Discharged Against Medical Advice? No Highest Readmission Risk Score: 13 The 30 day readmissions risk score is derived from an internally validated risk model which evaluates patient level characteristics, utilization history, medication orders and lab results up until the day of discharge. Patients with a score of 40 or above are considered highest risk for readmission. Specific patient level drivers will be listed at the bottom of the summary. The 30 day readmissions risk score is derived from an internally validated risk model which evaluates patient level characteristics, utilization history, medication orders and lab results up until the day of discharge. Patients with a score of 40 or above are considered highest risk for readmission. Specific patient level drivers will be listed at the bottom of the summary HPI: Lumbar radiculopathy, TRANSITIONS OF CARE CRITICAL ISSUES: REESE MEDICATION CHANGES: N/A FOLLOW UP: See follow up appointment listed below. For urgent concerns after normal business hours and on weekends please call [phone] (locally) or (toll free) and ask for the Orthopedic Resident edge bonder for Stephanie Gerard MD. Operations During Hospitalization: 11/28/2023: Anterior lumbar interbody fusion L5/S1 Posterior spinal instrumentation L4-S1 Posterior spinal fusion L5/S1 Use of BMP Use of intraoperative navigation for planning and placement of pedicle screws Use of intra-operative fluoroscopy Operative Duration: 6 Hr 48 Min 38 Sec Implants Used : Implant Name Type Inv. Item Serial No. Adoption Social Worker Lot No. LRB No. Used Action BONE GRAFT INFUSE X-SMALL - [id number] Bone BONE GRAFT INFUSE X-SMALL [id number] N/A 1 Implanted GRAFT BONE PUTTY DEMINERLIZED BONE MATRIX 1CC OSTEOSPARX - [id number] Bone GRAFT BONE PUTTY DEMINERLIZED BONE MATRIX 1CC OSTEOSPARX [id number] [employer] [id number] N/A 1 Implanted GRAFT BONE PUTTY DEMINERLIZED BONE MATRIX 1CC OSTEOSPARX - [id number] Bone GRAFT BONE PUTTY DEMINERLIZED BONE MATRIX 1CC OSTEOSPARX [id number] [employer] [id number] N/A 1 Implanted GRAFT BONE PUTTY DEMINERLIZED BONE MATRIX 1CC OSTEOSPARX - [id number] Bone GRAFT BONE PUTTY DEMINERLIZED BONE MATRIX 1CC OSTEOSPARX [id number] [employer] [id number] N/A 1 Implanted HEDRON IA SPACER STERILE 25DEG 15MM X 26MM X 34MM Accessories [employer] [id number] N/A 1 Implanted SCREW RM 3 MISHRA 7.5MM 35MM BONE POLYAXIAL NONSTERILE SPINE - [id number] Screw SCREW RM 3 MISHRA 7.5MM 35MM BONE POLYAXIAL NONSTERILE SPINE JESSICA SPINE N/A 2 Implanted SCREW RM 3 MISHRA 7.5MM 50MM BONE POLYAXIAL NONSTERILE SPINE - [id number] Screw SCREW RM 3 MISHRA 7.5MM 50MM BONE POLYAXIAL NONSTERILE SPINE JESSICA SPINE N/A 4 Implanted ORIANA RM 3 6MM TITANIUM 70MM SPINAL RADIOLUCENT - [id number] Oriana ORIANA RM 3 6MM TITANIUM 70MM SPINAL RADIOLUCENT JESSICA SPINE N/A 2 Implanted SCREW RM 3 TITANIUM SET ELVIS SPINE - [id number] Implant SCREW RM 3 TITANIUM SET ELVIS SPINE JESSICA SPINE N/A 6 Implanted ANCHOR 25MM SPINAL MIS LUMBAR - [id number] Gerber ANCHOR 25MM SPINAL MIS LUMBAR [employer] [id number] N/A 1 Implanted Surgical Specimens: ID Type Source Tests Collected by Time Destination A : explanted spinal hardware for accession only; pt would like hardware back to keep Implant/Device/Foreign Body Hardware/Device/Foreign Body SURGICAL PATHOLOGY Butt, Bilal Donna, MD 11/28/2023 8:39 AM Incision/Procedure Start Time: 8:22 AM Incision Close/Procedure End Time: 1:37 PM Surgeons and Role: Panel 1: * Stephanie Kidd MD - Primary * Eliana Thacker MD - Resident - Assisting Panel 2: * Kaycee Pelaez MD - Primary * Corky Pitt MD - Resident - Assisting Cartography Professor: Selena Crawley RN Cartography Professor (Relief): Selena Egan RN; Anna Rasheed RN Cartography Professor Orientee: Bridger Thomas RN Scrub Orientee: Margarita Farris ST; Cj Torres ST Scrub Person: Espinoza Cross (more content not included)... Normal [facility] THERAPY NTon 11-30-2023 THERAPY NT HNO ID: [id number] Author: ASHLEY LUNDBERG OTR/L Service: Occupational Therapy Author Type: Occupational Therapist Type: Therapy (PT/OT/Speech/Resp) Filed: 11/30/2023 12:11 Note Text: OCCUPATIONAL THERAPY MISSED VISIT SERVICE DATE: 11/30/2023 SERVICE TIME: 1210 ROOM: [place] [address] Patient not seen due to (no skilled need). Chart reviewed. No acute skilled occupational therapy needs identified. Patient is supervision/independent with functional mobility. No acute cognitive, visual, or UE deficits identified in chart. Will discontinue Occupational Therapy Consult at this time. Please re consult if further needs arise. SIGNATURE: BERNADINE Villagomez PATIENT NAME: Marino Herrera DATE: November 30, 2023 TIME: 12:11 PM Normal [facility] XR SCOLIOSIS 2V PA STAND/LAT on 11-30-2023 XR SCOLIOSIS 2V PA STAND/LAT * * *Final Report* * * DATE OF EXAM: Nov 30 2023 11:27AM [id number] - XR SCOLIOSIS 2V PA STAND/LAT / PROCEDURE REASON: Scoliosis * * * * Physician Interpretation * * * * HISTORY: Scoliosis. TECHNIQUE: XR SCOLIOSIS 2V PA STAND/LAT Laterality: Number of different views (projections): COMPARISON: Radiograph dated 11/28/2023. RESULT: Counting reference: Lumbosacral junction. For the purposes of this report, L4-5 is considered the level of the iliac crest and there are 5 lumbar-type vertebrae. Anatomic Variants: None. Postoperative changes with posterior L4-S1 fusion and L5-S1 interbody device in place. Hardware is intact. Incomplete evaluation of the cervical spine fusion hardware. Spinal stimulator in place with intact leads. No evidence of acute spinal fracture or dislocation. No listhesis. Thoracolumbar kyphosis. There are multilevel degenerative changes with disc space narrowing, marginal endplate osteophytes and facet joint hypertrophy. Degenerative changes at the bilateral sacroiliac and hip joints and pubic symphysis. Posterior lumbar spine soft tissue swelling. There is no evidence of acute process in the included chest or abdomen. No other significant abnormality. IMPRESSION: L4-S1 fusion with intact hardware. Credit Resolution Representative: PSCB Transcribe Date/Time: Nov 30 2023 11:39A Dictated by : MERY ROMERO MD This examination was interpreted and the report reviewed and electronically signed by: MERY ROMERO MD on Nov 30 2023 11:45AM EST [id number] Normal [facility] Basic metabolic 2000 panelon 11-29-2023 Anion gap [Moles/Vol] 9 mmol/L Normal 8-15 [facility] Comment on above: Order Comment: Speci men Type: BLOOD SPECIMENOrdering Facility: [facility] Address: [address] [place] [address] Performed By: #### 2 4321-2 ####[facility] LABCLIA [id number] [facility] [address] [address] [place] Calcium [Mass/Vol] 8.1 mg/dL Low 8.5-10.2 [facility] Comment on above: Order Comment: Speci men Type: BLOOD SPECIMENOrdering Facility: [facility] Address: [address] [place] [address] Performed By: #### 2 4321-2 ####[facility] LABCLIA [id number] [place] [id number] [place] Chloride [Moles/Vol] 105 mmol/L Normal 98-107 [facility] Comment on above: Order Comment: Speci men Type: BLOOD SPECIMENOrdering Facility: [facility] Address: [address] [place] [address] Performed By: #### 2 4321-2 ####[facility] LABIA [id number] [place] [address] [place] CO2 [Moles/Vol] 25 mmol/L Normal 22-30 [facility] Comment on above: Order Comment: Speci men Type: BLOOD SPECIMENOrdering Facility: [facility] Address: [address] [place] [address] Performed By: #### 2 4321-2 ####[facility] LABIA [id number] [place] [address] [place] Creatinine [Mass/Vol] 0.76 mg/dL Normal 0.73-1.22 [facility] Comment on above: Order Comment: Speci men Type: BLOOD SPECIMENOrdering Facility: [facility] Address: [address] [place] [address] Performed By: #### 2 4321-2 ####[facility] LABIA [id number] [place] [address] [place] Creatinine and Glomerular filtration rate.predicted panel (S/P/Bld) 95 mL/min/1.73m??? Normal >=60 [facility] Comment on above: Order Comment: Speci men Type: BLOOD SPECIMENOrdering Facility: [facility] Address: [address] [place] [address] Result Comment: Deanna mated Glomerular Filtration Rate (eGFR) is calculated using the 2020 CKD-EPI creatinine equation. This equation utilizes serum creatinine, sex, and age as parameters. The creatinine assay has traceable calibration to isotope dilution-mass spectrometry. Refer to KDIGO guidelines for clinical interpretation. In patients with unstable renal function, e.g. those with acute kidney injury, the eGFR may not accurately reflect actual GFR. Performed By: #### 2 4321-2 ####[facility] LABIA [id number] [place] [address] [place] Glucose [Mass/Vol] 133 mg/dL High 74-99 [facility] Comment on above: Order Comment: Abiola lisa Type: BLOOD SPECIMENOrdering Facility: [facility] Address: [address] [place] [address] Result Comment: The [place] Diabetes Association (ADA) provides guidance for cutoff values for fasting glucose and random glucose. The ADA defines fasting as no caloric intake for at least 8 hours. Fasting plasma glucose results between 100 to 125 mg/dL indicate increased risk for diabetes (prediabetes). Fasting plasma glucose results greater than or equal to 126 mg/dL meet the criteria for diagnosis of diabetes. In the absence of unequivocal hyperglycemia, results should be confirmed by repeat testing. In a patient with classic symptoms of hyperglycemia or hyperglycemic crisis, random plasma glucose results greater than or equal to 200 mg/dL meet the criteria for diagnosis of diabetes. Reference: Standards of Medical Care in Diabetes 2016, [place] Diabetes Association. Diabetes Care. 2016.39(Suppl 1). Performed By: #### 2 4321-2 ####[facility] LABIA [id number] [place] [address] [place] Potassium [Moles/Vol] 4.4 mmol/L Normal 3.7-5.1 [facility] Comment on above: Order Comment: Abiola lisa Type: BLOOD SPECIMENOrdering Facility: [facility] Address: [address] [place] [address] Performed By: #### 2 4321-2 ####[facility] LABIA [id number] [place] [address] [place] Sodium [Moles/Vol] 139 mmol/L Normal 136-144 [facility] Comment on above: Order Comment: Abiola lisa Type: BLOOD SPECIMENOrdering Facility: [facility] Address: [address] [place] [address] Performed By: #### 2 4321-2 ####[facility] LABCLIA [id number] [place] [id number] [place] Urea nitrogen [Mass/Vol] 17 mg/dL Normal 9-24 [facility] Comment on above: Order Comment: Speci men Type: BLOOD SPECIMENOrdering Facility: [facility] Address: [address] [place], [place] [address] Performed By: #### 2 4321-2 ####[facility] LABCLIA [id number] [address] [place] CASE MGT INIT OZESon 2023 CASE MGT INIT ASSES HNO ID: [id number] Author: JESSICA ESTRADA LSW Service: ? Author Type: Platform Operations Director Type: Care Mgt Initial Assessment Filed: 11/29/2023 09:11 Note Text: CARE MANAGEMENT: ASSESSMENT AND DISCHARGE PLAN SERVICE DATE: November 29, 2023 SERVICE TIME: 9:10 AM PCP: Yecenia Okeefe MD Primary Contact: Extended Emergency Contact Information Primary Emergency Contact: Reyna Herrera Address: [address] [place] [address] Relation: Spouse Secondary Emergency Contact: Grant Herrera [place] Relation: Brother Admission Status: Inpatient Insurance Provider: MEDICARE A AND B Discharge Planning requested by: Per Department Practice Potential Transition Plans To Be Determined Advance Directives Current Advance Directive: Health Care Power of Assisted Sales Representative In Chart: No Location Director Attempted to Assist with AD Completion: Yes Action: Education Provided Current Living Arrangements and Support Lives with: Spouse/significant other Type of Residence: Private Residence (House) Does the patient have to climb stairs at home?: stairs outside the home Support: Children, Spouse/significant other, Family members, Friends/neighbors How do you manage to accomplish the following: Independent: Ambulation;Bathe/Shower;Dres s;Meals/Meal Prep;Going to the bathroom;Medication Management;Transportation to appointments/community Current Services/Equipment Current Post-Acute Service(s): DME Current DME Type: Cane, Walker Discharge Planning Patient Goal(s): Be able to go home, General wellness, Better mobility, Other: See Comment Patient's Other Post-Acute Care Goal(s): Go back to flying kites [place] of Choice Explained: [place] of Choice Given: No Reason Not Given: Unable to complete with this assessment - revisit Are you interested in bedside delivery of your medications? Yes Discharge Planning Participant(s): Caregiver;Patient Patient/Family Comments: Caregiver Assessment: Caregiver is ready, willing and able to meet the patient's needs as recommended by the inter-professional team: Other: See Comment (please refer to the Care Continuum Advisor Assessment) Transport at Discharge: Transportation Arrangements: Car Destination: TBD Needs Prior to Discharge: Needs Prior to Discharge: To Be Determined;OT/PT Evaluation Post-Acute Discharge Plan: Please refer to the Care Continuum Advisor Assessment completed on 11/21/2023 with Rob Colby. SIGNATURE: PAIGE Manjarrez PATIENT NAME: Marino Herrera DATE: November 29, 2023 TIME: 9:10 AM CONTACT #: Normal [facility] CBC panel Auto (Bld)on 11-28 Erythrocyte distribution width (RBC) [Ratio] 11.6 % Normal 11.5-15.0 [facility] Comment on above: Order Comment: Speci men Type: BLOOD SPECIMENOrdering Facility: [facility] Address: [address] [place] [address] Performed By: #### 5 8410-2 ####[facility] LABCLIA [id number] [place] [address] [place] Hematocrit (Bld) [Volume fraction] 31.2 % Low 39.0-51.0 [facility] Comment on above: Order Comment: Speci men Type: BLOOD SPECIMENOrdering Facility: [facility] Address: [address] [place] [address] Performed By: #### 5 8410-2 ####[facility] LABCLIA [id number] [place] [address] [place] Hemoglobin (Bld) [Mass/Vol] 10.1 g/dL Low 13.0-17.0 [facility] Comment on above: Order Comment: Speci men Type: BLOOD SPECIMENOrdering Facility: [facility] Address: [address] [place] [address] Performed By: #### 5 8410-2 ####[facility] LABIA [id number] [place] [address] [place] MCH (RBC) [Entitic mass] 31.0 pg Normal 26.0-34.0 [facility] Comment on above: Order Comment: Speci men Type: BLOOD SPECIMENOrdering Facility: [facility] Address: [address] [place] [address] Performed By: #### 5 8410-2 ####[facility] LABIA [id number] [address] [place] MCHC (RBC) [Mass/Vol] 32.4 g/dL Normal 30.5-36.0 [facility] Comment on above: Order Comment: Speci men Type: BLOOD SPECIMENOrdering Facility: [facility] Address: [address] [place] [address] Performed By: #### 5 8410-2 ####[facility] LABIA [id number] [place] [address] [place] MCV (RBC) [Entitic vol] 95.7 fL Normal 80.0-100.0 [facility] Comment on above: Order Comment: Speci men Type: BLOOD SPECIMENOrdering Facility: [facility] Address: [address] [place] [address] Performed By: #### 5 8410-2 ####[facility] LABIA [id number] [place] [address] [place] Nucleated RBC (Bld) [#/Vol] 10*3/uL Normal <0.01 [facility] Comment on above: Order Comment: Speci men Type: BLOOD SPECIMENOrdering Facility: [facility] Address: [address] [place] [address] Performed By: #### 5 8410-2 ####[facility] LABCLIA [id number] [place] [address] [place] Platelet mean volume (Bld) [Entitic vol] 10.5 fL Normal 9.0-12.7 [facility] Comment on above: Order Comment: Speci men Type: BLOOD SPECIMENOrdering Facility: [facility] Address: [address] [place] [address] Performed By: #### 5 8410-2 ####[facility] LABIA [id number] [place] [address] [place] Platelets (Bld) [#/Vol] 166 10*3/uL Normal 150-400 [facility] Comment on above: Order Comment: Speci men Type: BLOOD SPECIMENOrdering Facility: [facility] Address: [address] [place] [address] Performed By: #### 5 8410-2 ####[facility] LABCLIA [id number] [place] [address] [place] RBC (Bld) [#/Vol] 3.26 10*6/uL Low 4.20-6.00 [facility] Comment on above: Order Comment: Speci men Type: BLOOD SPECIMENOrdering Facility: [facility] Address: [address] [place] [address] Performed By: #### 5 8410-2 ####[facility] LABCLIA [id number] [place] [address] [place] WBC (Bld) [#/Vol] 9.39 10*3/uL Normal 3.70-11.00 [facility] Comment on above: Order Comment: Speci men Type: BLOOD SPECIMENOrdering Facility: [facility] Address: [address] [place] [address] Performed By: #### 5 8410-2 ####[facility] LABCLIA [id number] [address] [place] THERAPY NTon 11-29-2023 THERAPY NT HNO ID: [id number] Author: FREDDY NOVOA, PT Service: Physical Therapy Author Type: Physical Therapist Type: Therapy (PT/OT/Speech/Resp) Filed: 11/29/2023 09:42 Note Text: Physical Therapy Evaluation Summary SERVICE DATE: 11/29/2023 SERVICE TIME: 832 to 915 ROOM: [place] [address] PT 6 Clicks Score: 24 DISCHARGE RECOMMENDATIONS Home Recommended Discharge Equipment: Wheeled Walker ASSESSMENT Response to Therapy Interventions: Good Participation in Activities, On-Track to Achieve Discharge Goals VSS on RA;Pt tolerated session very well, reporting mild abdominal pain with mobility though no other adverse reactions. Pt progressed to completing ambulation of community distances and stair training with SBA and WW/B rail assist. PT provided verbal and written education concerning post-op precautions with pt verbalizing understanding. Pt with no further acute PT needs, PT to sign off, pt agreeable. PRECAUTIONS Spine CURRENT HOSPITAL COURSE s/p ALIF with exposure by Dr. Pelaez Relevant Past Medical History: L4-5 decompression fusion, now with spinal stenosis and bilateral gluteal/lateral thigh radiculopathy. Presents for operative management. 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 (+) drives, (+) fall (1 yr ago); enjoys flying kites SUBJECTIVE pt agreeable to PT THERAPY DIAGNOSIS Reduced mobility-other TREATMENT INTERVENTIONS $ Evaluation-Moderate (15552) Billed Units: 1 unit Therapeutic Activity (39756) Treatment Minutes: 10 $ Therapeutic Activity (29592) Billed Units: 1 unit Gait Training (52501) Treatment Minutes: 18 $ Gait Training (72622) Billed Units: 1 unit Evaluation, Therapeutic Activity (45121), Gait Training (58855) Timed Code Treatment (minutes): 28 Skilled Treatment Time (minutes): 43 TRAINING AND EDUCATION PROVIDED Bed Mobility, Anatomy and Impact on Deficits, Assistive Device Use, Benefits of In-Hospital Mobility, Discharge Planning, Disease Specific Education, Energy Conservation, Exercise Program, Expected Functional Level, Falls Prevention, Gait Pattern, Reduction of Deviations, Handout Issued, Home Safety, Patient Exercise/Therapy Program Support Needs, Positioning, Precautions/Restrictions, Role of Physical Therapy, Sitting Balance, Standing Balance, Transfers, Treatment Protocol, Stair Navigation THERAPEUTIC SKILLS USED Activity Dosing, Assessment of Tolerance Including Vitals Response to Activity, Cues for Sequencing/Proper Technique for Activity, Cuing Verbal, Cuing Visual, Management of Critical Lines, Tubes and/or Drains, Movement Facilitation, Physical Assist, Postural Alignment Correction, Teach-Back for Education FUNCTIONAL STATUS Bed Mobility Rolling: Stand By Assistance Supine To Sit: Contact Guard Assistance Scooting: Stand By Assistance Transfers Sit To Stand: Stand By Assistance Stand To Sit: Stand By Assistance Bed to Chair Contact Guard Assistance Bed To Chair Transfer Type: Stepping Bed To Chair Transfer Equipment: Wheeled Walker Gait Contact Guard Assistance, Stand By Assistance, Additional Information CGA progressing to SBA Gait Device: Wheeled Walker General Deviations/Observations: Thalia decreased, Flexed trunk posture, Improper distancing from assistive device Gait Distance (feet): 500 Stairs Contact Guard Assistance, Stand By Assistance, Additional Information Stairs Device: Rail (B rails) Number of Stairs: 9 CGA progressing to SBA GOALS Patient will demonstrate progress with functional mobility to allow safe discharge to home with available support and/or physical assistance. Rehab Potential: Good Progress Toward Goals: Progressing as expected PLAN PT Frequency: Discontinue Therapy Services Reasons Therapy Services Discontinued: Goals met (goals met in sessoni) Treatment Interventions: Education, Self Care / Home Management, Energy Conservation Training, Joint Mobility, Strengthening, Functional Mobility Training, Balance Training, Neuromuscular Re-education SIGNATURE: Freddy Novoa, PT PATIENT NAME: Marino Herrera DATE: November 29, 2023 TIME: 9:42 AM Normal [facility] ANES PRE-OPon 11-28-2023 ANES PRE-OP HNO ID: [id number] Author: MANNY LOBO MD Service: ? Author Type: Anesthesiologist Type: Anesthesia Preprocedure Evaluation Filed: 11/28/2023 08:22 Note Text: ANESTHESIOLOGY DAY OF SURGERY NOTE : 1950 Procedure Information Date/Time: 11/28/23 0730 Procedures: INSERTION INTERBODY BIOMED DEVICE(S) W/ANT INSTR ANCHORING TO DISC SPACE W/INTERBODY FUSION,EA INTERSPACE (Back) ALIF DECOMPRESSION LAMINECTOMY INTERBODY FUSION LUMBAR LEVEL 1 (Abdomen) Location: MA[facility] OR[facility] Surgeons: Stephanie Kidd MD; Kaycee Pelaez MD Estimated body mass index is 28.06 kg/m? as calculated from the following: Height as of 11/01/23: 175.3 cm (5' 9). Weight as of 11/01/23: 86.2 kg (190 lb). 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 Tracheostomy tube not present Mallampati: II. TM distance: >3 FB. Neck ROM: full ROM without neurological symptoms. Mouth opening: adequate. Short neck: no. Thick neck: no DENTAL Dental findings: teeth intact. II - ANESTHESIA PLAN ASA Score: 3 Anesthetic Plan: general Airway type: ETT Beta Elvis Monitoring Plan Monitoring plan: standard ASA and invasive hemodynamic monitoring. Monitoring method: arterial Line Post Procedure Analgesic Plan Postoperative analgesic plan: multimodal analgesia. Informed Consent Anesthetic risks, benefits, alternatives, personnel and consent discussed: yes. Patient / Responsible Republican agrees to proceed: yes Patient / Surrogate agrees to blood products: Yes Potential Anesthesia issues that may suggest increased risk of complications or contraindication to planned procedure: none. BP 142/67 11/28/23603 Pulse 64 11/28/23603 Resp 16 11/28/23603 Temp 36.2 ?C (97.2 ?F) 11/28/23603 SpO2 95 % 11/28/23603 Facility-Administered Medications as of 11/28/2023 Medication Dose Route Frequency - lidocaine (PF) 10 mg/mL (1 %) 1-2 mg injection (XYLOCAINE) 0.1-0.2 mL INTRADERMAL PRN Or - lidocaine 1% 0.25 mL subcutaneous j-tip syringe (XYLOCAINE) 0.25 mL SUBCUTANEOUS PRN - lactated ringers iv infusion 5-30 mL/hr INTRAVENOUS CONTINUOUS - NaCl 0.9% iv flush bag 20 mL INTRAVENOUS PRN - ceFAZolin iv piggyback 2 g in D5W (iso-osmotic) 100 mL (ANCEF) 2 g INTRAVENOUS Pre-Op Once - [COMPLETED] gabapentin 300 mg cap(s) (NEURONTIN) 300 mg ORAL ONCE - [COMPLETED] acetaminophen 1,000 mg tab(s) (TYLENOL) 1,000 mg ORAL ONCE Outpatient Medications as of 11/28/2023 Medication Sig - aspirin 81 mg chewable tablet Take 1 tablet by mouth once daily. - atorvastatin (LIPITOR) 20 mg tablet Take 1 tablet by mouth daily at bedtime. - metoprolol succinate ER (TOPROL XL) 50 mg 24 hr tablet Take 1 tablet by mouth once daily. - levothyroxine (SYNTHROID) 150 mcg tablet 150 mcg as directed. 6 days week - DULoxetine (CYMBALTA) 60 mg capsule Take 60 mg by mouth once daily. - traMADol (ULTRAM) 50 mg tablet TAKE 1/2 (ONE-HALF) TO 1 TABLET THREE TIMES DAILY NEEDED FOR PAIN - furosemide (LASIX) 20 mg tablet Take 1 tablet by mouth once daily. - potassium chloride ER (K-DUR, KLOR-CON) 10 mEq tablet Take 1 tablet by mouth once daily. - gabapentin (NEURONTIN) 100 mg capsule Take 100 mg by mouth once daily. - SUMAtriptan (IMITREX) 100 mg tablet Take 100 mg by mouth as needed. - acetaminophen (TYLENOL ORAL) Take 1,000 mg by mouth daily at bedtime. I have interviewed and examined the patient. I have reviewed the medical record and/or the pre-anesthesia evaluation, pertinent labs, and test results. This contains updated information obtained within 48 hours of Surgery/Procedure. SIGNATURE: Manny Gomez MD PATIENT NAME: Marino Herrera DATE: November 28, 2023 TIME: 7:15 AM CSN: [id number] Normal [facility] ARTERIAL BLOOD GASESon 11-27 Base deficit (BldA) [Moles/Vol] -1 mmol/L Normal -2-0 [facility] Comment on above: Order Comment: Speci men Type: ARTERIAL BLOOD SPECIMENOrdering Facility: [facility] Address: [address] [place] [address] Performed By: #### A LLBG ####[facility] [id number] [place] [address] [place] Calcium.ionized (Bld) [Mass/Vol] 1.16 mmol/L Normal 1.08-1.30 [facility] Comment on above: Order Comment: Speci men Type: ARTERIAL BLOOD SPECIMENOrdering Facility: [facility] Address: [address] [place] [address] Performed By: #### A LLBG ####[facility] [id number] [place] [address] [place] Calcium.ionized adjusted to pH 7.4 (BldA) [Moles/Vol] 1.17 mmol/L Normal 1.08-1.30 [facility] Comment on above: Order Comment: Speci men Type: ARTERIAL BLOOD SPECIMENOrdering Facility: [facility] Address: [address] [place] [address] Performed By: #### A LLBG ####[facility] [id number] [place] [address] [place] Carboxyhemoglobin (BldA) [Mass fraction] 0.9 % Normal 0.0-2.0 [facility] Comment on above: Order Comment: Speci men Type: ARTERIAL BLOOD SPECIMENOrdering Facility: [facility] Address: [address] [place] [address] Result Comment: Carb oxyhemoglobin Reference Range for Smokers: 2.0-8.0% Performed By: #### A LLBG ####[facility] [id number] [place] [address] [place] CO2 (Bld) [Partial pressure] 37 mm Hg Normal 36-46 [facility] Comment on above: Order Comment: Speci men Type: ARTERIAL BLOOD SPECIMENOrdering Facility: [facility] Address: [address] [place] [address] Performed By: #### A LLBG ####[facility] [id number] [place] [address] [place] CO2 adjusted to patient's actual temperature (Bld) [Partial pressure] 37 mmHg Normal 36-46 [facility] Comment on above: Order Comment: Speci men Type: ARTERIAL BLOOD SPECIMENOrdering Facility: [facility] Address: [address] [place] [address] Performed By: #### A LLBG ####[facility] [id number] [place] [address] [place] Glucose [Mass/Vol] 105 mg/dL Normal 60-105 [facility] Comment on above: Order Comment: Speci men Type: ARTERIAL BLOOD SPECIMENOrdering Facility: [facility] Address: [address] [place] [address] Performed By: #### A LLBG ####[facility] [id number] [place] [address] [place] HCO3 (Bld) [Moles/Vol] 23 mmol/L Normal 22-26 [facility] Comment on above: Order Comment: Speci men Type: ARTERIAL BLOOD SPECIMENOrdering Facility: [facility] Address: [address] [place] [address] Performed By: #### A LLBG ####[facility] [id number] [place] [address] [place] Hematocrit (Bld) [Volume fraction] 37.7 % Low 39.0-51.0 [facility] Comment on above: Order Comment: Speci men Type: ARTERIAL BLOOD SPECIMENOrdering Facility: [facility] Address: [address] [place] [address] Performed By: #### A LLBG ####[facility] [id number] [place] [address] [place] Hemoglobin (Bld) [Mass/Vol] 12.3 g/dL Low 13.0-17.0 [facility] Comment on above: Order Comment: Speci men Type: ARTERIAL BLOOD SPECIMENOrdering Facility: [facility] Address: [address] [place] [address] Performed By: #### A LLBG ####[facility] [id number] [place] [address] [place] Lactate [Moles/Vol] 0.6 mmol/L Normal 0.5-2.2 [facility] Comment on above: Order Comment: Speci men Type: ARTERIAL BLOOD SPECIMENOrdering Facility: [facility] Address: [address] [place] [address] Performed By: #### A LLBG ####[facility] [id number] [place] [address] [place] Methemoglobin (Bld) [Mass fraction] 0.7 % Normal 0.0-1.5 [facility] Comment on above: Order Comment: Speci men Type: ARTERIAL BLOOD SPECIMENOrdering Facility: [facility] Address: [address] [place] [address] Performed By: #### A LLBG ####[facility] [id number] [place] [address] [place] Oxygen (Bld) [Partial pressure] 187 mm Hg High 85-95 [facility] Comment on above: Order Comment: Speci men Type: ARTERIAL BLOOD SPECIMENOrdering Facility: [facility] Address: [address] [place] [address] Performed By: #### A LLBG ####[facility] [id number] [address] [address] [place] Oxygen adjusted to patient's actual temperature (Bld) [Partial pressure] 187 mmHg High 85-95 [facility] Comment on above: Order Comment: Speci men Type: ARTERIAL BLOOD SPECIMENOrdering Facility: [facility] Address: [address] [place] [address] Performed By: #### A LLBG ####[facility] [id number] [place] [address] [place] Oxyhemoglobin (BldA) [Mass fraction] 98 % Normal 95-98 [facility] Comment on above: Order Comment: Speci men Type: ARTERIAL BLOOD SPECIMENOrdering Facility: [facility] Address: [address] [place] [address] Performed By: #### A LLBG ####[facility] [id number] [place] [address] [place] pH (Bld) 7.41 [pH] Normal 7.35-7.45 [facility] Comment on above: Order Comment: Speci men Type: ARTERIAL BLOOD SPECIMENOrdering Facility: [facility] Address: [address] [place] [address] Performed By: #### A LLBG ####[facility] [id number] [place] [address] [place] pH adjusted to patient's actual temperature (Bld) 7.41 Normal 7.35-7.45 [facility] Comment on above: Order Comment: Speci men Type: ARTERIAL BLOOD SPECIMENOrdering Facility: [facility] Address: [address] [place] [address] Performed By: #### A LLBG ####[facility] [id number] [place] [address] [place] Potassium [Moles/Vol] 3.5 mmol/L Normal 3.5-5.0 [facility] Comment on above: Order Comment: Speci men Type: ARTERIAL BLOOD SPECIMENOrdering Facility: [facility] Address: [address] [place] [address] Performed By: #### A LLBG ####[facility] [id number] [place] [address] [place] Sodium [Moles/Vol] 140 mmol/L Normal 136-144 [facility] Comment on above: Order Comment: Speci men Type: ARTERIAL BLOOD SPECIMENOrdering Facility: [facility] Address: [address] [place] [address] Performed By: #### A LLBG ####[facility] [id number] [address] [place] BRIEF OP NOTon 11-28-2023 BRIEF OP NOT HNO ID: [id number] Author: ELIANA THACKER MD Service: Orthopaedic Surgery Author Type: Resident Type: Brief Op Note Filed: 11/28/2023 13:50 Note Text: BRIEF OP NOTE LOG ID: [id number] Surgery/Procedure Date: 11/28/2023 Incision/Procedure Start Time: 8:22 AM Incision Close/Procedure End Time: 1:37 PM Surgeon(s)/Proceduralist(s) and Comfort Advisor(s): Surgeons and Role: Panel 1: * Stephanie Kidd MD - Primary * Eliana Thacker MD - Resident - Assisting Panel 2: * Kaycee Pelaez MD - Primary * Corky Pitt MD - Resident - Assisting Procedure(s): Procedure(s) (LRB): INSERTION INTERBODY BIOMED DEVICE(S) W/ANT INSTR ANCHORING TO DISC SPACE W/INTERBODY FUSION,EA INTERSPACE (N/A) ALIF DECOMPRESSION LAMINECTOMY INTERBODY FUSION LUMBAR LEVEL 1 (N/A) Anesthesia: General Estimated Blood Loss: 200 ml Specimens: ID Type Source Tests Collected by Time Destination A : explanted spinal hardware for accession only; pt would like hardware back to keep Implant/Device/Foreign Body Hardware/Device/Foreign Body SURGICAL PATHOLOGY Stephanie Kidd MD 11/28/2023 8:39 AM Complications: None Pre-Op/Pre-Procedure Diagnosis: Spinal stenosis of lumbar region with radiculopathy Post-Op/Post-Procedure Diagnosis: Same Post-op Plan: - Activity: WBAT, no heavy bending lifting or twisting - Brace: none - Dressings: Maintain dressing until POD7 - Regular diet, bowel regimen - Drain x1, continue to monitor output q shift - Antibiotics: Ancef for 24 hours post op - Upright x-rays POD2 - Bruce: remove POD1 - Pain - PO and IV breakthrough - Encourage incentive spirometry - mIVF, HLIV when tolerating adequate PO - DVT ppx - SCDs and Heparin 5000ml starting POD2 - Hgb 12.3, no indication for transfusion at this time - PT/OT/CM, appreciate recs for discharge Dispo: Pending upright XR, drain output, PT recs @POCVISIT@ SIGNATURE: Eliana Thacker MD PATIENT NAME: Marino Herrera DATE: November 28, 2023 TIME: 1:42 PM PAGER/CONTACT #: [phone] [facility] NURSING PROGon 11-28-2023 NURSING PROG HNO ID: [id number] Author: MICHAELA RILEY RN Service: ? Author Type: Registered Nurse Type: Nursing Progress Note Filed: 11/28/2023 16:57 Note Text: Admission/Transfer Note PATIENT NAME: Marino Herrera Patient Location: [address] Room: [place] [address] Patient admitted from PACU via bed in stable condition. Actions taken: Patient oriented to room, call light function, prescribed activities, Patient rights, and Quiet at night. This note was completed by: Michaela Riley [facility] OPERATIVE NOon 11-28-2023 OPERATIVE NO HNO ID: [id number] Author: STEPHANIE KIDD MD Service: Neurosurgery Author Type: Physician Type: Operative Report Filed: 11/29/2023 11:36 Note Text: Operative NOTE LOG ID: [id number] Surgery/Procedure Date: 11/28/2023 Incision/Procedure Start Time: 8:22 AM Incision Close/Procedure End Time: 1:37 PM Surgeon(s)/Proceduralist(s) and Comfort Advisor(s): Surgeons and Role: Panel 1: * Stephanie Kidd MD - Primary * Eliana Thacker MD - Resident - Assisting Panel 2: * Kaycee Pelaez MD - Primary * Corky Pitt MD - Resident - Assisting Pre-Op/Pre-Procedure Diagnosis: lumbar radiculopathy, adjacent segment disease Post-Op/Post-Procedure Diagnosis: same Procedure(s): Anterior lumbar interbody fusion L5/S1 Posterior spinal instrumentation L4-S1 Posterior spinal fusion L5/S1 Use of BMP Use of intraoperative navigation for planning and placement of pedicle screws Use of intra-operative fluoroscopy Anesthesia: General Estimated Blood Loss: 200 mls Specimens Removed: ID Type Source Tests Collected by Time Destination A : explanted spinal hardware for accession only; pt would like hardware back to keep Implant/Device/Foreign Body Hardware/Device/Foreign Body SURGICAL PATHOLOGY Stephanie Kidd MD 11/28/2023 8:39 AM Drain: Implant Name Type Inv. Item Serial No. Adoption Social Worker Lot No. LRB No. Used Action BONE GRAFT INFUSE X-SMALL - [id number] Bone BONE GRAFT INFUSE X-SMALL [id number] [employer] [id number] N/A 1 Implanted GRAFT BONE PUTTY DEMINERLIZED BONE MATRIX 1CC OSTEOSPARX - [id number] Bone GRAFT BONE PUTTY DEMINERLIZED BONE MATRIX 1CC OSTEOSPARX [id number] [employer] [id number] N/A 1 Implanted GRAFT BONE PUTTY DEMINERLIZED BONE MATRIX 1CC OSTEOSPARX - [id number] Bone GRAFT BONE PUTTY DEMINERLIZED BONE MATRIX 1CC OSTEOSPARX [id number] [employer] [id number] N/A 1 Implanted GRAFT BONE PUTTY DEMINERLIZED BONE MATRIX 1CC OSTEOSPARX - [id number] Bone GRAFT BONE PUTTY DEMINERLIZED BONE MATRIX 1CC OSTEOSPARX [id number] [employer] [id number] N/A 1 Implanted HEDRON IA SPACER STERILE 25DEG 15MM X 26MM X 34MM Accessories [employer] [id number] N/A 1 Implanted FELT THK1.65MM PTFE 4X.5IN CARDIOVASCULAR STERILE - [id number] Implant FELT THK1.65MM PTFE 4X.5IN CARDIOVASCULAR STERILE BARD PERIPHERAL VASCULAR [id number] N/A 1 Non-Implant SCREW RM 3 MISHRA 7.5MM 35MM BONE POLYAXIAL NONSTERILE SPINE - [id number] Screw SCREW RM 3 MISHRA 7.5MM 35MM BONE POLYAXIAL NONSTERILE SPINE JESSICA SPINE N/A 2 Implanted SCREW RM 3 MISHRA 7.5MM 50MM BONE POLYAXIAL NONSTERILE SPINE - [id number] Screw SCREW RM 3 MISHRA 7.5MM 50MM BONE POLYAXIAL NONSTERILE SPINE JESSICA SPINE N/A 4 Implanted ORIANA RM 3 6MM TITANIUM 70MM SPINAL RADIOLUCENT - [id number] Oriana ORIANA RM 3 6MM TITANIUM 70MM SPINAL RADIOLUCENT JESSICA SPINE N/A 2 Implanted SCREW RM 3 TITANIUM SET ELVIS SPINE - [id number] Implant SCREW RM 3 TITANIUM SET ELVIS SPINE JESSICA SPINE N/A 6 Implanted SCREW RM 3 TITANIUM SET ELVIS SPINE - [id number] Implant SCREW RM 3 TITANIUM SET ELVIS SPINE JESSICA SPINE N/A 4 Wasted ANCHOR 25MM SPINAL MIS LUMBAR - [id number] Gerber ANCHOR 25MM SPINAL MIS LUMBAR [employer] [id number] N/A 1 Implanted Complications: None Indications for procedure: This is a pleasant 73 year old male who presented to my clinic with gluteal pain, and bilateral leg pain. 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 He previously underwent L4-5 decompression and fusion. His symptoms were refractory to non-operative treatment including therapy and epidural steriod injections. The nonoperative and operative treatment options were discussed at great length with the patient. The patient elected to move forward with surgery. We discussed the various surgical options. We recommended anterior lumbar interbody fusion at L5/S1 with posterior extension of his fusion construct. The risks and benefits of the procedure were discussed at great length with the patient. No guarantees were offered or implied during the discussion regarding the outcome of the procedure. The patient expressed understanding of these risks and informed consent was obtained. Details of procedure: The patient was brought to the operating room and a all stop was performed by myself, members of the anesthesia team, and nursing team. We confirmed, the correct patient, laterality, and procedure. The patient underwent endotracheal general anesthesia was placed supine. Urology began surgery and their operative note will be dictated separately. Once localized at the L5/S1 disc space. The annulus was incised with a 10 blade. The end plates were prepared using a comb notation of curettes and marques elevator. Once we were satisfied with our prep, a globus alif trial was placed and xrays obtained. We chose a 15mm and 25 degree cage. BMP And demineralized bone were placed into the cage. The cage was secured in place with (more content not included)... Normal [facility] OPERATIVE NO HNO ID: [id number] Author: KAYCEE PELAEZ MD Service: Urology Author Type: Resident Type: Operative Report Filed: 11/28/2023 13:25 Note Text: Attestation signed by Kaycee Pelaez MD at 11/28/2023 1:25 PM Agree with the details as outlined be the resident/ fellow Kaycee Pelaez MD OPERATIVE/PROCEDURE REPORT LOG ID: [id number] SURGERY/PROCEDURE DATE: 11/28/2023 INCISION/PROCEDURE START TIME: 8:22 AM INCISION CLOSE/PROCEDURE END TIME: per spine team SURGEON(S)/PROCEDURALIST(S) AND PARAFFIN PLANT OPERATOR(S): Surgeons and Role: Panel 1: * Stephanie Kidd MD - Primary * Eliana Thacker MD - Resident - Assisting Panel 2: * Kaycee Pelaez MD - Primary * Corky Pitt MD - Resident - Assisting No Additional Staff SURGERY/PROCEDURE(S): Exposure for L5-S1 anterior lumbar interbody fusion INDICATION: 73M with history of L4-5 decompression fusion, now with spinal stenosis and bilateral gluteal/lateral thigh radiculopathy. Presents for operative management. FINDINGS: - L5-S1 space cleared - Good hemostasis, no complications, no entry into peritoneum ANESTHESIA: General SURGERY/PROCEDURE DETAILS: The patient was correctly identified and the operative plan was confirmed with the patient and the operative team. A weight appropriate dose of prophylactic antibiotics was administered intravenously prior to the procedure and sequential compression devices were applied to the lower extremities and activated prior to induction of anesthesia. The patient was placed in the supine position. General anesthesia was induced. All pressure points were padded per protocol and the operative area was prepped and draped in the standard sterile fashion. An midline, 7cm sub-umbilical incision was made and taken down to the fascia. The true midline was identified and the fascia was incised. The rectus muscle was split and the transversalis fascia was incised revealing the peritoneal sac below. The peritoneum was then mobilized off of the surrounding tissues, beginning inferiorly at the space of Retzius. The peritoneum was reflected off the perivesical tissue and carried laterally on the left side exposing the external iliac vessels and the psoas muscle. This was then carried superiorly to expose the psoas, with division of a small area of the lateral posterior sheath. Further blunt dissection medially then exposed part of the anterior spine. The Jessica retractor was placed to facilitate exposure. The left common iliac vein was identified easily and the lymphatic and adipose tissue was dissected off medially and superiorly. L5-S1 space was then cleared with lateral mobilization of the left common iliac artery and vein from the anterior spinous ligament. The medial aspect of the common iliac vein was carefully dissected free from the surrounding attachments. Iliolumbar vein branches were ligated and were hemostatic. After adequate mobilization, the left iliac vessels were reflected to the left, exposing the L5-S1 interspace. A [place] #4 instrument was placed into the interspace and x-ray confirmation of the space was performed. At this point, the sugery was turned over to the spine surgery service. After completion of the L5-S1 fusion, the Spine service called the urology service into the case for removal of the retractors and closure. The retractors were removed, and hemostasis was ensured. The retractors were all taken down without any injury. The anterior rectus sheath fascia was closed with running 0-PDS suture. The skin was irrigated copiously and closed with 3-0 vicryl and 4-0 Vicryl in a running subcuticular fashion. Skin glue was applied. The patient was then turned back to the spine team for their posterior approach. PRE-OP/PRE-PROCEDURE DIAGNOSIS: Spinal stenosis POST-OP/POST-PROCEDURE DIAGNOSIS: Same as Preop ESTIMATED BLOOD LOSS: 50cc (urology portion) SPECIMENS: ID Type Source Tests Collected by Time Destination A : explanted spinal hardware for accession only; pt would like hardware back to keep Implant/Device/Foreign Body Hardware/Device/Foreign Body SURGICAL PATHOLOGY Stephanie Kidd MD 11/28/2023 8:39 AM IMPLANTABLE DEVICES: per spine note DRAINS: Bruce COMPLICATIONS: None CLOSURE TECHNIQUE: Primary PARTICIPATION IN SURGERY/PROCEDURE: I/primary surgeon/proceduralist performed the procedure with assistance. SIGNATURE: Corky Pitt MD PATIENT NAME: Marino Herrera DATE: November 28, 2023 TIME: 11:29 AM Normal [facility] SURGICAL PATHOLOGYon 024 CASE REPORT Normal [facility] Comment on above: Order Comment: Speci men Type: DEVICE SPECIMENOrdering Facility: [facility] Address: [address] [place] [address] Result Comment: Surg ical Pathology Report Case: [id number] Authorizing Provider: Stephanie Kidd MD Collected: 11/28/2023 08:39 AM Ordering Location: Admitting Received: 11/28/2023 02:26 PM Pathologist: Venus Beltre MD Specimen: Hardware/Device/Foreign Body, explanted spinal hardware for accession only; pt would like hardware back to keep Performed By: #### S ####[facility] LABCLIA [id number] [place] [address] [place] CLINICAL HISTORY Normal [facility] Comment on above: Order Comment: Speci men Type: DEVICE SPECIMENOrdering Facility: [facility] Address: [address] [place] [address] Result Comment: Pre- op diagnosis: Spinal stenosis of lumbar region with radiculopathy [M48.061, M54.16] Performed By: #### S ####[facility] LABCLIA [id number] [address] [place] FINAL DIAGNOSIS Normal [facility] Comment on above: Order Comment: Speci men Type: DEVICE SPECIMENOrdering Facility: [facility] Address: [address] [place] [address] Result Comment: Brennen eckert, hardware removal: -Surgical rods, screws and screw caps with no soft tissue present (gross examination only) MPN/MIAH 11/29/23 Performed By: #### S ####[facility] LABCLIA [id number] [address] OF [facility] FINAL PERFORMING LAB Normal [facility] Comment on above: Order Comment: Speci men Type: DEVICE SPECIMENOrdering Facility: [facility] Address: [address] [place] [address] Result Comment: Diag nostic interpretation performed at [facility], [address] [place] [address] CLIA# [id number] Alteration Tailor Apprentice: Atul Ng M.D. Performed By: #### S ####[facility] LABIA [id number] [address] OF [facility] GROSS DESCRIPTION Normal [facility] Comment on above: Order Comment: Speci men Type: DEVICE SPECIMENOrdering Facility: [facility] Address: [address] [place] [address] Result Comment: Brennen Deleon ardware/Device/Foreign Body Received in formalin labeled explanted spinal hardware are 2 curved surgical rods measuring 4.8 and 5.0 cm in length and 0.5 cm in diameter, 4 surgical screws with connector ends measuring 6.4 cm in length and 4 screw caps measuring 0.9 cm in diameter and 0.4 cm in length. No soft tissue is present. No sections were submitted. A photograph was taken. The specimen was shown to Dr Beltre. Gross examination performed at [facility], [address] [place] [address] CLIA# [id number] MIAH 11/29/23 10:02 AM Performed By: #### S ####[facility] LABCLIA [id number] [place] [address] [place] TYPE + SCREENon 11-28-2023 ABO O Normal [facility] Comment on above: Order Comment: Speci men Type: BLOOD SPECIMENOrdering Facility: [facility] Address: [address] [place] [address] Performed By: #### T SCR ####[facility]OD [facility] [id number] [place] [address] [place] Rh Nom (Bld) Positive Normal [facility] Comment on above: Order Comment: Speci men Type: BLOOD SPECIMENOrdering Facility: [facility] Address: [address] [place] [address] Performed By: #### T SCR ####[facility] BLOOD BANKIA [id number] [place] [address] [place] TYPE AND SCREEN EXPIRATION 12/01/2023 23:59 Normal [facility] Comment on above: Order Comment: Speci men Type: BLOOD SPECIMENOrdering Facility: [facility] Address: [address] [place] [address] Performed By: #### T SCR ####[facility] BLOOD BANKIA [id number] [place] [address] [place] XR LUMBAR 2V AP/LATon 2023 XR LUMBAR 2V AP/LAT * * *Final Report* * * DATE OF EXAM: Nov 28 2023 10:07AM ESX 5229 - XR LUMBAR 2V AP/LAT / PROCEDURE REASON: localization or 14 * * * * Physician Interpretation * * * * HISTORY: localization or 14. TECHNIQUE: XR LUMBAR 2V AP/LAT Laterality: Not applicable Number of different views (projections): 4 COMPARISON: Radiographs dated 09/05/2023. RESULT: Fluoroscopic Radiation Summary: Plane A, Air Kerma: 10.0 mGy Dose Area Product (DAP): Fluoro time: 0:14 min:sec Intraoperative images were obtained for surgical planning. Please refer to surgical note for further details. IMPRESSION: Intraoperative images obtained for surgical planning. Please refer to surgical note for further details. Credit Resolution Representative: BRENDA Transcribe Date/Time: Nov 28 2023 10:18A Dictated by : MERY ROMERO MD This examination was interpreted and the report reviewed and electronically signed by: MERY ROMERO MD on Nov 28 2023 10:19AM EST [id number] [facility] XR LUMBAR SPECIFY 1Von 11-27 XR LUMBAR SPECIFY 1V * * *Final Report* * * DATE OF EXAM: Nov 28 2023 1:15PM ESX 5234 - XR LUMBAR SPECIFY 1V / PROCEDURE REASON: 14 - intra-op * * * * Physician Interpretation * * * * HISTORY: 14 - intra-op. TECHNIQUE: XR LUMBAR SPECIFY 1V Laterality: Not applicable Number of different views (projections): 1 COMPARISON: Radiograph earlier same day. RESULT: Intraoperative image was obtained for surgical planning. Please refer to surgical note for further details. IMPRESSION: Intraoperative image obtained for surgical planning. Please refer to surgical note for further details. Credit Resolution Representative: [facility] Transcribe Date/Time: Nov 28 2023 1:36P Dictated by : MERY ROMERO MD This examination was interpreted and the report reviewed and electronically signed by: MERY ROMERO MD on Nov 28 2023 1:38PM EST [id number] [facility] CNPNon 11-21-2023 CNPN Telephone (SPNSMN) MARINO HERRERA ([id number]) 1950 Date Time Provider Department 11/21/23 COLBYROB SPNSMN During your visit today, we recorded the following information about you: Rebecca KIMMY FergusonW 11/21/2023 10:11 AM Signed CARE CONTINUUM ADVISOR ASSESSMENT PRIMARY CARE PHYSICIAN: Yecenia Okeefe MD OR Surgery Date: 11/28/23 Health Insurance: Medicare Financial Resources: Retired Primary Contact: Extended Emergency Contact Information Primary Emergency Contact: HerreraReyna Address: [address] [place] [address] [address] [place] [address] Relation: Spouse Secondary Emergency Contact: Grant Herrera Relation: Brother Other Important Patient Contacts: None Patient/Dental Technician Instructor Stated Goals: To have reduction in pain, To have reduction in symptoms, and To improve my functional status Stripper And Printer needed?: No ADVANCE DIRECTIVES: Does Patient Have Advance Directives? Yes, requested copies for chart Does Patient Have Concerns About Advance Directives? 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 Pt family all live a far distance and all have issues with walking Stairs: One story home Do you have any concerns with food and/or affording food?: No Do you have reliable transportation to and from surgery/appointments?: Yes; brother will bring pt and cousins will be transport home Medication Adherence: Do you have any concerns with your prescription medication?: No Who do you use for pharmacy?: [facility] pharmacy d/c Pre-Hospital Baseline Mental Status: Alert AND Oriented Informant: Self What is your current functional status?: Perform ADLs independently Equipment: Do you currently use any equipment at home for your medical condition or to help you get around? None Pt reports he has access to medical equipment including walker and walking sticks Active Services/Needs: Home Health Care Agency: has someone coming in every other day and will talk to company about every day Do you have a community service director contact through your insurance or WRAAA?: No Has the Patient Been in a Assisted Facility in the Past 30 days? No FREEDOM OF CHOICE: Level of Care Discussed: Home Care Financial Disclosure Provided: No Financial Disclaimer Provided: No Provider List: Home Care Provider list within the patient's requested geographic area shared with the patient/family: Yes - Within [place] [address] [facility] Provider Choices Collected Home Health: [facility] Home Care and if not available open to HC Interventions: Pt loves to fly kites and wants to get back at SIGNATURE: PAIGE Lee PATIENT NAME: Marino Herrera DATE: November 21, 2023 TIME: 10:02 AM PAGER/CONTACT #: Allergies As of Date: 11/21/2023 Noted Allergy Reaction MOLD 12/01/2021 14 - Other: See Comments MOLD SPORES 04/17/2006 5 - Intolerance Date Reviewed: 11/17/2023 Reviewed by: Jordan Campuzano APRN.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 Normal [facility] CNPNon 11-09-2023 CNPN Telephone (NIQ) MARINO HERRERA ([id number]) 1950 M Date Time Provider Department 11/09/23 STEPHANIE KIDD NIQ During your visit today, we recorded the following information about you: Kelsie Rowe 11/09/2023 12:43 PM Signed Received the following record(s) via Fax . -Surgical Clearance paperwork Date 11/09/23 Record(s) scanned into pt's chart. Salvador Park, KENNY 11/09/2023 1:54 PM Signed Neuro SPINE CARE COORDINATION QUICK NOTE Clearance received from Dr. Toribio with pt at low cardiac risk for OR. In scanned documents Kelsie Rowe 11/13/2023 12:07 PM Signed Received more Cardiac Clearance paperwork. Allergies As of Date: 11/09/2023 Noted Allergy Reaction MOLD 12/01/2021 14 - Other: See Comments MOLD SPORES 04/17/2006 5 - Intolerance Date Reviewed: 11/01/2023 Reviewed by: Vaughn De Los Santos PA-C - Fully Assessed Reason for Visit: Orders [681] Prescriptions as of 11/13/2023 - traMADol (ULTRAM) 50 mg tablet TAKE 1/2 (ONE-HALF) TO 1 TABLET THREE TIMES DAILY NEEDED FOR PAIN - aspirin 81 mg chewable tablet Take [...] Take 60 mg by mouth once daily. 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] 03/23/2021 Bicuspid aortic valve [Q23.1] 03/23/2021 Coronary artery disease involving winnebago swan*04/22/2021 Atelectasis [J98.11] 04/22/2021 Post-op pain [G89.18] 04/22/2021 Postoperative hypovolemia [E89.89, E86.1] 04/22/2021 04/23/2021 Acquired hypothyroidism [E03.9] 04/22/2021 Fluid overload [E87.70] 04/24/2021 Thrombocytopenia (HCC) [D69.6] 04/24/2021 Postoperative anemia [D64.9] 04/24/2021 Essential hypertension [I10] 04/25/2021 Obesity, Class I, BMI 30-34.9 [E66.9] 04/25/2021 Encounter for support and coordination of trans*04/26/2021 PONV (postoperative nausea and vomiting) [R11.2*11/01/2023 Encounter Status:Closed by SALVADOR CRUZ [facility]23 [facility] Nurse Visit (SPNSMN) CEMMARINO ([id number]) 1950 Date Time Provider Department 11/08/23 10:00 AM SALVADOR CRUZ SPNSMN During your visit today, we recorded the following information about you: Salvador Cruz RN 11/08/2023 10:49 AM Signed Neuro SPINE CARE COORDINATION QUICK NOTE Call to the pt and LM Salvador Cruz RN 11/08/2023 10:49 AM Signed Neuro SPINE CARE COORDINATION PRE-OP PHONE VISIT Met with patient for pre op education. Given both written and verbal instructions re : Skin prep, wound care, pain management and post op restrictions. Provided to patient: [facility] Surgery Guide, skin prep supplies, Spine Surgery Pre/post op education packet. Yes Reviewed with patient to report to desk Alicanto for surgery ? Yes. Reviewed with the patient to call [phone] the day before to get surgery report time? Yes. Patient aware eat nothing after midnight prior to surgery, clear liquids only until 2 hours before report time. Yes. Patient aware surgery will be INPATIENT. Discussed care post discharge : Home Health Care ( PT-OT-nurse). Does patient have transportation to and from surgery ? Yes. Falls Education provided ? Yes Nasal swab obtained ? Yes. Patient instructed in mupirocin treatment : negative . Questions answered and patient voice(s) understanding via teach back. Physical Therapy : YES Additional Comments : Post -op Support home care with . Salvador Cruz RN Allergies As of Date: 11/08/2023 Noted Allergy Reaction MOLD 12/01/2021 14 - Other: See Comments MOLD SPORES 04/17/2006 5 - Intolerance Date Reviewed: 11/01/2023 Reviewed by: Vaughn De Los Santos PA-C - Fully Assessed Primary Visit Diagnosis:Spinal stenosis of lumbar region with neurogenic claudication [M48.062] Prescriptions as of 11/08/2023 - traMADol (ULTRAM) 50 mg tablet TAKE 1/2 (ONE-HALF) TO 1 TABLET THREE TIMES DAILY NEEDED FOR PAIN - aspirin 81 mg chewable tablet Take [...] Take 60 mg by mouth once daily. Problem List As Of Date 11/08/2023 Noted Resolved BLADDER NECK OBSTRUCTION [N32.0] 10/03/2005 [...] aortic aneurysm (HCC) [I71.2*01/18/2021 Stable angina (HCC) [I20.89] 01/18/2021 Coronary artery calcification [I25.10] 01/18/2021 Family history of heart disease [Z82.49] 01/18/2021 BUBBA (obstructive sleep apnea) [G47.33] 01/18/2021 Dyslipidemia [E78.5] 01/18/2021 Discharge planning issues [Z75.8] 03/22/2021 04/26/2021 Pre-op testing [Z01.818] 03/22/2021 04/26/2021 S/P thyroidectomy [E89.0] 03/23/2021 Nonrheumatic aortic valve stenosis [I35.0] 03/23/2021 Nonrheumatic aortic valve insufficiency [I35.1] 03/23/2021 Bicuspid aortic valve [Q23.1] 03/23/2021 Coronary artery disease involving winnebago swan*04/22/2021 Atelectasis [J98.11] 04/22/2021 Post-op pain [G89.18] 04/22/2021 Postoperative hypovolemia [E89.89, E86.1] 04/22/2021 04/23/2021 Acquired hypothyroidism [E03.9] 04/22/2021 Fluid overload [E87.70] 04/24/2021 Thrombocytopenia (HCC) [D69.6] 04/24/2021 Postoperative anemia [D64.9] 04/24/2021 Essential hypertension [I10] 04/25/2021 Obesity, Class I, BMI 30-34.9 [E66.9] 04/25/2021 Encounter for support and coordination of trans*04/26/2021 PONV (postoperative nausea and vomiting) [R11.2*11/01/2023 Encounter Status:Closed by SALVADOR CRUZ on 11/08/23 Normal [facility] Basic metabolic 2000 panelon 11-01-2023 Anion gap [Moles/Vol] 16 mmol/L High 8-15 [facility] Comment on above: Order Comment: Speci men Type: BLOOD SPECIMENOrdering Facility: [facility] Address: [address] [place] [address] [place] [address] Performed By: #### 2 4321-2, 2276-4, 87386-7 ####[facility] LABCLIA [id number] [place] [id number] [address] [place] Calcium [Mass/Vol] 9.2 mg/dL Normal 8.5-10.2 [facility] Comment on above: Order Comment: Speci men Type: BLOOD SPECIMENOrdering Facility: [facility] Address: [address] [place] [address] Performed By: #### 2 4321-2, 6-4, 21263-9 ####[facility] LABCLIA [id number] [place] [id number] [place] Chloride [Moles/Vol] 104 mmol/L Normal 98-107 [facility] Comment on above: Order Comment: Speci men Type: BLOOD SPECIMENOrdering Facility: [facility] Address: [address] [place] [address] Performed By: #### 2 4321-2, 6-4, 64988-4 ####[facility] LABCLIA [id number] [place] [address] [place] CO2 [Moles/Vol] 23 mmol/L Normal 22-30 [facility] Comment on above: Order Comment: Speci men Type: BLOOD SPECIMENOrdering Facility: [facility] Address: [address] [place] [address] Performed By: #### 2 4321-2, 6-4, 85386-8 ####[facility] LABCLIA [id number] [place] [address] [place] Creatinine [Mass/Vol] 0.79 mg/dL Normal 0.73-1.22 [facility] Comment on above: Order Comment: Speci men Type: BLOOD SPECIMENOrdering Facility: [facility] Address: [address] [place] [address] Performed By: #### 2 4321-2, 6-4, 38467-7 ####[facility] LABCLIA [id number] [address] [address] [place] Creatinine and Glomerular filtration rate.predicted panel (S/P/Bld) 94 mL/min/1.73m??? Normal >=60 [facility] Comment on above: Order Comment: Abiola lisa Type: BLOOD SPECIMENOrdering Facility: [facility] Address: [address] [place] [address] Result Comment: Deanna mated Glomerular Filtration Rate (eGFR) is calculated using the 2020 CKD-EPI creatinine equation. This equation utilizes serum creatinine, sex, and age as parameters. The creatinine assay has traceable calibration to isotope dilution-mass spectrometry. Refer to KDIGO guidelines for clinical interpretation. In patients with unstable renal function, e.g. those with acute kidney injury, the eGFR may not accurately reflect actual GFR. Performed By: #### 2 4321-2, 2276-4, 01291-1 ####[facility] [id number] [place] [address] [place] Glucose [Mass/Vol] 79 mg/dL Normal 74-99 [facility] Comment on above: Order Comment: Abiola lisa Type: BLOOD SPECIMENOrdering Facility: [facility] Address: [address] [place] [address] Result Comment: The [place] Diabetes Association (ADA) provides guidance for cutoff values for fasting glucose and random glucose. The ADA defines fasting as no caloric intake for at least 8 hours. Fasting plasma glucose results between 100 to 125 mg/dL indicate increased risk for diabetes (prediabetes). Fasting plasma glucose results greater than or equal to 126 mg/dL meet the criteria for diagnosis of diabetes. In the absence of unequivocal hyperglycemia, results should be confirmed by repeat testing. In a patient with classic symptoms of hyperglycemia or hyperglycemic crisis, random plasma glucose results greater than or equal to 200 mg/dL meet the criteria for diagnosis of diabetes. Reference: Standards of Medical Care in Diabetes 2016, [place] Diabetes Association. Diabetes Care. 2016.39(Suppl 1). Performed By: #### 2 4321-2, 2276-4, 86998-0 ####[facility] LABIA [id number] [place] [id number] [place] Potassium [Moles/Vol] 4.3 mmol/L Normal 3.7-5.1 [facility] Comment on above: Order Comment: Speci men Type: BLOOD SPECIMENOrdering Facility: [facility] Address: [address] [place] [address] Performed By: #### 2 4321-2, 2276-4, 75319-3 ####[facility] LABCLIA [id number] [place] [address] [place] Sodium [Moles/Vol] 143 mmol/L Normal 136-144 [facility] Comment on above: Order Comment: Speci men Type: BLOOD SPECIMENOrdering Facility: [facility] Address: [address] [place] [address] Performed By: #### 2 4321-2, 2276-4, 88711-8 ####[facility]CLIA [id number] [place] [address] [place] Urea nitrogen [Mass/Vol] 20 mg/dL Normal 9-24 [facility] Comment on above: Order Comment: Speci men Type: BLOOD SPECIMENOrdering Facility: [facility] Address: [address] [place] [address] Performed By: #### 2 4321-2, 2276-4, 30520-0 ####[facility] LABIA [id number] [place] [address] [place] CBC W Auto Differential pane l (Bld)on 11-01-2023 Basophils (Bld) [#/Vol] 0.04 10*3/uL Normal <0.11 [facility] Comment on above: Order Comment: Speci men Type: BLOOD SPECIMENOrdering Facility: [facility] Address: [address] [place] [address] Performed By: #### 5 7021-8, 74861-2 ####[facility] LABIA [id number] [place] [address] [place] Basophils/100 WBC (Bld) 0.6 % Normal [facility] Comment on above: Order Comment: Speci men Type: BLOOD SPECIMENOrdering Facility: [facility] Address: [address] [place] [address] Performed By: #### 5 7021-8, 25855-6 ####[facility]CLIA [id number] [place] [address] [place] Differential cell count method Nom (Bld) Auto Normal [facility] Comment on above: Order Comment: Speci men Type: BLOOD SPECIMENOrdering Facility: [facility] [facility] Address: [address] [place] [address] Performed By: #### 5 7021-8, 59171-8 ####[facility]CLIA [id number] [place] [address] [place] Eosinophils (Bld) [#/Vol] 0.20 10*3/uL Normal <0.46 [facility] Comment on above: Order Comment: Speci men Type: BLOOD SPECIMENOrdering Facility: [facility] Address: [address] [place] [address] Performed By: #### 5 7021-8, 50075-9 ####[facility] [id number] [place] [address] [place] Eosinophils/100 WBC (Bld) 3.2 % Normal [facility] Comment on above: Order Comment: Speci men Type: BLOOD SPECIMENOrdering Facility: [facility] Address: [address] [place] [address] Performed By: #### 5 7021-8, 30407-7 ####[facility] [id number] [place] [address] [place] Erythrocyte distribution width (RBC) [Ratio] 11.6 % Normal 11.5-15.0 [facility] Comment on above: Order Comment: Speci men Type: BLOOD SPECIMENOrdering Facility: [facility] Address: [address] [place] [address] Performed By: #### 5 7021-8, 57814-8 ####[facility] [id number] [place] [address] [place] Hematocrit (Bld) [Volume fraction] 40.8 % Normal 39.0-51.0 [facility] Comment on above: Order Comment: Speci men Type: BLOOD SPECIMENOrdering Facility: [facility] Address: [address] [place] [address] Performed By: #### 5 7021-8, 32707-2 ####[facility] [id number] [place] [address] [place] Hemoglobin (Bld) [Mass/Vol] 13.6 g/dL Normal 13.0-17.0 [facility] Comment on above: Order Comment: Speci men Type: BLOOD SPECIMENOrdering Facility: [facility] Address: [address] [place] [address] Performed By: #### 5 7021-8, 44535-4 ####[facility]IA [id number] [place] [address] [place] Immature granulocytes (Bld) [#/Vol] 10*3/uL Normal <0.10 [facility] Comment on above: Order Comment: Speci men Type: BLOOD SPECIMENOrdering Facility: [facility] Address: [address] [place] [address] Performed By: #### 5 7021-8, 11507-4 ####[facility]IA [id number] [place] [address] [place] Immature granulocytes/100 WBC (Bld) 0.3 % Normal [facility] Comment on above: Order Comment: Speci men Type: BLOOD SPECIMENOrdering Facility: [facility] Address: [address] [place] [address] Performed By: #### 5 7021-8, 87372-6 ####[facility] [id number] [place] [address] [place] Lymphocytes (Bld) [#/Vol] 1.75 10*3/uL Normal 1.00-4.00 [facility] Comment on above: Order Comment: Speci men Type: BLOOD SPECIMENOrdering Facility: [facility] Address: [address] [place] [address] Performed By: #### 5 7021-8, 25639-0 ####[facility] [id number] [place] [address] [place] Lymphocytes/100 WBC (Bld) 27.7 % Normal [facility] Comment on above: Order Comment: Speci men Type: BLOOD SPECIMENOrdering Facility: [facility] Address: [address] [place] [address] Performed By: #### 5 7021-8, 77510-1 ####[facility] [id number] [place] [address] [place] MCH (RBC) [Entitic mass] 31.5 pg Normal 26.0-34.0 [facility] Comment on above: Order Comment: Speci men Type: BLOOD SPECIMENOrdering Facility: [facility] Address: [address] [place] [address] Performed By: #### 5 7021-8, 67613-1 ####[facility] [id number] [place] [address] [place] MCHC (RBC) [Mass/Vol] 33.3 g/dL Normal 30.5-36.0 [facility] Comment on above: Order Comment: Speci men Type: BLOOD SPECIMENOrdering Facility: [facility] Address: [address] [place] [address] Performed By: #### 5 7021-8, 55330-1 ####[facility] [id number] [place] [address] [place] MCV (RBC) [Entitic vol] 94.4 fL Normal 80.0-100.0 [facility] Comment on above: Order Comment: Speci men Type: BLOOD SPECIMENOrdering Facility: [facility] Address: [address] [place] [address] Performed By: #### 5 7021-8, 10701-2 ####[facility] [id number] [place] [address] [place] Monocytes (Bld) [#/Vol] 0.69 10*3/uL Normal <0.87 [facility] Comment on above: Order Comment: Speci men Type: BLOOD SPECIMENOrdering Facility: [facility] Address: [address] [place] [address] Performed By: #### 5 7021-8, 07788-2 ####[facility] [id number] [place] [address] [place] Monocytes/100 WBC (Bld) 10.9 % Normal [facility] Comment on above: Order Comment: Speci men Type: BLOOD SPECIMENOrdering Facility: [facility] Address: [address] [place] [address] Performed By: #### 5 7021-8, 55699-2 ####[facility] [id number] [place] [address] [place] Neutrophils (Bld) [#/Vol] 3.62 10*3/uL Normal 1.45-7.50 [facility] Comment on above: Order Comment: Speci men Type: BLOOD SPECIMENOrdering Facility: [facility] Address: [address] [place] [address] Performed By: #### 5 7021-8, 43737-7 ####[facility] [id number] [place] [address] [place] Neutrophils/100 WBC (Bld) 57.3 % Normal [facility] Comment on above: Order Comment: Speci men Type: BLOOD SPECIMENOrdering Facility: [facility] Address: [address] [place] [address] Performed By: #### 5 7021-8, 89581-7 ####[facility] [id number] [place] [address] [place] Nucleated RBC (Bld) [#/Vol] 10*3/uL Normal <0.01 [facility] Comment on above: Order Comment: Speci men Type: BLOOD SPECIMENOrdering Facility: [facility] Address: [address] [place] [address] Performed By: #### 5 7021-8, 20861-0 ####[facility] [id number] [place] [address] [place] Nucleated RBC/100 WBC (Bld) [Ratio] 0.0 /100 WBC Normal [facility] Comment on above: Order Comment: Speci men Type: BLOOD SPECIMENOrdering Facility: [facility] Address: [address] [place] [address] Performed By: #### 5 7021-8, 37825-2 ####[facility] [id number] [place] [address] [place] Platelet mean volume (Bld) [Entitic vol] 9.9 fL Normal 9.0-12.7 [facility] Comment on above: Order Comment: Speci men Type: BLOOD SPECIMENOrdering Facility: [facility] Address: [address] [place] [address] Performed By: #### 5 7021-8, 76329-9 ####[facility] [id number] [place] [address] [place] Platelets (Bld) [#/Vol] 218 10*3/uL Normal 150-400 [facility] Comment on above: Order Comment: Speci men Type: BLOOD SPECIMENOrdering Facility: [facility] Address: [address] [place] [address] Performed By: #### 5 7021-8, 77655-5 ####[facility] [id number] [place] [address] [place] RBC (Bld) [#/Vol] 4.32 10*6/uL Normal 4.20-6.00 [facility] Comment on above: Order Comment: Speci men Type: BLOOD SPECIMENOrdering Facility: [facility] Address: [address] [place] [address] Performed By: #### 5 7021-8, 56549-4 ####[facility] [id number] [place] [address] [place] WBC (Bld) [#/Vol] 6.32 10*3/uL Normal 3.70-11.00 [facility] Comment on above: Order Comment: Speci men Type: BLOOD SPECIMENOrdering Facility: [facility] Address: [address] [place] [address] Performed By: #### 5 7021-8, 75783-9 ####[facility]CL[facility] [id number] [place] [address] [place] CNOVon 11-01-2023 CNOV Office Visit (SPNSMN ) MARINO HERRERA ([id number]) 1950 M Date Time Provider Department 11/01/23 10:30 AM STEPHANIE KIDD SPNSMN During your visit today, we recorded the following information about you: Pulse Respiration Blood pressure Weight 61/minute 12/minute 133/68 86.2 kg Height 1.753 m Stephanie Kidd MD 11/01/2023 11:15 AM Signed SPINE SURGERY ESTABLISHED This is an in-person visit. DATE OF SERVICE: 11/01/2023 DATE OF LAST VISIT: Visit date not found SUBJECTIVE: HPI:Marino Herrera is a 73 year old male presenting alone. Patient presents today for pre op visit. Understands plan for alif, followed by posterior revision of hardware. Has many questions, that are appropriate .presented in motor chair given distance to clinic. Bilateral L5 pain when standing. AMBULATORY STATUS: Impaired Community Distances ANTIPLATELET OR ANTICOAGULATION STATUS: No MEDICATIONS: traMADol (ULTRAM) 50 mg tablet TAKE 1/2 (ONE-HALF) TO 1 TABLET THREE TIMES DAILY NEEDED FOR PAIN furosemide (LASIX) 20 mg tablet Take 1 tablet by mouth once daily. potassium chloride ER (K-DUR, KLOR-CON) 10 mEq tablet Take 1 tablet by mouth once daily. levothyroxine (SYNTHROID) 150 mcg tablet 150 mcg as directed. 6 days week gabapentin (NEURONTIN) 100 mg capsule Take 100 mg by mouth once daily. SUMAtriptan (IMITREX) 100 mg tablet Take 100 mg by mouth as needed. acetaminophen (TYLENOL ORAL) Take 1,000 mg by mouth daily at bedtime. DULoxetine (CYMBALTA) 60 mg capsule Take 60 mg by mouth once daily. aspirin 81 mg chewable tablet Take 1 tablet by mouth once daily. atorvastatin (LIPITOR) 20 mg tablet Take 1 tablet by mouth daily at bedtime. metoprolol succinate ER (TOPROL XL) 50 mg 24 hr tablet Take 1 tablet by mouth once daily. Patient Entered Questionnaires PROMIS Score Percentiles 07/19/2021 04/29/2022 PROMIS Global Health Scale Physical Health Percentile 41 31 Mental Health Percentile 63 34 Percentiles provide an indication of how the patient's score ranks in relation to the general population. Higher percentile rankings indicate better function/quality of life. 50th percentile is the average of the general population and indicates half of respondents had a worse score. Depression Screening: PHQ-9 Self-Harm (Item 9) response options: 0 Not at all 1 Several days 2 More than half the days 3 Nearly every day PHQ-9 Levels: 0-4 No to mild depression 5-9 Mild depression 10-14 Moderate depression 15-19 Moderately severe depression 20-27 Severe depression OBJECTIVE: PHYSICAL EXAM: BP 133/68 Pulse 61 Resp 12 Ht 5' 9 (1.75m) Wt 190 lb (86.2kg) SpO2 98[room air]% BMI 28.05 kg/(m2). Lower Extremities LE Hip Flex Knee Flex Knee Extend Plantarflex Dorsiflex EHL R 5 5 5 5 5 5 L 5 5 5 5 5 5 Sensation intact to light tough in bilateral lower extremities in spn, dpn, sural, saphenous, and tibial nerves. Right: Patellar, Ankle normoreflexic Left: Patellar, Ankle normoreflexic Clonus: 1 beat bilaterally Toe walk able with coaching Heel Walk able with coaching Tandem unable Ambulatory status: independent, walks with retroverted pelvis to maintain horizon DATA REVIEW:Diagnostic tests reviewed for today's visit, films/specimens were personally reviewed by me: [facility] records independently reviewed ASSESSMENT/PLAN (M48.061, M54.16) Spinal stenosis of lumbar region with radiculopathy (primary encounter diagnosis) Marino Herrera is clinically indicated and wishes to pursue Lumbar Fusion at L5-S1. Approach anterior with posterior based pedicle screw placement. Clinical Indications for Spinal Fusion: Severe foraminal collapse at L5-S1 with symptomatic improvement from epidural steroid injection The risks, benefits, and anticipated outcomes of the procedure/treatment/test, the alternatives to the procedure/treatment/test and their risks and benefits, and the roles and tasks of the personnel to be involved were discussed with the patient or the patient?s personal litigation claim representative. Discussed goals of surgery Decompression of bilateral L5 foramina, we discussed given his significant relief this is likely the cause of his pain. We discussed that he does have a T12-L1 disc herniation, he currently is asymptomatic from this, at this point we will not plan any operative intervention to this level. He has moderate stenosis. We had a long discussion regarding surgical expectations and what I suspect surgery will help with and what it will not We discussed the minimum criteria for elective surgery: A. Imaging fits with history and examination and has surgical correctable findings B. Conservative modalities have been trialed in a meaningful way that have failed to provide relief C. The pain is significant enough to interfere with quality of life, and undergoing an irreversible aubrie (more content not included)... Normal [facility] CNOV Office Visit (UROLMN ) MARINO HERRERA ([id number]) 1950 M Date Time Provider Department 11/01/23 10:00 AM JENNYFER BRITO During your visit today, we recorded the following information about you: Jennyfer Brito MD 11/01/2023 10:49 AM Signed [facility] Referred by Dr. Marvel Kidd 73 yo male Patient scheduled for ALIF decompression on 11/[address] Kidd Here for pre-operative discussion UROL Staff No prior lower abdominal surgery Reviewed CT with patient -suitable vascular anatomy -minimal calcification Impression/Plan: No apparent contraindication for anterior exposure. Discussed anterior exposure for spine surgery. Specifically reviewed risks of bleeding and possible need for transfusion. Also discussed potential complications of lymphocele and wound healing problems. Chart to Dr. 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] 03/23/2021 Bicuspid aortic valve [Q23.1] 03/23/2021 Coronary artery disease involving winnebago swan*04/22/2021 Atelectasis [J98.11] 04/22/2021 Post-op pain [G89.18] 04/22/2021 Postoperative hypovolemia [E89.89, E86.1] 04/22/2021 04/23/2021 Acquired hypothyroidism [E03.9] 04/22/2021 Fluid overload [E87.70] 04/24/2021 Thrombocytopenia (HCC) [D69.6] 04/24/2021 Postoperative anemia [D64.9] 04/24/2021 Essential hypertension [I10] 04/25/2021 Obesity, Class I, BMI 30-34.9 [E66.9] 04/25/2021 Encounter for support and coordination of trans*04/26/2021 Encounter Status:Closed by JENNYFER BRITO on 11/01/23 Normal [facility] ECG COMPLETEon 11-01-2023 ECG COMPLETE Ventricular Rate : 5 9 BPM Atrial Rate : 59 BPM P-R Interval : 172 ms QRS Duration : 78 ms Q-T Interval : 404 ms QTC Calculation(Bazett) : 399 ms Calculated P Franklin : 44 degrees Calculated R Franklin : 31 degrees Calculated T Franklin : 69 degrees SINUS BRADYCARDIA OTHERWISE NORMAL ECG Confirmed by LIAENT NORRIS MD ([id number]) on 11/15/2023 1:37:03 AM NAME : MARINO HERRERA PID : [id number] : 1950 Gender : Male Race : ORD : [id number] Procedure Date : Nov 01 2023 13:49:52 Edit Date : Nov 15 2023 01:37:05 Diagnosis: SINUS BRADYCARDIA OTHERWISE NORMAL ECG Confirmed by LIANET NORRIS MD ([id number]) on 11/15/2023 1:37:03 AM Test Reason : Location : 119 : A17 Overread By : LIANET NORRIS MD Edited By : LIANET NORRIS MD Referred By : VAUGHN DE LOS SANTOS Acquired by : DULCE CAMPOS [facility] Ferritin SerPl-mCncon 2023 Ferritin [Mass/Vol] 70.1 ng/mL Normal 30.3-565.7 [facility] Comment on above: Order Comment: Speci men Type: BLOOD SPECIMENOrdering Facility: [facility] Address: [address] [place] [address] Performed By: #### 2 4321-2, 2276-4, 27014-6 ####[facility] [id number] [id number] [address] [place] HISTORY PHYSICALon HISTORY PHYSICAL HNO ID: [id number] Author: VAUGHN DE LOS SANTOS PA-C Service: ? 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 Toribio at [facility] -EKG pending Bicuspid aortic valve -S/p replacement in 04/2021 Essential hypertension -Stable on rx -BP today 133/62 -Denies cardiac symptoms -EKG pending BUBBA (obstructive sleep apnea) -Compliant with CPAP Dyslipidemia -Continue statin Acquired hypothyroidism -S/p thyroidectomy for thyroiditis with goiter -Continue Synthroid PONV (postoperative nausea and vomiting) -Per patient Esophageal Reflux -Was previously on PPI, self d/c'ed. Controls with diet. Malik Activity Status Index: METS: Climb a flight of stairs or walk up a hill (5.50 METs) DASI Score: 5.5 Patient denies any chest pain or undue shortness of breath with the above physical activity. Patient is limited most or all of the time (uses scooter, mobility device) (using power wheelchair today). Clinical Frailty Scale: 4. Apparently vulnerable STOP-Bang Score: STOP-Bang Score: (+BUBBA - compliant with CPAP) ANESTHESIA FINDINGS: Intubation History: No history of difficult intubation. No abnormal airway history Significant Anesthesia Considerations: potential postop nausea/vomiting Airway History: No history of difficult airway No abnormal airway history I - PHYSICAL EVALUATION AIRWAY Patient intubated: No. Tracheostomy tube not present Mallampati: IV. TM distance: >3 FB. Neck ROM: limited flexion. Mouth opening: adequate. Short neck: no. Thick neck: no Fuentes present: no Lip Bite Test: I Microretrognathia/Micronagth ia/Recessed Chin: No DENTAL Dental findings: missing tooth/teeth. Additional comments: Upper bridge . II - ANESTHESIA PLAN Anesthetic plan additional comments: *[facility] - anesthesia choice. Beta Elvis Monitoring Plan Post Procedure Analgesic Plan Prepared for Surgery: optimally prepared for surgery, pending day of surgery. TANDS pending DOS CONSULTS: The following consults have been initiated at this time: anesthesia. Planned Anesthetic: anesthesia choice The Following Tests/Procedures Have Been Initiated: EKG, labs Reviewed previous testing, including echocardiogram 06/07/22 and CTA chest 07/25/21, and chronic chest pain that is tender with palpation, non-exertional, and that has been present and unchanged since cardiac surgery in 04/[address] Muro, patient OK to proceed. EKG and labs reviewed and accepted. BMP and TANDS were both ordered and not drawn. BMP added on today per lab. TANDS has been ordered for DOS. 11/02/23 ADDENDUM: BMP reviewed and accepted. REASON FOR VISIT: Marino Herrera is a 73 year old male who is scheduled for Procedure(s): INSERTION INTERBODY BIOMED DEVICE(S) W/ANT INSTR ANCHORING TO DISC SPACE W/INTERBODY FUSION,EA INTERSPACE (N/A) ALIF DECOMPRESSION LAMINECTOMY INTERBODY FUSION LUMBAR LEVEL 1 (N/A) at the request of Stephanie Gerard MD for consultation. My final recommendation will be communicated back to the requesting physician by way of shared medical record or letter. Subjective The patient has the following: COVID-19 Immunization Status Overdue - Covid-19 Vaccine () Overdue since 10/15/2023 01/22/2023 Imm Admin: COVID-19 vaccine, age 12+ yr, 2023-24 season (PFIZER-BIONTECH) 10/30/2021 Imm Admin: COVID-19 vaccine, age 12+ yr, bivalent (PFIZER-BIONTECH) 06/10/2021 Imm Admin: COVID-19 original vaccine, full dose, monovalent (MODERNA) Only the first 3 history entries have been loaded, but more history exists. CHIEF COMPLAINT: Spinal stenosis of lumbar region with radiculopathy [M48.061, M54.16] HPI: Marino Herrera is a 73 year old male with PMH including CAD, AAA s/p repair, bicuspid aortic valve s/p replacement, BUBBA, hypothyroidism, HTN, and HLD who presents to [facility] today for preop exam. Patient is scheduled for the above procedure on 11/28/23. Patient has chronic low back and BLE pain. He is unable to walk for longer than 20 minutes without having to stop 2/2 pain. This started approximately 3 years ago and has significantly worsened. Electing to proceed with the above procedure. Denies fevers, chills, chest pain, and SOB. RE (more content not included)... Normal [facility] Iron and Iron binding capaci ty panelon 11-01-2023 Iron [Mass/Vol] 109 ug/dL Normal 41-186 [facility] Comment on above: Order Comment: Speci men Type: BLOOD SPECIMENOrdering Facility: [facility] Address: [address] [place] [address] Performed By: #### 2 4321-2, 2276-4, 46102-6 ####[facility] [id number] [place] [address] [place] Iron binding capacity [Mass/Vol] 360 ug/dL Normal 232-386 [facility] Comment on above: Order Comment: Speci men Type: BLOOD SPECIMENOrdering Facility: [facility] Address: [address] [place] [address] Performed By: #### 2 4321-2, 2276-4, 83483-8 ####[facility] [id number] [place] [address] [place] Iron/TIBC [Molar ratio] 30.3 % Normal 15.0-57.0 [facility] Comment on above: Order Comment: Speci men Type: BLOOD SPECIMENOrdering Facility: [facility] Address: [address] [place] [address] Performed By: #### 2 4321-2, 2276-4, 69173-4 ####[facility] [id number] [place] [address] [place] Retics #on 11-01-2023 Reticulocytes (Bld) [#/Vol] 0.88277 10*3/uL Normal 0.018-0.100 [facility] Comment on above: Order Comment: Speci men Type: BLOOD SPECIMENOrdering Facility: [facility] Address: [address] [place] [address] Performed By: #### 5 7021-8, 92651-3 ####[facility]IA [id number] [place] [address] [place] Reticulocytes (Bld) [#/Vol]o n 11-01-2023 Hemoglobin Auto (Reticulocytes) [Entitic mass] 36.5 pg High 28.0-36.0 [facility] [facility] Comment on above: Order Comment: Speci men Type: BLOOD SPECIMENOrdering Facility: [facility] Address: [address] [place] [address] Performed By: #### 5 7021-8, 84841-1 ####[facility] LABCLIA [id number] [place] [address] [place] Immature reticulocytes/Total reticulocytes (Bld) 8.9 % Normal 2.0-13.5 [facility] Comment on above: Order Comment: Speci men Type: BLOOD SPECIMENOrdering Facility: [facility] Address: [address] [place] [address] Performed By: #### 5 7021-8, 27208-1 ####[facility] LABCLIA [id number] [place] [id number] [place] Reticulocytes/100 RBC (Bld) 1.1 % Normal 0.4-2.0 [facility] Comment on above: Order Comment: Speci men Type: BLOOD SPECIMENOrdering Facility: [facility] Address: [address] [place] [address] Performed By: #### 5 7021-8, 61130-4 ####[facility] LABCLIA [id number] [place] [address] [place] STAPHYLOCOCCUS AUREUS AND MR SA SCREEN, PCR, NASALon 11-01-2023 S. aureus and MRSA panel GAGANDEEP+probe (Nose) Not detected Normal Not Detected [facility] Comment on above: Order Comment: Speci men Type: SWABOrdering Facility: [facility] Address: [address] [place] [address] Performed By: #### S APCR ####[facility]CLIA [id number] [place] [address] [place] URINALYSIS, REFLEX MICROSCOP ICon 11-01-2023 Bilirubin Ql (U) Negative Negative [facility] Clarity (Unsp spec) Clear Clear [facility] Color (U) Yellow Yellow [facility] Glucose Test strip (U) [Mass/Vol] Negative Negative [facility] Hemoglobin Ql (U) Negative Negative [facility] Interpretation and review of laboratory results Normal [facility] Ketones Ql (U) Negative Negative [facility] Leukocyte esterase Test strip Ql (U) Negative Negative [facility] Nitrite Ql (U) Negative Negative [facility] pH (U) 6.5 [pH] NINF - 8.5 [facility] Protein (U) [Mass/Vol] Negative Negative [facility] Specific gravity (U) [Rel density] 1.008 1.005 - 1.030 [facility] Urobilinogen Ql (U) 0.2 EU/dL 0.2-1.0 EU/dL [facility] Bilirubin Ql (U) Negative Normal [facility] Comment on above: Order Comment: Speci men Type: URINE SPECIMENOrdering Facility: [facility] Address: [address] [place] [address] Performed By: #### L [id number] ####[facility]CLIA [id number] [place] [address] [place] Clarity (Unsp spec) Clear Normal Clear [facility] Comment on above: Order Comment: Speci men Type: URINE SPECIMENOrdering Facility: [facility] Address: [address] [place] [address] Performed By: #### L [id number] ####[facility]CLIA [id number] [place] [address] [place] Color (U) Yellow Normal Yellow [facility] Comment on above: Order Comment: Speci men Type: URINE SPECIMENOrdering Facility: [facility] Address: [address] [place] [address] Performed By: #### L [id number] ####[facility] LABCLIA [id number] [place] [address] [place] Glucose Test strip (U) [Mass/Vol] Negative Normal Negative [facility] Comment on above: Order Comment: Speci men Type: URINE SPECIMENOrdering Facility: [facility] Address: [address] [place] [address] Performed By: #### L [id number] ####[facility]CLIA [id number] [place] [address] [place] Hemoglobin Ql (U) Negative Normal Negative [facility] Comment on above: Order Comment: Speci men Type: URINE SPECIMENOrdering Facility: [facility] Address: [address] [place], [place] [id number] Performed By: #### L [id number] ####[facility] LABCLIA [id number] [place] [address] [place] Ketones Ql (U) Negative Normal Negative [facility] Comment on above: Order Comment: Speci men Type: URINE SPECIMENOrdering Facility: [facility] Address: [address] [place] [address] Performed By: #### L [id number] ####[facility]CLIA [id number] [place] [address] [place] Leukocyte esterase Test strip Ql (U) Negative Normal Negative [facility] Comment on above: Order Comment: Speci men Type: URINE SPECIMENOrdering Facility: [facility] Address: [address] [place] [address] Performed By: #### L [id number] ####[facility]CLIA [id number] [place] [address] [place] Nitrite Ql (U) Negative Normal Negative [facility] Comment on above: Order Comment: Speci men Type: URINE SPECIMENOrdering Facility: [facility] Address: [address] [place] [address] Performed By: #### L [id number] ####[facility] LABCLIA [id number] [place] [address] [place] pH (U) 6.5 [pH] Normal <8.5 [facility] Comment on above: Order Comment: Speci men Type: URINE SPECIMENOrdering Facility: [facility] Address: [address] [place] [address] Performed By: #### L [id number] ####[facility] LABCLIA [id number] [place] [address] [place] Protein (U) [Mass/Vol] Negative Normal Negative [facility] Comment on above: Order Comment: Speci men Type: URINE SPECIMENOrdering Facility: [facility] Address: [address] [place] [address] Performed By: #### L [id number] ####[facility] LABCLIA [id number] [place] [address] [place] Specific gravity (U) [Rel density] 1.008 Normal 1.005-1.030 [facility] Comment on above: Order Comment: Speci men Type: URINE SPECIMENOrdering Facility: [facility] Address: [address] [place] [address] Performed By: #### L [id number] ####[facility] [id number] [place] [id number] [place] Urobilinogen Ql (U) 0.2 EU/dL Normal 0.2-1.0 EU/dL [facility] Comment on above: Order Comment: Speci men Type: URINE SPECIMENOrdering Facility: [facility] Address: [address] [place] [address] Performed By: #### L [id number] ####[facility] LABIA [id number] [place] [id number] [place] CNCOon 10-06-2023 CNCO Letter Text Normal [facility] CNPNon 10-06-2023 CNPN Telephone (SPNSMN) MARINO HERRERA ([id number]) 1950 M Date Time Provider Department 10/06/23 STEPHANIE KIDD [facility] During your visit today, we recorded the following information about you: Salvador Cruz RN 10/06/2023 10:39 AM Signed Neuro SPINE CARE COORDINATION SURGERY SCHEDULING Patient accepts surgery date of 11-28-[address] Kidd. Planned procedure is ALIF L5- S1 - post revision hardware L4-5 - pedicle screw S1 . PACC will be 11-01-23 ( Main with Dr. Kidd and urology ). [facility] : completed Medications reviewed : Yes}. Meds to be stopped prior to surgery : NSAIDS and Vitamins and supplements. Additional pre op clearances needed : cardiac. Any implanted devices : Yes.- bovine valve Transplant History no. Patient will get optimization lab work : Blood Management . Questions answered. Patient verbalizes understanding via teach back. Additional comments : home care order placed pre op Preoperative Needs Assessment Do you live alone or with someone that can help you? Lives with caregiver-pt cares for his . Will you have assistance available at home after your surgery to help with physical activities such a toileting or dressing? Occasionally How many steps do you need to climb to get into your home? 0- kift Once in your home, how many steps do you need to climb to access your bedroom or bathroom? 0 Do you use a mobility aid for walking/getting around? (note, if more than one type of aid is used, select the one that is used more frequently) None Anticipated LOS > 5 days: No Significant home social issues or Current history or past history of substance abuse: No Wheelchair baseline, Homebound baseline, Significant gait instability, or History of significant falls: Yes Thora/lumbar fusion any level planned or 2+ level posterior cervical fusion planned: Yes Myelopathic or Spine tumor: No Probability of non-home discharge disposition : Low [0] Salvador Cruz RN Allergies As of Date: 10/06/2023 Noted Allergy Reaction MOLD 12/01/2021 14 - Other: See Comments MOLD SPORES 04/17/2006 5 - Intolerance Date Reviewed: 10/03/2023 Reviewed by: Guero Pruitt RN - Fully Assessed Prescriptions as of 10/06/2023 - traMADol (ULTRAM) 50 mg tablet TAKE 1/2 (ONE-HALF) TO 1 TABLET THREE TIMES DAILY NEEDED FOR PAIN - aspirin 81 mg chewable tablet Take [...] Take 60 mg by mouth once daily. Problem List As Of Date 10/06/2023 Noted Resolved BLADDER NECK OBSTRUCTION [N32.0] 10/03/2005 [...] aortic aneurysm (HCC) [I71.2*01/18/2021 Stable angina (HCC) [I20.89] 01/18/2021 Coronary artery calcification [I25.10] 01/18/2021 Family history of heart disease [Z82.49] 01/18/2021 BUBBA (obstructive sleep apnea) [G47.33] 01/18/2021 Dyslipidemia [E78.5] 01/18/2021 Discharge planning issues [Z75.8] 03/22/2021 04/26/2021 Pre-op testing [Z01.818] 03/22/2021 04/26/2021 S/P thyroidectomy [E89.0] 03/23/2021 Nonrheumatic aortic valve stenosis [I35.0] 03/23/2021 Nonrheumatic aortic valve insufficiency [I35.1] 03/23/2021 Bicuspid aortic valve [Q23.1] 03/23/2021 Coronary artery disease involving winnebago swan*04/22/2021 Atelectasis [J98.11] 04/22/2021 Post-op pain [G89.18] 04/22/2021 Postoperative hypovolemia [E89.89, E86.1] 04/22/2021 04/23/2021 Acquired hypothyroidism [E03.9] 04/22/2021 Fluid overload [E87.70] 04/24/2021 Thrombocytopenia (HCC) [D69.6] 04/24/2021 Postoperative anemia [D64.9] 04/24/2021 Essential hypertension [I10] 04/25/2021 Obesity, Class (more content not included)... [facility] ([id number]) 1950 M Date Time Provider Department 10/06/23 STEPHANIE KIDD SPNSMN During your visit today, we recorded the following information about you: Salvador Cruz RN 10/06/2023 11:22 AM Signed Neuro SPINE CARE COORDINATION QUICK NOTE Request for Cardiac clearance has been faxed to Dr. Toribio at fax [phone] Allergies As of Date: 10/06/2023 Noted Allergy Reaction MOLD 12/01/2021 14 - Other: See Comments MOLD SPORES 04/17/2006 5 - Intolerance Date Reviewed: 10/03/2023 Reviewed by: Guero Pruitt, KENNY - Fully Assessed Prescriptions as of 10/06/2023 - traMADol (ULTRAM) 50 mg tablet TAKE 1/2 (ONE-HALF) TO 1 TABLET THREE TIMES DAILY NEEDED FOR PAIN - aspirin 81 mg chewable tablet Take [...] Take 60 mg by mouth once daily. Problem List As Of Date 10/06/2023 Noted Resolved BLADDER NECK OBSTRUCTION [N32.0] 10/03/2005 [...] aortic aneurysm (HCC) [I71.2*01/18/2021 Stable angina (HCC) [I20.89] 01/18/2021 Coronary artery calcification [I25.10] 01/18/2021 Family history of heart disease [Z82.49] 01/18/2021 BUBBA (obstructive sleep apnea) [G47.33] 01/18/2021 Dyslipidemia [E78.5] 01/18/2021 Discharge planning issues [Z75.8] 03/22/2021 04/26/2021 Pre-op testing [Z01.818] 03/22/2021 04/26/2021 S/P thyroidectomy [E89.0] 03/23/2021 Nonrheumatic aortic valve stenosis [I35.0] 03/23/2021 Nonrheumatic aortic valve insufficiency [I35.1] 03/23/2021 Bicuspid aortic valve [Q23.1] 03/23/2021 Coronary artery disease involving winnebago swan*04/22/2021 Atelectasis [J98.11] 04/22/2021 Post-op pain [G89.18] 04/22/2021 Postoperative hypovolemia [E89.89, E86.1] 04/22/2021 04/23/2021 Acquired hypothyroidism [E03.9] 04/22/2021 Fluid overload [E87.70] 04/24/2021 Thrombocytopenia (HCC) [D69.6] 04/24/2021 Postoperative anemia [D64.9] 04/24/2021 Essential hypertension [I10] 04/25/2021 Obesity, Class I, BMI 30-34.9 [E66.9] 04/25/2021 Encounter for support and coordination of trans*04/26/2021 Encounter Status:Closed by SALVADOR CRUZ on 10/06/23 [facility] Stefan [facility] ([id number]) 1950 M Date Time Provider Department 10/03/23 STEPHANIE KIDD [facility] During your visit today, we recorded the following information about you: Isidro Mcintyre 10/03/2023 2:24 PM Signed Pt called AND stated that he just had injection today 10/02 and stated can't stand AND walking. Pt stated that he would like to schedule a surgery. Pls call back [phone] Salvador Cruz, KENNY 10/04/2023 2:15 PM Signed Neuro SPINE CARE COORDINATION QUICK NOTE MARQUIS 09-05-[address] Kidd for B gluteal pain SP B L5- S1 transforaminal epidural injection on 10-03-23 Pt reports 90 % improvement in his gluteal symptoms- pt would like to proceed with surgery. Update to Salvador Ayala RN 10/04/2023 3:37 PM Signed Neuro SPINE CARE COORDINATION QUICK NOTE DW Dr. Kidd Given the pt results- he would like to consider follow up apt. Tomorrow. Call to the pt and apt has been scheduled for 10-05-23 @ 2 00 pm ( phone apt) Allergies As of Date: 10/03/2023 Noted Allergy Reaction MOLD 12/01/2021 14 - Other: See Comments MOLD SPORES 04/17/2006 5 - Intolerance Date Reviewed: 10/03/2023 Reviewed by: Guero Pruitt RN - Fully Assessed Reason for Visit: Appointment [186] Prescriptions as of 10/04/2023 - traMADol (ULTRAM) 50 mg tablet TAKE 1/2 (ONE-HALF) TO 1 TABLET THREE TIMES DAILY NEEDED FOR PAIN - aspirin 81 mg chewable tablet Take [...] Take 60 mg by mouth once daily. Problem List As Of Date 10/03/2023 Noted Resolved BLADDER NECK OBSTRUCTION [N32.0] 10/03/2005 [...] aortic aneurysm (HCC) [I71.2*01/18/2021 Stable angina (HCC) [I20.89] 01/18/2021 Coronary artery calcification [I25.10] 01/18/2021 Family history of heart disease [Z82.49] 01/18/2021 BUBBA (obstructive sleep apnea) [G47.33] 01/18/2021 Dyslipidemia [E78.5] 01/18/2021 Discharge planning issues [Z75.8] 03/22/2021 04/26/2021 Pre-op testing [Z01.818] 03/22/2021 04/26/2021 S/P thyroidectomy [E89.0] 03/23/2021 Nonrheumatic aortic valve stenosis [I35.0] 03/23/2021 Nonrheumatic aortic valve insufficiency [I35.1] 03/23/2021 Bicuspid aortic valve [Q23.1] 03/23/2021 Coronary artery disease involving winnebago swan*04/22/2021 Atelectasis [J98.11] 04/22/2021 Post-op pain [G89.18] 04/22/2021 Postoperative hypovolemia [E89.89, E86.1] 04/22/2021 04/23/2021 Acquired hypothyroidism [E03.9] 04/22/2021 Fluid overload [E87.70] 04/24/2021 Thrombocytopenia (HCC) [D69.6] 04/24/2021 Postoperative anemia [D64.9] 04/24/2021 Essential hypertension [I10] 04/25/2021 Obesity, Class I, BMI 30-34.9 [E66.9] 04/25/2021 Encounter for support and coordination of trans*04/26/2021 Encounter Status:Closed by SALVADOR CRUZ on 10/04/23 Normal [facility] HISTORY PHYSICALon HISTORY PHYSICAL HNO ID: [id number] Author: CORKY WRIGHT MD Service: Pain Management Author Type: Physician Type: H&P Filed: 10/03/2023 08:16 Note Text: HISTORY AND PHYSICAL EXAMINATION PATIENT NAME: Marino Herrera DATE of SERVICE: 10/03/2023 Marino Herrera is here for the pain mangement procedure. The patients presents with persistent pain complaints. Marino Herrera denies any interval changes or new pain complaints or focal neurologic deficits. PAST MEDICAL HISTORY No date: Acute gastritis without mention of hemorrhage No date: Allergic rhinitis, cause unspecified No date: Carpal tunnel syndrome No date: Disorders of bursae and tendons in shoulder region, unspecified No date: Disturbance of skin sensation Comment: parasthesia No date: Esophageal reflux No date: External hemorrhoids without mention of complication No date: Family history of malignant neoplasm of gastrointestinal tract Comment: family history of colon cancer No date: Hypothyroid No date: Internal hemorrhoids without mention of complication No date: Irritable bowel syndrome Comment: IBS-D No date: BUBBA (obstructive sleep apnea) Comment: corrective surgery, uses appliance No date: Other and unspecified disc disorder of cervical region No date: Other and unspecified hyperlipidemia No date: Peripheral vertigo, unspecified 1967,1971: PMH - PAST MEDICAL HISTORY OF Comment: [facility] No date: Psychosexual dysfunction with inhibited sexual excitement PAST SURGICAL HISTORY 09/07/2001: COLONOSCOPY FLX DX W/COLLJ SPEC WHEN PFRMD Comment: Colonoscopy 10/01/2012: COLONOSCOPY FLX DX W/COLLJ SPEC WHEN PFRMD Comment: Colonoscopy 05/16/2006: COLONOSCOPY W/BIOPSY SINGLE/MULTIPLE 09/29/2009: EGD TRANSORAL BIOPSY SINGLE/MULTIPLE 08/02/2001: ESOPHAGOGASTRODUODENOSCOPY TRANSORAL DIAGNOSTIC Comment: EGD 02/13/1967: PAST SURGICAL HISTORY OF Comment: bleeding ulcer requiring transfusion 02/14/2000: PAST SURGICAL HISTORY OF Comment: cervical fusion AND laminectomy, 4-5-6? 02/13/1982: PAST SURGICAL HISTORY OF Comment: fx radius from fall, left 02/13/1997: PAST SURGICAL HISTORY OF Comment: lumbar laminectomym L2,3 02/14/1980: PAST SURGICAL HISTORY OF Comment: rhinoplasty 02/13/1970: PAST SURGICAL HISTORY OF Comment: septroplasty 02/13/2001: PAST SURGICAL HISTORY OF Comment: thyroidectomy $ thryroiditis had job's and goiter No date: PAST SURGICAL HISTORY OF Comment: bilateral carpel tunnel No date: PAST SURGICAL HISTORY OF Comment: ulveuctomy No date: PAST SURGICAL HISTORY OF Comment: lamenectomy lumbar. No date: TRANSURETHRAL ELEC-SURG PROSTATECTOM Social History Tobacco Use Smoking status: Former Types: Pipe Quit date: 04/04/2001 Years since quittin.5 Passive exposure: Past Smokeless tobacco: Former Quit date: 05/14/2016 Vaping Use Vaping status: Former Substance Use Topics Alcohol use: Yes Comment: qod scotch Drug use: No FAMILY HISTORY Problem Relation Age of Onset other (no CAD) Mother age 94 Colon Cancer Father other (lung cancer) Father colon cancer/acute luekemia/stroke other (acute leukemia) Father other (CVA) Father 83 other (coronary stent) Father 80 other (throat cancer) Brother other (Myocardial infarction) Brother 72 PCI other (Myocardial infarction) Maternal Grandfather 60 ALLERGIES Allergen Reactions Mold Other: See Comments Mold Spores Intolerance Current Facility-Administered Medications Medication Dose Route Frequency NaCl 0.9% iv infusion 30 mL/hr INTRAVENOUS CONTINUOUS Physical Exam: Performed in conjunction with observation. The patient is alert and oriented x3. The patient is in no acute distress. Neck: Supple. The range of motion is intact. Lungs: clear CVR: RRR. Extremities: no reported edema or erythema. Examination indicates no changes Impression: Lumbar canal stenosis Plan: The informed consent has been obtained. The plan is to proceed with the procedure as planned. SIGNATURE: Corky Wright MD DATE: October 03, 2023 TIME: 8:15 AM [facility] NURSING PROGon 10-03-2023 NURSING PROG HNO ID: [id number] Author: THREESA FARRIS RN Service: Nursing Author Type: Registered Nurse Type: Nursing Progress Note Filed: 10/03/2023 10:00 Note Text: Other: patient was instructed to go home and rest after procedure. Patient is only normally able to walk 10mins per patient before his legs give out. Patient is able to stand and moving and feeling everything but instructed patient it would be safer for him to go home because he may have some weakness in his legs. Patient went to the cafeteria instead of home. We reminded him a second time that it would be in his best interest to go home. [facility] OPERATIVE NOon 10-03-2023 OPERATIVE NO HNO ID: [id number] Author: CORKY WRIGHT MD Service: Pain Management Author Type: Physician Type: Operative Report Filed: 10/03/2023 09:32 Note Text: PATIENT NAME: Marino Herrera SERVICE DATE: 10/03/2023 PROCEDURE NOTE PREOPERATIVE DIAGNOSIS(ES) Lumbar radiculopathy History of lumbar fusion Lumbar canal stenosis without neurogenic claudication Lumbar DDD POSTOPERATIVE DIAGNOSIS(ES): Same PROCEDURE Bilateral L5-S1 lumbar transforaminal epidural steroid injection under fluoroscopy. ANESTHESIA: Local only INDICATIONS: The patient presents for lumbar transforaminal epidural steroid injection. Since the last assessment, the patient denies any new pain complaints and denies any focal neurological deficits. The risks and benefits of the procedure were discussed. Specifically, the risks of bleeding, infection, inadvertent dural puncture, spinal heaches, vasovagal reaction, epidural hematoma, partial or permanent nerve injury were covered. The potential side effects of medications used in procedures including increase in lumbar pain, headaches, facial redness or warmth (flushing), anxiety or mood swings, sleeplessness, fever, high blood sugar, brief reduction in immunity were discussed. The patient expressed understanding of potential risks and wishes to proceed with the procedure. PROCEDURE NOTE: The patient was brought to the operating room. The patient was placed in the prone position with pressure points protected. Continuous hemodynamic monitoring was initiated including blood pressure, EKG, and pulse oximetry. The lower back was prepped in sterile fashion. Upon AP projection under fluoroscopy, L5-S1 level was identified. The fluoroscopy was rotated in oblique projection to identify the neuroforamen. Entry point was marked and anesthetized with 2ml of 0.25% Marcaine. This was followed by insertion of a 5 inch spinal needle, which was inserted and advanced towards the 12 o' clock of the L5-S1 neuroforamen. Once the Needle tip contacted the inferior lateral aspect of the pedicle, aspiration was performed which was negative for blood or CSF. This was followed by injection of 0.2 ml of Omnipaque 300, which revealed a spread through the neuroforamen into the anterior epidural space. There was no evidence of intravascular or intrathecal flow. This was then repeated on the left side using the same technique. No difficulty was encountered. This was then followed by a total injection of 4 mL of 0.25% Marcaine with 40 mg of Depomedrol in divided and equal doses to bilateral sites. The patient tolerated the procedure well. The needles were removed intact. Dry dressing was placed over the injection site. The patient was taken to the recovery room in stable condition. EBL: nil Start time: 9:12 AM End time: 9:24 AM I was present the entire time and personally performed the procedure. SIGNATURE: Corky Wright MD DATE: October 03, 2023 TIME: 9:31 AM [facility] 09-07-2023 [facility] Telephone (CHANDU) MARINO HERRERA ([id number]) 1950 Date Time Provider Department 09/07/23 CORKY WRIGHT During your visit today, we recorded the following information about you: Jenniffer Castrejon MA 09/07/2023 10:16 AM Signed Procedure: Bilateral L5-S1 lumbar transforaminal epidural steroid injection Date: 10/03/23 Cardiac Clearance: CABG Letter has been generated and faxed to: MD Eben Reed John H, APRN.[facility] [address] [place] [id number] Will await response. Jenniffer Castrejon MA 09/08/2023 1:10 PM Signed Received letter back from Dr. Toribio. Dr. Toribio has approved the patient to proceed with the procedure cyrus . Called and notified the patient with verbalized understanding. Allergies As of Date: 09/07/2023 Noted Allergy Reaction MOLD 12/01/2021 14 - Other: See Comments MOLD SPORES 04/17/2006 5 - Intolerance Date Reviewed: 09/05/2023 Reviewed by: Kimberly Barnes MA - Fully Assessed Reason for Visit: Cardiac Clearance [4105] Prescriptions as of 09/08/2023 - traMADol (ULTRAM) 50 mg tablet TAKE 1/2 (ONE-HALF) TO 1 TABLET THREE TIMES DAILY NEEDED FOR PAIN - aspirin 81 mg chewable tablet Take [...] Take 60 mg by mouth once daily. Problem List As Of Date 09/07/2023 Noted Resolved BLADDER NECK OBSTRUCTION [N32.0] 10/03/2005 [...] aortic aneurysm (HCC) [I71.2*01/18/2021 Stable angina (HCC) [I20.89] 01/18/2021 Coronary artery calcification [I25.10] 01/18/2021 Family history of heart disease [Z82.49] 01/18/2021 BUBBA (obstructive sleep apnea) [G47.33] 01/18/2021 Dyslipidemia [E78.5] 01/18/2021 Discharge planning issues [Z75.8] 03/22/2021 04/26/2021 Pre-op testing [Z01.818] 03/22/2021 04/26/2021 S/P thyroidectomy [E89.0] 03/23/2021 Nonrheumatic aortic valve stenosis [I35.0] 03/23/2021 Nonrheumatic aortic valve insufficiency [I35.1] 03/23/2021 Bicuspid aortic valve [Q23.1] 03/23/2021 Coronary artery disease involving winnebago swan*04/22/2021 Atelectasis [J98.11] 04/22/2021 Post-op pain [G89.18] 04/22/2021 Postoperative hypovolemia [E89.89, E86.1] 04/22/2021 04/23/2021 Acquired hypothyroidism [E03.9] 04/22/2021 Fluid overload [E87.70] 04/24/2021 Thrombocytopenia (HCC) [D69.6] 04/24/2021 Postoperative anemia [D64.9] 04/24/2021 Essential hypertension [I10] 04/25/2021 Obesity, Class I, BMI 30-34.9 [E66.9] 04/25/2021 Encounter for support and coordination of trans*04/26/2021 Letter Text Encounter Status:Closed by JENNIFFER CASTREJON on 09/08/23 [facility] MARINO HERRERA ([id number]) 1950 M Date Time Provider Department 09/06/23 STEPHANIE KIDD [facility] During your visit today, we recorded the following information about you: Venus Maddox 09/06/2023 9:55 AM Signed Name of Caller: Marino Relationship to patient: patient Last visit in this department: 09/05/2023 Reason for Call: p pt asking for clarification on the rest results Dr kidd still needs from [place] they believe they sent everything Callback number: [phone] Allergies As of Date: 09/06/2023 Noted Allergy Reaction MOLD 12/01/2021 14 - Other: See Comments MOLD SPORES 04/17/2006 5 - Intolerance Date Reviewed: 09/05/2023 Reviewed by: Kimberly Barnes MA - Fully Assessed Prescriptions as of 09/06/2023 - traMADol (ULTRAM) 50 mg tablet TAKE 1/2 (ONE-HALF) TO 1 TABLET THREE TIMES DAILY NEEDED FOR PAIN - aspirin 81 mg chewable tablet Take [...] Take 60 mg by mouth once daily. Problem List As Of Date 09/06/2023 Noted Resolved BLADDER NECK OBSTRUCTION [N32.0] 10/03/2005 [...] aortic aneurysm (HCC) [I71.2*01/18/2021 Stable angina (HCC) [I20.89] 01/18/2021 Coronary artery calcification [I25.10, I25.84] 01/18/2021 Family history of heart disease [Z82.49] 01/18/2021 BUBBA (obstructive sleep apnea) [G47.33] 01/18/2021 Dyslipidemia [E78.5] 01/18/2021 Discharge planning issues [Z75.8] 03/22/2021 04/26/2021 Pre-op testing [Z01.818] 03/22/2021 04/26/2021 S/P thyroidectomy [E89.0] 03/23/2021 Nonrheumatic aortic valve stenosis [I35.0] 03/23/2021 Nonrheumatic aortic valve insufficiency [I35.1] 03/23/2021 Bicuspid aortic valve [Q23.1] 03/23/2021 Coronary artery disease involving winnebago swan*04/22/2021 Atelectasis [J98.11] 04/22/2021 Post-op pain [G89.18] 04/22/2021 Postoperative hypovolemia [E89.89, E86.1] 04/22/2021 04/23/2021 Acquired hypothyroidism [E03.9] 04/22/2021 Fluid overload [E87.70] 04/24/2021 Thrombocytopenia (HCC) [D69.6] 04/24/2021 Postoperative anemia [D64.9] 04/24/2021 Essential hypertension [I10] 04/25/2021 Obesity, Class I, BMI 30-34.9 [E66.9] 04/25/2021 Encounter for support and coordination of trans*04/26/2021 Encounter Status:Closed by JAZMYNE VALENCIA on 09/06/23 [facility] CNOVon 09-05-2023 CNOV Office Visit ([facility] ) MARINO HERRERA ([id number]) 1950 M Date Time Provider Department 09/05/23 11:00 AM STEPHANIE KIDD [facility] During your visit today, we recorded the following information about you: Temperature Pulse Blood pressure Weight 97.4 degrees 59/minute 136/77 87 kg Stephanie Kidd MD 09/05/2023 11:18 AM Signed SPINE SURGERY NEW PATIENT This is an in-person visit. PCP: Yecenia Okeefe MD REFERRING PROVIDER: Self SUBJECTIVE HISTORY OF PRESENT ILLNESS: Marino Herrera is a 73 year old male presenting alone. CHIEF COMPLAINT: Bilateral gluteal pain worsen upon standing PRECIPITATING EVENT: None DURATION OF SYMPTOMS: Greater Than 6 Months Is a very pleasant 73-year-old male, equar-mkfu-jwnrojge, non-smoker, nondiabetic who presents for evaluation. He reports when he is sitting he has no pain upon standing he experiences bilateral gluteal pain radiating to the lateral aspect of his thighs. He had previously undergone L4-5 decompression fusion, as well as a spinal cord stimulator. He reports when he is having a bad day he can increase the voltage of his spinal cord stimulator and he is able to complete tasks he needs to, but he feels very fatigued after. In 2000 he underwent multilevel ACDF. He reports some baseline altered sensation in his hands nothing acutely worsening. He has had bilateral carpal tunnel surgery as well as bilateral carpal tunnel revision surgery. He reports a longstanding bladder issues, nothing new nothing progressive. He was seen locally in [place] and he was offered an extension of his fusion cranially, but patient denies any anterior based thigh pain, reports only gluteal . CT myelogram also demonstrated T12-L1 disc protrusion without severe stenosis. Patient is open to all options including extension of his fusion. DERMATOMAL DISTRIBUTION: L5 bilaterally AMBULATORY STATUS: Independent Community Distances ANTIPLATELET OR ANTICOAGULATION STATUS: No PREVIOUS CONSERVATIVE TREATMENTS: Nsaids PREVIOUS SPINAL SURGERY: 2000, Cervical Fusion [facility] [address] [place] [address] SCS placed last September ~ 5 years ago, 3 Lumbar surgeries [facility] [address] [place] [address] [facility] --closed ACTIVE PROBLEM LIST Bladder Neck Obstruction Hypertrophy of Prostate With Urinary Obstruction and Other Lower Urinary Tract Symptoms (Luts) Impotence of Organic Origin Ibs (Irritable Bowel Syndrome) Esophageal Reflux Acute Gastritis Without Mention of Hemorrhage Impotence Elevated Psa Urgency of Urination Frequency of Urination Nocturia Bph (Benign Prostatic Hyperplasia) Hematuria Family History of Colon Cancer in Father Dissection of Thoracic Aorta (Hcc) Thoracic Ascending Aortic Aneurysm (Hcc) Stable Angina (Hcc) Coronary Artery Calcification Family History of Heart Disease Bubba (Obstructive Sleep Apnea) Dyslipidemia S/P Thyroidectomy Nonrheumatic Aortic Valve Stenosis Nonrheumatic Aortic Valve Insufficiency Bicuspid Aortic Valve Coronary Artery Disease Involving Platinum 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) Atelectasis Post-Op Pain Acquired Hypothyroidism Fluid Overload Thrombocytopenia (Hcc) Postoperative Anemia Essential Hypertension Obesity, Class I, Bmi 30-34.9 Encounter for Support and Coordination of Transition of Care PAST MEDICAL HISTORY Diagnosis Date Acute gastritis without mention of hemorrhage Allergic rhinitis, cause unspecified Carpal tunnel syndrome Disorders of bursae and tendons in shoulder region, unspecified Disturbance of skin sensation parasthesia Esophageal reflux External hemorrhoids without mention of complication Family history of malignant neoplasm of gastrointestinal tract family history of colon cancer Hypothyroid Internal hemorrhoids without mention of complication Irritable bowel syndrome IBS-D BUBBA (obstructive sleep apnea) corrective surgery, uses appliance Other and unspecified disc disorder of cervical region Other and unspecified hyperlipidemia Peripheral vertigo, unspecified PMH - PAST MEDICAL HISTORY OF 1967,1971 [facility] Psychosexual dysfunction with inhibited sexual excitement PAST SURGICAL HISTORY Procedure Laterality Date COLONOSCOPY FLX DX W/COLLJ SPEC WHEN PFRMD 09/07/2001 Colonoscopy COLONOSCOPY FLX DX W/COLLJ SPEC WHEN PFRMD 10/01/2012 Colonoscopy COLONOSCOPY W/BIOPSY SINGLE/MULTIPLE 05/16/2006 EGD TRANSORAL BIOPSY SINGLE/MULTIPLE 09/29/2009 ESOPHAGOGASTRODUODENOSCOPY TRANSORAL DIAGNOSTIC 08/02/2001 EGD PAST SURGICAL HISTORY OF 02/13/1967 bleeding ulcer requiring transfusion PAST SURGICAL HISTORY OF 02/14/2000 cervical fusion AND laminectomy, 4-5-6? PAST SURGICAL HISTORY OF 02/13/1982 fx radius from fall, left PAST SURGICAL HISTORY OF 02/13 (more content not included)... Normal [facility] MARINO HERRERA ([id number]) 1950 M Date Time Provider Department 09/05/23 CORKY WRIGHT PNDAMION During your visit today, we recorded the following information about you: Anju Christensen 09/05/2023 3:58 PM Signed Patient needs scheduled for Spine intervention procedure with . Please see procedure orders tab to schedule. Nelly Boyce, RN 09/05/2023 4:03 PM Signed Patient voicemail received 09/05/2023 at 1559 regarding same request as dictated by PSS. Office to contact patient to schedule. Jenniffer Castrejon MA 09/06/2023 3:32 PM Signed Patient contacted via telephone to schedule injection. Patient has scheduled for: 10/03/23 Patient instructed to hold the following medication(s) prior to the procedure: - ASA81 for 2 days Pre-procedure instructions reviewed over telephone and a list of instructions were sent via [employer]. Patient verbalized understanding with no additional questions or concerns at this time. Allergies As of Date: 09/05/2023 Noted Allergy Reaction MOLD 12/01/2021 14 - Other: See Comments MOLD SPORES 04/17/2006 5 - Intolerance Date Reviewed: 09/05/2023 Reviewed by: Kimberly Barnes MA - Fully Assessed Reason for Visit: Schedule Injection [8362] Cmt: Consult - Dr. Kidd Prescriptions as of 09/06/2023 - traMADol (ULTRAM) 50 mg tablet TAKE 1/2 (ONE-HALF) TO 1 TABLET THREE TIMES DAILY NEEDED FOR PAIN - aspirin 81 mg chewable tablet Take [...] Take 60 mg by mouth once daily. Problem List As Of Date 09/05/2023 Noted Resolved BLADDER NECK OBSTRUCTION [N32.0] 10/03/2005 [...] aortic aneurysm (HCC) [I71.2*01/18/2021 Stable angina (HCC) [I20.89] 01/18/2021 Coronary artery calcification [I25.10, I25.84] 01/18/2021 Family history of heart disease [Z82.49] 01/18/2021 BUBBA (obstructive sleep apnea) [G47.33] 01/18/2021 Dyslipidemia [E78.5] 01/18/2021 Discharge planning issues [Z75.8] 03/22/2021 04/26/2021 Pre-op testing [Z01.818] 03/22/2021 04/26/2021 S/P thyroidectomy [E89.0] 03/23/2021 Nonrheumatic aortic valve stenosis [I35.0] 03/23/2021 Nonrheumatic aortic valve insufficiency [I35.1] 03/23/2021 Bicuspid aortic valve [Q23.1] 03/23/2021 Coronary artery disease involving winnebago swan*04/22/2021 Atelectasis [J98.11] 04/22/2021 Post-op pain [G89.18] 04/22/2021 Postoperative hypovolemia [E89.89, E86.1] 04/22/2021 04/23/2021 Acquired hypothyroidism [E03.9] 04/22/2021 Fluid overload [E87.70] 04/24/2021 Thrombocytopenia (HCC) [D69.6] 04/24/2021 Postoperative anemia [D64.9] 04/24/2021 Essential hypertension [I10] 04/25/2021 Obesity, Class I, BMI 30-34.9 [E66.9] 04/25/2021 Encounter for support and coordination of trans*04/26/2021 Encounter Status:Closed by NELLY BOYCE on 09/05/23 Normal [facility] No Panel Informationon 09-04 IMPRESSION: Counting reference: Lumbosacral junction. For the purposes of this report, L4-5 is considered the level of the iliac crest and assume there are 5 lumbar-type vertebrae. Anatomic variant: None. Electrical stimulator in the right gluteal soft tissues with wires extending into spinal canal with tip at the level of T8. Postoperative changes of anterior fusion at C4-C6. Status post posterior decompression and posterior fusion at L4-L5. Multilevel degenerative changes. Thoracolumbar dextroscoliosis centered at T12 measuring approximately 8 degrees between mid thoracic and lower lumbar spine. No instability on flexion or extension of the lumbar spine. No other significant abnormality. Credit Resolution Representative: PSCB Transcribe Date/Time: Sep 05 2023 11:21P Dictated by : ASHLYN SILVA MD This examination was interpreted and the report reviewed and electronically signed by: ASHLYN SILVA MD on Sep 05 2023 11:25PM [facility] DIVISION OF RADIOLOGY Radiology Study observation (narrative) [facility] No Panel InformationOrdered By: Ccf Provider on 09-05-2023 [facility] XR LUMBAR 4V AP/LAT/ FLEX/EX Ton 09-05-2023 XR LUMBAR 4V AP/LAT/ FLEX/EXT * * *Final Report* * * DATE OF EXAM: Sep 05 2023 11:12AM M2X 5231 - XR LUMBAR 4V AP/LAT/ FLEX/EXT / PROCEDURE REASON: Spinal stenosis of lumbar region without neurogenic claudication * * * * Physician Interpretation * * * * EXAMINATION: XR SCOLIOSIS 2V PA STAND/LAT, XR LUMBAR 4V AP/LAT/ FLEX/EXT HISTORY: chronic low back pain Spinal stenosis of lumbar region without neurogenic claudication . TECHNIQUE: XR SCOLIOSIS 2V PA STAND/LAT, XR LUMBAR 4V AP/LAT/ FLEX/EXT Laterality: NOT APPLICABLE Number of different views (projections): 2 (accession [id number]), 4 (accession [id number]) M: XB_1 COMPARISON: None RESULT/ IMPRESSION: Counting reference: Lumbosacral junction. For the purposes of this report, L4-5 is considered the level of the iliac crest and assume there are 5 lumbar-type vertebrae. Anatomic variant: None. Electrical stimulator in the right gluteal soft tissues with wires extending into spinal canal with tip at the level of T8. Postoperative changes of anterior fusion at C4-C6. Status post posterior decompression and posterior fusion at L4-L5. Multilevel degenerative changes. Thoracolumbar dextroscoliosis centered at T12 measuring approximately 8 degrees between mid thoracic and lower lumbar spine. No instability on flexion or extension of the lumbar spine. No other significant abnormality. Credit Resolution Representative: BRENDA Transcribe Date/Time: Sep 05 2023 11:21P Dictated by : ASHLYN SILVA MD This examination was interpreted and the report reviewed and electronically signed by: ASHLYN SILVA MD on Sep 05 2023 11:25PM EST [id number] Normal [facility] XR Lumbar spine Views W flex ion and W extensionon 09-05-2023 * * *Final Report* * * DATE OF EXAM: Sep 05 2023 11:12AM M2X 5231 - XR LUMBAR 4V AP/LAT/ FLEX/EXT / PROCEDURE REASON: Spinal stenosis of lumbar region without neurogenic claudication * * * * Physician Interpretation * * * * EXAMINATION: XR SCOLIOSIS 2V PA STAND/LAT, XR LUMBAR 4V AP/LAT/ FLEX/EXT HISTORY: chronic low back pain Spinal stenosis of lumbar region without neurogenic claudication . TECHNIQUE: XR SCOLIOSIS 2V PA STAND/LAT, XR LUMBAR 4V AP/LAT/ FLEX/EXT Laterality: NOT APPLICABLE Number of different views (projections): 2 (accession [id number]), 4 (accession [id number]) M: XB_1 COMPARISON: None RESULT/ DIVISION OF RADIOLOGY Provider, Dorota Centeno - 09/05/2023 * * *Final Report* * * DATE OF EXAM: Sep 05 2023 11:12AM M2X 5231 - XR LUMBAR 4V AP/LAT/ FLEX/EXT / PROCEDURE REASON: Spinal stenosis of lumbar region without neurogenic claudication * * * * Physician Interpretation * * * * EXAMINATION: XR SCOLIOSIS 2V PA STAND/LAT, XR LUMBAR 4V AP/LAT/ FLEX/EXT HISTORY: chronic low back pain Spinal stenosis of lumbar region without neurogenic claudication . TECHNIQUE: XR SCOLIOSIS 2V PA STAND/LAT, XR LUMBAR 4V AP/LAT/ FLEX/EXT Laterality: NOT APPLICABLE Number of different views (projections): 2 (accession [id number]), 4 (accession [id number]) M: XB_1 COMPARISON: None RESULT/ IMPRESSION IMPRESSION: Counting reference: Lumbosacral junction. For the purposes of this report, L4-5 is considered the level of the iliac crest and assume there are 5 lumbar-type vertebrae. Anatomic variant: None. Electrical stimulator in the right gluteal soft tissues with wires extending into spinal canal with tip at the level of T8. Postoperative changes of anterior fusion at C4-C6. Status post posterior decompression and posterior fusion at L4-L5. Multilevel degenerative changes. Thoracolumbar dextroscoliosis centered at T12 measuring approximately 8 degrees between mid thoracic and lower lumbar spine. No instability on flexion or extension of the lumbar spine. No other significant abnormality. Credit Resolution Representative: PSCB Transcribe Date/Time: Sep 05 2023 11:21P Dictated by : ASHLYN SILVA MD This examination was interpreted and the report reviewed and electronically signed by: ASHLYN SILVA MD on Sep 05 2023 11:25PM [facility] XR SCOLIOSIS 2V PA STAND/LAT on 09-05-2023 XR SCOLIOSIS 2V PA STAND/LAT * * *Final Report* * * DATE OF EXAM: Sep 05 2023 11:12AM M2X 5251 - XR SCOLIOSIS 2V PA STAND/LAT / PROCEDURE REASON: Spinal stenosis of lumbar region without neurogenic claudication * * * * Physician Interpretation * * * * EXAMINATION: XR SCOLIOSIS 2V PA STAND/LAT, XR LUMBAR 4V AP/LAT/ FLEX/EXT HISTORY: chronic low back pain Spinal stenosis of lumbar region without neurogenic claudication . TECHNIQUE: XR SCOLIOSIS 2V PA STAND/LAT, XR LUMBAR 4V AP/LAT/ FLEX/EXT Laterality: NOT APPLICABLE Number of different views (projections): 2 (accession [id number]), 4 (accession [id number]) M: XB_1 COMPARISON: None RESULT/ IMPRESSION: Counting reference: Lumbosacral junction. For the purposes of this report, L4-5 is considered the level of the iliac crest and assume there are 5 lumbar-type vertebrae. Anatomic variant: None. Electrical stimulator in the right gluteal soft tissues with wires extending into spinal canal with tip at the level of T8. Postoperative changes of anterior fusion at C4-C6. Status post posterior decompression and posterior fusion at L4-L5. Multilevel degenerative changes. Thoracolumbar dextroscoliosis centered at T12 measuring approximately 8 degrees between mid thoracic and lower lumbar spine. No instability on flexion or extension of the lumbar spine. No other significant abnormality. Credit Resolution Representative: PSCB Transcribe Date/Time: Sep 05 2023 11:21P Dictated by : ASHLYN SILVA MD This examination was interpreted and the report reviewed and electronically signed by: ASHLYN SILVA MD on Sep 05 2023 11:25PM EST [id number] Normal [facility] XR Thoracic and lumbar spine Views for scoliosis W standingon 09-05-2023 * * *Final Report* * * DATE OF EXAM: Sep 05 2023 11:12AM M2X 5251 - XR SCOLIOSIS 2V PA STAND/LAT / PROCEDURE REASON: Spinal stenosis of lumbar region without neurogenic claudication * * * * Physician Interpretation * * * * EXAMINATION: XR SCOLIOSIS 2V PA STAND/LAT, XR LUMBAR 4V AP/LAT/ FLEX/EXT HISTORY: chronic low back pain Spinal stenosis of lumbar region without neurogenic claudication . TECHNIQUE: XR SCOLIOSIS 2V PA STAND/LAT, XR LUMBAR 4V AP/LAT/ FLEX/EXT Laterality: NOT APPLICABLE Number of different views (projections): 2 (accession [id number]), 4 (accession [id number]) M: XB_1 COMPARISON: None RESULT/ DIVISION OF RADIOLOGY Provider, [facility] - 09/05/2023 * * *Final Report* * * DATE OF EXAM: Sep 05 2023 11:12AM M2X 5251 - XR SCOLIOSIS 2V PA STAND/LAT / PROCEDURE REASON: Spinal stenosis of lumbar region without neurogenic claudication * * * * Physician Interpretation * * * * EXAMINATION: XR SCOLIOSIS 2V PA STAND/LAT, XR LUMBAR 4V AP/LAT/ FLEX/EXT HISTORY: chronic low back pain Spinal stenosis of lumbar region without neurogenic claudication . TECHNIQUE: XR SCOLIOSIS 2V PA STAND/LAT, XR LUMBAR 4V AP/LAT/ FLEX/EXT Laterality: NOT APPLICABLE Number of different views (projections): 2 (accession [id number]), 4 (accession [id number]) M: XB_1 COMPARISON: None RESULT/ IMPRESSION IMPRESSION: Counting reference: Lumbosacral junction. For the purposes of this report, L4-5 is considered the level of the iliac crest and assume there are 5 lumbar-type vertebrae. Anatomic variant: None. Electrical stimulator in the right gluteal soft tissues with wires extending into spinal canal with tip at the level of T8. Postoperative changes of anterior fusion at C4-C6. Status post posterior decompression and posterior fusion at L4-L5. Multilevel degenerative changes. Thoracolumbar dextroscoliosis centered at T12 measuring approximately 8 degrees between mid thoracic and lower lumbar spine. No instability on flexion or extension of the lumbar spine. No other significant abnormality. Credit Resolution Representative: PSCB Transcribe Date/Time: Sep 05 2023 11:21P Dictated by : ASHLYN SILVA MD This examination was interpreted and the report reviewed and electronically signed by: ASHLYN SILVA MD on Sep 05 2023 11:25PM [facility] Stefan 08-29-2023 [facility] Telephone ([facility]) MARINO HERRERA ([id number]) 1950 M Date Time Provider Department 08/29/23 STEPHANIE KIDD [facility] During your visit today, we recorded the following information about you: Venus Maddox 08/29/2023 4:04 PM Signed Name of Caller: Marino Relationship to patient: patient Last visit in this department: Visit date not found Reason for Call: Other : pt needs a tooth removed and is wondering if he will still be able to have his back surgery . Please advise Callback number: [phone] Salvador Cruz RN 08/29/2023 4:42 PM Signed Forwarded back to [facility] We cannot comment as the pt has never been seen Pt apt is for 09-05-23 Allergies As of Date: 08/29/2023 Noted Allergy Reaction MOLD SPORES 04/17/2006 5 - Intolerance Date Reviewed: 07/26/2021 Reviewed by: Alie Quesada MA - Fully Assessed Prescriptions as of 08/29/2023 - aspirin 81 mg chewable tablet Take [...] Take 60 mg by mouth once daily. 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] 03/23/2021 Bicuspid aortic valve [Q23.1] 03/23/2021 Coronary artery disease involving winnebago swan*04/22/2021 Atelectasis [J98.11] 04/22/2021 Post-op pain [G89.18] 04/22/2021 Postoperative hypovolemia [E89.89, E86.1] 04/22/2021 04/23/2021 Acquired hypothyroidism [E03.9] 04/22/2021 Fluid overload [E87.70] 04/24/2021 Thrombocytopenia (HCC) [D69.6] 04/24/2021 Postoperative anemia [D64.9] 04/24/2021 Essential hypertension [I10] 04/25/2021 Obesity, Class I, BMI 30-34.9 [E66.9] 04/25/2021 Encounter for support and coordination of trans*04/26/2021 Encounter Status:Closed by SALVADOR CRUZ on 7/16/24 Normal [facility] Mario Basophil percentageOrdered B y: Dr. Toribio on 05-26-2022 Bilirubin [Mass/Vol] 0.50 mg/dL 0.20-1.00 [facility] Comment on above: For patients on eltr ombopag therapy, use of Dimension [place] TBIL is not recommended. Cholesterol [Mass/Vol] 163 mg/dL <200 [facility] Comment on above: <200 mg/dL Desirable 200-240 mg/dL Borderline >240 mg/dL High Risk Protein [Mass/Vol] 7.0 g/dL 6.4-8.2 [facility] Triglyceride [Mass/Vol] 70 mg/dL <199 [facility] Comment on above: The drugs N-Acetylcy steine and Metamizole may falsely depress this assay.Serum Triglycerides Reference Interval Normal <150 mg/dL Borderline high 150 - 199 mg/dL High 200 - 499 mg/dL Very High > or = 500 mg/dL Direct bilirubinOrdered By: Dr. Toribio on 05-26-2022 Bilirubin.direct [Mass/Vol] 0.13 mg/dL 0.00-0.30 [facility] Laboratory - Chemistry and C hemistry - challengeOrdered By: Dr. Toribio on 05-26-2022 ALP [Catalytic activity/Vol] 72 U/L 45-117 [facility] ALT [Catalytic activity/Vol] 51 U/L 16-61 [facility] Globulin (S) [Mass/Vol] 3.3 g/dL 2.2-4.2 [facility] Serum or plasma albumin sunil urement (mass/volume)Ordered By: Dr. Toribio on 05-26-2022 Albumin [Mass/Vol] 3.7 g/dL 3.2-5.0 [facility] Serum or plasma cholesterol in HDL measurement (mass/volume)Ordered By: Dr. Toribio on 05-26-2022 Cholesterol in HDL [Mass/Vol] 56 mg/dL >40 [facility] Comment on above: The drugs N-Acetylcy steine and Metamizole may falsely depress this assay. Reference Range HDL <40 mg/dL Low HDL Cholesterol HDL >or= 60 mg/dL High HDL Cholesterol Serum or plasma cholesterol in VLDL measurement (mass/volume)Ordered By: Dr. Toribio on 05-26-2022 Cholesterol in VLDL [Mass/Vol] 14 mg/dL 5-40 [facility] Serum or plasma low density lipoprotein (LDL) cholesterol measurement (mass/volume)Ordered By: Dr. Toribio on 05-26-2022 Cholesterol in LDL [Mass/Vol] 93 mg/dL 0-130 [facility] Thin prep Papanicolaou smear with manual screeningOrdered By: Dr. Toribio on 05-26-2022 Thin prep Papanicolaou smear with manual screening 41 U/L 15-37 [facility] Basophil percentageOrdered B y: Dr. Toribio on 04-27-2022 Basophil percentage < 0.9 mg/dL 0.70-1.30 [facility] No Panel InformationOrdered By: Dr. Toribio on 04-27-2022 Bedside Estimated GFR (eGFR) > 60.0000 mL/min >60 [facility] Laboratory - Chemistry and C hemistry - challengeOrdered By: Dr. Okeefe on 03-30-2022 T4 [Mass/Vol] 10.1 ug/dL 4.5-12.1 [facility] No Panel InformationOrdered By: Dr. Okeefe on 03-30-2022 Thyroid Stimulating Hormone (TSH) 3.81 uIU/mL 0.358-3.74 [facility] No Panel InformationOrdered By: MARIJA Marquez on 02-15-2022 Prostate Specific Antigen Screen 0.97 ng/mL 0.00-4.00 [facility] Comment on above: This test was perfor med using the TPSA assay method [facility]. Values obtained with differentassay methods cannot be used interchangably.When changing PSA assays in the course of monitoring apatient, additional sequential testing should be carriedout to confirm baseline values. Basophil percentageOrdered B y: Dr. Toribio on 11-18-2021 Bilirubin [Mass/Vol] 0.60 mg/dL 0.20-1.00 [facility] Comment on above: For patients on eltr ombopag therapy, use of Dimension [place] TBIL is not recommended. Cholesterol [Mass/Vol] 155 mg/dL <200 [facility] Comment on above: <200 mg/dL Desirable 200-240 mg/dL Borderline >240 mg/dL High Risk Protein [Mass/Vol] 7.4 g/dL 6.4-8.2 [facility] Triglyceride [Mass/Vol] 113 mg/dL <199 [facility] Comment on above: The drugs N-Acetylcy steine and Metamizole may falsely depress this assay.Serum Triglycerides Reference Interval Normal <150 mg/dL Borderline high 150 - 199 mg/dL High 200 - 499 mg/dL Very High > or = 500 mg/dL Direct bilirubinOrdered By: Dr. Toribio on 11-18-2021 Bilirubin.direct [Mass/Vol] 0.11 mg/dL 0.00-0.30 [facility] Laboratory - Chemistry and C hemistry - challengeOrdered By: Dr. Toribio on 11-18-2021 ALP [Catalytic activity/Vol] 82 U/L 45-117 [facility] ALT [Catalytic activity/Vol] 40 U/L 16-61 [facility] Globulin (S) [Mass/Vol] 3.7 g/dL 2.2-4.2 [facility] Serum or plasma albumin sunil urement (mass/volume)Ordered By: Dr. Toribio on 11-18-2021 Albumin [Mass/Vol] 3.7 g/dL 3.2-5.0 [facility] Serum or plasma cholesterol in HDL measurement (mass/volume)Ordered By: Dr. Toribio on 11-18-2021 Cholesterol in HDL [Mass/Vol] 51 mg/dL >40 [facility] Comment on above: The drugs N-Acetylcy steine and Metamizole may falsely depress this assay. Reference Range HDL <40 mg/dL Low HDL Cholesterol HDL >or= 60 mg/dL High HDL Cholesterol Serum or plasma cholesterol in VLDL measurement (mass/volume)Ordered By: Dr. Toribio on 11-18-2021 Cholesterol in VLDL [Mass/Vol] 23 mg/dL 5-40 [facility] Serum or plasma low density lipoprotein (LDL) cholesterol measurement (mass/volume)Ordered By: Dr. Toribio on 11-18-2021 Cholesterol in LDL [Mass/Vol] 81 mg/dL 0-130 [facility] Thin prep Papanicolaou smear with manual screeningOrdered By: Dr. Toribio on 11-18-2021 Thin prep Papanicolaou smear with manual screening 26 U/L 15-37 [facility] CREATININE, BLOOD (POC)on Creatinine [Mass/Vol] 0.90 mg/dL 0.7 - 1.4 mg/dL [facility] GFR/1.73 sq M.predicted among non-blacks MDRD (S/P/Bld) [Vol rate/Area] mL/min/{1.73_m2} [facility] CTA CHEST (GATED) W IVCONon 07-26-2021 [facility] Basophil percentageon 2021 Bilirubin [Mass/Vol] 0.40 mg/dL 0.20-1.00 [facility] Work Phone: Comment on above: For patients on eltr ombopag therapy, use of Dimension [place] TBIL is not recommended. Cholesterol [Mass/Vol] 124 mg/dL <200 [facility] Work Phone: Comment on above: <200 mg/dL Desirable 200-240 mg/dL Borderline >240 mg/dL High Risk Protein [Mass/Vol] 7.5 g/dL 6.4-8.2 [facility] Work Phone: Triglyceride [Mass/Vol] 93 mg/dL <199 [facility] Work Phone: Comment on above: The drugs N-Acetylcy steine and Metamizole may falsely depress this assay.Serum Triglycerides Reference Interval Normal <150 mg/dL Borderline high 150 - 199 mg/dL High 200 - 499 mg/dL Very High > or = 500 mg/dL Direct bilirubinon 2 Bilirubin.direct [Mass/Vol] 0.12 mg/dL 0.00-0.30 [facility] Work Phone: Laboratory - Chemistry and C hemistry - challengeon 05-25-2021 ALP [Catalytic activity/Vol] 124 U/L 45-117 [facility] Work Phone: ALT [Catalytic activity/Vol] 34 U/L 16-61 [facility] Work Phone: Globulin (S) [Mass/Vol] 3.8 g/dL 2.2-4.2 [facility] Work Phone: Serum or plasma albumin sunil urement (mass/volume)on 05-25-2021 Albumin [Mass/Vol] 3.7 g/dL 3.2-5.0 [facility] Work Phone: Serum or plasma cholesterol in HDL measurement (mass/volume)on 05-25-2021 Cholesterol in HDL [Mass/Vol] 42 mg/dL >40 [facility] Work Phone: Comment on above: The drugs N-Acetylcy steine and Metamizole may falsely depress this assay. Reference Range HDL <40 mg/dL Low HDL Cholesterol HDL >or= 60 mg/dL High HDL Cholesterol Serum or plasma cholesterol in VLDL measurement (mass/volume)on 05-25-2021 Cholesterol in VLDL [Mass/Vol] 19 mg/dL 5-40 [facility] Work Phone: Serum or plasma low density lipoprotein (LDL) cholesterol measurement (mass/volume)on 05-25-2021 Cholesterol in LDL [Mass/Vol] 63 mg/dL 0-130 [facility] Work Phone: Thin prep Papanicolaou smear with manual screeningon 05-25-2021 Thin prep Papanicolaou smear with manual screening 24 U/L 15-37 [facility] Work Phone: CR Spine Cervical 2 or 3 Vie wson 12-29-2016 CR Spine Cervical 2 or 3 Views Patient Name: MARINO HERRERA Diagnostic Radiology Exam Date/Time 12/29/2016 12:38:58 EST Exam CR Spine Cervical 2 or 3 Views Ordering Physician EDUARDO ANGULO Accession Number [id number] CPT4 Codes 16654 () Reason For Exam spinal stenosis, cervical Report CERVICAL SPINE: CLINICAL INDICATION: Cervical spinal stenosis TECHNIQUE: Lateral flexion and extension views COMPARISON: None FINDINGS: There is anterior cervical fusion of C4-C7 with anterior plates and screws with mature osseous fusion. There is disc space narrowing at C6-C7 with endplate spurring. There is normal cervical lordosis. Vertebral body heights are maintained. The predental interval is not widened. No spondylolisthesis. No abnormal motion on flexion or extension. Multiple surgical clips in the anterior neck soft tissues. IMPRESSION: Status post anterior cervical fusion from C4 to C7. No spondylolisthesis or abnormal motion on flexion-extension. Degenerative changes at C6-C7. Report Dictated on Final Dictated: 12/29/2016 3:07 pm Dictating Physician: MD NAVA KEVIN Signed Date and Time: 12/29/2016 3:09 pm Signed by: MD NAVA KEVIN Transcribed Date and Time: 12/29/2016 3:07 Normal [facility] Vital Signs Date Time Vital Sign Value Performing Clinician Facility 08-06-2024 14:04-0400 Diastolic blood pressure 57 mm[Hg] Stephanie Kidd MD Work Phone: [facility] 08-06-2024 14:04-0400 Heart rate 71 /min Stephanie Kidd MD Work Phone: [facility] 08-06-2024 14:04-0400 Systolic blood pressure 118 mm[Hg] Stephanie Kidd MD Work Phone: [facility] 01-09-2024 11:19-0500 Diastolic blood pressure 75 mm[Hg] Stephanie Kidd MD Work Phone: [facility] 01-09-2024 11:19-0500 Heart rate 80 /min Stephanie Kidd MD Work Phone: [facility] 01-09-2024 11:19-0500 Systolic blood pressure 141 mm[Hg] Stephanie Kidd MD Work Phone: [facility] 12-12-2023 11:13-0400 Body height 172.1 cm Stephanie Kidd MD Work Phone: [facility] 12-12-2023 11:130400 Body mass index (BMI) [Ratio] 29.32 kg/m2 Stephanie Kidd MD Work Phone: [facility] 12-12-2023 11:13-0400 Body weight 86.85 kg Stephanie Kidd MD Work Phone: [facility] 12-12-2023 11:13-0400 Diastolic blood pressure 70 mm[Hg] Stephanie Kidd MD Work Phone: [facility] 12-12-2023 11:13-0400 Heart rate 79 /min Stephanie Kidd MD Work Phone: [facility] 12-12-2023 11:13-0400 Systolic blood pressure 131 mm[Hg] Stephanie Kidd MD Work Phone: [facility] 11-28-2023 08:42-0400 SaO2% (BldA) [Mass fraction] 100 % YECENIA OKEEFE [facility] Comment on above: Order Comment: Specimen Type: ARTERIAL B LOOD SPECIMENOrdering Facility: [facility] Address: [address] [place] [address] Performed By: #### A LLBG ####[facility] LABCLIA [id number] [place] [address] [place] 11-01-2023 12:24-0400 Body height 175.3 cm Pac 5 Work Phone: [facility] 11-01-2023 12:24-0400 Body mass index (BMI) [Ratio] 28.06 kg/m2 Pac 5 Work Phone: [facility] 11-01-2023 12:24-0400 Body temperature 96.91 [degF] Pac 5 Work Phone: [facility] 11-01-2023 12:24-0400 Body weight 86.18 kg Pac 5 Work Phone: [facility] 11-01-2023 12:24-0400 Diastolic blood pressure 62 mm[Hg] Pacc 5 Work Phone: [facility] 11-01-2023 12:24-0400 Heart rate 63 /min Pacc 5 Work Phone: [facility] 11-01-2023 12:24-0400 Respiratory rate 18 /min Pac 5 Work Phone: [facility] 11-01-2023 12:24-0400 SaO2% (BldA) [Mass fraction] 100 % Pac 5 Work Phone: [facility] 11-01-2023 12:24-0400 Systolic blood pressure 133 mm[Hg] Pacc 5 Work Phone: [facility] 11-01-2023 10:37-0400 Body height 175.3 cm Stephanie Kidd MD Work Phone: [facility] 11-01-2023 10:37-0400 Body mass index (BMI) [Ratio] 28.06 kg/m2 Stephanie Kidd MD Work Phone: [facility] 11-01-2023 10:37-0400 Body weight 86.18 kg Stephanie Kidd MD Work Phone: [facility] 11-01-2023 10:37-0400 Diastolic blood pressure 68 mm[Hg] Stephanie Kidd MD Work Phone: [facility] 11-01-2023 10:37-0400 Heart rate 61 /min Stephanie Kidd MD Work Phone: [facility] 11-01-2023 10:37-0400 Respiratory rate 12 /min Stephanie Kidd MD Work Phone: [facility] 11-01-2023 10:37-0400 SaO2% (BldA) [Mass fraction] 98 % Stephanie Kidd MD Work Phone: [facility] Comment on above: room air 11-01-2023 10:37-0400 Systolic blood pressure 133 mm[Hg] Stephanie Kidd MD Work Phone: [facility] 09-05-2023 09:37-0400 Diastolic blood pressure 77 mm[Hg] Stephanie Kidd MD Work Phone: [facility] 09-05-2023 09:37-0400 Heart rate 59 /min Stephanie Kidd MD Work Phone: [facility] 09-05-2023 09:37-0400 Systolic blood pressure 136 mm[Hg] Stephanie Kidd MD Work Phone: [facility] 09-05-2023 09:34-0400 Body mass index (BMI) [Ratio] 29.16 kg/m2 Stephanie Kidd MD Work Phone: [facility] 09-05-2023 09:34-0400 Body temperature 97.39 [degF] Stephanie Kidd MD Work Phone: [facility] 09-05-2023 09:34-0400 Body weight 87 kg Stephanie Kidd MD Work Phone: [facility] 05-26-2022 09:32-0400 Body height 172.[address] Yecenia Okeefe Work Phone: [facility] 05-26-2022 09:32-0400 Body mass index (BMI) [Ratio] 29.7 kg/m2 Dr. Yecenia Okeefe Work Phone: [facility] 05-26-2022 09:32-0400 Body weight 88.[address] Yecenia Okeefe Work Phone: [facility] 05-26-2022 09:32-0400 Diastolic blood pressure 66 mm[Hg] Dr. Yecenia Okeefe Work Phone: [facility] 05-26-2022 09:32-0400 Heart rate 64 /min Dr. Yecenia Okeefe Work Phone: [facility] 05-26-2022 09:32-0400 Respiratory rate 16 /min Dr. Yecenia Okeefe Work Phone: [facility] 05-26-2022 09:32-0400 Systolic blood pressure 115 mm[Hg] Dr. Yecenia Okeefe Work Phone: [facility] 11-18-2021 08:54-0400 Body height 172.[address] Yecenia Okeefe Work Phone: [facility] 11-18-2021 08:54-0400 Body mass index (BMI) [Ratio] 29.3 kg/m2 Dr. Yecenia Okeefe Work Phone: [facility] 11-18-2021 08:54-0400 Body weight 87.[address] Yecenia Okeefe Work Phone: [facility] 11-18-2021 08:54-0400 Diastolic blood pressure 62 mm[Hg] Dr. Yecenia Okeefe Work Phone: [facility] 11-18-2021 08:54-0400 Heart rate 76 /min Dr. Yecenia Okeefe Work Phone: [facility] 11-18-2021 08:54-0400 Respiratory rate 16 /min Dr. Yecenia Okeefe Work Phone: [facility] 11-18-2021 08:54-0400 Systolic blood pressure 122 mm[Hg] Dr. Yecenia Okeefe Work Phone: [facility] 09-24-2021 08:29-0400 Body mass index (BMI) [Ratio] 28.4 kg/m2 Dr. Yecenia Okeefe Work Phone: [facility] Work Phone: 09-24-2021 08:29-0400 Body weight 84.[address] Yecenia Okeefe Work Phone: [facility] Work Phone: 09-24-2021 08:29-0400 Diastolic blood pressure 64 mm[Hg] Dr. Yecenia Okeefe Work Phone: [facility] Work Phone: 09-24-2021 08:29-0400 Heart rate 57 /min Dr. Yecenia Okeefe Work Phone: [facility] Work Phone: 09-24-2021 08:29-0400 Respiratory rate 16 /min Dr. Yecenia Okeefe Work Phone: [facility] Work Phone: 09-24-2021 08:29-0400 Systolic blood pressure 109 mm[Hg] Dr. Yecenia Okeefe Work Phone: [facility] Work Phone: 08-13-2021 08:17-0400 Body height 172.[address] Yecenia Okeefe Work Phone: [facility] Work Phone: 08-13-2021 08:17-0400 Body weight 83.[address] Yecenia Okeefe Work Phone: [facility] Work Phone: 08-13-2021 00:37-0400 Body weight 83.[address] Yecenia Okeefe Work Phone: [facility] Work Phone: 07-16-2021 12:14-0400 Body height 172.[address] Yecenia Okeefe Work Phone: [facility] Work Phone: 07-16-2021 12:14-0400 Body weight 83.[address] Yecenia Okeefe Work Phone: [facility] Work Phone: 06-15-2021 06:58-0400 Body weight 82.[address] Yecenia Okeefe Work Phone: [facility] Work Phone: 06-15-2021 06:58-0400 Body height 172.[address] Yecenia Okeefe Work Phone: [facility] Work Phone: 06-15-2021 06:58-0400 Body weight 82.[address] Yecenia Okeefe Work Phone: [facility] Work Phone: 05-25-2021 13:08-0400 Body mass index (BMI) [Ratio] 27.8 kg/m2 Dr. Yecenia Okeefe Work Phone: [facility] Work Phone: 05-25-2021 13:08-0400 Body weight [address] Yecenia Okeefe Work Phone: [facility] Work Phone: 05-25-2021 13:08-0400 Diastolic blood pressure 73 mm[Hg] Dr. Yecenia Okeefe Work Phone: [facility] Work Phone: 05-25-2021 13:08-0400 Heart rate 78 /min Dr. Yecenia Okeefe Work Phone: [facility] Work Phone: 05-25-2021 13:08-0400 Respiratory rate 16 /min Dr. Yecenia Okeefe Work Phone: [facility] Work Phone: 05-25-2021 13:08-0400 SaO2% (BldA) [Mass fraction] 98 % Dr. Yecenia Okeefe Work Phone: [facility] Work Phone: 05-25-2021 13:08-0400 Systolic blood pressure 118 mm[Hg] Dr. Yecenia Okeefe Work Phone: [facility] Work Phone: 05-25-2021 13:08-0400 Body height 172.[address] Yecenia Okeefe Work Phone: [facility] Work Phone: 05-25-2021 13:08-0400 Body mass index (BMI) [Ratio] 27.8 kg/m2 Dr. Yecenia Okeefe Work Phone: [facility] Work Phone: 05-25-2021 13:08-0400 Body weight [address] Yecenia Okeefe Work Phone: [facility] Work Phone: 05-25-2021 13:08-0400 Diastolic blood pressure 73 mm[Hg] Dr. Yecenia Okeefe Work Phone: [facility] Work Phone: 05-25-2021 13:08-0400 Heart rate 78 /min Dr. Yecenia Okeefe Work Phone: [facility] Work Phone: 05-25-2021 13:08-0400 Respiratory rate 16 /min Dr. Yecenia Okeefe Work Phone: [facility] Work Phone: 05-25-2021 13:08-0400 SaO2% (BldA) [Mass fraction] 98 % Dr. Yecenia Okeefe Work Phone: [facility] Work Phone: 05-25-2021 13:08-0400 Systolic blood pressure 118 mm[Hg] Dr. Yecenia Okeefe Work Phone: [facility] Work Phone: 05-18-2021 10:45-0400 Body weight 85.[address] Yecenia Okeefe Work Phone: [facility] Work Phone: 05-18-2021 10:45-0400 Body mass index (BMI) [Ratio] 27.8 kg/m2 Dr. Yecenia Okeefe Work Phone: [facility] Work Phone: 05-18-2021 10:45-0400 Body temperature 96.8 [degF] Dr. Yecenia Okeefe Work Phone: [facility] Work Phone: 05-18-2021 10:45-0400 Diastolic blood pressure 65 mm[Hg] Dr. Yecenia Okeefe Work Phone: [facility] Work Phone: 05-18-2021 10:45-0400 Heart rate 74 /min Dr. Yecenia Okeefe Work Phone: [facility] Work Phone: 05-18-2021 10:45-0400 Respiratory rate 20 /min Dr. Yecenia Okeefe Work Phone: [facility] Work Phone: 05-18-2021 10:45-0400 SaO2% (BldA) [Mass fraction] 98 % Dr. Yecenia Okeefe Work Phone: [facility] Work Phone: 05-18-2021 10:45-0400 Systolic blood pressure 122 mm[Hg] Dr. Yecenia Okeefe Work Phone: [facility] Work Phone: 05-18-2021 10:45-0400 Body mass index (BMI) [Ratio] 27.8 kg/m2 Dr. Yecenia Okeefe Work Phone: [facility] Work Phone: 05-18-2021 10:45-0400 Body temperature 96.8 [degF] Dr. Yecenia Okeefe Work Phone: [facility] Work Phone: 05-18-2021 10:45-0400 Body weight 85.[address] Yecenia Okeefe Work Phone: [facility] Work Phone: 05-18-2021 10:45-0400 Diastolic blood pressure 65 mm[Hg] Dr. Yecenia Okeefe Work Phone: [facility] Work Phone: 05-18-2021 10:45-0400 Heart rate 74 /min Dr. Yecenia Okeefe Work Phone: [facility] Work Phone: 05-18-2021 10:45-0400 Respiratory rate 20 /min Dr. Yecenia Okeefe Work Phone: [facility] Work Phone: 05-18-2021 10:45-0400 SaO2% (BldA) [Mass fraction] 98 % Dr. Yecenia Okeefe Work Phone: [facility] Work Phone: 05-18-2021 10:45-0400 Systolic blood pressure 122 mm[Hg] Dr. Yecenia Okeefe Work Phone: [facility] Work Phone: Encounters Encounter Date Encounter Type Care Provider Facility Start: 09-02-2024 ambulatory Yecenia S Jolliff Facility: [facility] Start: 08-21-2024 End: 08-21-2024 ambulatory [facility] Facility:[facility] Start: 08-06-2024 End: 08-06-2024 Office outpatient visit 15 minutes Stephanie Kidd MD Work Phone: Spine Surgery [facility] Comment on above: Spinal stenosis of l umbar region with neurogenic claudication (Primary Dx) Start: 08-06-2024 End: 08-06-2024 Subsequent hospital visit by physician Xr [facility] Mdh 1 Xray [facility] Comment on above: S/P lumbar fusion [Z 98.1] Start: 08-06-2024 End: 08-06-2024 ambulatory YECENIA NEHEMIAH JOLLIFF Facility:[facility] Start: 07-25-2024 End: 07-25-2024 [place] Yecenia S Jolliff [place] [place]: 07-25-2024 End: 07-25-2024 ambulatory Yecenia S Jolliff Facility:[facility] Start: 07-05-2024 End: 07-09-2024 Orders Only Stephanie Kidd MD Work Phone: [facility] [place] Comment on above: S/P lumbar fusion (P rimary Dx) Start: 06-21-2024 End: 06-21-2024 ambulatory Isaiah Cass [place] [place] Start: 04-04-2024 End: 04-04-2024 Telephone encounter Stephanie Kidd MD Work Phone: Neurology Comment on above: Medication Problem Start: 03-26-2024 End: 03-26-2024 ambulatory Yecenia S Jolliff Facility:[facility] Start: 03-19-2024 End: 03-19-2024 ambulatory Yecenia S Jolliff Facility:[facility] Start: 03-15-2024 End: 03-15-2024 Refill Stephanie Kidd MD Work Phone: [facility] [place] Start: 02-27-2024 End: 02-27-2024 E-mail encounter from caregiver Jordan Campuzano APRN.CNP Work Phone: [facility] [place] Start: 02-27-2024 End: 02-27-2024 Admission to same day surgery center Stephanie Kidd MD Work Phone: Spine Surgery [facility] Comment on above: Spinal stenosis of l umbar region with neurogenic claudication (Primary Dx) Start: 02-27-2024 End: 02-27-2024 ambulatory Jordan Campuzano APRN.CNP Work Phone: [facility] [place] Comment on above: Physical Therapy Start: 02-27-2024 End: 02-27-2024 Telemedicine consultation with patient Stephanie Kidd MD Work Phone: [facility]ine Surgery [facility] Start: 02-01-2024 End: 02-01-2024 ambulatory Yecenia S Jolliff [place] [place] Start: 01-26-2024 End: 01-26-2024 Telephone encounter Stephanie Kidd MD Work Phone: Neurology Comment on above: Patient Question; Pa corteznt Lona Refill Request Start: 01-09-2024 End: 01-09-2024 Patient encounter procedure Stephanie Kidd MD Work Phone: Spine Surgery [facility] Comment on above: Spinal stenosis of l umbar region with neurogenic claudication (Primary Dx) Start: 01-09-2024 End: 01-09-2024 ambulatory YECENIA CERNA JOLLIFF Facility:[facility] Start: 01-09-2024 End: 01-09-2024 Subsequent hospital visit by physician [facility] Comment on above: Spinal stenosis of l umbar region with radiculopathy [M48.061, M54.16] Start: 01-03-2024 End: 01-03-2024 ambulatory Yecenia S Jolliff Facility:[facility] Start: 01-01-2024 End: 01-01-2024 Refill Stephanie Kidd MD Work Phone: Neurology Start: 12-18-2023 End: 01-01-2024 Refill Stephanie Kidd MD Work Phone: Spine Surgery [facility] Comment on above: Refill Request Start: 12-12-2023 End: 12-12-2023 Patient encounter procedure Stephanie Kidd MD Work Phone: Spine Surgery [facility] Comment on above: Spinal stenosis of l umbar region with neurogenic claudication (Primary Dx) Start: 12-12-2023 End: 12-12-2023 ambulatory [facility] Facility:[facility] Start: 12-07-2023 End: 12-08-2023 Telephone encounter Stephanie Kidd MD Work Phone: Spine Medicine [facility] Start: 12-05-2023 End: 12-05-2023 Telephone encounter Rob Colby [facility] [place] Comment on above: Follow Up Start: 11-28-2023 End: 11-30-2023 Evaluation and management of inpatient STEPHANIE KIDD Facility:[facility] Start: 11-21-2023 End: 11-21-2023 Telephone encounter Rob Colby [facility] [place] Comment on above: CARE CONTINUUM ADVIS OR ASSESSMENT Start: 11-09-2023 End: 11-09-2023 Telephone encounter Stephanie Kidd MD Work Phone: Neurology Comment on above: Orders Start: 11-08-2023 End: 11-08-2023 Nursing evaluation of patient and report Salvador Cruz RN Work Phone: [facility] [place] Comment on above: Spinal stenosis of l umbar region with neurogenic claudication (Primary Dx) Acquired spondylolis thesis (Primary Dx) Start: 11-08-2023 End: 11-08-2023 ambulatory [facility] Facility:[facility] Start: 11-03-2023 End: 11-03-2023 ambulatory Jus Vizcarra RNhollow handle bench worker [facility] [place] Start: 11-01-2023 End: 11-01-2023 Admission to establishment [facility] Work Phone: Pre Anesthesia Start: 11-01-2023 End: 11-01-2023 Anesthesia consultation [facility] Work Phone: Pre Anesthesia Comment on above: Pre-op evaluation (P rimary Dx); Ascending aortic aneurysm, unspecified whether ruptured (HCC); Coronary artery disease involving [place] coronary artery of [place] heart with angina pectoris (HCC); Bicuspid aortic valve; Essential hypertension; BUBBA (obstructive sleep apnea); Dyslipidemia; Acquired hypothyroidism; PONV (postoperative nausea and vomiting); Gastroesophageal reflux disease, unspecified whether esophagitis present Start: 11-01-2023 End: 11-01-2023 Preprocedural examination done [place] [id number] Work Phone: [facility] Work Phone: Start: 11-01-2023 Encounter for other preprocedural examination YECENIA OKEEFE [facility] Start: 11-01-2023 End: 11-01-2023 Office outpatient visit 15 minutes Stephanie Kidd MD Work Phone: [facility] [place] Comment on above: Spinal stenosis of l umbar region with radiculopathy (Primary Dx) Start: 11-01-2023 End: 11-01-2023 Patient encounter procedure Jennyfer Brito MD Work Phone: Urology Comment on above: Pseudoarthrosis of l umbar spine (Primary Dx) Start: 11-01-2023 End: 11-06-2023 ambulatory Jennyfer Brito MD Work Phone: Urology Start: 10-06-2023 End: 10-06-2023 ambulatory Stephanie Kidd MD Work Phone: [facility] [place] Start: 10-06-2023 End: 10-06-2023 Telephone encounter Stephanie Kidd MD Work Phone: [facility] [place] Comment on above: Acquired spondylolis thesis (Primary Dx); Anemia following surgery Start: 10-05-2023 End: 10-05-2023 Office outpatient visit 15 minutes Stephanie Kidd MD Work Phone: [facility] [place] Comment on above: Spinal stenosis of l umbar region without neurogenic claudication (Primary Dx) Start: 10-03-2023 End: 10-04-2023 Telephone encounter Stephanie Kidd MD Work Phone: Neurology Comment on above: Appointment Start: 10-03-2023 End: 10-03-2023 ambulatory CORKY WRIGHT Facility:[facility] Start: 09-07-2023 Orders Only Corky Wright MD Work Phone: Pain Management Comment on above: Spinal stenosis of l umbar region without neurogenic claudication (Primary Dx); Radiculopathy, lumbar region Cardiac Clearance Start: 09-06-2023 ambulatory Corky Wright MD Work Phone: Pain Management Comment on above: PATIENT PROCEDURE IN STRUCTIONS FOR 10/03/23 Start: 09-06-2023 E-mail encounter fro m caregiver Corky Wright MD Work Phone: Pain Management Start: 09-06-2023 Telephone encounter Stephanie Kidd MD Work Phone: Spine Surgery [facility] Start: 09-05-2023 Telephone encounter Corky wild MD Work Phone: Pain Management Start: 09-05-2023 End: 09-05-2023 ambulatory YECENIA NEHEMIAH JOLLIFF Facility:[facility] Start: 09-05-2023 End: 09-05-2023 Patient encounter procedure Stephanie Kidd MD Work Phone: Spine Surgery [facility] Comment on above: Spinal stenosis of l umbar region without neurogenic claudication (Primary Dx) Start: 09-05-2023 End: 09-05-2023 Subsequent hospital visit by physician Kerry [facility] 1 Xray [facility] Comment on above: Spinal stenosis of l umbar region without neurogenic claudication [M48.061] Start: 09-05-2023 End: 09-05-2023 ambulatory YECENIA NEHEMIAH JOLLIFF Facility:[facility] Start: 08-29-2023 Telephone encounter Stephanie Kidd MD Work Phone: Spine Surgery [facility] Start: 08-07-2023 Chart abstracting Unk Pcp (Hist) Josie bal Start: 06-07-2022 Non-patient / Non-visit Dr. Ila Okeefe Work Phone: [facility] Start: 06-07-2022 End: 06-07-[address] Yecenia Okeefe Work Phone: [facility] Work Phone: Start: 06-07-2022 End: 06-07-[address] Yecenia Okeefe Work Phone: [facility]-Cardiovasc ular Services Start: 05-26-2022 End: 05-26-[address] Yecenia Okeefe Work Phone: [facility] Start: 05-02-2022 End: 05-02-2022 ambulatory [facility] Work Phone: Start: 05-02-2022 End: 05-02-2022 Patient encounter procedure [facility]-Radiology, [facility] Start: 04-28-2022 ambulatory Selena Huizar RN [facility] Start: 04-27-2022 End: 04-27-2022 ambulatory [facility] Work Phone: Start: 04-27-2022 End: 04-27-2022 Patient encounter procedure [facility]-Cat Scan, [facility] Start: 03-30-2022 End: 03-30-2022 ambulatory [facility] Work Phone: Start: 03-30-2022 End: 03-30-2022 Patient encounter procedure [facility]-Laboratory , [facility] Start: 02-15-2022 End: 02-15-[address] Yecenia Okeefe Work Phone: [facility] Work Phone: Start: 02-15-2022 End: 02-15-[address] Yecenia Okeefe Work Phone: [facility]-Laboratory Start: 11-18-2021 End: 11-18-[address] Yecenia Okeefe Work Phone: [facility] Work Phone: Start: 11-18-2021 End: 11-18-[address] Yecenia Okeefe Work Phone: [facility] Start: 09-24-2021 End: 09-24-[address] Yecenia Okeefe Work Phone: [facility] Start: 08-13-2021 End: 09-12-[address] Yecenia Okeefe Work Phone: [facility]-Cardiac Rehab Start: 08-11-2021 End: 08-12-[address] Yecenia Okeefe Work Phone: [facility]-Cardiac Rehab Start: 07-26-2021 End: 07-26-2021 Subsequent hospital visit by physician Hoda Parrish (I-Stat) Work Phone: Radiology Comment on above: Vascular injury [T14 .8XXA] Start: 07-09-2021 End: 07-13-[address] Yecenia Okeefe Work Phone: [facility]-Cardiac Rehab Start: 06-11-2021 End: 06-12-[address] Yecenia Okeefe Work Phone: [facility]Card[facility] Start: 05-31-[address] Yecenia valerio Work Phone: [facility]Cardiac [facility]hab Start: 05-26-[address] Yecenia valerio Work Phone: [facility]Cardiac [facility] Start: 05-25-2021 End: 05-25-[address] Yecenia Okeefe Work Phone: [facility]-Laboratory Start: 05-18-2021 End: 05-18-[address] Yecenia Okeefe Work Phone: [facility]-Cardiac Rehab Start: 05-04-2021 Telephone encounter Maggy blanton RN NOC Comment on above: Follow Up Phone Call (Rc all clear) Start: 03-21-2022 Non-patient / Non-visit Dr. Ila Okeefe Work Phone: [facility] Start: 03-22-2021 End: 04-26-2021 Patient encounter status Unk (Hist) [facility] Start: 10-15-[address] Jennifer Okeefe Work Phone: [facility] Start: 12-29-2016 Ambulatory Eduardo Barrera [facility] Procedures Date Procedure Procedure Detail Performing Clinician Start: 08-06-2024 Radex spine lumbosac ral 2/3 views Stephanie Kidd MD Work Phone: Start: 08-06-2024 Follow-up visit Follow Up STEPHANIE KIDD Start: 01-09-2024 Radex spine lumbosac ral 2/3 views Jordan Campuzano APRN.SCALE MANAGER Work Phone: Start: 11-28-2023 Antibody screen YECENIA TORRES Comment on above: Order Comment: Speci men Type: BLOOD SPECIMENOrdering Facility: [facility] Address: [address] [place] [address] Performed By: #### T SCR ####CC MAIN BLOOD BANKCLIA [id number] [place] [address] [place] Start: 11-01-2023 Urnls dip stick/tabl et rgnt auto w/o microscopy Bulk Order Provider Start: 09-05-2023 Radex spine lumbosac ral minimum 4 views Stephanie Kidd MD Work Phone: Start: 05-02-2022 Radiography of esophagus Start: 04-27-2022 CT angiography of ch est with contrast Start: 07-26-2021 Ct angiography chest w/contrast/noncontrast Jessica Sanford WHEELCHAIR VAN DRIVER.SCALE MANAGER Work Phone: Start: 07-26-2021 Creatinine [Mass/vol ume] in Serum or Plasma [facility] Provider Start: 04-22-2021 History of coronary artery bypass grafting H/O coronary artery bypass surgery Dr. Yecenia Okeefe Work Phone: Start: 03-23-2021 History of thyroidectomy S/P thyroid ectomy Maggy Oneill RN Start: 09-25-2017 Colonoscopy Maggy Skinner RN Plan of Treatment Date Care Activity Detail Author Start: 11-29-2026 Diabetes Screening Diabetes Screenin g [facility] Start: 10-31-2026 Diabetes Screening Diabetes Screenin g [facility] Start: 12-10-2024 End: 12-10-2024 Patient encounter procedure 12/10/2024 10:20 AM EDT Office Visit Spine Surgery [facility] [address] [place] [address] Stephanie Kidd MD [address] [place] [address] [phone] follow up Spine Surgery [facility] Comment on above: follow up Start: 08-06-2024 End: 08-06-2024 Patient encounter procedure 08/06/2024 3:40 PM EDT Office Visit Spine Surgery [facility] [address] [place] [address] Stephanie Kidd MD [address] [place] [address] [phone] follow up per staff message MBT Spine Surgery [facility] Comment on above: follow up per staff message [facility] Start: 05-05-2024 Covid-19 Vaccine ( season) Covid-19 Vaccine () [facility] Start: 04-28-2024 DIABETES SCREEN DIABETES SCREEN [facility] Start: 04-28-2024 Diabetes Screening Diabetes Screenin g [facility] Start: 02-27-2024 End: 02-27-2024 Admission to same day surgery center 02/27/2024 11:40 AM [facility] Spine Surgery [facility] [address] [place] [address] Stephanie Kidd MD [address] [place] [phone] POST OP Spine Surgery [facility] Comment on above: POST OP Start: 02-27-2024 End: 02-27-2024 Patient encounter procedure 02/27/2024 11:40 AM EST Office Visit Spine Surgery [facility] [address] [place] [address] Stephanie Kidd MD [address] [place] [phone] POST OP Spine Surgery [facility] Comment on above: POST OP Start: 02-14-2024 Advance Directive Discussion Advance Directive Discussion [facility] Start: 01-09-2024 End: 01-09-2024 Patient encounter procedure Xray [facility] Comment on above: XR LUMBAR COUCH 2V AP/ LAT POST OP Start: 12-12-2023 End: 12-12-2023 Patient encounter procedure [facility] [place] Comment on above: POST OP Start: 11-28-2023 End: 11-28-2023 Admission to same day surgery center 11/28/2023 7:30 AM EDT - 11/28/2023 1:30 PM EDT Surgery Admitting [address] [place] [address] Stephanie Kidd MD [address] [place] [phone] INSERTION INTERBODY BIOMED DEVICE(S) W/ANT INSTR ANCHORING TO DISC SPACE W/INTERBODY FUSION,EA INTERSPACE Admitting Comment on above: INSERTION INTERBODY BIOMED DEVICE(S) W/ANT INSTR ANCHORING TO DISC SPACE W/INTERBODY FUSION,EA INTERSPACE Start: 11-28-2023 End: 11-28-2023 Arthrodesis anterior interbody lumbar ALIF DECOMPRESSION LAMINECTOMY INTERBODY FUSION LUMBAR LEVEL 1 Spinal stenosis of lumbar region with radiculopathy 11/28/2023 7:30 AM EDT [facility] Start: 11-28-2023 End: 11-28-2023 Insj biomchn dev intervertebral dsc spc w/arthrd INSERTION INTERBODY BIOMED DEVICE(S) W/ANT INSTR ANCHORING TO DISC SPACE W/INTERBODY FUSION,EA INTERSPACE Spinal stenosis of lumbar region with radiculopathy 11/28/2023 7:30 AM EDT [facility] Start: 11-28-2023 Subsequent hospital visit by physician 11/28/2023 7:30 AM EDT Hospital Encounter Admitting [address] [place] [address] Stephanie Kidd MD [address] [place] [address] Spinal stenosis of lumbar region with radiculopathy [M48.061, M54.16] Admitting Comment on above: Spinal stenosis of l umbar region with radiculopathy [M48.061, M54.16] Start: 11-21-2023 End: 11-21-2023 ambulatory 11/21/2023 1:00 PM EDT [facility] Neurology Pain [address] [place] [address] [place] [address] [place] [address] [facility] Comment on above: [facility] Start: 11-08-2023 End: 11-08-2023 Nursing evaluation of patient and report 11/08/2023 10:00 AM EDT Nurse Visit [facility] [place] [address] [phone] Salvador Cruz, RN [address] [place] [address] PRE OP PHONE EDUCATION [facility] [place] Comment on above: PRE OP PHONE EDUCATI ON Start: 11-01-2023 End: 01-31-2024 Basic metabolic 2000 panel - Serum or Plasma BASIC METABOLIC PANEL Lab Routine Pre-op evaluation Expected: 11/01/2023, Expires: 01/31/2024 [facility] Comment on above: Expected: 11/01/2023 , Expires: 01/31/2024 Start: 11-01-2023 End: 01-31-2024 TYPE AND SCREEN,30 DAY TYPE AND SCREEN,30 DAY Blood Bank Routine Pre-op evaluation Expected: 11/01/2023, Expires: 01/31/2024 [facility] Work Phone: Comment on above: Expected: 11/01/2023 , Expires: 01/31/2024 Start: 11-01-2023 End: 11-01-2023 Anesthesia consultation 11/01/2023 12:50 PM EDT PAT Pre Anesthesia [address] [place] [address] 5, [facility] [address] [place] [phone] [facility] Pre Anesthesia Comment on above: [facility] Start: 11-01-2023 End: 11-01-2023 Patient encounter procedure Urology Comment on above: ALIF pre op PRE OP IC ADMIT INTERVIEW Labs Start: 10-20-2023 End: 10-20-2023 ambulatory 10/20/2023 4:20 PM EDT [facility] [place] [address] [place] [phone] Stephanie Kidd MD [address] [place] [phone] add on per [place] [facility] [place] Comment on above: add on per [place] Start: 10-18-2023 End: 10-18-2023 ambulatory 10/18/2023 1:00 PM EDT [facility] Neurology Pain [address] [place] [address] Citlali Bernstein, LIZETTE [address] [place], [place] [phone] [facility] Comment on above: [facility] Start: 10-15-2023 Covid-19 Vaccine ( season) Covid-19 Vaccine ( season) [facility] Start: 10-15-2023 Covid-19 Vaccine ( season) Covid-19 Vaccine ( season) [facility] Start: 10-15-2023 Influenza vaccination [facility] Start: 10-06-2023 End: 01-05-2024 CBC W Auto Differential panel - Blood COMPLETE BLOOD COUNT AND DIFFERENTIAL Lab Routine Acquired spondylolisthesis Anemia following surgery Expected: 10/06/2023, Expires: 01/05/2024 [facility] Work Phone: Comment on above: Expected: 10/06/2023 , Expires: 01/05/2024 Start: 10-06-2023 End: 01-05-2024 Ferritin [Mass/volume] in Serum or Plasma FERRITIN Lab Routine Acquired spondylolisthesis Anemia following surgery Expected: 10/06/2023, Expires: 01/05/2024 [facility] Comment on above: Expected: 10/06/2023 , Expires: 01/05/2024 Start: 10-06-2023 End: 01-05-2024 Iron and Iron binding capacity panel - Serum or Plasma IRON AND TIBC Lab Routine Acquired spondylolisthesis Anemia following surgery Expected: 10/06/2023, Expires: 01/05/2024 [facility] Comment on above: Expected: 10/06/2023 , Expires: 01/05/2024 Start: 10-06-2023 End: 01-05-2024 RETICULOCYTE, HEMOGLOBIN RETICULOCYTE, HEMOGLOBIN Lab Routine Acquired spondylolisthesis Anemia following surgery Expected: 10/06/2023, Expires: 01/05/2024 [facility] Comment on above: Expected: 10/06/2023 , Expires: 01/05/2024 Start: 10-06-2023 End: 11-01-2023 STAPHYLOCOCCUS AUREUS & MRSA SCREEN, PCR, NASAL STAPHYLOCOCCUS AUREUS & MRSA SCREEN, PCR, NASAL Lab Routine Spinal stenosis of lumbar region with radiculopathy Expected: 10/06/2023, Expires: 11/01/2023 [facility] Comment on above: Expected: 10/06/2023 , Expires: 11/01/2023 Start: 10-05-2023 End: 10-05-2023 ambulatory 10/05/2023 2:00 PM EDT [facility] [place] [address] [place] [phone] Stephanie Kidd MD [address] [place] [phone] f/u [facility] [place] Comment on above: f/u Start: 10-03-2023 End: 10-03-2023 Admission to same day surgery center [facility] Surgery Comment on above: INJECTION ANESTHETIC AGENT/STEROID TRANSFORAMINAL EPIDURAL W/ IMAGING GUIDANCE LUMBAR BILATERAL Start: 10-03-2023 End: 10-03-2023 Njx anes&/strd w/img tfrml edrl lmbr/sac 1 lvl [place] OR Start: 10-03-2023 Subsequent hospital visit by physician [facility] Surgery Comment on above: Spinal stenosis of l umbar region without neurogenic claudication [M48.061] Start: 09-05-2023 End: 09-05-2023 Patient encounter procedure Spine Surgery [facility] Comment on above: Based on triage, rec ommend patient be scheduled with surgeon 1st available for 2nd opinion - offered surgery locally In-person for exam. MRI From 2019 Start: 05-24-2023 Covid-19 Vaccine () Covid-19 Vaccine () [facility] Start: 05-15-2023 Urine microalbumin profile [facility] Start: 02-13-2023 Advance Directive Discussion Advance Directive Discussion [facility] Start: 02-13-2023 Behavioral Health Screening Behavioral Health Screening [facility] Start: 02-13-2023 zzBehavioral Health Screening zzBehavioral Health Screening [facility] Start: 10-14-2022 Covid-19 Vaccine () Covid-19 Vaccine () [facility] Start: 09-25-2022 Colonoscopy COLONOSCOPY [facility] Start: 09-25-2022 COLORECTAL CANCER SCREENING COLORECTAL CANCER SCREENING [facility] Start: 09-25-2022 Screening for malign ant neoplasm of colon [facility] Start: 07-26-2022 BP CONTROLLED (<130/80) BP CONTROLLE D (<130/80) [facility] Start: 03-24-2022 BP CONTROLLED (<130/80) BP CONTROLLE D (<130/80) [facility] Start: 02-13-2022 ADVANCE DIRECTIVE DISCUSSION ADVANCE DIRECTIVE DISCUSSION [facility] Start: 02-13-2022 DEPRESSION ASSESSMENT DEPRESSION ASS ESSMENT [facility] Start: 10-14-2021 Influenza vaccination INFLUENZA (#1) [facility] Start: 08-05-2021 COVID-19 VACCINE (4 - Booster for [place]cca series) COVID-19 VACCINE (4 - Booster for [place] series) [facility] Start: 06-15-2021 Patient referral to dietitian [facility] Work Phone: Start: 05-18-2021 [facility] Work Phone: Start: 05-18-2021 Patient referral to dietitian [facility] Work Phone: Start: 05-03-2021 Patient referral [facility] Work Phone: Start: 02-13-2021 ADVANCE DIRECTIVE DISCUSSION ADVANCE DIRECTIVE DISCUSSION [facility] Start: 06-25-2015 PNEUMOVAX AGE 65 AND OVER WITH 5YR LOOKBACK (#1) PNEUMOVAX AGE 65 AND OVER WITH 5YR LOOKBACK (#1) [facility] Start: 06-14-2015 Medicare Annual Wellness Visit Medicare Annual Wellness Visit [facility] Start: 02-28-2015 FECAL OCCULT BLOOD FECAL OCCULT BLOO D [facility] Start: 02-28-2015 Screening for malign ant neoplasm of colon Fecal Occult Blood [facility] Start: 2010 RSV Vaccine (1 - 1-d ose 60+ series) RSV Vaccine (1 - 1-dose 60+ series) [facility] Start: 2000 SHINGRIX VACCINE (1 of 2) SHINGRIX VACCINE (1 of 2) [facility] Start: 06-25-1995 COLOGUARD (FIT-DNA) COLOGUARD (FIT-D NA) [facility] Start: 06-25-[address] [facility] Start: 06-25-1995 Screening for malign ant neoplasm of colon [facility] Start: 06-25-1995 [facility] Start: 1985 Lipid panel Lipid Screening [facility] Start: 1985 LIPID SCREEN LIPID SCREEN [facility] Start: 1969 Urine microalbumin profile DTAP,TDAP,TD (1 - Tdap) [facility] Start: 1968 ANNUAL PCP TEAM LITIGATION ATTORNEY ASSOCIATE MATT DISEASE VISIT ANNUAL PCP TEAM CHRONIC DISEASE VISIT [facility] Start: 1968 Anxiety Screening Anxiety Screening [facility] Start: 1968 BP Controlled (<130/80) BP Controlle d (<130/80) [facility] Start: 1968 Depression Screening Depression Scre ening [facility] Start: 1968 Hepatitis B surface antibody level LDL CHOLESTEROL [facility] Start: 1968 HEPATITIS C SCREENING HEPATITIS C SC [facility] Start: 1968 Hepatitis C screening Hepatitis C [facility] Start: 1962 Adult depression screening assessment DEPRESSION SCREENING [facility] Start: 1950 ABDOMINAL AORTIC ANEURYSM SCREENING ABDOMINAL AORTIC ANEURYSM SCREENING [facility] Start: 1950 Abdominal aortic aneurysm screening Abdominal Aortic Aneurysm Screening [facility] CTA Chest vessels WO and W contrast IV [facility] Work Phone: CTA Chest vessels WO and W contrast IV [facility] ECG COMPLETE ECG COMPLETE ECG Routine Pre-op evaluation 11/01/2023 1:49 PM EDT [facility] Patient referral [facility] Work Phone: REFER FOR ADMIT INTERVIEW REFER FOR ADMIT INTERVIEW Procedures Routine Spinal stenosis of lumbar region with radiculopathy Ordered: 10/06/2023 [facility] Work Phone: Comment on above: Ordered: 10/06/2023 SPINE INTERVENTION PROCEDURE SPINE INTERVENTION PROCEDURE Procedures Routine Spinal stenosis of lumbar region without neurogenic claudication Ordered: 09/05/2023 [facility] Work Phone: Comment on above: Ordered: 09/05/2023 [facility] Work Phone: [facility] End: 11-04-2024 XR Lumbar spine AP and Lateral XR LUMBAR LIMITED 2V AP/LAT Radiology Routine Spinal stenosis of lumbar region with radiculopathy 1 Occurrences starting 10/06/2023 until 11/04/2024 [facility] Comment on above: 1 Occurrences starti ng 10/06/2023 until 11/04/2024 End: 08-04-2025 XR Lumbar spine AP and Lateral XR LUMBAR LIMITED 2V AP/LAT Radiology Routine S/P lumbar fusion 1 Occurrences starting 07/08/2024 until 08/04/2025 [facility] Work Phone: Comment on above: 1 Occurrences starti ng 07/08/2024 until 08/04/2025 End: 10-04-2024 XR Lumbar spine Views W flexion and W extension XR LUMBAR MOTION 4V AP/LAT/ FLEX/EXT Radiology Routine Spinal stenosis of lumbar region without neurogenic claudication 1 Occurrences starting 09/05/2023 until 10/04/2024 [facility] Comment on above: 1 Occurrences starti ng 09/05/2023 until 10/04/2024 XR Lumbar spine View s W flexion and W extension XR LUMBAR MOTION 4V AP/LAT/ FLEX/EXT Radiology Routine Spinal stenosis of lumbar region without neurogenic claudication 09/05/2023 11:12 AM EDT [facility] End: 10-04-2024 XR Thoracic and lumbar spine Views for scoliosis W standing XR SCOLIOSIS PA STAND/LAT 2V Radiology Routine Spinal stenosis of lumbar region without neurogenic claudication 1 Occurrences starting 09/05/2023 until 10/04/2024 [facility] Comment on above: 1 Occurrences starti ng 09/05/2023 until 10/04/2024 XR Thoracic and lumb ar spine Views for scoliosis W standing XR SCOLIOSIS PA STAND/LAT 2V Radiology Routine Spinal stenosis of lumbar region without neurogenic claudication 09/05/2023 11:12 AM EDT [facility] Immunizations Immunization Date Immunization Notes Care Provider Chary forman 01-03-2023 influenza virus vacc ine, unspecified formulation Stephanie Kidd MD Work Phone: [facility] 12-02-2020 influenza, injectabl e, quadrivalent, preservative free Ct (I-Stat) Work Phone: [facility] 12-02-2020 influenza virus vacc ine, unspecified formulation Unk (Hist) [facility] 11-29-2019 influenza, injectabl e, quadrivalent, preservative free Ct (I-Stat) Work Phone: [facility] 03-20-[address] (I-Stat) Work Phone: [facility] 01-15-[address] (I-Stat) Work Phone: [facility] 12-12-2018 pneumococcal polysaccharide vaccine, [address] (I-Stat) Work Phone: [facility] 12-07-2018 Seasonal trivalent influenza vaccine, adjuvanted, preservative free Ct (I-Stat) Work Phone: [facility] 11-30-2017 influenza, seasonal, injectable Dr. Yecenia Okeefe Work Phone: [facility] 11-30-2017 influenza, seasonal, injectable, preservative free Ct (I-Stat) Work Phone: [facility] 12-19-2016 influenza, injectabl e, quadrivalent, contains preservative Ct (I-Stat) Work Phone: [facility] 05-20-2016 pneumococcal conjuga te vaccine, [address] (I-Stat) Work Phone: [facility] 11-09-2015 influenza, seasonal, injectable Ct (I-Stat) Work Phone: [facility] 11-21-2014 influenza, seasonal, injectable Ct (I-Stat) Work Phone: [facility] 05-14-2013 tetanus toxoid, redu dalia diphtheria toxoid, and acellular pertussis vaccine, adsorbed Ct (I-Stat) Work Phone: [facility] 02-23-2009 novel influenza-H1N1 -09, preservative-free, injectable Ct (I-Stat) Work Phone: [facility] Payers Date Payer Category Payer Self-pay [id number] 2015 Medicare 2015 Medicare MEDICARE MEDICAR E A AND B [id number] 2015-Present [phone] [address] [address] [place] [address] Medicare [id number] 2015 Private Health Insurance [facility] AARP SUPPLEMENT [id number] 2015-Present [phone] [address] [place] [address] Indemnity [id number] 2015 Private Health Insurance [id number] 2015 Medicare [id number] 2015 Unknown [id number] Unknown [id number] Unknown [id number] Unknown [id number] Unknown [id number] Unknown [id number] Unknown [id number] Unknown [id number] Unknown [id number] Unknown [id number] Unknown [id number] Social History Date Type Detail Facility Start: 01-18-2021 End: 11-01-2023 Tobacco smoking status NHIS Ex-smoker [facility] End: 04-04-2001 History of tobacco use Current smoker [facility] End: 04-04-2001 History of tobacco use Pipe Smoker [facility] End: 05-14-2016 History of tobacco use User of smokeless tobacco [facility] Start: 03-23-2021 End: 09-05-2023 Alcohol intake Current drinker of alcohol (finding) [facility] Start: 01-18-2021 History SDOH Alcohol Comment qod scotch [facility] Start: 1950 Sex Assigned At Not on file [facility] Start: 03-23-2021 End: 07-26-2021 Exposure to SARS-CoV-2 (event) Not sure [facility] Start: 05-25-2021 End: 05-26-2022 Tobacco smoking status NHIS Unknown if ever smoked [facility] Start: 11-29-2017 Chew;Pipe [facility] Start: 1950 Sex Assigned At Male [facility] Start: 01-18-2021 End: 11-01-2023 Tobacco use and exposure Former smokeless tobacco user [facility] Start: 07-26-2021 End: 11-08-2023 History of Social function [facility] Start: 07-26-2021 End: 11-08-2023 Tobacco use panel [facility] National Score (1-10 0), lower number is lower risk 57 [facility] History of tobacco use Passive smoker [facility] End: 05-14-2016 History of tobacco use Chews Tobacco [facility] Start: 11-01-2023 End: 01-09-2024 Alcoholic beverage intake Ex-drinker (finding) [facility] Medical Equipment Procedure Code Equipment Code Equipment Original Text Equipment Identifier Dates Graft Gelweave 3 0mm Straight Gelatin Polyester Woven 30cm Cardiovascular - [id number] Start: 04-22-2021 Omro Thk1.65mm P tfe 4x.5in Cardiovascular Sterile - [id number] Start: 04-22-2021 Patch Thk.5mm Bruce vine Pericardial 03n85hn Cardiovascular Resilience Durable - [id number] Start: 04-22-2021 Valve James In spiris Resilia 23mm Pericardial Aortic Bioprosthesis - [id number] Start: 04-22-2021 Hedron Ia Spacer Sterile 25deg 15mm X 26mm X 34mm [id number] Start: 11-28-2023 Gerber 25mm Spin al Mis Lumbar - [id number] Start: 11-28-2023 Bone Graft Infus e X-Small - [id number] Start: 11-28-2023 Graft Bone Putty Deminerlized Bone Matrix 1cc [employer]os[employer] - [id number] Start: 11-28-2023 Graft Bone Putty Deminerlized Bone Matrix 1cc [employer]osparx - [id number] FDA Start: 11-28-2023 Graft Bone Putty Deminerlized Bone Matrix 1cc Osteosparx - [id number] FDA Start: 11-28-2023 Screw Rm 3 Samantha nium Set Elvis Spine - [id number]_[facility] Start: 11-28-2023 Oriana Rm 3 6mm Ti tanium 70mm Spinal Radiolucent - [id number] Start: 11-28-2023 Screw Rm 3 Serr barby 7.5mm 35mm Bone Polyaxial Nonsterile Spine - [id number] Start: 11-28-2023 Screw Rm 3 Serr barby 7.5mm 50mm Bone Polyaxial Nonsterile Spine - [id number] Start: 11-28-2023 Functional Status Date Assessment Result Facility 11-30-2023 Are you deaf, or do you have serious difficulty hearing No 11/30/2023 12:19 PM EDT Bridget Moulton LPN No [facility] 11-30-2023 Are you blind, or do you have serious difficulty seeing, even when wearing glasses No 11/30/2023 12:19 PM EDT Bridget Moulton LPN No [facility] 11-30-2023 Do you have serious difficulty walking or climbing stairs No 11/30/2023 12:19 PM EDT Bridget Moulton LPN No [facility] 11-30-2023 Do you have difficul ty dressing or bathing No 11/30/2023 12:19 PM EDT Bridget Moulton LPN No [facility] 11-30-2023 Because of a physica l, mental, or emotional condition, do you have difficulty doing errands alone such as visiting a physician's office or shopping No 11/30/2023 12:19 PM EDT Bridget Moulton LPN No [facility] Mental Status Date Assessment Result Facility 11-30-2023 Because of a physica l, mental, or emotional condition, do you have serious difficulty concentrating, remembering, or making decisions No 11/30/2023 12:19 PM EDT Bridget Moulton LPN No [facility] Clinical Notes 04-22-2021 to 08-21-2024 Stephanie Kidd MD - 08/06/2024 2:05 PM EDTTelephone Encounter - Salvador Cruz RN - 07/09/2024 1:50 PM EDTTelephone Encounter - Salvador Cruz RN - 07/09/2024 1:50 PM EDT Note Date & Type Note Facility 08-21-2024 Note [facility] Records Department [address] [place] [address] History Physical Exam 08/21/24 1204 MR#: [id number] Acct: [id number] Name: MARINO HERRERA Rep #: [id number] : 1950 74 From: Isaiah Will DO PCP: Dr. Yecenia Okeefe MD Status:[facility] Location: [place] [address] HPI - General General Date of Admission: 08/21/24 Date of Service: 08/21/24 Chief Complaint: Abdominal pain and colorectal screening HPI Narrative MARINO HERRERA, is a 74 M who reports he is due for his screening colonoscopy. He said his father had colon cancer and would like screening. States last colon was 5 years ago. Has HX of GERD. Takes Pantoprazole 40mg qd. Says his sx are only somewhat controlled. Does have abdominal pain when he eats. Sates he had lumbar surgery last November and used to have constipation. States his BMs are better now. [facility] Medical History Wears hearing aid Cancer Wears glasses Anxiety Alcohol use Thyroid disease Arthritis Back pain History of IBS Gastric reflux Former smoker CPAP (continuous positive airway pressure) dependence Sleep apnea History of echocardiogram History of stress test Hypertension Cardiology follow-up encounter Chest pain Aortic stenosis with bicuspid valve Lupus anticoagulant disorder Atherosclerotic heart disease of [place] coronary artery without angina pectoris Obstructive sleep apnea Paresthesia and pain of extremity Hyperlipidemia DDD (degenerative disc disease), cervical Erectile dysfunction Depression BPH (benign prostatic hyperplasia) Migraines Hypothyroidism Thoracic aortic aneurysm Home Medications ???Medication ???Instructions ???Recorded ???Last Taken ???Type sumatriptan succinate 100 mg tablet 100 mg PO .X1 PRN PRN MIGRAINES 10/15/19 Unknown History amoxicillin 500 mg capsule 2,000 mg (4 x 500 mg) PO .COMPLEX 06/21/21 Unknown Rx #4 caps levothyroxine 150 mcg tablet 150 mcg PO MOTUWETHFRSA 05/26/22 0 08/21/24 08:00 History aspirin 81 mg tablet,delayed 81 mg PO QDAY 02/01/24 Unknown His tory release (Adult Low Dose Aspirin) duloxetine 60 mg capsule,delayed 60 mg PO QDAY 06/21/24 Unknown His tory release pantoprazole 40 mg tablet,delayed 40 mg PO BID #60 tabs 06/21/24 Un known Rx release clobetasol 0.05 % topical cream 1 applic topical PRN 07/25/24 Unkn own History atorvastatin 20 mg tablet 20 mg PO QPM #90 tabs 08/06/24 Unk nown Rx metoprolol succinate 25 mg 25 mg PO DAILY #90 tabs 08/06/24 0 08/20/24 Rx tablet,extended release 24 hr gabapentin 100 mg capsule 100 mg PO BID 08/20/24 Unknown His tory gabapentin 100 mg capsule 200 mg PO QHS 08/20/24 Unknown His tory methocarbamol 750 mg tablet 750 mg PO 4X/DAY 08/20/24 Unknown History Allergy/AdvReac Type Severity Reaction Status Date / Time No Known Allergies Allergy Verified 08/21/24 11:52 Family History Brother CAD (coronary artery disease) Cancer Myocardial infarction age 69 Father Cancer CVA (cerebral vascular accident) CAD (coronary artery disease) Mother Heart disease chf Surgical History History of open heart surgery History of spinal fusion ( 11/2023) Spinal cord stimulator status (10/2022) History of left heart catheterization (03/22/21) History of ascending aorta repair (04/22/21) History of aortic valve replacement with bioprosthetic valve (04/22/21) H/O coronary artery bypass surgery (04/22/21) History of back surgery (08/2018) S/P trigger finger release History of transurethral resection of prostate Cervical vertebral fusion History of uvulopalatopharyngoplasty H/O thyroidectomy History of nasal septoplasty History of rhinoplasty History of lumbar laminectomy History of bilateral carpal tunnel release Social History Smoking Status: Former smoker how long ago did patient quit smoking: Stopped smoking a pipe 15 year ago, Stopped chewing tobacco 4 years ago alcohol intake: current alcohol intake frequency: holidays/special occasions only Alcohol type: beer and other substance use type: does not use caffeine: No ROS Constitutional Constitutional: Denies fatigue, fever(s), poor appetite, weight gain or weight loss Gastrointestinal Gastrointestinal: Denies belching, bloating, change in bowel habits, change in stool character, chewing difficulty, coffee ground emesis, constipation, cramping, diarrhea, dyspepsia, dysphagia, early satiety, excessive flatus, fecal incontinence, heartburn, hematemesis, hematochezia, hemorrhoids, loose stools, melena, nausea, odynophagia, rectal bleeding, tenesmus, vomiting or weight doreen (more content not included)... [facility] 08-06-2024 Note HNO ID: [id number] Author: STEPHANIE KIDD MD Service: ? Author Type: Physician Type: Progress Notes Filed: 08/06/2024 14:25 Note Text: SPINE SURGERY FOLLOW UP This is an in-person visit. SERVICE DATE: 08/06/2024 SURGERY DATE: 11-28-2023 alif with posterior screws Marino Nuñez Herrera is seen for 8 month post operative follow up. Marino reports that he has good days and bad days. He is doing well. He is participating in physical therapy and he is pleased with the results of his surgery. He acknowledges that he will be kyphotic likely forever ANTIPLATELET OR ANTICOAGULATION STATUS: No Patient Entered Questionnaires PROMIS Score Percentiles 07/19/2021 04/29/2022 PROMIS Global Health Scale Physical Health Percentile 41 31 Mental Health Percentile 63 34 Percentiles provide an indication of how the patient's score ranks in relation to the general population. Higher percentile rankings indicate better function/quality of life. 50th percentile is the average of the general population and indicates half of respondents had a worse score. Depression Screening: PHQ-9 Self-Harm (Item 9) response options: 0 Not at all 1 Several days 2 More than half the days 3 Nearly every day PHQ-9 Levels: 0-4 No to mild depression 5-9 Mild depression 10-14 Moderate depression 15-19 Moderately severe depression 20-27 Severe depression PHYSICAL EXAM: BP 118/57 Pulse 71 GENERAL APPEARANCE: Well nourished, well developed, and no apparent distress. NEURO PSYCH: Patient oriented to person, place, and time. Mood pleasant. Benign affect. MUSCULOSKELETAL VISUAL INSPECTION CERVICAL: WNL THORACIC: WNL LUMBAR: WNL MOTOR: 5/5 in all muscle groups. SENSORY: Normal sensory exam GAIT: Normal. REFLEXES: +2 to bilateral U/L extremities. DATA REVIEW [facility] records independently reviewed Upright x-rays demonstrate an anterior lumbar interbody fusion at L5-S1, with an L4-5 fusion as well no evidence of hardware failure no changes to overall alignment ASSESSMENT/PLAN (M48.062) Spinal stenosis of lumbar region with neurogenic claudication (primary encounter diagnosis) Marino Herrera will continue with medical management of his/her condition. 1. 8 months status post anterior lumbar interbody fusion with extension of fusion posteriorly. He is doing well. He will follow-up at his 1 year eileen. All questions were answered he was thankful encounter and in agreement with plan 2. Follow up: Following above Imaging Ordered: XR lumbar The majority of the visit was spent counseling and/or coordinating care for the patient. The patient was counseled regarding adjacent segment stenosis. Total face to face time was 15 minutes. SIGNATURE: Stephanie Kidd MD PATIENT NAME: Marino Herrera DATE: August 06, 2024 TIME: 2:05 PM PAGER: [facility] 08-06-2024 History of Present illness Narrative SPINE SURGERY FOLLOW UP This is an in-person visit. SERVICE DATE: 08/06/2024 SURGERY DATE: 11-28-2023 alif with posterior screws Marino Herrera is seen for 8 month post operative follow up. Marion reports that he has good days and bad days. He is doing well. He is participating in physical therapy and he is pleased with the results of his surgery. He acknowledges that he will be kyphotic likely forever ANTIPLATELET OR ANTICOAGULATION STATUS: No Patient Entered Questionnaires PROMIS Score Percentiles 07/19/2021 04/29/2022 PROMIS Global Health Scale Physical Health Percentile 41 31 Mental Health Percentile 63 34 Percentiles provide an indication of how the patient's score ranks in relation to the general population. Higher percentile rankings indicate better function/quality of life. 50th percentile is the average of the general population and indicates half of respondents had a worse score. Depression Screening: PHQ-9 Self-Harm (Item 9) response options: 0 Not at all 1 Several days 2 More than half the days 3 Nearly every day PHQ-9 Levels: 0-4 No to mild depression 5-9 Mild depression 10-14 Moderate depression 15-19 Moderately severe depression 20-27 Severe depression PHYSICAL EXAM: BP 118/57 Pulse 71 GENERAL APPEARANCE: Well nourished, well developed, and no apparent distress. NEURO PSYCH: Patient oriented to person, place, and time. Mood pleasant. Benign affect. MUSCULOSKELETAL VISUAL INSPECTION CERVICAL: WNL THORACIC: WNL LUMBAR: WNL MOTOR: 5/5 in all muscle groups. SENSORY: Normal sensory exam GAIT: Normal. REFLEXES: +2 to bilateral U/L extremities. DATA REVIEW [facility] records independently reviewed Upright x-rays demonstrate an anterior lumbar interbody fusion at L5-S1, with an L4-5 fusion as well no evidence of hardware failure no changes to overall alignment ASSESSMENT/PLAN (M48.062) Spinal stenosis of lumbar region with neurogenic claudication (primary encounter diagnosis) Marino Herrera will continue with medical management of his/her condition. 1. 8 months status post anterior lumbar interbody fusion with extension of fusion posteriorly. He is doing well. He will follow-up at his 1 year eileen. All questions were answered he was thankful encounter and in agreement with plan 2. Follow up: Following above Imaging Ordered: XR lumbar The majority of the visit was spent counseling and/or coordinating care for the patient. The patient was counseled regarding adjacent segment stenosis. Total face to face time was 15 minutes. SIGNATURE: Stephanie Kidd MD PATIENT NAME: Marino Herrera DATE: August 06, 2024 TIME: 2:05 PM PAGER: documented in this encounter [facility] 07-09-2024 Telephone encounter Note PT script faxed. Call to update pt. [facility] Work Phone: 07-09-2024 Miscellaneous Notes PT script faxed. Call to update pt. SERVICE DATE: 02/27/2024 SURGERY DATE: 11-28-2023 alif with posterior screws Pt has postponed his PT due to illness. Multiple spinal FX and in and out of hospital for pain control. Pt would like start PT but will need new script. Routed to SELINA for review Patient called; states he has not been able to start PT due to 's illness; patient called to schedule and was told that PT order has ; requesting that new PT order be placed and faxed as follows: [facility] Patient would like to be notified when faxed; ph. [phone] documented in this encounter [facility] 07-05-2024 Telephone encounter Note SERVICE DATE: 02/27/2024 SURGERY DATE: 11-28-2023 alif with posterior screws Pt has postponed his PT due to illness. Multiple spinal FX and in and out of hospital for pain control. Pt would like start PT but will need new script. Routed to SELINA for review [facility] 07-05-2024 Telephone encounter Note Patient called; states he has not been able to start PT due to 's illness; patient called to schedule and was told that PT order has ; requesting that new PT order be placed and faxed as follows: [facility] Patient would like to be notified when faxed; ph. [phone] [facility] 04-04-2024 Telephone encounter Note Neuro SPINE CARE COORDINATION QUICK NOTE SERVICE DATE: 02/27/2024 SURGERY DATE: 11-28-2023 alif with posterior screws Meds Neurontin 100-100-200 Robaxin 750 QID LBP - described as heaviness. Scripts to SELINA for refill sent [facility] Work Phone: 04-04-2024 Miscellaneous Notes Neuro SPINE CARE COORDINATION QUICK NOTE SERVICE DATE: 02/27/2024 SURGERY DATE: 11-28-2023 alif with posterior screws Meds Neurontin 100-100-200 Robaxin 750 QID LBP - described as heaviness. Scripts to SELINA for refill sent Pt called to get a refill - refused my help. Stated that pharmacy won't refill because Pt up his dosage. Requesting call back from RN documented in this encounter [facility] 04-04-2024 Telephone encounter Note Pt called to get a refill - refused my help. Stated that pharmacy won't refill because Pt up his dosage. Requesting call back from RN [facility] 03-15-2024 Telephone encounter Note SURGERY DATE: 11-28-2023 alif with posterior screws Pt reports increased walking as his has been in and out of the hospital due to fall with FX Pt admits to continuing with Robaxin PRN and requests refill Routed to SELINA for review. [facility] Work Phone: 03-15-2024 Miscellaneous Notes SURGERY DATE: 11-28-2023 alif with posterior screws Pt reports increased walking as his has been in and out of the hospital due to fall with FX Pt admits to continuing with Robaxin PRN and requests refill Routed to SELINA for review. documented in this encounter [facility] 02-27-2024 Note HNO ID: [id number] Author: STEPHANIE KIDD MD Service: ? Author Type: Physician Type: Progress Notes Filed: 02/27/2024 12:25 Note Text: SPINE SURGERY FOLLOW UP This is a virtual visit using Audio Only Visit. It required patient-provider interaction for the medical decision making as documented below. I have communicated my name and active licensure. The patient's identity and physical location were verified at the time of this visit. Either the patient or their legal litigation claim representative has been informed of the risks and benefits of -- and alternatives to -- treatment through a remote evaluation and consents to proceed with the evaluation remotely. SERVICE DATE: 02/27/2024 SURGERY DATE: 11-28-2023 alif with posterior screws Marino Herrera is seen for 3 month post operative follow up. Marino reports that he is doing okay. He is better than before surgery. Reports his pain is improved, he continues to walk with a walking stick. His is recently hospitalized for vertebral body compression fracture. He is able to put on his holster again ANTIPLATELET OR ANTICOAGULATION STATUS: No Patient Entered Questionnaires PROMIS Score Percentiles 07/19/2021 04/29/2022 PROMIS Global Health Scale Physical Health Percentile 41 31 Mental Health Percentile 63 34 Percentiles provide an indication of how the patient's score ranks in relation to the general population. Higher percentile rankings indicate better function/quality of life. 50th percentile is the average of the general population and indicates half of respondents had a worse score. Depression Screening: PHQ-9 Self-Harm (Item 9) response options: 0 Not at all 1 Several days 2 More than half the days 3 Nearly every day PHQ-9 Levels: 0-4 No to mild depression 5-9 Mild depression 10-14 Moderate depression 15-19 Moderately severe depression 20-27 Severe depression PHYSICAL EXAM: There were no vitals taken for this visit. DATA REVIEW No additional images reviewed today ASSESSMENT/PLAN (M48.062) Spinal stenosis of lumbar region with neurogenic claudication (primary encounter diagnosis) Marino Herrera will continue with medical management of his/her condition. 1. 12 weeks status post anterior lumbar interbody fusion with posterior based hardware. He has improvement in his preoperative pain. He has no restrictions from our standpoint. He will place a referral for external physical therapy. All questions were answered. I will see him back in 3 months time with previsit x-rays. He was in agreement plan and thanked for the encounter 2. Follow up: Following above Imaging Ordered: XR lumbar The majority of the visit was spent counseling and/or coordinating care for the patient. The patient was counseled regarding lumbar radiculopathy. Total face to face time was 20 minutes. SIGNATURE: Stephanie Kidd MD PATIENT NAME: Marino Herrera DATE: February 27, 2024 TIME: 12:23 PM PAGER: [facility] 02-27-2024 History of Present illness Narrative SPINE SURGERY FOLLOW UP This is a virtual visit using Audio Only Visit. It required patient-provider interaction for the medical decision making as documented below. I have communicated my name and active licensure. The patient's identity and physical location were verified at the time of this visit. Either the patient or their legal litigation claim representative has been informed of the risks and benefits of -- and alternatives to -- treatment through a remote evaluation and consents to proceed with the evaluation remotely. SERVICE DATE: 02/27/2024 SURGERY DATE: 11-28-2023 alif with posterior screws Marino Herrera is seen for 3 month post operative follow up. Marino reports that he is doing okay. He is better than before surgery. Reports his pain is improved, he continues to walk with a walking stick. His is recently hospitalized for vertebral body compression fracture. He is able to put on his holster again ANTIPLATELET OR ANTICOAGULATION STATUS: No Patient Entered Questionnaires PROMIS Score Percentiles 07/19/2021 04/29/2022 PROMIS Global Health Scale Physical Health Percentile 41 31 Mental Health Percentile 63 34 Percentiles provide an indication of how the patient's score ranks in relation to the general population. Higher percentile rankings indicate better function/quality of life. 50th percentile is the average of the general population and indicates half of respondents had a worse score. Depression Screening: PHQ-9 Self-Harm (Item 9) response options: 0 Not at all 1 Several days 2 More than half the days 3 Nearly every day PHQ-9 Levels: 0-4 No to mild depression 5-9 Mild depression 10-14 Moderate depression 15-19 Moderately severe depression 20-27 Severe depression PHYSICAL EXAM: There were no vitals taken for this visit. DATA REVIEW No additional images reviewed today ASSESSMENT/PLAN (M48.062) Spinal stenosis of lumbar region with neurogenic claudication (primary encounter diagnosis) Marino Herrera will continue with medical management of his/her condition. 1. 12 weeks status post anterior lumbar interbody fusion with posterior based hardware. He has improvement in his preoperative pain. He has no restrictions from our standpoint. He will place a referral for external physical therapy. All questions were answered. I will see him back in 3 months time with previsit x-rays. He was in agreement plan and thanked for the encounter 2. Follow up: Following above Imaging Ordered: XR lumbar The majority of the visit was spent counseling and/or coordinating care for the patient. The patient was counseled regarding lumbar radiculopathy. Total face to face time was 20 minutes. SIGNATURE: Stephanie Kidd MD PATIENT NAME: Marino Herrera DATE: February 27, 2024 TIME: 12:23 PM PAGER: documented in this encounter [facility] 01-26-2024 Telephone encounter Note Neuro SPINE CARE COORDINATION QUICK NOTE SURGERY DATE: SURGERY DATE: 11/27 alif L5/S1, posterior extension of fusion CC- Left buttock pain ( achy ) for the past 5 weeks- worse with sitting. - occasional left post thigh pain. . Finds that he wants to bend forward while standing. Neurontin 100 mg TID - out for the past 2 days. Robaxin 750 TID Tylenol 650 mg TID Pt will restart the Neurontin and continue to monitor. The will continue to update the office. He would like to consider increase to 400 mg per day. He will continue to monitor. [facility] Work Phone: 01-26-2024 Miscellaneous Notes Neuro SPINE CARE COORDINATION QUICK NOTE SURGERY DATE: SURGERY DATE: 11/27 alif L5/S1, posterior extension of fusion CC- Left buttock pain ( achy ) for the past 5 weeks- worse with sitting. - occasional left post thigh pain. . Finds that he wants to bend forward while standing. Neurontin 100 mg TID - out for the past 2 days. Robaxin 750 TID Tylenol 650 mg TID Pt will restart the Neurontin and continue to monitor. The will continue to update the office. He would like to consider increase to 400 mg per day. He will continue to monitor. Call received for Stephanie Kidd MD regarding Marino Herrera. Caller: self Patient Identified by Name and : Marino Herrera 1950 Reason for Call: Patient states Dr. Kidd was suppose to give him to see how he is doing Patient states he is still experiencing pain below his buttock and it is constant Patient states the pain level is at a 8-9 Is there any additional information the provider should know? No Last Office Visit: 01/26/2024 Next scheduled appointment: 02/27/2024 Best number to reach caller: [phone] Best time to reach caller: anytime Is it OK to leave a detailed voice message? Yes Maria Isabel Ratliff documented in this encounter [facility] 01-26-2024 Telephone encounter Note Neuro SPINE CARE COORDINATION QUICK NOTE SURGERY DATE: SURGERY DATE: 11/27 alif L5/S1, posterior extension of fusion with MARQUIS 01-09-24 Last refill on 12-18-23 Routed to SELINA for review - refill [facility] Work Phone: 01-26-2024 Miscellaneous Notes Neuro SPINE CARE COORDINATION QUICK NOTE SURGERY DATE: SURGERY DATE: 11/27 alif L5/S1, posterior extension of fusion with MARQUIS 01-09-24 Last refill on 12-18-23 Routed to SELINA for review - refill Patient phones requesting refills as follows: Requested Prescriptions Pending Prescriptions Disp Refills gabapentin (NEURONTIN) 100 mg capsule 90 capsule 0 Sig: Take 1 capsule by mouth three times a day for 30 days. Last office visit date: 01/09/24 Pharmacy: [facility] Current Dosage: Patient is currently taking 1 capsule around 8, 1 capsule around 1 pm and 1 capsule around 10 pm; Has none left. Last filled 12/18/23 Please review and advise. Maria Isabel Ratliff Best practice: put pertinent information (not related to change in dose) in bold at the top of the encounter. documented in this encounter [facility] 01-26-2024 Telephone encounter Note Call received for Stephanie Kidd MD regarding Marino Herrera. Caller: self Patient Identified by Name and : Marino Herrera 1950 Reason for Call: Patient states Dr. Kidd was suppose to give him to see how he is doing Patient states he is still experiencing pain below his buttock and it is constant Patient states the pain level is at a 8-9 Is there any additional information the provider should know? No Last Office Visit: 01/26/2024 Next scheduled appointment: 02/27/2024 Best number to reach caller: [phone] Best time to reach caller: anytime Is it OK to leave a detailed voice message? Yes Maria Isabel Ratliff [facility] 01-26-2024 Telephone encounter Note Patient phones requesting refills as follows: Requested Prescriptions Pending Prescriptions Disp Refills gabapentin (NEURONTIN) 100 mg capsule 90 capsule 0 Sig: Take 1 capsule by mouth three times a day for 30 days. Last office visit date: 01/09/24 Pharmacy: [facility] Current Dosage: Patient is currently taking 1 capsule around 8, 1 capsule around 1 pm and 1 capsule around 10 pm; Has none left. Last filled 12/18/23 Please review and advise. Maria Isabel Ratliff Best practice: put pertinent information (not related to change in dose) in bold at the top of the encounter. [facility] 01-09-2024 Note HNO ID: [id number] Author: STEPHANIE KIDD MD Service: ? Author Type: Physician Type: Progress Notes Filed: 01/09/2024 11:47 Note Text: SPINE SURGERY FOLLOW UP This is an in-person visit. SERVICE DATE: 01/09/2024 SURGERY DATE: SURGERY DATE: 11/27 alif L5/S1, posterior extension of fusion Marino Herrera is seen for 6 week post operative follow up. He reported he is doing well. Reports occasional low back pain. Has been ambulating with the use of a walking stick. No issues with his incision ANTIPLATELET OR ANTICOAGULATION STATUS: No Patient Entered Questionnaires PROMIS Score Percentiles 07/19/2021 04/29/2022 PROMIS Global Health Scale Physical Health Percentile 41 31 Mental Health Percentile 63 34 Percentiles provide an indication of how the patient's score ranks in relation to the general population. Higher percentile rankings indicate better function/quality of life. 50th percentile is the average of the general population and indicates half of respondents had a worse score. Depression Screening: PHQ-9 Self-Harm (Item 9) response options: 0 Not at all 1 Several days 2 More than half the days 3 Nearly every day PHQ-9 Levels: 0-4 No to mild depression 5-9 Mild depression 10-14 Moderate depression 15-19 Moderately severe depression 20-27 Severe depression PHYSICAL EXAM: BP 141/75 (BP Site: Right Arm, BP Position: Sitting, BP Cuff Size: Regular Adult) Pulse 80 GENERAL APPEARANCE: Well nourished, well developed, and no apparent distress. NEURO PSYCH: Patient oriented to person, place, and time. Mood pleasant. Benign affect. MUSCULOSKELETAL VISUAL INSPECTION CERVICAL: WNL THORACIC: WNL LUMBAR: WNL MOTOR: 5/5 in all muscle groups. SENSORY: Normal sensory exam DATA REVIEW [facility] records independently reviewed Upright xrays with L4-S1 fusion noted. No signs of hardware failure. ASSESSMENT/PLAN (M48.062) Spinal stenosis of lumbar region with neurogenic claudication (primary encounter diagnosis) Marino Herrera will continue with medical management of his/her condition. 1. Long discussion was had with patient regarding his clinical presentation. He has slight left-sided SI joint pain. He is improved from surgery. He will continue with the 10 pound lifting restriction. We will have a phone call in 6 weeks time to lift restrictions. We discussed overall his kyphosis is largely unchanged. If he does progress, a T10 to the pelvis will be the only option if he complains of this deformity. 2. Follow up: Following above Imaging Ordered: None The majority of the visit was spent counseling and/or coordinating care for the patient. The patient was counseled regarding lumbar radiculopathy. Total face to face time was 30 minutes. SIGNATURE: Stephanie Kidd MD PATIENT NAME: Marino Herrera DATE: January 09, 2024 TIME: 11:24 AM PAGER: [facility] 01-09-2024 History of Present illness Narrative SPINE SURGERY FOLLOW UP This is an in-person visit. SERVICE DATE: 01/09/2024 SURGERY DATE: SURGERY DATE: 11/27 alif L5/S1, posterior extension of fusion Marino Herrera is seen for 6 week post operative follow up. He reported he is doing well. Reports occasional low back pain. Has been ambulating with the use of a walking stick. No issues with his incision ANTIPLATELET OR ANTICOAGULATION STATUS: No Patient Entered Questionnaires PROMIS Score Percentiles 07/19/2021 04/29/2022 PROMIS Global Health Scale Physical Health Percentile 41 31 Mental Health Percentile 63 34 Percentiles provide an indication of how the patient's score ranks in relation to the general population. Higher percentile rankings indicate better function/quality of life. 50th percentile is the average of the general population and indicates half of respondents had a worse score. Depression Screening: PHQ-9 Self-Harm (Item 9) response options: 0 Not at all 1 Several days 2 More than half the days 3 Nearly every day PHQ-9 Levels: 0-4 No to mild depression 5-9 Mild depression 10-14 Moderate depression 15-19 Moderately severe depression 20-27 Severe depression PHYSICAL EXAM: BP 141/75 (BP Site: Right Arm, BP Position: Sitting, BP Cuff Size: Regular Adult) Pulse 80 GENERAL APPEARANCE: Well nourished, well developed, and no apparent distress. NEURO PSYCH: Patient oriented to person, place, and time. Mood pleasant. Benign affect. MUSCULOSKELETAL VISUAL INSPECTION CERVICAL: WNL THORACIC: WNL LUMBAR: WNL MOTOR: 5/5 in all muscle groups. SENSORY: Normal sensory exam DATA REVIEW [facility] records independently reviewed Upright xrays with L4-S1 fusion noted. No signs of hardware failure. ASSESSMENT/PLAN (M48.062) Spinal stenosis of lumbar region with neurogenic claudication (primary encounter diagnosis) Marino Herrera will continue with medical management of his/her condition. 1. Long discussion was had with patient regarding his clinical presentation. He has slight left-sided SI joint pain. He is improved from surgery. He will continue with the 10 pound lifting restriction. We will have a phone call in 6 weeks time to lift restrictions. We discussed overall his kyphosis is largely unchanged. If he does progress, a T10 to the pelvis will be the only option if he complains of this deformity. 2. Follow up: Following above Imaging Ordered: None The majority of the visit was spent counseling and/or coordinating care for the patient. The patient was counseled regarding lumbar radiculopathy. Total face to face time was 30 minutes. SIGNATURE: Stephanie Kidd MD PATIENT NAME: Marino Herrera DATE: January 09, 2024 TIME: 11:24 AM PAGER: documented in this encounter [facility] 01-01-2024 Telephone encounter Note Neuro SPINE CARE COORDINATION QUICK NOTE SERVICE DATE: 12/12/2023 SURGERY DATE: 11/27 alif L5/S1, posterior extension of fusion CC- 2-3 days of B LE pain ( constant ) - B post thigh - B calf tightness. Symptoms are worsened with sitting Current medications Tylenol 1000 mg TID Neurontin 100 mg TID Robaxin 750 mg - last taken 10 days ago which is the time that the symptoms started. He will restart the Robaxin QID but will need refill Pt will update office mid week [facility] Work Phone: 01-01-2024 Miscellaneous Notes Neuro SPINE CARE COORDINATION QUICK NOTE SERVICE DATE: 12/12/2023 SURGERY DATE: 11/27 alif L5/S1, posterior extension of fusion CC- 2-3 days of B LE pain ( constant ) - B post thigh - B calf tightness. Symptoms are worsened with sitting Current medications Tylenol 1000 mg TID Neurontin 100 mg TID Robaxin 750 mg - last taken 10 days ago which is the time that the symptoms started. He will restart the Robaxin QID but will need refill Pt will update office mid week Pt had surgery 11/27 states that incision looks great, but this pain just started back up. Patient called reporting: increasing pain Pain level (Scale of 1 to 10): 8 Location: across bottom of butt back of legs right and left Describe your pain: aching, When did the pain begin? Few days ago Any new weakness of the extremities? Yes Any new falling? No Any new numbness/tinging of the extremities? Yes, right side Any changes in bowel/bladder control? No Are you taking pain medications or muscle relaxants? Yes If so, what are you taking and current dosage? Gabapentin 1 tab 2 x daily Not taking robaxin because no refill Forwarded to team for review. Ena Barrett documented in this encounter [facility] 01-01-2024 Telephone encounter Note Pt had surgery 11/27 states that incision looks great, but this pain just started back up. Patient called reporting: increasing pain Pain level (Scale of 1 to 10): 8 Location: across bottom of butt back of legs right and left Describe your pain: aching, When did the pain begin? Few days ago Any new weakness of the extremities? Yes Any new falling? No Any new numbness/tinging of the extremities? Yes, right side Any changes in bowel/bladder control? No Are you taking pain medications or muscle relaxants? Yes If so, what are you taking and current dosage? Gabapentin 1 tab 2 x daily Not taking robaxin because no refill Forwarded to team for review. Ena Barrett [facility] 12-18-2023 Telephone encounter Note Call to the pt to review plan. Pain scale reviewed - pt will take Roxicodone for pain > 6 He notes that this will be decreased weekly Pt to start Neurontin 100 mg TID Reviewed the dosage for the Neurontin and pt verbalizes good understanding . Update to the office on 12-20-23 [facility] 12-18-2023 Miscellaneous Notes Call to the pt to review plan. Pain scale reviewed - pt will take Roxicodone for pain > 6 He notes that this will be decreased weekly Pt to start Neurontin 100 mg TID Reviewed the dosage for the Neurontin and pt verbalizes good understanding . Update to the office on 12-20-23 Addended by: JORDAN CAMPUZANO on: 12/18/2023 11:06 AM Modules accepted: Orders Patient requesting pain rx refill. PDMP verified. Refill appropriate. Jordan Campuzano APRN.LINDSE[facility] Neuro SPINE CARE COORDINATION QUICK NOTE SURGERY DATE: 11/27 alif L5/S1, posterior extension of fusion 11-28-23 Call back to the pt Pt ran out of Roxicodone - pt admits that he has been avoiding Roxicodone as his father was an alcoholic . CC - right LPB and RLE pain - right buttock Pt has not used spinal stimulator since last week but re-started today . He notes some improvement in his RLE ( Buttock pain ) Pt was able to go to [facility] yesterday and ambulate short distances Pt previously on Neurontin but stopped once stimulator was placed. He continues with Cymbalta 60 mg daily . Pt would like refill of Roxicodone and retrial of Neurontin Routed to team for review. Name of Caller: marino Relationship to patient: patient Last visit in this department: 12/12/2023 Reason for Call: Other : patient was calling to give Dr. Zamorano on pain stimulator Callback number: [phone] documented in this encounter [facility] 12-18-2023 Note Addended by: JORDAN CAMPUZANO on: 12/18/2023 11:06 AM Modules accepted: Orders [facility] 12-18-2023 Telephone encounter Note Patient requesting pain rx refill. PDMP verified. Refill appropriate. Jordan Campuzano APRN.CNP [facility] 12-18-2023 Telephone encounter Note Neuro SPINE CARE COORDINATION QUICK NOTE SURGERY DATE: 11/27 alif L5/S1, posterior extension of fusion 11-28-23 Call back to the pt Pt ran out of Roxicodone - pt admits that he has been avoiding Roxicodone as his father was an alcoholic . CC - right LPB and RLE pain - right buttock Pt has not used spinal stimulator since last week but re-started today . He notes some improvement in his RLE ( Buttock pain ) Pt was able to go to [employer] yesterday and ambulate short distances Pt previously on Neurontin but stopped once stimulator was placed. He continues with Cymbalta 60 mg daily . Pt would like refill of Roxicodone and retrial of Neurontin Routed to team for review. [facility] 12-18-2023 Telephone encounter Note Name of Caller: marino Relationship to patient: patient Last visit in this department: 12/12/2023 Reason for Call: Other : patient was calling to give Dr. Zamorano on pain stimulator Callback number: [phone] [facility] 12-18-2023 Telephone encounter Note Requested Prescriptions Pending Prescriptions Disp Refills methocarbamol (ROBAXIN) 750 mg tablet 60 tablet 0 Sig: Take 1 tablet by mouth every 8 hours as needed for muscle spasm. [facility] 12-18-2023 Miscellaneous Notes Requested Prescriptions Pending Prescriptions Disp Refills methocarbamol (ROBAXIN) 750 mg tablet 60 tablet 0 Sig: Take 1 tablet by mouth every 8 hours as needed for muscle spasm. documented in this encounter [facility] 12-12-2023 Note HNO ID: [id number] Author: STEPHANIE KIDD MD Service: ? Author Type: Physician Type: Progress Notes Filed: 12/12/2023 12:58 Note Text: SPINE SURGERY FOLLOW UP This is an in-person visit. SERVICE DATE: 12/12/2023 SURGERY DATE: 11/27 alif L5/S1, posterior extension of fusion Marino Herrera is seen for 2 week post operative follow up. Patient reports that his mobility has improved since surgery. He does notice that he is walking better. He reports at bedtime he has significant low back pain and buttock pain. He has trouble getting comfortable. Denies any weakness. No issues with his incision both anterior and posterior. He has been taking oxycodone only at bed. He does notice an improvement from his preoperative state ANTIPLATELET OR ANTICOAGULATION STATUS: No Patient Entered Questionnaires PROMIS Score Percentiles 07/19/2021 04/29/2022 PROMIS Global Health Scale Physical Health Percentile 41 31 Mental Health Percentile 63 34 Percentiles provide an indication of how the patient's score ranks in relation to the general population. Higher percentile rankings indicate better function/quality of life. 50th percentile is the average of the general population and indicates half of respondents had a worse score. Depression Screening: PHQ-9 Self-Harm (Item 9) response options: 0 Not at all 1 Several days 2 More than half the days 3 Nearly every day PHQ-9 Levels: 0-4 No to mild depression 5-9 Mild depression 10-14 Moderate depression 15-19 Moderately severe depression 20-27 Severe depression PHYSICAL EXAM: BP 131/70 (BP Site: Right Arm, BP Position: Sitting, BP Cuff Size: Regular Adult) Pulse 79 Ht 172.1 cm (5' 7.76) Wt 86.8 kg (191 lb 7.5 oz) BMI 29.32 kg/m? GENERAL APPEARANCE: Well nourished, well developed, and no apparent distress. NEURO PSYCH: Patient oriented to person, place, and time. Mood pleasant. Benign affect. MUSCULOSKELETAL VISUAL INSPECTION CERVICAL: WNL THORACIC: WNL LUMBAR: WNL MOTOR: 5/5 in all muscle groups. SENSORY: Normal sensory exam GAIT: Normal. Anterior based incision clean dry intact posterior based incision ismael removed today no evidence of infection no erythema. Steri-Strips applied DATA REVIEW No additional images reviewed today ASSESSMENT/PLAN (M48.062) Spinal stenosis of lumbar region with neurogenic claudication (primary encounter diagnosis) Marino Herrera will continue with medical management of his/her condition. 1. 2 weeks out from an anterior lumbar interbody fusion with extension of hardware posteriorly. Patient reports that he is doing okay. He does report some difficulty with pain control at bedtime. But when he is awake he is ambulating better. I do believe that there is an heightened state of inflammatory moderators at this time. We discussed taking narcotic before bedtime. We discussed that should he need more he can contact the office. If he feels like he is worsening at any time point we will obtain updated imaging. All questions were answered patient was in agreement with plan and thanked for the encounter 2. Follow up: Following above Imaging Ordered: None The majority of the visit was spent counseling and/or coordinating care for the patient. The patient was counseled regarding lumbar stenosis with radiculopathy. Total face to face time was 30 minutes. SIGNATURE: Stephanie Kidd MD PATIENT NAME: Marino Herrera DATE: December 12, 2023 TIME: 12:55 PM PAGER: [facility] 12-12-2023 History of Present illness Narrative SPINE SURGERY FOLLOW UP This is an in-person visit. SERVICE DATE: 12/12/2023 SURGERY DATE: 11/27 alif L5/S1, posterior extension of fusion Marino Herrera is seen for 2 week post operative follow up. Patient reports that his mobility has improved since surgery. He does notice that he is walking better. He reports at bedtime he has significant low back pain and buttock pain. He has trouble getting comfortable. Denies any weakness. No issues with his incision both anterior and posterior. He has been taking oxycodone only at bed. He does notice an improvement from his preoperative state ANTIPLATELET OR ANTICOAGULATION STATUS: No Patient Entered Questionnaires PROMIS Score Percentiles 07/19/2021 04/29/2022 PROMIS Global Health Scale Physical Health Percentile 41 31 Mental Health Percentile 63 34 Percentiles provide an indication of how the patient's score ranks in relation to the general population. Higher percentile rankings indicate better function/quality of life. 50th percentile is the average of the general population and indicates half of respondents had a worse score. Depression Screening: PHQ-9 Self-Harm (Item 9) response options: 0 Not at all 1 Several days 2 More than half the days 3 Nearly every day PHQ-9 Levels: 0-4 No to mild depression 5-9 Mild depression 10-14 Moderate depression 15-19 Moderately severe depression 20-27 Severe depression PHYSICAL EXAM: BP 131/70 (BP Site: Right Arm, BP Position: Sitting, BP Cuff Size: Regular Adult) Pulse 79 Ht 172.1 cm (5' 7.76) Wt 86.8 kg (191 lb 7.5 oz) BMI 29.32 kg/m GENERAL APPEARANCE: Well nourished, well developed, and no apparent distress. NEURO PSYCH: Patient oriented to person, place, and time. Mood pleasant. Benign affect. MUSCULOSKELETAL VISUAL INSPECTION CERVICAL: WNL THORACIC: WNL LUMBAR: WNL MOTOR: 5/5 in all muscle groups. SENSORY: Normal sensory exam GAIT: Normal. Anterior based incision clean dry intact posterior based incision ismael removed today no evidence of infection no erythema. Steri-Strips applied DATA REVIEW No additional images reviewed today ASSESSMENT/PLAN (M48.062) Spinal stenosis of lumbar region with neurogenic claudication (primary encounter diagnosis) Marino Herrera will continue with medical management of his/her condition. 1. 2 weeks out from an anterior lumbar interbody fusion with extension of hardware posteriorly. Patient reports that he is doing okay. He does report some difficulty with pain control at bedtime. But when he is awake he is ambulating better. I do believe that there is an heightened state of inflammatory moderators at this time. We discussed taking narcotic before bedtime. We discussed that should he need more he can contact the office. If he feels like he is worsening at any time point we will obtain updated imaging. All questions were answered patient was in agreement with plan and thanked for the encounter 2. Follow up: Following above Imaging Ordered: None The majority of the visit was spent counseling and/or coordinating care for the patient. The patient was counseled regarding lumbar stenosis with radiculopathy. Total face to face time was 30 minutes. SIGNATURE: Stephanie Kidd MD PATIENT NAME: Marino Herrera DATE: December 12, 2023 TIME: 12:55 PM PAGER: documented in this encounter [facility] 12-08-2023 Telephone encounter Note Neuro SPINE CARE COORDINATION QUICK NOTE 11-29-23 Procedure(s): Anterior lumbar interbody fusion L5/S1 Posterior spinal instrumentation L4-S1 Posterior spinal fusion L5/S1 CC- LBP - tightness but notes that he is increasing his activities . No LE pain . He will continue with Robaxin and take the Roxicodone at night. Pt requests post op apt with Dr. Kidd on 12-12-23 @ 1 00 pm @ [place] due to distance. 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 [facility] Work Phone: 12-08-2023 Miscellaneous Notes Neuro SPINE CARE COORDINATION QUICK NOTE 11-29-23 Procedure(s): Anterior lumbar interbody fusion L5/S1 Posterior spinal instrumentation L4-S1 Posterior spinal fusion L5/S1 CC- LBP - tightness but notes that he is increasing his activities . No LE pain . He will continue with Robaxin and take the Roxicodone at night. Pt requests post op apt with Dr. Kidd on 12-12-23 @ 1 00 pm @ [place] due to distance. Apt with Jordan Branham NP has been cx. Pt called back. He stated that he spoke with Dr. Kidd before the surgery that it was to hard for him to get to [facility], Dr. Kidd assured him that he could have his clamps removed there. Appt is 12/11 It still has not change. 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 He also stated that he is not taking his Oxycodone and Robaxin because he drives his . He did last night and he slept. Wants to know if he can take them in the evening, every 4 hrs and still be ok to drive in the morning. If possible he would like a call back today. Name of Caller: Marinolinsey Herrera Relationship to patient: patient Last visit in this department: Visit date not found Reason for Call: Other : Patient calling to see if his follow up appointments can be at [facility] because its really difficult for him to go to [facility]. Please call to discuss if possible. Callback number: [phone] Fax Number (if necessary): N/A Additional info if needed (Prior Auth #, Claim #, etc ): N/A Rufus Villegas Patient Tactical Debriefer Ccsr documented in this encounter [facility] 12-08-2023 Telephone encounter Note Pt called back. He stated that he spoke with Dr. Kidd before the surgery that it was to hard for him to get to [facility], Dr. Kidd assured him that he could have his clamps removed there. Appt is 12/11 It still has not change. 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 He also stated that he is not taking his Oxycodone and Robaxin because he drives his . He did last night and he slept. Wants to know if he can take them in the evening, every 4 hrs and still be ok to drive in the morning. If possible he would like a call back today. [facility] 12-07-2023 Telephone encounter Note Name of Caller: Marino Herrera Relationship to patient: patient Last visit in this department: Visit date not found Reason for Call: Other : Patient calling to see if his follow up appointments can be at [facility] because its really difficult for him to go to main campus. Please call to discuss if possible. Callback number: [phone] Fax Number (if necessary): N/A Additional info if needed (Prior Auth #, Claim #, etc ): N/A Rufus Villegas Patient Tactical Debriefer Ccsr [facility] 12-05-2023 Telephone encounter Note CM was able to make contact with pt in regard to HC services. Pt declined services at this time. Pt reports he is doing well with walking , no reports of falls, has been receiving help from and her TRANSCRIPTION COORDINATOR when they are there. Pt expressed he is not taking pain medication just muscle relaxer as needed. Pt has been able to make small trips driving to the store and walking up and down the street with . Pt is seeking for 2wk follow up to possibly be moved to [facility] due to making travel easier for him. CM sent message to team [facility] 12-05-2023 Miscellaneous Notes CM was able to make contact with pt in regard to HC services. Pt declined services at this time. Pt reports he is doing well with walking , no reports of falls, has been receiving help from and her TRANSCRIPTION COORDINATOR when they are there. Pt expressed he is not taking pain medication just muscle relaxer as needed. Pt has been able to make small trips driving to the store and walking up and down the street with . Pt is seeking for 2wk follow up to possibly be moved to [facility] due to making travel easier for him. ARIEL sent message to team documented in this encounter [facility] 11-30-2023 Note HNO ID: [id number] Author: ROSA ELENA GRISSOM ? Service: Pharmacy Author Type: Public Welfare Worker Type: Plan of Care Filed: 11/30/2023 11:57 Note Text: PHARMACY BEDSIDE DELIVERY SERVICE Patient Name: Marino Herrera The marked outpatient medications were Filled at: [facility] and delivered to the patient's bedside to PATIENT Medication List START taking these medications methocarbamol 750 mg tablet Commonly known as: ROBAXIN Take 1 tablet by mouth every 8 hours as needed for muscle spasm. MEDICATION: DELIVERED oxyCODONE IR 5 mg immediate release tablet Commonly known as: ROXICODONE Take 1 tablet by mouth every 4 hours as needed for pain for up to 7 days. MEDICATION: DELIVERED senna-docusate 8.6-50 mg per tablet Commonly known as: SENNA-S Take 2 tablets by mouth two times a day. MEDICATION: DELIVERED CHANGE how you take these medications acetaminophen 500 mg tablet Commonly known as: TYLENOL 2 tablets by ORAL/FEEDING TUBE route every 8 hours as needed for pain. What changed: medication strength how to take this when to take this reasons to take this CONTINUE taking these medications aspirin 81 mg chewable tablet Take 1 tablet by mouth once daily. atorvastatin 20 mg tablet Commonly known as: LIPITOR Take 1 tablet by mouth daily at bedtime. CYMBALTA 60 mg capsule Generic drug: DULoxetine furosemide 20 mg tablet Commonly known as: LASIX Take 1 tablet by mouth once daily. gabapentin 100 mg capsule Commonly known as: NEURONTIN KLOR-CON M10 10 mEq tablet Generic drug: potassium chloride ER Take 1 tablet by mouth once daily. levothyroxine 150 mcg tablet Commonly known as: SYNTHROID metoprolol succinate ER 50 mg 24 hr tablet Commonly known as: TOPROL XL Take 1 tablet by mouth once daily. SUMAtriptan 100 mg tablet Commonly known as: IMITREX You might also be taking other medications not listed above. If you have questions about any of your other medications, talk to the person who prescribed them or your Primary Care Provider. STOP taking these medications traMADol 50 mg tablet Commonly known as: RAYNA Grissom PAGER: [phone] November 30, 2023 11:56 AM [facility] 11-30-2023 Note HNO ID: [id number] Author: ROSA ELENA GRISSOM ? Service: Pharmacy Author Type: Public Welfare Worker Type: Plan of Care Filed: 11/30/2023 10:40 Note Text: Insurance investigation completed Patient has active prescription insurance: Yes - Patient's insurance is in-network with [facility] Insurance loaded into [place]: Yes Test claim was completed to verify insurance is active: Successful Any questions, please reach out to your medication utilization coordinator. [facility] 11-29-2023 Note HNO ID: [id number] Author: IRVIN SÁNCHEZ PA-C Service: Neurosurgery Author Type: Physician Comfort Advisor Type: Progress Notes Filed: 11/29/2023 10:21 Note Text: SERVICE DATE: 11/29/2023 SERVICE TIME: 10:21 AM SPINE SURGERY TEAM PROGRESS NOTE After 3 PM please page Codi Sanchez, SCALE MANAGER [phone] and Wanda Davenport, SCALE MANAGER [phone]. After 6 PM (1800) please page Petty Rogel PA-C [phone], backup pager [phone]. Attending: Stephanie Gerard MD Location: H060 017/[id number] Hospital Day: 2 11/28/2023 1 Day Post-Op S/P: Exposure for L5-S1 anterior lumbar interbody fusion MEDICATIONS: Current medications and allergies reviewed. Recommended/planned medication changes discussed in detail in the A/P section below. INTERVAL HPI (Subjective): is a 73 year old male who reports appropriate postop pain and pain is controlled, and denies bleeding, drainage, nausea, vomiting, chest pain, shortness of breath, light headedness, swelling, itching, calf pain, constipation, difficulty voiding, insomnia, numbness, tingling, parasthesias, and worsening pain. Overnight events noted: none. Bowel / Bladder dysfunction: No OBJECTIVE: LABS: CBC: Recent Labs 11/29/23 0403 WBC 9.39 HB 10.1* HCT 31.2* PLT 166 MCV 95.7 RDWCV 11.6 COAG: No results for input(s): APTT, INR in the last 168 hours. BMP: Recent Labs 11/29/23 0403 GLUC 133* NA 139 K 4.4 CHLOR 105 CO2 25 ANION 9 BUN 17 CREAT 0.76 CHEM: Recent Labs 11/29/23 0403 CA 8.1* HEPATIC: No results for input(s): ALKPHOS, ALT, AST, TBILI, LIPASE in the last 168 hours. URINALYSIS: Recent Labs 11/28/23 0842 PH 7.41 CARDIAC: No results for input(s): CKTEST, CKMB, CKMBP, TROPT, PBNP in the last 168 hours. HbA1C: No results found for: HBA1C CRP: No results found for: CRP ESR: No results found for: WSR Blood Glucose Checks: Lab Results Component Value Date PCGLUCOSE 116 (A) 04/26/2021 PCGLUCOSE 123 (A) 04/26/2021 PCGLUCOSE 146 (A) 04/25/2021 PCGLUCOSE 125 (A) 04/23/2021 Vitamin D: No results found for: VITD25 CULTURES: N/A Estimated Creatinine Clearance: 93.9 mL/min (based on SCr of 0.76 mg/dL). 11/28/23 2133 11/29/23 0125 11/29/23 0502 11/29/23 0924 BP: 104/60 112/54 (!) 105/47 (!) 116/49 Pulse: (!) 58 (!) 57 (!) 57 74 Resp: 12 Temp: 36.5 ?C (97.7 ?F) 36.3 ?C (97.3 ?F) 36.3 ?C (97.3 ?F) 36.7 ?C (98.1 ?F) TempSrc: Oral Oral Oral Oral SpO2: 100% 96% 96% 95% Weight: Height: General: No acute distress Alert, Oriented to Person, Place, Time Cranial nerves II-XII grossly intact Speech intact LUNGS:CTAB CVS:RRR, no murmurs ABD:+BS x 4, SOFT, NDT, NTTP MOTOR: Upper Extremity: R UE: D 5/5 B 5/5 T 5/5 G 5/5 HI 5/5 L UE: D 5/5 B 5/5 T 5/5 G 5/5 HI 5/5 Lower Extremity: R LE: HF 5/5 KE 5/5 DF 5/5 EHL 5/5 PF 5/5 L LE: HF 5/5 KE 5/5 DF 5/5 EHL 5/5 PF 5/5 Sensory: SILT BUE throughout SILT BLE throughout Reflexes: intact Negative Du's bilaterally Negative Babinski bilaterally Negative clonus Incision: Clean, dry and intact. No erythema or edema/swelling EXT: No edema , pulses intact QUALITY CHECKLIST: Lines, Drains, and Airways Line Duration Peripheral Right Hand 18 Gauge -- days Peripheral 11/28/23 0604 Left Hand 18 Gauge 1 day Drain Duration Indwelling Urinary Catheter 11/28/23 0806 [facility] Coude 18 Fr 1 day Drain/Tube 11/28/23 1306 Hemovac Left Posterior Drain #1 <1 day Reviewed lines and needs to be continued: REASONS: Intravenous fluids and Intravenous antibiotics Current restraint orders: None Assessment AND Plan Active Hospital Problems as of 11/29/2023 Noted - Resolved POA Neurology Post-operative pain 04/22/2021 - Present Yes Current Assessment AND Plan Assessment: Acute post-operative pain PLAN: Pain control continue present analgesic regimen Monitor * (Principal) Spinal stenosis of lumbar region with radiculopathy 11/28/2023 - Present Yes Current Assessment AND Plan Assessment: POA PLAN: -S/p Exposure for L5-S1 anterior lumbar interbody fusion - Pain control continue present analgesic regimen -Monitor drain output --Upright x-rays -PT/OT continue -Out of bed to chair for meals -Ambulate pt 3-4 x daily as able. -Bowel regimen -Incentive Spirometer 10-15 times every hour instructed -DVT ppx: IPCs, SQH 5,000 units q12h POD 2 - Urinary catheter: DC bruce today -Discharge:TBD pending PT/OT evaluation --Plan discussed with Dr. Kidd Cardiovascular Coronary artery disease involving [place] coronary artery of [place] heart with angina pectoris (HCC) 04/22/2021 - Present Yes Current Assessment AND Plan Assessment: POA PLAN: Continue home Rx/regimen Monitor Thoracic ascending aortic aneurysm (HCC) 01/18/2021 - Present Yes Current Assessment AND Plan Hx of AAA S/p repair 04/2021 -Managed on aspirin (more content not included)... [facility] 11-29-2023 Note HNO ID: [id number] Author: TAMELA PULIDO MD Service: Urology Author Type: Resident Type: Progress Notes Filed: 11/30/2023 07:00 Note Text: [facility] UROLOGY PROGRESS NOTE Name: Marino Herrera Bed: H060 [id number]/[id number] Date: 11/28/2023 After Hours Urology Service Pager: [phone] ASSESSMENT AND PLAN Marino Herrera is a 73 year old male with PMHx of BUBBA, CAD, HTN, Angina, Hypothyroidism, GERD, and L4-L5 decompression fusion now with spinal stenosis and bilateral gluteal radiculopathy now Day of Surgery s/p ALIF with exposure by Dr. Pelaez Interval/daily plan: - Doing well. Shaquille diet overnight. Ok for regular diet today. Needs to ambulate. - Post-op labs with Cr at baseline. Hgb 10.1. - Bruce clear yellow, 1.7L output. #Neuro - Pain control with PO/IV analgesia #GI -Diet: ADAT, GIS -Colace, Zofran # -SCr: stable -UOP: Continue to monitor -Bruce:per primary team, ok to dc once ambulatory #Activity - OOB to chair and Ambulate with assistance. Stressed importance of getting out of bed Rest of care per primary team. Plan discussed with Dr. Pelaez . Tamela Gaffney MD PGY5- Urology Resident Pager: [phone] After 5PM on weekdays and Weekends/Holidays please page Urology Rough Patcher: [phone] SUBJECTIVE -See above OBJECTIVE: Vital Signs BP 110/57 Pulse 65 Temp 36.2 ?C (97.2 ?F) (Temporal) Resp 19 SpO2 96% Input and Output Intake/Output Summary (Last 24 hours) at 11/28/2023 1703 Last data filed at 11/28/2023 1545 Gross per 24 hour Intake 1090 ml Output 910 ml Net 180 ml Urine output 1.7L Drains None Physical Exam General: Well-appearing, no acute distress CV: Warm and well perfused Lungs: Unlabored breathing on room air Abdomen: soft, non-tender, non-distended Wound: Incision clean, dry, and intact : Bruce catheter present Extremities: no peripheral edema bilaterally, no palpable cords Imaging None Disclosures The sensitive examination was discussed with the Patient or Patient's Authorized Dental Technician Instructor. As applicable, any other physician, advance practice provider, medical student, or other health professional student that will be observing or involved in the sensitive examination for educational or training purposes was discussed with the Patient or Authorized Dental Technician Instructor. The Patient or Authorized Dental Technician Instructor has agreed to proceed with the sensitive examination. (Sensitive examination includes inspection and/or palpation of the breasts, pelvis, prostate and anorectal regions) [facility] 11-28-2023 Note HNO ID: [id number] Author: MANNY LOBO MD Service: ? Author Type: Resident Type: Anesthesia Procedure Notes Filed: 11/30/2023 11:56 Note Text: ---- Attestation signed by Manny Lobo MD at 11/30/2023 11:56 AM Attending note I was present for the entire procedure supervising the fellow/resident and participated in the reese components of the procedure. No complications. Manny Gomez MD Staff anesthesiologist Phone : [phone] ---- ANESTHESIOLOGY PROCEDURE NOTE A-Line General Information Procedure Start Time/Medication Administration: 11/28/2023 7:45 AM Procedure End Time: 11/28/2023 7:54 AM Patient location during procedure: OR Timeout Performed Pre-procedure: timeout performed Indications: continuous blood pressure monitoring and blood sampling needed Staffing Resident: Isabel Neil DO Performed by: resident Preparation Sterility Preparation: hand hygiene performed prior to procedure, sterile gloves, drapes, and procedure tray, surgical cap used, mask used, sterile drape used during line insertion, skin prep agent completely dried prior to procedure Site Prep: Chloraprep Procedure Details Catheter Type: arterial line Catheter Size: 20 G Catheter Length: 1.75 in Guidewire Used: Yes Guidewire Removed Intact: Yes Laterality: left Site: radial artery Ultrasound Guided: No Line Secured: occlusive biodressing and tape SIGNATURE: Isabel Neil DO PATIENT NAME: Marino Herrera DATE: November 28, 2023 TIME: 8:29 AM CSN: [id number] [facility] 11-28-2023 Note HNO ID: [id number] Author: ISABEL NEIL DO Service: ? Author Type: Resident Type: Anesthesia Procedure Notes Filed: 11/28/2023 08:29 Note Text: ANESTHESIOLOGY PROCEDURE NOTE Airway General Information Procedure Start Time/Medication Administration: 11/28/2023 7:48 AM Procedure End Time: 11/28/2023 7:50 AM Patient location during procedure: OR Timeout Performed Pre-procedure: timeout performed Consent Obtained: Yes Patient identity confirmed: arm band, care production team advisor and patient Staffing Resident: Isabel Neil DO Performed by: resident Indications and Patient Condition Indications for airway management: anesthesia Preoxygenated: yes anesthesia circuit Patient position: sniffing Method: asleep Airway Accessory: oral airway Final Airway Details Final airway type: endotracheal airway Final Endotracheal Airway: ETT Cuffed: yes Successful intubation technique: video laryngoscopy Devices used: Alejandra Endotracheal tube insertion site: oral Blade: Jossie Blade size: #4 ETT size (mm): 7.5 Measured from: lips Measurement (cm): 24 Placement verified by: capnometry Cormack-Lehane Classification: grade I - full view of glottis Number of attempts at approach: 1 SIGNATURE: Isabel Neil DO PATIENT NAME: Marino Herrera DATE: November 28, 2023 TIME: 8:28 AM CSN: [id number] [facility] 11-28-2023 Note HNO ID: [id number] Author: ELIANA THACKER MD Service: Orthopaedic Surgery Author Type: Resident Type: Progress Notes Filed: 11/28/2023 07:25 Note Text: Pre-operative Spine Exam Exam: Upper Extremity Strength on a 5-point scale (R/L): Deltoid (C5) 5/5 , Biceps (C5-6) 5/5 , Triceps (C7) 5/5 , Wrist extensors (C6) 5/5 , Finger flexors (C8) 5/5 , First dorsal interossei (T1) 5/5 . Sensory exam demonstrates intact sensation to light touch to RIGHT AND LEFT upper extremities in axillary, radial, median, ulnar nerve distributions. . Lower Extremity Strength on a 5-point scale (R/L): Hip flexors (L2) 5/5 , Quads (L3) 5/5 ,Hamstrings (L5-S1) 5/5 , Tibialis anterior (L4) 5/5 , Gastroc-Soleus (S1) 5/5 , EHL (L5) 5/5 Sensory exam demonstrates intact sensation to light touch to RIGHT AND LEFT lower extremities in spn, dpn, sural, saphenous, and tibial nerve distributions. Du's sign: Negative Babinski's sign: Negative Clonus: Negative Eliana Thacker MD Orthopaedic Surgery Resident PGY-3 [facility] 11-21-2023 Telephone encounter Note CARE CONTINUUM ADVISOR ASSESSMENT PRIMARY CARE PHYSICIAN: Yecenia Okeefe MD OR Surgery Date: 11/28/23 Health Insurance: Medicare Financial Resources: Retired Primary Contact: Extended Emergency Contact Information Primary Emergency Contact: Reyna Herrera Address: [address] [place], [place] [id number] Relation: Spouse Secondary Emergency Contact: Grant Herrera Relation: Brother Other Important Patient Contacts: None Patient/Dental Technician Instructor Stated Goals: To have reduction in pain, To have reduction in symptoms, and To improve my functional status Stripper And Printer needed?: No ADVANCE DIRECTIVES: Does Patient Have Advance Directives? Yes, requested copies for chart Does Patient Have Concerns About Advance Directives? 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 Pt family all live a far distance and all have issues with walking Stairs: One story home Do you have any concerns with food and/or affording food?: No Do you have reliable transportation to and from surgery/appointments?: Yes; brother will bring pt and cousins will be transport home Medication Adherence: Do you have any concerns with your prescription medication?: No Who do you use for pharmacy?: [facility] d/c Pre-Hospital Baseline Mental Status: Alert & Oriented Informant: Self What is your current functional status?: Perform ADLs independently Equipment: Do you currently use any equipment at home for your medical condition or to help you get around? None Pt reports he has access to medical equipment including walker and walking sticks Active Services/Needs: Home Health Care Agency: has someone coming in every other day and will talk to company about every day Do you have a community service director contact through your insurance or WRAAA?: No Has the Patient Been in a Assisted Facility in the Past 30 days? No FREEDOM OF CHOICE: Level of Care Discussed: Home Care Financial Disclosure Provided: No Financial Disclaimer Provided: No Provider List: Home Care Provider list within the patient's requested geographic area shared with the patient/family: Yes - Within [address] miles of [address] [place] [address] Provider Choices Collected Home Health: [facility] Home Care and if not available open to HC Interventions: Pt loves to fly kites and wants to get back at SIGNATURE: PAIGE Lee PATIENT NAME: Marino Herrera DATE: November 21, 2023 TIME: 10:02 AM PAGER/CONTACT #: [facility] 11-21-2023 Miscellaneous Notes CARE CONTINUUM ADVISOR ASSESSMENT PRIMARY CARE PHYSICIAN: Yecenia Okeefe MD OR Surgery Date: 11/28/23 Health Insurance: Medicare Financial Resources: Retired Primary Contact: Extended Emergency Contact Information Primary Emergency Contact: Reyna Herrera Address: [address] [place] [address] [place] [id number] Relation: Spouse Secondary Emergency Contact: Grant Herrera Relation: Brother Other Important Patient Contacts: None Patient/Dental Technician Instructor Stated Goals: To have reduction in pain, To have reduction in symptoms, and To improve my functional status Stripper And Printer needed?: No ADVANCE DIRECTIVES: Does Patient Have Advance Directives? Yes, requested copies for chart Does Patient Have Concerns About Advance Directives? 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 Pt family all live a far distance and all have issues with walking Stairs: One story home Do you have any concerns with food and/or affording food?: No Do you have reliable transportation to and from surgery/appointments?: Yes; brother will bring pt and cousins will be transport home Medication Adherence: Do you have any concerns with your prescription medication?: No Who do you use for pharmacy?: [facility] d[facility]c Pre[facility]Hospital Baseline Mental Status: Alert & Oriented Informant: Self What is your current functional status?: Perform ADLs independently Equipment: Do you currently use any equipment at home for your medical condition or to help you get around? None Pt reports he has access to medical equipment including walker and walking sticks Active Services/Needs: Home Health Care Agency: has someone coming in every other day and will talk to company about every day Do you have a community service director contact through your insurance or [email or web address].geAAA?: No Has the Patient Been in a Assisted Facility in the Past 30 days? No FREEDOM OF CHOICE: Level of Care Discussed: Home Care Financial Disclosure Provided: No Financial Disclaimer Provided: No Provider List: Home Care Provider list within the patient's requested geographic area shared with the patient/family: Yes - Within [address] of [address] [place] [address] Provider Choices Collected Home Health: [facility] Home Care and if not available open to Interventions: Pt loves to fly kites and wants to get back at SIGNATURE: PAIGE Lee PATIENT NAME: Marino Herrera DATE: November 21, 2023 TIME: 10:02 AM PAGER/CONTACT #: documented in this encounter [facility] 11-09-2023 Telephone encounter Note Neuro SPINE CARE COORDINATION QUICK NOTE Clearance received from Dr. Toribio with pt at low cardiac risk for OR. In scanned documents [facility] Work Phone: 11-09-2023 Miscellaneous Notes Neuro SPINE CARE COORDINATION QUICK NOTE Clearance received from Dr. Toribio with pt at low cardiac risk for OR. In scanned documents Received the following record(s) via Fax . -Surgical Clearance paperwork Date 11/09/23 Record(s) scanned into pt's chart. Kelsie Rowe documented in this encounter [facility] 11-09-2023 Telephone encounter Note Received the following record(s) via Fax . -Surgical Clearance paperwork Date 11/09/23 Record(s) scanned into pt's chart. Kelsie Rowe [facility] 11-08-2023 Note HNO ID: [id number] Author: SALVADOR CRUZ RN Service: ? Author Type: Registered Nurse Type: Progress Notes Filed: 11/08/2023 10:49 Note Text: Neuro SPINE CARE COORDINATION PRE-OP PHONE VISIT Met with patient for pre op education. Given both written and verbal instructions re : Skin prep, wound care, pain management and post op restrictions. Provided to patient: [facility] Surgery Guide, skin prep supplies, Spine Surgery Pre/post op education packet. Yes Reviewed with patient to report to desk JSecretBuilders for surgery ? Yes. Reviewed with the patient to call [phone] the day before to get surgery report time? Yes. Patient aware eat nothing after midnight prior to surgery, clear liquids only until 2 hours before report time. Yes. Patient aware surgery will be INPATIENT. Discussed care post discharge : Home Health Care ( PT-OT-nurse). Does patient have transportation to and from surgery ? Yes. Falls Education provided ? Yes Nasal swab obtained ? Yes. Patient instructed in mupirocin treatment : negative . Questions answered and patient voice(s) understanding via teach back. Physical Therapy : YES Additional Comments : Post -op Support home care with . Salvador Cruz RN [facility] 11-08-2023 History of Present illness Narrative Neuro SPINE CARE COORDINATION PRE-OP PHONE VISIT Met with patient for pre op education. Given both written and verbal instructions re : Skin prep, wound care, pain management and post op restrictions. Provided to patient: [facility] Surgery Guide, skin prep supplies, Spine Surgery Pre/post op education packet. Yes Reviewed with patient to report to desk JSecretBuilders for surgery ? Yes. Reviewed with the patient to call [phone] the day before to get surgery report time? Yes. Patient aware eat nothing after midnight prior to surgery, clear liquids only until 2 hours before report time. Yes. Patient aware surgery will be INPATIENT. Discussed care post discharge : Home Health Care ( PT-OT-nurse). Does patient have transportation to and from surgery ? Yes. Falls Education provided ? Yes Nasal swab obtained ? Yes. Patient instructed in mupirocin treatment : negative . Questions answered and patient voice(s) understanding via teach back. Physical Therapy : YES Additional Comments : Post -op Support home care with . Salvador Cruz RN Neuro SPINE CARE COORDINATION QUICK NOTE Call to the pt and LM documented in this encounter [facility] 11-08-2023 Note HNO ID: [id number] Author: SALVADOR CRUZ RN Service: ? Author Type: Registered Nurse Type: Progress Notes Filed: 11/08/2023 10:49 Note Text: Neuro SPINE CARE COORDINATION QUICK NOTE Call to the pt and LM [facility] 11-03-2023 Note HNO ID: [id number] Author: JUS VIZCARRA RN Service: ? Author Type: Registered Nurse Type: Progress Notes Filed: 11/03/2023 09:44 Note Text: Patient referred to Blood Management for pre-surgical optimization. Hgb 13.6 which exceeds Blood Management guidelines for intervention. [facility] 11-03-2023 History of Present illness Narrative Patient referred to Blood Management for pre-surgical optimization. Hgb 13.6 which exceeds Blood Management guidelines for intervention. documented in this encounter [facility] 11-01-2023 Instructions Vaughn De Los Santos PA-C - 11/01/2023 1:01 PM EDT Images from the original note were not included. [facility] PATIENT PREOPERATIVE INSTRUCTIONS Stephanie Kidd MD has scheduled you for your procedure at this surgery center: [facility] Scheduling Office: [phone] --[address] [place] [address]. Please read below carefully for your personalized instructions. Dietary Restrictions: - No solid food after midnight. - You may have 12 ounces of clear liquids (water, clear juices such as apple juice or gatorade, carbonated beverages, clear tea, black coffee, jello) until 2 hours before scheduled arrival at facility. Medications: Unless instructed differently below, stay on all of your medications until your surgery. If you start any new medications after today's visit, please contact your surgeon. Pre-Surgery Med Instructions Medication Instructions traMADol (ULTRAM) 50 mg tablet Take the day of surgery with a small sip of water if needed. aspirin 81 mg chewable tablet Take the day of surgery with a small sip of water atorvastatin (LIPITOR) 20 mg tablet Take the night prior to surgery as usual. metoprolol succinate ER (TOPROL XL) 50 mg 24 hr tablet Take the day of surgery with a small sip of water levothyroxine (SYNTHROID) 150 mcg tablet Take the day of surgery with a small sip of water SUMAtriptan (IMITREX) 100 mg tablet Do not take for 24 hours prior to surgery DULoxetine (CYMBALTA) 60 mg capsule Take the day of surgery with a small sip of water If you take any medications for erectile dysfunction-Cialis (Tadalafil), Levitra, Staxyn (Vardenafil) Viagra (Sildenenafil please do not take these for 48 hours before surgery. If you start any new medications after today's visit, please contact the surgeon's office. Blood Thinning Medications: - Stop NSAIDS (Ibuprofen, Advil, Aleve, Motrin, Celebrex, Mobic, etc.) 7 days before surgery, as directed by your surgeon. - Do NOT stop aspirin or other anticoagulants without consulting with your cone machine operator or prescribing physician. - Stop Vitamin E, ALL multi-vitamins, herbals and dietary supplements 7 days before surgery. - You may take Tylenol (Acetaminophen) or any of your pain medications that do not contain aspirin or NSAIDS as needed. Important Reminders: - If you use CPAP/BIPAP, bring the machine with you to the surgery center. - Candy, mints, and tobacco products are NOT permitted the morning of surgery. - Hearing aids, dentures and glasses may be worn the morning of surgery. - NO jewelry, body piercings, makeup, hairpins or contacts are to be worn the day of surgery. If you develop symptoms such as a fever, cold, or flu, or have other changes to your health within TWO DAYS of scheduled surgery or the morning of surgery, please contact the surgery center above. Personal Belongings: -Please have photo ID and insurance cards. -If you do not have a copy of advance directives on file with us, please bring a copy with you on the day of surgery. - Leave ALL valuables and money at home or with family members. Arrival Time for Surgery: - To obtain your arrival time for surgery, call your physician's office the day before your surgery. - If your surgery is scheduled for Monday, call the Monday before. Your surgeon s manager fine dining will tell you what time to call the office. - If you have not reached the departmental manager fine dining by 5 P.M., call [phone] after 5 P.M. the day before your surgery. Please be aware that emergency situations arise, which may delay or change your surgical time. If this happens, we will notify you as soon as possible and regret any inconvenience. If you already have an Advance Directive, please fax a copy to [phone] or email to for it to be added to your chart. If you do not have an Advance Directive, you can find the appropriate form and more information at [email or web address]. We recommend that you complete the Advance Directive form found on the website and bring it with you the day of your surgery. It can be witnessed and scanned into your chart that day. Vaughn De Los Santos PA-C documented in this encounter [facility] 11-01-2023 History and physical note Images from the original note were not included. [facility] HISTORY AND PHYSICAL EXAMINATION SERVICE DATE: 11/01/2023 SERVICE TIME: 12:36 PM PRIMARY CARE PHYSICIAN: Yecenia Okeefe MD Assessment Patient has the following medical conditions which may affect paco-operative course: Thoracic ascending aortic aneurysm (HCC) -S/p repair 04/2021 -Managed on aspirin -Follows OP with cardiology -Denies cardiac symptoms Coronary artery disease involving [place] coronary artery of [place] heart with angina pectoris (HCC) -S/p CABG x 1 (MAC-LAD) in 04/2021 -Managed on aspirin, statin, metoprolol -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 Toribio at [facility] -EKG pending Bicuspid aortic valve -S/p replacement in 04/2021 Essential hypertension -Stable on rx -BP today 133/62 -Denies cardiac symptoms -EKG pending BUBBA (obstructive sleep apnea) -Compliant with CPAP Dyslipidemia -Continue statin Acquired hypothyroidism -S/p thyroidectomy for thyroiditis with goiter -Continue Synthroid PONV (postoperative nausea and vomiting) -Per patient Esophageal Reflux -Was previously on PPI, self d/c'ed. Controls with diet. Malik Activity Status Index: METS: Climb a flight of stairs or walk up a hill (5.50 METs) DASI Score: 5.5 Patient denies any chest pain or undue shortness of breath with the above physical activity. Patient is limited most or all of the time (uses scooter, mobility device) (using power wheelchair today). Clinical Frailty Scale: 4. Apparently vulnerable STOP-Bang Score: STOP-Bang Score: (+BUBBA - compliant with CPAP) ANESTHESIA FINDINGS: Intubation History: No history of difficult intubation. No abnormal airway history Significant Anesthesia Considerations: potential postop nausea/vomiting Airway History: No history of difficult airway No abnormal airway history I - PHYSICAL EVALUATION AIRWAY Patient intubated: No. Tracheostomy tube not present Mallampati: IV. TM distance: >3 FB. Neck ROM: limited flexion. Mouth opening: adequate. Short neck: no. Thick neck: no Fuentes present: no Lip Bite Test: I Microretrognathia/Micronagthia/Recesse d Chin: No DENTAL Dental findings: missing tooth/teeth. Additional comments: Upper bridge . II - ANESTHESIA PLAN Anesthetic plan additional comments: *[facility] - anesthesia choice. Beta Elvis Monitoring Plan Post Procedure Analgesic Plan Prepared for Surgery: optimally prepared for surgery, pending [see comment]. EKG, labs CONSULTS: The following consults have been initiated at this time: anesthesia. Planned Anesthetic: anesthesia choice The Following Tests/Procedures Have Been Initiated: EKG, labs Reviewed previous testing, including echocardiogram 06/07/22 and CTA chest 07/25/21, and chronic chest pain that is tender with palpation, non-exertional, and that has been present and unchanged since cardiac surgery in 04/[address] Muro, patient OK to proceed. REASON FOR VISIT: Marino Herrera is a 73 year old male who is scheduled for Procedure(s): INSERTION INTERBODY BIOMED DEVICE(S) W/ANT INSTR ANCHORING TO DISC SPACE W/INTERBODY FUSION,EA INTERSPACE (N/A) ALIF DECOMPRESSION LAMINECTOMY INTERBODY FUSION LUMBAR LEVEL 1 (N/A) at the request of Dr. Kidd, Stephanie Fierro MD for consultation. My final recommendation will be communicated back to the requesting physician by way of shared medical record or letter. Subjective The patient has the following: COVID-19 Immunization Status Overdue - Covid-19 Vaccine () Overdue since 10/15/2023 01/22/2023 Imm Admin: COVID-19 vaccine, age 12+ yr, season (PFIZER-BIONTECH) 10/30/2021 Imm Admin: COVID-19 vaccine, age 12+ yr, bivalent (PFIZER-BIONTECH) 06/10/2021 Imm Admin: COVID-19 original vaccine, full dose, monovalent (MODERNA) Only the first 3 history entries have been loaded, but more history exists. CHIEF COMPLAINT: Spinal stenosis of lumbar region with radiculopathy [M48.061, M54.16] HPI: Marino Herrera is a 73 year old male with PMH including CAD, AAA s/p repair, bicuspid aortic valve s/p replacement, BUBBA, hypothyroidism, HTN, and HLD who presents to [facility] today for preop exam. Patient is scheduled for the above procedure on 11/28/23. Patient has chronic low back and BLE pain. He is unable to walk for longer than 20 minutes without having to stop 2/2 pain. This started approximately 3 years ago and has significantly worsened. Electing to proceed with the above procedure. Denies fevers, chills, chest pain, and SOB. REVIEW OF SYSTEMS: General: Negative for: fever. Neurological: Negative for: seizures, TIA and strokes. Respiratory: Positive for: obstructive sleep apnea and CPAP/BiPAP compliant. Negative for: asthma, COPD, current cough, pneumonia within 6 weeks, tobacco use and URI < 2 weeks. Cardiovascular: Patient reports chronic, sporadic mid-sternal pain that is worse with palpation. It is not associated with exertion. Lasts for a few minutes and resolves on its own. It does not radiate. Has been present since he had surgery in 04/2021. His cone machine operator is aware. Has not worsened. Denies any other associated sxs with the pain including SOB, dizziness, syncope. Positive for: abdominal aortic aneurysm (s/p repair), CAD, hyperlipidemia, hypertension, murmur/valvular heart disease, open heart surgery (04/2021) and valve surgery (04/2021) Patient's last office visit with cone machine operator, Dr. Toribio, The following tests and/or procedures were performed: echocardiogram (05/2022). The following tests and/or procedures were not performed: cardiac stents. Negative for: angina, anticoagulation therapy, arrhythmia, atrial fibrillation, chest pain, CHF, congenital heart defect, DVT/PE and recent LA. GI: Negative for: abdominal pain, dysphagia, GERD, heartburn, hepatitis, liver disease, nausea and vomiting. : Negative for: on dialysis, dysuria, frequent urination, hematuria, nephrolithiasis and renal failure. Endocrine: Positive for: hypothyroidism. Negative for: diabetes mellitus, hyperthyroidism and steroid for chronic problem. Hematology: No history of bleeding or clotting disorder. Patient is not taking anti-coagulation or platelet medications. No history of hematological symptoms or problems. Oncology: No history of CA metastasis, chemo within 30 days, or radiotherapy within 90 days. No history of oncological symptoms or problems. Musculoskeletal: See HPI. Skin: Negative for lesions, rash and itching. PAST MEDICAL HISTORY Diagnosis Date Acute gastritis without mention of hemorrhage Allergic rhinitis, cause unspecified Carpal tunnel syndrome Disorders of bursae and tendons in shoulder region, unspecified Disturbance of skin sensation parasthesia Esophageal reflux External hemorrhoids without mention of complication Family history of malignant neoplasm of gastrointestinal tract family history of colon cancer Hypothyroid Internal hemorrhoids without mention of complication Irritable bowel syndrome IBS-D BUBBA (obstructive sleep apnea) corrective surgery, uses appliance Other and unspecified disc disorder of cervical region Other and unspecified hyperlipidemia Peripheral vertigo, unspecified PMH - PAST MEDICAL HISTORY OF 1967,1971 [facility] Psychosexual dysfunction with inhibited sexual excitement PAST SURGICAL HISTORY Procedure Laterality Date COLONOSCOPY FLX DX W/COLLJ SPEC WHEN PFRMD 09/07/2001 Colonoscopy COLONOSCOPY FLX DX W/COLLJ SPEC WHEN PFRMD 10/01/2012 Colonoscopy COLONOSCOPY W/BIOPSY SINGLE/MULTIPLE 05/16/2006 EGD TRANSORAL BIOPSY SINGLE/MULTIPLE 09/29/2009 ESOPHAGOGASTRODUODENOSCOPY TRANSORAL DIAGNOSTIC 08/02/2001 EGD PAST SURGICAL HISTORY OF 02/13/1967 bleeding ulcer requiring transfusion PAST SURGICAL HISTORY OF 02/14/2000 cervical fusion & laminectomy, 4-5-6? PAST SURGICAL HISTORY OF 02/13/1982 fx radius from fall, left PAST SURGICAL HISTORY OF 02/13/1997 lumbar laminectomym L2,3 PAST SURGICAL HISTORY OF 02/14/1980 rhinoplasty PAST SURGICAL HISTORY OF 02/13/1970 septroplasty PAST SURGICAL HISTORY OF 02/13/2001 thyroidectomy $ thryroiditis had job's and goiter PAST SURGICAL HISTORY OF bilateral carpel tunnel PAST SURGICAL HISTORY OF ulveuctomy PAST SURGICAL HISTORY OF lamenectomy lumbar. PAST SURGICAL HISTORY OF 04/2021 AAA repair, aortic valve replacement, MAC-LAD TONSILLECTOMY HX TRANSURETHRAL ELEC-SURG PROSTATECTOM TURP FAMILY HISTORY Problem Relation Age of Onset Colon Cancer Father other (lung cancer) Father colon cancer/acute luekemia/stroke other (acute leukemia) Father other (CVA) Father 83 other (coronary stent) Father 80 Anesthesia Problems Mother PONV other (no CAD) Mother age 94 other (throat cancer) Brother other (Myocardial infarction) Brother 72 PCI other (Myocardial infarction) Maternal Grandfather 60 Social History Tobacco Use Smoking status: Former Types: Pipe Quit date: 04/04/2001 Years since quittin.5 Passive exposure: Past Smokeless tobacco: Former Types: Chew Quit date: 05/14/2016 Vaping Use Vaping status: Former Substance Use Topics Alcohol use: Not Currently Drug use: No Prior to Admission medications as of 11/01/23 1232 Medication Sig Last Dose Taking traMADol (ULTRAM) 50 mg tablet TAKE 1/2 (ONE-HALF) TO 1 TABLET THREE TIMES DAILY NEEDED FOR PAIN Taking Yes aspirin 81 mg chewable tablet Take 1 tablet by mouth once daily. Taking Yes atorvastatin (LIPITOR) 20 mg tablet Take 1 tablet by mouth daily at bedtime. Taking Yes metoprolol succinate ER (TOPROL XL) 50 mg 24 hr tablet Take 1 tablet by mouth once daily. Taking Yes levothyroxine (SYNTHROID) 150 mcg tablet 150 mcg as directed. 6 days week Taking Yes SUMAtriptan (IMITREX) 100 mg tablet Take 100 mg by mouth as needed. Taking Yes DULoxetine (CYMBALTA) 60 mg capsule Take 60 mg by mouth once daily. Taking Yes furosemide (LASIX) 20 mg tablet Take 1 tablet by mouth once daily. potassium chloride ER (K-DUR, KLOR-CON) 10 mEq tablet Take 1 tablet by mouth once daily. gabapentin (NEURONTIN) 100 mg capsule Take 100 mg by mouth once daily. acetaminophen (TYLENOL ORAL) Take 1,000 mg by mouth daily at bedtime. No medication comments found. ALLERGIES Allergen Reactions Mold Other: See Comments Mold Spores Intolerance Objective PHYSICAL EXAM: General: alert and oriented and healthy appearance. Pertinent negatives noted - not distressed. Skin: normal color, no rash or lesions. HEENT: EOM intact. Pertinent negatives noted - no carotid bruit. +hearing aids. Cardiovascular: Pulse characterized as regular.Positive for murmur. Pertinent negatives noted - no rub and no gallop. Respiratory: normal breath sounds, no wheezes or crackles. No chest wall deformity or tenderness. Abdomen: bowel sounds present. Extremities: no deformity, no edema or tenderness, no joint swelling or clubbing. Neurological: normal cognition and motor skills. Positive for abnormal gait (in power wheelchair today). PAIN ASSESSMENT: VITALS: BP 133/62 Pulse 63 Temp (Src) 96.9 (Temporal) Resp 18 Ht 5' 9 (1.75m) Wt 190 lb (86.2kg) SpO2 100% BMI 28.05 kg/(m^2). Diagnostic tests reviewed for today's visit: Lab Value Units Date High Low HB No results within date range. HCT No results within date range. WBC No results within date range. PLT No results within date range. NA No results within date range. K No results within date range. GLUC No results within date range. BUN No results within date range. CREAT No results within date range. PTSEC No results within date range. INR No results within date range. APTT No results within date range. ALT No results within date range. AST No results within date range. TBILI No results within date range. TSH No results within date range. Lab Value Units Date High Low HCGQT No results within date range. UHCG No results within date range. HCG, BODY* No results within date range. Lab Value Units Date High Low ABORHD No results within date range. ABSCREEN No results within date range. No results found for: HBA1C Recent Results (from the past 8760 hour(s)) ECG COMPLETE Collection Time: 11/01/23 1:49 PM Result Value Ventricular Rate 59 Atrial Rate 59 P-R Interval 172 QRS Duration 78 QT Interval 404 QTC Calculation (Bazett) 399 Calculated P Franklin 44 Calculated R Franklin 31 Calculated T Franklin 69 Impression SINUS BRADYCARDIA OTHERWISE NORMAL ECG Recent Results (from the past 16054 hour(s)) ECHO Collection Time: 01/18/21 10:54 AM Impression CONCLUSIONS: - Exam indication: CAD, Dilated aorta, - The left ventricle is small. There is mild upper septal left ventricular hypertrophy. Left ventricular systolic function is normal. EF = 62 5% (2D biplane) Normal left ventricular diastolic function. - The right ventricle is normal in size. Right ventricular systolic function is normal. - The visualized aorta is dilated with a maximal dimension of 5.1 cm. - Bicuspid aortic valve. Fusion/Raphe between left/right coronary cusps. There is trace aortic valve regurgitation. There is mild aortic valve stenosis caused by calcified valve. AV area is 1.42 cm (0.69 cm /m ) by continuity, VTI. The peak gradient is 29 mmHg, the mean gradient is 16 mmHg and the dimensionless valve index is 0.37. - The patient has not had a prior CC echocardiographic exam for comparison. * * * Final * * * CTA Chest 07/26/21 IMPRESSION: 1. Status post bioprosthetic aortic valve replacement, which appears well-seated and supracoronary ascending aortic grafting without stenosis, infection, or leak. The [place] residual thoracic aorta is normal in course, and caliber with mild calcifications. 2. Status post CABG (MAC to the LAD) which grossly appears patent graft. Severe coronary calcifications. echocardiogram Instructions Given to Patient: Instructions located in the after visit summary. Patient given verbal and written preop instructions and voices comprehension and compliance. SIGNATURE: Vaughn De Los Santos PA-C PATIENT NAME: Marino Herrera DATE: November 01, 2023 TIME: 12:36 PM PAGER/CONTACT #: [facility] 11-01-2023 History and physical note Images from the original note were not included. [facility] HISTORY AND PHYSICAL EXAMINATION SERVICE DATE: 11/01/2023 SERVICE TIME: 12:36 PM PRIMARY CARE PHYSICIAN: Yecenia Okeefe MD Assessment Patient has the following medical conditions which may affect paco-operative course: Thoracic ascending aortic aneurysm (HCC) -S/p repair 04/2021 -Managed on aspirin -Follows OP with cardiology -Denies cardiac symptoms Coronary artery disease involving [place] coronary artery of [place] heart with angina pectoris (HCC) -S/p CABG x 1 (MAC-LAD) in 04/2021 -Managed on aspirin, statin, metoprolol -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 Toribio at [facility] -EKG pending Bicuspid aortic valve -S/p replacement in 04/2021 Essential hypertension -Stable on rx -BP today 133/62 -Denies cardiac symptoms -EKG pending BUBBA (obstructive sleep apnea) -Compliant with CPAP Dyslipidemia -Continue statin Acquired hypothyroidism -S/p thyroidectomy for thyroiditis with goiter -Continue Synthroid PONV (postoperative nausea and vomiting) -Per patient Esophageal Reflux -Was previously on PPI, self d/c'ed. Controls with diet. Malik Activity Status Index: METS: Climb a flight of stairs or walk up a hill (5.50 METs) DASI Score: 5.5 Patient denies any chest pain or undue shortness of breath with the above physical activity. Patient is limited most or all of the time (uses scooter, mobility device) (using power wheelchair today). Clinical Frailty Scale: 4. Apparently vulnerable STOP-Bang Score: STOP-Bang Score: (+BUBBA - compliant with CPAP) ANESTHESIA FINDINGS: Intubation History: No history of difficult intubation. No abnormal airway history Significant Anesthesia Considerations: potential postop nausea/vomiting Airway History: No history of difficult airway No abnormal airway history I - PHYSICAL EVALUATION AIRWAY Patient intubated: No. Tracheostomy tube not present Mallampati: IV. TM distance: >3 FB. Neck ROM: limited flexion. Mouth opening: adequate. Short neck: no. Thick neck: no Fuentes present: no Lip Bite Test: I Microretrognathia/Micronagthia/Recesse d Chin: No DENTAL Dental findings: missing tooth/teeth. Additional comments: Upper bridge . II - ANESTHESIA PLAN Anesthetic plan additional comments: *[facility] - anesthesia choice. Beta Elvis Monitoring Plan Post Procedure Analgesic Plan Prepared for Surgery: optimally prepared for surgery, pending [see comment]. EKG, labs CONSULTS: The following consults have been initiated at this time: anesthesia. Planned Anesthetic: anesthesia choice The Following Tests/Procedures Have Been Initiated: EKG, labs Reviewed previous testing, including echocardiogram 06/07/22 and CTA chest 07/25/21, and chronic chest pain that is tender with palpation, non-exertional, and that has been present and unchanged since cardiac surgery in 04/[address] Muro, patient OK to proceed. REASON FOR VISIT: Marino Herrera is a 73 year old male who is scheduled for Procedure(s): INSERTION INTERBODY BIOMED DEVICE(S) W/ANT INSTR ANCHORING TO DISC SPACE W/INTERBODY FUSION,EA INTERSPACE (N/A) ALIF DECOMPRESSION LAMINECTOMY INTERBODY FUSION LUMBAR LEVEL 1 (N/A) at the request of Stephanie Gerard MD for consultation. My final recommendation will be communicated back to the requesting physician by way of shared medical record or letter. Subjective The patient has the following: COVID-19 Immunization Status Overdue - Covid-19 Vaccine ( - season) Overdue since 10/15/2023 01/22/2023 Imm Admin: COVID-19 vaccine, age 12+ yr, season (PFIZER-BIONTECH) 10/30/2021 Imm Admin: COVID-19 vaccine, age 12+ yr, bivalent (PFIZER-BIONTECH) 06/10/2021 Imm Admin: COVID-19 original vaccine, full dose, monovalent (MODERNA) Only the first 3 history entries have been loaded, but more history exists. CHIEF COMPLAINT: Spinal stenosis of lumbar region with radiculopathy [M48.061, M54.16] HPI: Marino Herrera is a 73 year old male with PMH including CAD, AAA s/p repair, bicuspid aortic valve s/p replacement, BUBBA, hypothyroidism, HTN, and HLD who presents to [facility] today for preop exam. Patient is scheduled for the above procedure on 11/28/23. Patient has chronic low back and BLE pain. He is unable to walk for longer than 20 minutes without having to stop 2/2 pain. This started approximately 3 years ago and has significantly worsened. Electing to proceed with the above procedure. Denies fevers, chills, chest pain, and SOB. REVIEW OF SYSTEMS: General: Negative for: fever. Neurological: Negative for: seizures, TIA and strokes. Respiratory: Positive for: obstructive sleep apnea and CPAP/BiPAP compliant. Negative for: asthma, COPD, current cough, pneumonia within 6 weeks, tobacco use and URI < 2 weeks. Cardiovascular: Patient reports chronic, sporadic mid-sternal pain that is worse with palpation. It is not associated with exertion. Lasts for a few minutes and resolves on its own. It does not radiate. Has been present since he had surgery in 04/2021. His cone machine operator is aware. Has not worsened. Denies any other associated sxs with the pain including SOB, dizziness, syncope. Positive for: abdominal aortic aneurysm (s/p repair), CAD, hyperlipidemia, hypertension, murmur/valvular heart disease, open heart surgery (04/2021) and valve surgery (04/2021) Patient's last office visit with cone machine operator, Dr. Toribio, The following tests and/or procedures were performed: echocardiogram (05/2022). The following tests and/or procedures were not performed: cardiac stents. Negative for: angina, anticoagulation therapy, arrhythmia, atrial fibrillation, chest pain, CHF, congenital heart defect, DVT/PE and recent LA. GI: Negative for: abdominal pain, dysphagia, GERD, heartburn, hepatitis, liver disease, nausea and vomiting. : Negative for: on dialysis, dysuria, frequent urination, hematuria, nephrolithiasis and renal failure. Endocrine: Positive for: hypothyroidism. Negative for: diabetes mellitus, hyperthyroidism and steroid for chronic problem. Hematology: No history of bleeding or clotting disorder. Patient is not taking anti-coagulation or platelet medications. No history of hematological symptoms or problems. Oncology: No history of CA metastasis, chemo within 30 days, or radiotherapy within 90 days. No history of oncological symptoms or problems. Musculoskeletal: See HPI. Skin: Negative for lesions, rash and itching. PAST MEDICAL HISTORY Diagnosis Date Acute gastritis without mention of hemorrhage Allergic rhinitis, cause unspecified Carpal tunnel syndrome Disorders of bursae and tendons in shoulder region, unspecified Disturbance of skin sensation parasthesia Esophageal reflux External hemorrhoids without mention of complication Family history of malignant neoplasm of gastrointestinal tract family history of colon cancer Hypothyroid Internal hemorrhoids without mention of complication Irritable bowel syndrome IBS-D BUBBA (obstructive sleep apnea) corrective surgery, uses appliance Other and unspecified disc disorder of cervical region Other and unspecified hyperlipidemia Peripheral vertigo, unspecified PMH - PAST MEDICAL HISTORY OF [facility] Psychosexual dysfunction with inhibited sexual excitement PAST SURGICAL HISTORY Procedure Laterality Date COLONOSCOPY FLX DX W/COLLJ SPEC WHEN PFRMD 09/07/2001 Colonoscopy COLONOSCOPY FLX DX W/COLLJ SPEC WHEN PFRMD 10/01/2012 Colonoscopy COLONOSCOPY W/BIOPSY SINGLE/MULTIPLE 05/16/2006 EGD TRANSORAL BIOPSY SINGLE/MULTIPLE 09/29/2009 ESOPHAGOGASTRODUODENOSCOPY TRANSORAL DIAGNOSTIC 08/02/2001 EGD PAST SURGICAL HISTORY OF 02/13/1967 bleeding ulcer requiring transfusion PAST SURGICAL HISTORY OF 02/14/2000 cervical fusion & laminectomy, 4-5-6? PAST SURGICAL HISTORY OF 02/13/1982 fx radius from fall, left PAST SURGICAL HISTORY OF 02/13/1997 lumbar laminectomym L2,3 PAST SURGICAL HISTORY OF 02/14/1980 rhinoplasty PAST SURGICAL HISTORY OF 02/13/1970 septroplasty PAST SURGICAL HISTORY OF 02/13/2001 thyroidectomy $ thryroiditis had job's and goiter PAST SURGICAL HISTORY OF bilateral carpel tunnel PAST SURGICAL HISTORY OF ulveuctomy PAST SURGICAL HISTORY OF lamenectomy lumbar. PAST SURGICAL HISTORY OF 04/2021 AAA repair, aortic valve replacement, MAC-LAD TONSILLECTOMY HX TRANSURETHRAL ELEC-SURG PROSTATECTOM TURP FAMILY HISTORY Problem Relation Age of Onset Colon Cancer Father other (lung cancer) Father colon cancer/acute luekemia/stroke other (acute leukemia) Father other (CVA) Father 83 other (coronary stent) Father 80 Anesthesia Problems Mother PONV other (no CAD) Mother age 94 other (throat cancer) Brother other (Myocardial infarction) Brother 72 PCI other (Myocardial infarction) Maternal Grandfather 60 Social History Tobacco Use Smoking status: Former Types: Pipe Quit date: 04/04/2001 Years since quittin.5 Passive exposure: Past Smokeless tobacco: Former Types: Chew Quit date: 05/14/2016 Vaping Use Vaping status: Former Substance Use Topics Alcohol use: Not Currently Drug use: No Prior to Admission medications as of 11/01/23 1232 Medication Sig Last Dose Taking traMADol (ULTRAM) 50 mg tablet TAKE 1/2 (ONE-HALF) TO 1 TABLET THREE TIMES DAILY NEEDED FOR PAIN Taking Yes aspirin 81 mg chewable tablet Take 1 tablet by mouth once daily. Taking Yes atorvastatin (LIPITOR) 20 mg tablet Take 1 tablet by mouth daily at bedtime. Taking Yes metoprolol succinate ER (TOPROL XL) 50 mg 24 hr tablet Take 1 tablet by mouth once daily. Taking Yes levothyroxine (SYNTHROID) 150 mcg tablet 150 mcg as directed. 6 days week Taking Yes SUMAtriptan (IMITREX) 100 mg tablet Take 100 mg by mouth as needed. Taking Yes DULoxetine (CYMBALTA) 60 mg capsule Take 60 mg by mouth once daily. Taking Yes furosemide (LASIX) 20 mg tablet Take 1 tablet by mouth once daily. potassium chloride ER (K-DUR, KLOR-CON) 10 mEq tablet Take 1 tablet by mouth once daily. gabapentin (NEURONTIN) 100 mg capsule Take 100 mg by mouth once daily. acetaminophen (TYLENOL ORAL) Take 1,000 mg by mouth daily at bedtime. No medication comments found. ALLERGIES Allergen Reactions Mold Other: See Comments Mold Spores Intolerance Objective PHYSICAL EXAM: General: alert and oriented and healthy appearance. Pertinent negatives noted - not distressed. Skin: normal color, no rash or lesions. HEENT: EOM intact. Pertinent negatives noted - no carotid bruit. +hearing aids. Cardiovascular: Pulse characterized as regular.Positive for murmur. Pertinent negatives noted - no rub and no gallop. Respiratory: normal breath sounds, no wheezes or crackles. No chest wall deformity or tenderness. Abdomen: bowel sounds present. Extremities: no deformity, no edema or tenderness, no joint swelling or clubbing. Neurological: normal cognition and motor skills. Positive for abnormal gait (in power wheelchair today). PAIN ASSESSMENT: VITALS: BP 133/62 Pulse 63 Temp (Src) 96.9 (Temporal) Resp 18 Ht 5' 9 (1.75m) Wt 190 lb (86.2kg) SpO2 100% BMI 28.05 kg/(m^2). Diagnostic tests reviewed for today's visit: Lab Value Units Date High Low HB No results within date range. HCT No results within date range. WBC No results within date range. PLT No results within date range. NA No results within date range. K No results within date range. GLUC No results within date range. BUN No results within date range. CREAT No results within date range. PTSEC No results within date range. INR No results within date range. APTT No results within date range. ALT No results within date range. AST No results within date range. TBILI No results within date range. TSH No results within date range. Lab Value Units Date High Low HCGQT No results within date range. UHCG No results within date range. HCG, BODY* No results within date range. Lab Value Units Date High Low ABORHD No results within date range. ABSCREEN No results within date range. No results found for: HBA1C Recent Results (from the past 8760 hour(s)) ECG COMPLETE Collection Time: 11/01/23 1:49 PM Result Value Ventricular Rate 59 Atrial Rate 59 P-R Interval 172 QRS Duration 78 QT Interval 404 QTC Calculation (Bazett) 399 Calculated P Franklin 44 Calculated R Franklin 31 Calculated T Franklin 69 Impression SINUS BRADYCARDIA OTHERWISE NORMAL ECG Recent Results (from the past 44165 hour(s)) ECHO Collection Time: 01/18/21 10:54 AM Impression CONCLUSIONS: - Exam indication: CAD, Dilated aorta, - The left ventricle is small. There is mild upper septal left ventricular hypertrophy. Left ventricular systolic function is normal. EF = 62 5% (2D biplane) Normal left ventricular diastolic function. - The right ventricle is normal in size. Right ventricular systolic function is normal. - The visualized aorta is dilated with a maximal dimension of 5.1 cm. - Bicuspid aortic valve. Fusion/Raphe between left/right coronary cusps. There is trace aortic valve regurgitation. There is mild aortic valve stenosis caused by calcified valve. AV area is 1.42 cm (0.69 cm /m ) by continuity, VTI. The peak gradient is 29 mmHg, the mean gradient is 16 mmHg and the dimensionless valve index is 0.37. - The patient has not had a prior CC echocardiographic exam for comparison. * * * Final * * * CTA Chest 07/26/21 IMPRESSION: 1. Status post bioprosthetic aortic valve replacement, which appears well-seated and supracoronary ascending aortic grafting without stenosis, infection, or leak. The [place] residual thoracic aorta is normal in course, and caliber with mild calcifications. 2. Status post CABG (MAC to the LAD) which grossly appears patent graft. Severe coronary calcifications. echocardiogram Instructions Given to Patient: Instructions located in the after visit summary. Patient given verbal and written preop instructions and voices comprehension and compliance. SIGNATURE: Vaughn De Los Santos PA-C PATIENT NAME: Marino Herrera DATE: November 01, 2023 TIME: 12:36 PM PAGER/CONTACT #: documented in this encounter [facility] 11-01-2023 Note HNO ID: [id number] Author: STEPHANIE KIDD MD Service: ? Author Type: Physician Type: Progress Notes Filed: 11/01/2023 11:15 Note Text: SPINE SURGERY ESTABLISHED This is an in-person visit. DATE OF SERVICE: 11/01/2023 DATE OF LAST VISIT: Visit date not found SUBJECTIVE: HPI:Marino Herrera is a 73 year old male presenting alone. Patient presents today for pre op visit. Understands plan for alif, followed by posterior revision of hardware. Has many questions, that are appropriate .presented in motor chair given distance to clinic. Bilateral L5 pain when standing. AMBULATORY STATUS: Impaired Community Distances ANTIPLATELET OR ANTICOAGULATION STATUS: No MEDICATIONS: traMADol (ULTRAM) 50 mg tablet TAKE 1/2 (ONE-HALF) TO 1 TABLET THREE TIMES DAILY NEEDED FOR PAIN furosemide (LASIX) 20 mg tablet Take 1 tablet by mouth once daily. potassium chloride ER (K-DUR, KLOR-CON) 10 mEq tablet Take 1 tablet by mouth once daily. levothyroxine (SYNTHROID) 150 mcg tablet 150 mcg as directed. 6 days week gabapentin (NEURONTIN) 100 mg capsule Take 100 mg by mouth once daily. SUMAtriptan (IMITREX) 100 mg tablet Take 100 mg by mouth as needed. acetaminophen (TYLENOL ORAL) Take 1,000 mg by mouth daily at bedtime. DULoxetine (CYMBALTA) 60 mg capsule Take 60 mg by mouth once daily. aspirin 81 mg chewable tablet Take 1 tablet by mouth once daily. atorvastatin (LIPITOR) 20 mg tablet Take 1 tablet by mouth daily at bedtime. metoprolol succinate ER (TOPROL XL) 50 mg 24 hr tablet Take 1 tablet by mouth once daily. Patient Entered Questionnaires PROMIS Score Percentiles 07/19/2021 04/29/2022 PROMIS Global Health Scale Physical Health Percentile 41 31 Mental Health Percentile 63 34 Percentiles provide an indication of how the patient's score ranks in relation to the general population. Higher percentile rankings indicate better function/quality of life. 50th percentile is the average of the general population and indicates half of respondents had a worse score. Depression Screening: PHQ-9 Self-Harm (Item 9) response options: 0 Not at all 1 Several days 2 More than half the days 3 Nearly every day PHQ-9 Levels: 0-4 No to mild depression 5-9 Mild depression 10-14 Moderate depression 15-19 Moderately severe depression 20-27 Severe depression OBJECTIVE: PHYSICAL EXAM: BP 133/68 Pulse 61 Resp 12 Ht 5' 9 (1.75m) Wt 190 lb (86.2kg) SpO2 98[room air]% BMI 28.05 kg/(m2). Lower Extremities LE Hip Flex Knee Flex Knee Extend Plantarflex Dorsiflex EHL R 5 5 5 5 5 5 L 5 5 5 5 5 5 Sensation intact to light tough in bilateral lower extremities in spn, dpn, sural, saphenous, and tibial nerves. Right: Patellar, Ankle normoreflexic Left: Patellar, Ankle normoreflexic Clonus: 1 beat bilaterally Toe walk able with coaching Heel Walk able with coaching Tandem unable Ambulatory status: independent, walks with retroverted pelvis to maintain horizon DATA REVIEW:Diagnostic tests reviewed for today's visit, films/specimens were personally reviewed by me: [facility] records independently reviewed ASSESSMENT/PLAN (M48.061, M54.16) Spinal stenosis of lumbar region with radiculopathy (primary encounter diagnosis) Marino Herrera is clinically indicated and wishes to pursue Lumbar Fusion at L5-S1. Approach anterior with posterior based pedicle screw placement. Clinical Indications for Spinal Fusion: Severe foraminal collapse at L5-S1 with symptomatic improvement from epidural steroid injection The risks, benefits, and anticipated outcomes of the procedure/treatment/test, the alternatives to the procedure/treatment/test and their risks and benefits, and the roles and tasks of the personnel to be involved were discussed with the patient or the patient?s personal litigation claim representative. Discussed goals of surgery Decompression of bilateral L5 foramina, we discussed given his significant relief this is likely the cause of his pain. We discussed that he does have a T12-L1 disc herniation, he currently is asymptomatic from this, at this point we will not plan any operative intervention to this level. He has moderate stenosis. We had a long discussion regarding surgical expectations and what I suspect surgery will help with and what it will not We discussed the minimum criteria for elective surgery: A. Imaging fits with history and examination and has surgical correctable findings B. Conservative modalities have been trialed in a meaningful way that have failed to provide relief C. The pain is significant enough to interfere with quality of life, and undergoing an irreversible surgical procedure makes sense to the patient from a symptom severity standpoint A and B were confirmed by me, C was confirmed by the patient. With this in mind it is reasonable to proceed with: Proposed surgery included anterior lumbar interbody fusion at L5-S1, with posterior revision of his vicente (more content not included)... [facility] 11-01-2023 History of Present illness Narrative SPINE SURGERY ESTABLISHED This is an in-person visit. DATE OF SERVICE: 11/01/2023 DATE OF LAST VISIT: Visit date not found SUBJECTIVE: HPI:Marino Herrera is a 73 year old male presenting alone. Patient presents today for pre op visit. Understands plan for alif, followed by posterior revision of hardware. Has many questions, that are appropriate .presented in motor chair given distance to clinic. Bilateral L5 pain when standing. AMBULATORY STATUS: Impaired Community Distances ANTIPLATELET OR ANTICOAGULATION STATUS: No MEDICATIONS: traMADol (ULTRAM) 50 mg tablet TAKE 1/2 (ONE-HALF) TO 1 TABLET THREE TIMES DAILY NEEDED FOR PAIN furosemide (LASIX) 20 mg tablet Take 1 tablet by mouth once daily. potassium chloride ER (K-DUR, KLOR-CON) 10 mEq tablet Take 1 tablet by mouth once daily. levothyroxine (SYNTHROID) 150 mcg tablet 150 mcg as directed. 6 days week gabapentin (NEURONTIN) 100 mg capsule Take 100 mg by mouth once daily. SUMAtriptan (IMITREX) 100 mg tablet Take 100 mg by mouth as needed. acetaminophen (TYLENOL ORAL) Take 1,000 mg by mouth daily at bedtime. DULoxetine (CYMBALTA) 60 mg capsule Take 60 mg by mouth once daily. aspirin 81 mg chewable tablet Take 1 tablet by mouth once daily. atorvastatin (LIPITOR) 20 mg tablet Take 1 tablet by mouth daily at bedtime. metoprolol succinate ER (TOPROL XL) 50 mg 24 hr tablet Take 1 tablet by mouth once daily. Patient Entered Questionnaires PROMIS Score Percentiles 07/19/2021 04/29/2022 PROMIS Global Health Scale Physical Health Percentile 41 31 Mental Health Percentile 63 34 Percentiles provide an indication of how the patient's score ranks in relation to the general population. Higher percentile rankings indicate better function/quality of life. 50th percentile is the average of the general population and indicates half of respondents had a worse score. Depression Screening: PHQ-9 Self-Harm (Item 9) response options: 0 Not at all 1 Several days 2 More than half the days 3 Nearly every day PHQ-9 Levels: 0-4 No to mild depression 5-9 Mild depression 10-14 Moderate depression 15-19 Moderately severe depression 20-27 Severe depression OBJECTIVE: PHYSICAL EXAM: BP 133/68 Pulse 61 Resp 12 Ht 5' 9 (1.75m) Wt 190 lb (86.2kg) SpO2 98[room air]% BMI 28.05 kg/(m^2). Lower Extremities LE Hip Flex Knee Flex Knee Extend Plantarflex Dorsiflex EHL R 5 5 5 5 5 5 L 5 5 5 5 5 5 Sensation intact to light tough in bilateral lower extremities in spn, dpn, sural, saphenous, and tibial nerves. Right: Patellar, Ankle normoreflexic Left: Patellar, Ankle normoreflexic Clonus: 1 beat bilaterally Toe walk able with coaching Heel Walk able with coaching Tandem unable Ambulatory status: independent, walks with retroverted pelvis to maintain horizon DATA REVIEW:Diagnostic tests reviewed for today's visit, films/specimens were personally reviewed by me: [facility] records independently reviewed ASSESSMENT/PLAN (M48.061, M54.16) Spinal stenosis of lumbar region with radiculopathy (primary encounter diagnosis) Marino Herrera is clinically indicated and wishes to pursue Lumbar Fusion at L5-S1. Approach anterior with posterior based pedicle screw placement. Clinical Indications for Spinal Fusion: Severe foraminal collapse at L5-S1 with symptomatic improvement from epidural steroid injection The risks, benefits, and anticipated outcomes of the procedure/treatment/test, the alternatives to the procedure/treatment/test and their risks and benefits, and the roles and tasks of the personnel to be involved were discussed with the patient or the patient s personal litigation claim representative. Discussed goals of surgery Decompression of bilateral L5 foramina, we discussed given his significant relief this is likely the cause of his pain. We discussed that he does have a T12-L1 disc herniation, he currently is asymptomatic from this, at this point we will not plan any operative intervention to this level. He has moderate stenosis. We had a long discussion regarding surgical expectations and what I suspect surgery will help with and what it will not We discussed the minimum criteria for elective surgery: A. Imaging fits with history and examination and has surgical correctable findings B. Conservative modalities have been trialed in a meaningful way that have failed to provide relief C. The pain is significant enough to interfere with quality of life, and undergoing an irreversible surgical procedure makes sense to the patient from a symptom severity standpoint A and B were confirmed by me, C was confirmed by the patient. With this in mind it is reasonable to proceed with: Proposed surgery included anterior lumbar interbody fusion at L5-S1, with posterior revision of his hardware at L4-L5 and placement of new pedicle screws at S1. Risks of surgery were discussed in detail with the patient. Risks of surgery discussed include but are not limited to, the risk of DVT, PE, and/or . Cardiovascular and pulmonary risk, as related to the patient's preoperative clearance and assessment by the perioperative team as well as anesthesia. The risk of neurological injury was discussed in great detail, including discussion of a spectrum of partial dysfunction through complete dysfunction. The risk of nerve root injury was discussed that may result in weakness, paralysis, sensory loss, and/or intractable pain and supplied nerve root that might either be transient and/or permanent in nature. The risk of compressive epidural hematoma and/or compressive epidural abscess was discussed with the patient that may or may not result in transient and/or permanent bowel and bladder dysfunction and/or transient and/or permanent lower extremity dysfunction such as weakness, paralysis, sensory loss, and/or intractable pain. The risk of instability status post surgery was discussed, the risk of superficial and deep infection was discussed. The risk of durotomy, and potential complications of spinal headache, and/or persistent leakage, resulting in the need for further surgery, and/or drain placement was discussed. The risk of no improvement in symptoms despite technically adequate decompression of the compressed structures was discussed in extreme detail. The risk of need for further surgery for any reason was discussed. The risk of complications related to fusion were discussed in detail. The risk of pseudoarthrosis was discussed. The risk of hardware failure including hardware pullout, oriana breakage, screw breakage was discussed. The risk of screw loosening was discussed. The risk of need for further surgery for hardware failure, pseudoarthrosis was discussed. The risk of screw misplacement resulting in radiculopathy or neurological injury was discussed. The risk of need for further surgery to alter trajectory of hardware was discussed. The risk of needing to extend the fusion cephalad and/or caudad and the reasoning behind this was discussed. Adjacent segment breakdown that may or may not be symptomatic was discussed. No guarantees were offered nor implied regarding final outcome status post surgery or presence or absence of complication perioperatively. After a thorough discussion, the patient had many appropriate questions, all questions were answered to the patient's stated satisfaction. The patient voiced excellent understanding of both the reasoning for offering surgery, the potential complications regarding this particular surgery, and has elected to proceed. None The majority of the visit was spent counseling and/or coordinating care for the patient. The patient was counseled regarding lumbar radiculopathy. Total face to face time was 30 minutes. SIGNATURE: Stephanie Kidd MD PATIENT NAME: Marino Herrera DATE: November 01, 2023 TIME: 11:11 AM PAGER: documented in this encounter [facility] 11-01-2023 Note HNO ID: [id number] Author: JENNYFER BRITO MD Service: ? Author Type: Physician Type: Progress Notes Filed: 11/01/2023 10:49 Note Text: [facility] Referred by Dr. Marvel Kidd 73 yo male Patient scheduled for ALIF decompression on 11/[address] Kidd Here for pre-operative discussion [facility] Staff No prior lower abdominal surgery Reviewed CT with patient -suitable vascular anatomy -minimal calcification Impression/Plan: No apparent contraindication for anterior exposure. Discussed anterior exposure for spine surgery. Specifically reviewed risks of bleeding and possible need for transfusion. Also discussed potential complications of lymphocele and wound healing problems. Chart to Dr. Bernabe Brito MD [facility] 11-01-2023 History of Present illness Narrative Images from the original note were not included. [facility] Referred by Dr. Marvel Kidd 73 yo male Patient scheduled for ALIF decompression on 11/[address] Kidd Here for pre-operative discussion UROL Staff No prior lower abdominal surgery Reviewed CT with patient -suitable vascular anatomy -minimal calcification Impression/Plan: No apparent contraindication for anterior exposure. Discussed anterior exposure for spine surgery. Specifically reviewed risks of bleeding and possible need for transfusion. Also discussed potential complications of lymphocele and wound healing problems. Chart to Dr. Bernabe Brito MD documented in this encounter [facility] 11-01-2023 Note Patient Outreach (UR OLMN) ---- CEMMARINO ([id number]) 1950 M Date Time Provider Department 11/01/23 JENNYFER BRITO During your visit today, we recorded the following information about you: Allergies As of Date: 11/01/2023 Noted Allergy Reaction MOLD 12/01/2021 14 - Other: See Comments MOLD SPORES 04/17/2006 5 - Intolerance Date Reviewed: 11/01/2023 Reviewed by: Vaughn De Los Santos PA-C - Fully Assessed Visit Diagnosis:Screening for genitourinary condition [Z13.89] Order(s):URINALYSIS, REFLEX MICROSCOPIC [[id number]] Order #: [id number]. #:[id number] Prescriptions as of 11/06/2023 - traMADol (ULTRAM) 50 mg tablet TAKE 1/2 (ONE-HALF) TO 1 TABLET THREE TIMES DAILY NEEDED FOR PAIN - aspirin 81 mg chewable tablet Take [...] Take 60 mg by mouth once daily. 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] 03/23/2021 Bicuspid aortic valve [Q23.1] 03/23/2021 Coronary artery disease involving [place] swan*04/22/2021 Atelectasis [J98.11] 04/22/2021 Post-op pain [G89.18] 04/22/2021 Postoperative hypovolemia [E89.89, E86.1] 04/22/2021 04/23/2021 Acquired hypothyroidism [E03.9] 04/22/2021 Fluid overload [E87.70] 04/24/2021 Thrombocytopenia (HCC) [D69.6] 04/24/2021 Postoperative anemia [D64.9] 04/24/2021 Essential hypertension [I10] 04/25/2021 Obesity, Class I, BMI 30-34.9 [E66.9] 04/25/2021 Encounter for support and coordination of trans*04/26/2021 PONV (postoperative nausea and vomiting) [R11.2*11/01/2023 Encounter Status:Closed by EPIC, PRODUSER on 11/06/23 [facility] 10-06-2023 Telephone encounter Note Neuro SPINE CARE COORDINATION QUICK NOTE Request for Cardiac clearance has been faxed to Dr. Toribio at fax [phone] [facility] Work Phone: 10-06-2023 Miscellaneous Notes Neuro SPINE CARE COORDINATION QUICK NOTE Request for Cardiac clearance has been faxed to Dr. Toribio at fax [phone] documented in this encounter [facility] 10-06-2023 Telephone encounter Note Neuro SPINE CARE COORDINATION SURGERY SCHEDULING Patient accepts surgery date of 11-28-[address] Kidd. Planned procedure is ALIF L5- S1 - post revision hardware L4-5 - pedicle screw S1 . PACC will be 11-01-23 ( Main with Dr. Kidd and urology ). [facility] : completed Medications reviewed : Yes}. Meds to be stopped prior to surgery : NSAIDS and Vitamins and supplements. Additional pre op clearances needed : cardiac. Any implanted devices : Yes.- bovine valve Transplant History no. Patient will get optimization lab work : Blood Management . Questions answered. Patient verbalizes understanding via teach back. Additional comments : home care order placed pre op Preoperative Needs Assessment Do you live alone or with someone that can help you? Lives with caregiver-pt cares for his . Will you have assistance available at home after your surgery to help with physical activities such a toileting or dressing? Occasionally How many steps do you need to climb to get into your home? 0- kift Once in your home, how many steps do you need to climb to access your bedroom or bathroom? 0 Do you use a mobility aid for walking/getting around? (note, if more than one type of aid is used, select the one that is used more frequently) None Anticipated LOS > 5 days: No Significant home social issues or Current history or past history of substance abuse: No Wheelchair baseline, Homebound baseline, Significant gait instability, or History of significant falls: Yes Thora/lumbar fusion any level planned or 2+ level posterior cervical fusion planned: Yes Myelopathic or Spine tumor: No Probability of non-home discharge disposition : Low [0] Salvador Cruz RN [facility] Work Phone: 10-06-2023 Miscellaneous Notes Neuro SPINE CARE COORDINATION SURGERY SCHEDULING Patient accepts surgery date of 11-28-[address] Kidd. Planned procedure is ALIF L5- S1 - post revision hardware L4-5 - pedicle screw S1 . PACC will be 11-01-23 ( Main with Dr. Kidd and urology ). [facility] : completed Medications reviewed : Yes}. Meds to be stopped prior to surgery : NSAIDS and Vitamins and supplements. Additional pre op clearances needed : cardiac. Any implanted devices : Yes.- bovine valve Transplant History no. Patient will get optimization lab work : Blood Management . Questions answered. Patient verbalizes understanding via teach back. Additional comments : home care order placed pre op Preoperative Needs Assessment Do you live alone or with someone that can help you? Lives with caregiver-pt cares for his . Will you have assistance available at home after your surgery to help with physical activities such a toileting or dressing? Occasionally How many steps do you need to climb to get into your home? 0- kift Once in your home, how many steps do you need to climb to access your bedroom or bathroom? 0 Do you use a mobility aid for walking/getting around? (note, if more than one type of aid is used, select the one that is used more frequently) None Anticipated LOS > 5 days: No Significant home social issues or Current history or past history of substance abuse: No Wheelchair baseline, Homebound baseline, Significant gait instability, or History of significant falls: Yes Thora/lumbar fusion any level planned or 2+ level posterior cervical fusion planned: Yes Myelopathic or Spine tumor: No Probability of non-home discharge disposition : Low [0] Salvador Cruz RN documented in this encounter [facility] 10-05-2023 History of Present illness Narrative SPINE SURGERY ESTABLISHED This is a virtual visit using Audio Only Visit. It required patient-provider interaction for the medical decision making as documented below. I have communicated my name and active licensure. The patient's identity and physical location were verified at the time of this visit. Either the patient or their legal litigation claim representative has been informed of the risks and benefits of -- and alternatives to -- treatment through a remote evaluation and consents to proceed with the evaluation remotely. DATE OF SERVICE: 10/05/2023 DATE OF LAST VISIT: Visit date not found SUBJECTIVE: HPI:Marino Herrera is a 73 year old male presenting with spouse. Patient presents for follow-up of his epidural steroid injection at bilateral L5. He reports 90 to 9 5 % relief since injection, it is beginning to wear off today. He has been standing more upright and ambulating better. He has almost no gluteal pain. He is very pleased with the results. He desires to discuss operative intervention for this. Continues to deny any weakness in his legs no bowel or bladder issues DERMATOMAL DISTRIBUTION: L5 bilaterally AMBULATORY STATUS: Independent Community Distances ANTIPLATELET OR ANTICOAGULATION STATUS: No PREVIOUS CONSERVATIVE TREATMENTS: Nsaids PREVIOUS SPINAL SURGERY: 2000, Cervical Fusion [facility] [address] [place] [address] SCS placed last September ~ 5 years ago, 3 Lumbar surgeries [facility] [address] [place] [address] [facility] --closed MEDICATIONS: traMADol (ULTRAM) 50 mg tablet TAKE 1/2 (ONE-HALF) TO 1 TABLET THREE TIMES DAILY NEEDED FOR PAIN aspirin 81 mg chewable tablet Take 1 tablet by mouth once daily. atorvastatin (LIPITOR) 20 mg tablet Take 1 tablet by mouth daily at bedtime. furosemide (LASIX) 20 mg tablet Take 1 tablet by mouth once daily. (Patient not taking: Reported on 07/26/2021) metoprolol succinate ER (TOPROL XL) 50 mg 24 hr tablet Take 1 tablet by mouth once daily. potassium chloride ER (K-DUR, KLOR-CON) 10 mEq tablet Take 1 tablet by mouth once daily. (Patient not taking: Reported on 07/26/2021) levothyroxine (SYNTHROID) 150 mcg tablet 150 mcg as directed. 6 days week gabapentin (NEURONTIN) 100 mg capsule Take 100 mg by mouth once daily. (Patient not taking: Reported on 09/05/2023) SUMAtriptan (IMITREX) 100 mg tablet Take 100 mg by mouth as needed. acetaminophen (TYLENOL ORAL) Take 1,000 mg by mouth daily at bedtime. DULoxetine (CYMBALTA) 60 mg capsule Take 60 mg by mouth once daily. Patient Entered Questionnaires PROMIS Score Percentiles 07/19/2021 04/29/2022 PROMIS Global Health Scale Physical Health Percentile 41 31 Mental Health Percentile 63 34 Percentiles provide an indication of how the patient's score ranks in relation to the general population. Higher percentile rankings indicate better function/quality of life. 50th percentile is the average of the general population and indicates half of respondents had a worse score. Depression Screening: PHQ-9 Self-Harm (Item 9) response options: 0 Not at all 1 Several days 2 More than half the days 3 Nearly every day PHQ-9 Levels: 0-4 No to mild depression 5-9 Mild depression 10-14 Moderate depression 15-19 Moderately severe depression 20-27 Severe depression OBJECTIVE: PHYSICAL EXAM: There were no vitals taken for this visit. DATA REVIEW:Diagnostic tests reviewed for today's visit, films/specimens were personally reviewed by me: No additional images reviewed today ASSESSMENT/PLAN No diagnosis found. Marino Nuñez Herrera is clinically indicated and wishes to pursue Lumbar Fusion at L5-S1. Approach anterior with posterior based pedicle screw placement. Clinical Indications for Spinal Fusion: Severe foraminal collapse at L5-S1 with symptomatic improvement from epidural steroid injection The risks, benefits, and anticipated outcomes of the procedure/treatment/test, the alternatives to the procedure/treatment/test and their risks and benefits, and the roles and tasks of the personnel to be involved were discussed with the patient or the patient s personal litigation claim representative. Discussed goals of surgery Decompression of bilateral L5 foramina, we discussed given his significant relief this is likely the cause of his pain. We discussed that he does have a T12-L1 disc herniation, he currently is asymptomatic from this, at this point we will not plan any operative intervention to this level. He has moderate stenosis. We had a long discussion regarding surgical expectations and what I suspect surgery will help with and what it will not We discussed the minimum criteria for elective surgery: A. Imaging fits with history and examination and has surgical correctable findings B. Conservative modalities have been trialed in a meaningful way that have failed to provide relief C. The pain is significant enough to interfere with quality of life, and undergoing an irreversible surgical procedure makes sense to the patient from a symptom severity standpoint A and B were confirmed by me, C was confirmed by the patient. With this in mind it is reasonable to proceed with: Proposed surgery included anterior lumbar interbody fusion at L5-S1, with posterior revision of his hardware at L4-L5 and placement of new pedicle screws at S1. Risks of surgery were discussed in detail with the patient. Risks of surgery discussed include but are not limited to, the risk of DVT, PE, and/or . Cardiovascular and pulmonary risk, as related to the patient's preoperative clearance and assessment by the perioperative team as well as anesthesia. The risk of neurological injury was discussed in great detail, including discussion of a spectrum of partial dysfunction through complete dysfunction. The risk of nerve root injury was discussed that may result in weakness, paralysis, sensory loss, and/or intractable pain and supplied nerve root that might either be transient and/or permanent in nature. The risk of compressive epidural hematoma and/or compressive epidural abscess was discussed with the patient that may or may not result in transient and/or permanent bowel and bladder dysfunction and/or transient and/or permanent lower extremity dysfunction such as weakness, paralysis, sensory loss, and/or intractable pain. The risk of instability status post surgery was discussed, the risk of superficial and deep infection was discussed. The risk of durotomy, and potential complications of spinal headache, and/or persistent leakage, resulting in the need for further surgery, and/or drain placement was discussed. The risk of no improvement in symptoms despite technically adequate decompression of the compressed structures was discussed in extreme detail. The risk of need for further surgery for any reason was discussed. The risk of complications related to fusion were discussed in detail. The risk of pseudoarthrosis was discussed. The risk of hardware failure including hardware pullout, oriana breakage, screw breakage was discussed. The risk of screw loosening was discussed. The risk of need for further surgery for hardware failure, pseudoarthrosis was discussed. The risk of screw misplacement resulting in radiculopathy or neurological injury was discussed. The risk of need for further surgery to alter trajectory of hardware was discussed. The risk of needing to extend the fusion cephalad and/or caudad and the reasoning behind this was discussed. Adjacent segment breakdown that may or may not be symptomatic was discussed. No guarantees were offered nor implied regarding final outcome status post surgery or presence or absence of complication perioperatively. After a thorough discussion, the patient had many appropriate questions, all questions were answered to the patient's stated satisfaction. The patient voiced excellent understanding of both the reasoning for offering surgery, the potential complications regarding this particular surgery, and has elected to proceed. 2. Follow up: Following above Imaging Ordered: None The majority of the visit was spent counseling and/or coordinating care for the patient. The patient was counseled regarding adjacent segment stenosis with bilateral L5 radiculopathy. Total face to face time was 20 minutes. SIGNATURE: Stephanie Kidd MD PATIENT NAME: Marino Herrera DATE: October 05, 2023 TIME: 12:15 PM PAGER: documented in this encounter [facility] 10-05-2023 Note HNO ID: [id number] Author: STEPHANIE KIDD MD Service: ? Author Type: Physician Type: Progress Notes Filed: 10/05/2023 13:13 Note Text: SPINE SURGERY ESTABLISHED This is a virtual visit using Audio Only Visit. It required patient-provider interaction for the medical decision making as documented below. I have communicated my name and active licensure. The patient's identity and physical location were verified at the time of this visit. Either the patient or their legal litigation claim representative has been informed of the risks and benefits of -- and alternatives to -- treatment through a remote evaluation and consents to proceed with the evaluation remotely. DATE OF SERVICE: 10/05/2023 DATE OF LAST VISIT: Visit date not found SUBJECTIVE: HPI:Marino Herrera is a 73 year old male presenting with spouse. Patient presents for follow-up of his epidural steroid injection at bilateral L5. He reports 90 to 9 5 % relief since injection, it is beginning to wear off today. He has been standing more upright and ambulating better. He has almost no gluteal pain. He is very pleased with the results. He desires to discuss operative intervention for this. Continues to deny any weakness in his legs no bowel or bladder issues DERMATOMAL DISTRIBUTION: L5 bilaterally AMBULATORY STATUS: Independent Community Distances ANTIPLATELET OR ANTICOAGULATION STATUS: No PREVIOUS CONSERVATIVE TREATMENTS: Nsaids PREVIOUS SPINAL SURGERY: 2000, Cervical Fusion [facility] [address] [place] [address] SCS placed last September ~ 5 years ago, 3 Lumbar surgeries [facility] [address] [facility], [place] [address] [facility] --closed MEDICATIONS: traMADol (ULTRAM) 50 mg tablet TAKE 1/2 (ONE-HALF) TO 1 TABLET THREE TIMES DAILY NEEDED FOR PAIN aspirin 81 mg chewable tablet Take 1 tablet by mouth once daily. atorvastatin (LIPITOR) 20 mg tablet Take 1 tablet by mouth daily at bedtime. furosemide (LASIX) 20 mg tablet Take 1 tablet by mouth once daily. (Patient not taking: Reported on 07/26/2021) metoprolol succinate ER (TOPROL XL) 50 mg 24 hr tablet Take 1 tablet by mouth once daily. potassium chloride ER (K-DUR, KLOR-CON) 10 mEq tablet Take 1 tablet by mouth once daily. (Patient not taking: Reported on 07/26/2021) levothyroxine (SYNTHROID) 150 mcg tablet 150 mcg as directed. 6 days week gabapentin (NEURONTIN) 100 mg capsule Take 100 mg by mouth once daily. (Patient not taking: Reported on 09/05/2023) SUMAtriptan (IMITREX) 100 mg tablet Take 100 mg by mouth as needed. acetaminophen (TYLENOL ORAL) Take 1,000 mg by mouth daily at bedtime. DULoxetine (CYMBALTA) 60 mg capsule Take 60 mg by mouth once daily. Patient Entered Questionnaires PROMIS Score Percentiles 07/19/2021 04/29/2022 PROMIS Global Health Scale Physical Health Percentile 41 31 Mental Health Percentile 63 34 Percentiles provide an indication of how the patient's score ranks in relation to the general population. Higher percentile rankings indicate better function/quality of life. 50th percentile is the average of the general population and indicates half of respondents had a worse score. Depression Screening: PHQ-9 Self-Harm (Item 9) response options: 0 Not at all 1 Several days 2 More than half the days 3 Nearly every day PHQ-9 Levels: 0-4 No to mild depression 5-9 Mild depression 10-14 Moderate depression 15-19 Moderately severe depression 20-27 Severe depression OBJECTIVE: PHYSICAL EXAM: There were no vitals taken for this visit. DATA REVIEW:Diagnostic tests reviewed for today's visit, films/specimens were personally reviewed by me: No additional images reviewed today ASSESSMENT/PLAN No diagnosis found. Marino Herrera is clinically indicated and wishes to pursue Lumbar Fusion at L5-S1. Approach anterior with posterior based pedicle screw placement. Clinical Indications for Spinal Fusion: Severe foraminal collapse at L5-S1 with symptomatic improvement from epidural steroid injection The risks, benefits, and anticipated outcomes of the procedure/treatment/test, the alternatives to the procedure/treatment/test and their risks and benefits, and the roles and tasks of the personnel to be involved were discussed with the patient or the patient?s personal litigation claim representative. Discussed goals of surgery Decompression of bilateral L5 foramina, we discussed given his significant relief this is likely the cause of his pain. We discussed that he does have a T12-L1 disc herniation, he currently is asymptomatic from this, at this point we will not plan any operative intervention to this level. He has moderate stenosis. We had a long discussion regarding surgical expectations and what I suspect surgery will help with and what it will not We discussed the minimum criteria for elective surgery: A. Imaging fits with history and examination and has surgical correctable findings B. Conser (more content not included)... [facility] 10-04-2023 Telephone encounter Note Neuro SPINE CARE COORDINATION QUICK NOTE DW Dr. Kidd Given the pt results- he would like to consider follow up apt. Tomorrow. Call to the pt and apt has been scheduled for 10-05-23 @ 2 00 pm ( phone apt) [facility] Work Phone: 10-04-2023 Miscellaneous Notes Neuro SPINE CARE COORDINATION QUICK NOTE DW Dr. Kidd Given the pt results- he would like to consider follow up apt. Tomorrow. Call to the pt and apt has been scheduled for 10-05-23 @ 2 00 pm ( phone apt) Neuro SPINE CARE COORDINATION QUICK NOTE MARQUIS 09-05-[address] Kidd for B gluteal pain SP B L5- S1 transforaminal epidural injection on 10-03-23 Pt reports 90 % improvement in his gluteal symptoms- pt would like to proceed with surgery. Update to Dr. Kidd Pt called & stated that he just had injection today 10/02 and stated can't stand & walking. Pt stated that he would like to schedule a surgery. Pls call back [phone] documented in this encounter [facility] 10-04-2023 Telephone encounter Note Neuro SPINE CARE COORDINATION QUICK NOTE MARQUIS 09-05-[address] Kidd for B gluteal pain SP B L5- S1 transforaminal epidural injection on 10-03-23 Pt reports 90 % improvement in his gluteal symptoms- pt would like to proceed with surgery. Update to Dr. Kidd [facility] 10-03-2023 Telephone encounter Note Pt called & stated that he just had injection today 10/02 and stated can't stand & walking. Pt stated that he would like to schedule a surgery. Pls call back [phone] [facility] 09-08-2023 Telephone encounter Note Received letter back from Dr. Toribio. Dr. Toribio has approved the patient to proceed with the procedure cyrus . Called and notified the patient with verbalized understanding. [facility] 09-08-2023 Miscellaneous Notes Received letter back from Dr. Toribio. Dr. Toribio has approved the patient to proceed with the procedure cyrus . Called and notified the patient with verbalized understanding. Procedure: Bilateral L5-S1 lumbar transforaminal epidural steroid injection Date: 10/03/23 Cardiac Clearance: CABG Letter has been generated and faxed to: MD Eben Reed John H, WHEELCHAIR VAN [employer].SCALE MANAGER [address] [facility] [facility] [address] [facility] [address] Fax: Will await response. documented in this encounter [facility] 09-07-2023 Telephone encounter Note Procedure: Bilateral L5-S1 lumbar transforaminal epidural steroid injection Date: 10/03/23 Cardiac Clearance: CABG Letter has been generated and faxed to: MD Eben Reed John H, WHEELCHAIR VAN DRIVER.SCALE MANAGER [address] [facility] [address] [facility] [address] Will await response. [facility] 09-06-2023 Telephone encounter Note Name of Caller: Marino Relationship to patient: patient Last visit in this department: 09/05/2023 Reason for Call: p pt asking for clarification on the rest results Dr kidd still needs from [place] they believe they sent everything Callback number: [phone] [facility] 09-06-2023 Miscellaneous Notes Name of Caller: Marino Relationship to patient: patient Last visit in this department: 09/05/2023 Reason for Call: p pt asking for clarification on the rest results Dr kidd still needs from [place] they believe they sent everything Callback number: [phone] documented in this encounter [facility] 09-05-2023 Telephone encounter Note Patient voicemail received 09/05/2023 at 1559 regarding same request as dictated by PSS. Office to contact patient to schedule. [facility] 09-05-2023 Miscellaneous Notes Patient voicemail received 09/05/2023 at 1559 regarding same request as dictated by PSS. Office to contact patient to schedule. Patient needs scheduled for Spine intervention procedure with . Please see procedure orders tab to schedule. documented in this encounter [facility] 09-05-2023 Telephone encounter Note Patient needs scheduled for Spine intervention procedure with . Please see procedure orders tab to schedule. [facility] 09-05-2023 Miscellaneous Notes Encounter addended by: Amalia Pacheco RT(R) on: 09/05/2023 11:05 AM Actions taken: Chief Complaint modified documented in this encounter [facility] 09-05-2023 Note Encounter addended b y: Amlaia Pacheco RT(R) on: 09/05/2023 11:05 AM Actions taken: Chief Complaint modified [facility] 09-05-2023 Note HNO ID: [id number] Author: STEPHANIE KIDD MD Service: ? Author Type: Physician Type: Progress Notes Filed: 09/05/2023 11:18 Note Text: SPINE SURGERY NEW PATIENT This is an in-person visit. PCP: Yecenia Okeefe MD REFERRING PROVIDER: Self SUBJECTIVE HISTORY OF PRESENT ILLNESS: Marino Herrera is a 73 year old male presenting alone. CHIEF COMPLAINT: Bilateral gluteal pain worsen upon standing PRECIPITATING EVENT: None DURATION OF SYMPTOMS: Greater Than 6 Months Is a very pleasant 73-year-old male, [id number], non-smoker, nondiabetic who presents for evaluation. He reports when he is sitting he has no pain upon standing he experiences bilateral gluteal pain radiating to the lateral aspect of his thighs. He had previously undergone L4-5 decompression fusion, as well as a spinal cord stimulator. He reports when he is having a bad day he can increase the voltage of his spinal cord stimulator and he is able to complete tasks he needs to, but he feels very fatigued after. In 2000 he underwent multilevel ACDF. He reports some baseline altered sensation in his hands nothing acutely worsening. He has had bilateral carpal tunnel surgery as well as bilateral carpal tunnel revision surgery. He reports a longstanding bladder issues, nothing new nothing progressive. He was seen locally in [place] and he was offered an extension of his fusion cranially, but patient denies any anterior based thigh pain, reports only gluteal . CT myelogram also demonstrated T12-L1 disc protrusion without severe stenosis. Patient is open to all options including extension of his fusion. DERMATOMAL DISTRIBUTION: L5 bilaterally AMBULATORY STATUS: Independent Community Distances ANTIPLATELET OR ANTICOAGULATION STATUS: No PREVIOUS CONSERVATIVE TREATMENTS: Nsaids PREVIOUS SPINAL SURGERY: 2000, Cervical Fusion [facility] [address] [place] [address] SCS placed last September ~ 5 years ago, 3 Lumbar surgeries [facility] [address] [facility] [address], [place] [address] [facility] --closed ACTIVE PROBLEM LIST Bladder Neck Obstruction Hypertrophy of Prostate With Urinary Obstruction and Other Lower Urinary Tract Symptoms (Luts) Impotence of Organic Origin Ibs (Irritable Bowel Syndrome) Esophageal Reflux Acute Gastritis Without Mention of Hemorrhage Impotence Elevated Psa Urgency of Urination Frequency of Urination Nocturia Bph (Benign Prostatic Hyperplasia) Hematuria Family History of Colon Cancer in Father Dissection of Thoracic Aorta (Hcc) Thoracic Ascending Aortic Aneurysm (Hcc) Stable Angina (Hcc) Coronary Artery Calcification Family History of Heart Disease Bubba (Obstructive Sleep Apnea) Dyslipidemia S/P Thyroidectomy Nonrheumatic Aortic Valve Stenosis Nonrheumatic Aortic Valve Insufficiency Bicuspid Aortic Valve Coronary Artery Disease Involving Platinum 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) Atelectasis Post-Op Pain Acquired Hypothyroidism Fluid Overload Thrombocytopenia (Hcc) Postoperative Anemia Essential Hypertension Obesity, Class I, Bmi 30-34.9 Encounter for Support and Coordination of Transition of Care PAST MEDICAL HISTORY Diagnosis Date Acute gastritis without mention of hemorrhage Allergic rhinitis, cause unspecified Carpal tunnel syndrome Disorders of bursae and tendons in shoulder region, unspecified Disturbance of skin sensation parasthesia Esophageal reflux External hemorrhoids without mention of complication Family history of malignant neoplasm of gastrointestinal tract family history of colon cancer Hypothyroid Internal hemorrhoids without mention of complication Irritable bowel syndrome IBS-D BUBBA (obstructive sleep apnea) corrective surgery, uses appliance Other and unspecified disc disorder of cervical region Other and unspecified hyperlipidemia Peripheral vertigo, unspecified PMH - PAST MEDICAL HISTORY OF [facility] Psychosexual dysfunction with inhibited sexual excitement PAST SURGICAL HISTORY Procedure Laterality Date COLONOSCOPY FLX DX W/COLLJ SPEC WHEN PFRMD 09/07/2001 Colonoscopy COLONOSCOPY FLX DX W/COLLJ SPEC WHEN PFRMD 10/01/2012 Colonoscopy COLONOSCOPY W/BIOPSY SINGLE/MULTIPLE 05/16/2006 EGD TRANSORAL BIOPSY SINGLE/MULTIPLE 09/29/2009 ESOPHAGOGASTRODUODENOSCOPY TRANSORAL DIAGNOSTIC 08/02/2001 EGD PAST SURGICAL HISTORY OF 02/13/1967 bleeding ulcer requiring transfusion PAST SURGICAL HISTORY OF 02/14/2000 cervical fusion AND laminectomy, 4-5-6? PAST SURGICAL HISTORY OF 02/13/1982 fx radius from fall, left PAST SURGICAL HISTORY OF 02/13/1997 lumbar laminectomym L2,3 PAST SURGICAL HISTORY OF 02/14/1980 rhinoplasty PAST SURGICAL HISTORY OF 02/13/1970 septroplasty PAST SURGICAL HISTORY OF 02/13/2001 thyroidectomy $ thryroiditis had job's and goiter PAST SURGICAL HISTORY OF bilateral carpel tunnel (more content not included)... [facility] 09-05-2023 History of Present illness Narrative SPINE SURGERY NEW PATIENT This is an in-person visit. PCP: Yecenia Okeefe MD REFERRING PROVIDER: Self SUBJECTIVE HISTORY OF PRESENT ILLNESS: Marino Herrera is a 73 year old male presenting alone. CHIEF COMPLAINT: Bilateral gluteal pain worsen upon standing PRECIPITATING EVENT: None DURATION OF SYMPTOMS: Greater Than 6 Months Is a very pleasant 73-year-old male, [id number], non-smoker, nondiabetic who presents for evaluation. He reports when he is sitting he has no pain upon standing he experiences bilateral gluteal pain radiating to the lateral aspect of his thighs. He had previously undergone L4-5 decompression fusion, as well as a spinal cord stimulator. He reports when he is having a bad day he can increase the voltage of his spinal cord stimulator and he is able to complete tasks he needs to, but he feels very fatigued after. In 2000 he underwent multilevel ACDF. He reports some baseline altered sensation in his hands nothing acutely worsening. He has had bilateral carpal tunnel surgery as well as bilateral carpal tunnel revision surgery. He reports a longstanding bladder issues, nothing new nothing progressive. He was seen locally in [place] and he was offered an extension of his fusion cranially, but patient denies any anterior based thigh pain, reports only gluteal . CT myelogram also demonstrated T12-L1 disc protrusion without severe stenosis. Patient is open to all options including extension of his fusion. 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) Esophageal Reflux Acute Gastritis Without Mention of Hemorrhage Impotence Elevated Psa Urgency of Urination Frequency of Urination Nocturia Bph (Benign Prostatic Hyperplasia) Hematuria Family History of Colon Cancer in Father Dissection of Thoracic Aorta (Hcc) Thoracic Ascending Aortic Aneurysm (Hcc) Stable Angina (Hcc) Coronary Artery Calcification Family History of Heart Disease Bubba (Obstructive Sleep Apnea) Dyslipidemia S/P Thyroidectomy Nonrheumatic Aortic Valve Stenosis Nonrheumatic Aortic Valve Insufficiency Bicuspid Aortic Valve Coronary Artery Disease Involving Platinum 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) Atelectasis Post-Op Pain Acquired Hypothyroidism Fluid Overload Thrombocytopenia (Hcc) Postoperative Anemia Essential Hypertension Obesity, Class I, Bmi 30-34.9 Encounter for Support and Coordination of Transition of Care PAST MEDICAL HISTORY Diagnosis Date Acute gastritis without mention of hemorrhage Allergic rhinitis, cause unspecified Carpal tunnel syndrome Disorders of bursae and tendons in shoulder region, unspecified Disturbance of skin sensation parasthesia Esophageal reflux External hemorrhoids without mention of complication Family history of malignant neoplasm of gastrointestinal tract family history of colon cancer Hypothyroid Internal hemorrhoids without mention of complication Irritable bowel syndrome IBS-D BUBBA (obstructive sleep apnea) corrective surgery, uses appliance Other and unspecified disc disorder of cervical region Other and unspecified hyperlipidemia Peripheral vertigo, unspecified PMH - PAST MEDICAL HISTORY OF [facility] Psychosexual dysfunction with inhibited sexual excitement PAST SURGICAL HISTORY Procedure Laterality Date COLONOSCOPY FLX DX W/COLLJ SPEC WHEN PFRMD 09/07/2001 Colonoscopy COLONOSCOPY FLX DX W/COLLJ SPEC WHEN PFRMD 10/01/2012 Colonoscopy COLONOSCOPY W/BIOPSY SINGLE/MULTIPLE 05/16/2006 EGD TRANSORAL BIOPSY SINGLE/MULTIPLE 09/29/2009 ESOPHAGOGASTRODUODENOSCOPY TRANSORAL DIAGNOSTIC 08/02/2001 EGD PAST SURGICAL HISTORY OF 02/13/1967 bleeding ulcer requiring transfusion PAST SURGICAL HISTORY OF 02/14/2000 cervical fusion & laminectomy, 4-5-6? PAST SURGICAL HISTORY OF 02/13/1982 fx radius from fall, left PAST SURGICAL HISTORY OF 02/13/1997 lumbar laminectomym L2,3 PAST SURGICAL HISTORY OF 02/14/1980 rhinoplasty PAST SURGICAL HISTORY OF 02/13/1970 septroplasty PAST SURGICAL HISTORY OF 02/13/2001 thyroidectomy $ thryroiditis had job's and goiter PAST SURGICAL HISTORY OF bilateral carpel tunnel PAST SURGICAL HISTORY OF ulveuctomy PAST SURGICAL HISTORY OF lamenectomy lumbar. TRANSURETHRAL ELEC-SURG PROSTATECTOM FAMILY HISTORY Problem Relation Age of Onset other (no CAD) Mother age 94 Colon Cancer Father other (lung cancer) Father colon cancer/acute luekemia/stroke other (acute leukemia) Father other (CVA) Father 83 other (coronary stent) Father 80 other (throat cancer) Brother other (Myocardial infarction) Brother 72 PCI other (Myocardial infarction) Maternal Grandfather 60 Social History Tobacco Use Smoking status: Former Types: Pipe Quit date: 04/04/2001 Years since quittin.4 Passive exposure: Past Smokeless tobacco: Former Quit date: 05/14/2016 Vaping Use Vaping Use: Former Substance Use Topics Alcohol use: Yes Comment: qod scotch Drug use: No ALLERGIES Allergen Reactions Mold Other: See Comments Mold Spores Intolerance MEDICATIONS: traMADol (ULTRAM) 50 mg tablet TAKE 1/2 (ONE-HALF) TO 1 TABLET THREE TIMES DAILY NEEDED FOR PAIN levothyroxine (SYNTHROID) 150 mcg tablet 150 mcg as directed. 6 days week SUMAtriptan (IMITREX) 100 mg tablet Take 100 mg by mouth as needed. acetaminophen (TYLENOL ORAL) Take 1,000 mg by mouth daily at bedtime. DULoxetine (CYMBALTA) 60 mg capsule Take 60 mg by mouth once daily. aspirin 81 mg chewable tablet Take 1 tablet by mouth once daily. atorvastatin (LIPITOR) 20 mg tablet Take 1 tablet by mouth daily at bedtime. furosemide (LASIX) 20 mg tablet Take 1 tablet by mouth once daily. (Patient not taking: Reported on 07/26/2021) metoprolol succinate ER (TOPROL XL) 50 mg 24 hr tablet Take 1 tablet by mouth once daily. potassium chloride ER (K-DUR, KLOR-CON) 10 mEq tablet Take 1 tablet by mouth once daily. (Patient not taking: Reported on 07/26/2021) gabapentin (NEURONTIN) 100 mg capsule Take 100 mg by mouth once daily. (Patient not taking: Reported on 09/05/2023) REVIEW OF SYSTEMS: All are negative except those stated in the History of Present illness. Patient Entered Questionnaires PROMIS Score Percentiles 07/19/2021 04/29/2022 PROMIS Global Health Scale Physical Health Percentile 41 31 Mental Health Percentile 63 34 Percentiles provide an indication of how the patient's score ranks in relation to the general population. Higher percentile rankings indicate better function/quality of life. 50th percentile is the average of the general population and indicates half of respondents had a worse score. Depression Screening: PHQ-9 Self-Harm (Item 9) response options: 0 Not at all 1 Several days 2 More than half the days 3 Nearly every day PHQ-9 Levels: 0-4 No to mild depression 5-9 Mild depression 10-14 Moderate depression 15-19 Moderately severe depression 20-27 Severe depression OBJECTIVE: PHYSICAL EXAM BP 136/77 (BP Site: Left Arm, BP Position: Sitting, BP Cuff Size: Extra Large Adult) Pulse (!) 59 Temp 36.3 C (97.4 F) Wt 87 kg (191 lb 12.8 oz) BMI 29.16 kg/m Spine Exam Drain(s): none Incision: healed lumbar Neck No obvious deformity, normal ROM Back No stepoffs/deformities. No tenderness or instability to palpation along spinous processes or paravertebral musculature Thoracic kyphosis present Upper Extremities UE BICEPS TRICEPS DELTS Wrist Ext Wrist Flex Wood Car Builder HI R 5 5 5 5 5 5 5 L 5 5 5 5 5 5 5 Sensation to light touch intact to bilateral upper extremities +2 radial pulse Right: Triceps, Biceps, Brachial normoreflexic Left: Triceps, Biceps, Brachial normoreflexic Du's: - bilaterally Lower Extremities LE Hip Flex Knee Flex Knee Extend Plantarflex Dorsiflex EHL R 5 5 5 5 5 5 L 5 5 5 5 5 5 Sensation intact to light tough in bilateral lower extremities in spn, dpn, sural, saphenous, and tibial nerves. Right: Patellar, Ankle normoreflexic Left: Patellar, Ankle normoreflexic Clonus: 1 beat bilaterally Toe walk unable Heel Walk unable Tandem unable Ambulatory status: independent, walks with retroverted pelvis to maintain horizon NEURO TESTS: DATA REVIEW Imaging and outside records independently reviewed Thoracic kyphosis present at T12-L1 junction, degenerative changes at L5 foramen upon standing CT myelogram reviewed demonstrating moderate stenosis at T12 L1, leads being present as well as some ligamentum flavum hypertrophy and disc bulge, prior fusion appears solidly fused Thoracic MRI reviewed demonstrating moderate stenosis at T12-L1 Lumbar guest room attendant imaging reviewed demonstrating apparent right greater than left L5 foraminal stenosis moderate L3-4 foraminal stenosis ASSESSMENT/PLAN (M48.061) Spinal stenosis of lumbar region without neurogenic claudication (primary encounter diagnosis) Marino Herrera will continue with medical management of his/her condition. 1. Long discussion was had with Marino regarding his clinical presentation and imaging. I do believe he has symptomatic L5 radiculopathy as his pain worsens upon standing in a very classic L5 distribution. He does have thoracic hyperkyphosis as well as cervical hyperlordosis as a compensatory mechanism. He stands with his pelvis retroverted. We did discuss briefly the option of a deformity operation and I will be more than happy to refer her to one of my partners. Patient reports he is not interested in deformity correction he is only interested in improvement/alleviation of his symptoms. Given that I believe he has L5 foraminal stenosis I will get him for bilateral L5-S1 epidural steroid injections. He also will obtain upright x-rays of his spine. He did previously undergo a lumbar MRI, I am unable to see the T2 weighted images. On his guest room attendant imaging it does appear that he has significant right-sided foraminal stenosis. At this point I do not believe his thoracic stenosis is contributing to his clinical presentation as such I would not be addressing that. He is also now beyond 10 years from his cervical ACDF, on guest room attendant imaging there appears to be some moderate stenosis at C4-5, given the lack of his upper extremity symptoms no need for formal cervical MRI. Patient was in agreement with plan he will obtain x-rays and an injection and then have a phone call or video visit to determine next steps. We briefly discussed that if L5-S1 is his level of pathology an anterior lumbar interbody fusion along with posterior based pedicle screws likely will be the option. Patient is understanding of plan 2. Follow up: Following above Imaging Ordered: Xr lumbar, xr scoliosis The majority of the visit was spent counseling and/or coordinating care for the patient. The patient was counseled regarding lumbar foraminal stenosis. Total face to face time was 30 minutes. SIGNATURE: Stephanie Kidd MD PATIENT NAME: Marino Herrera DATE: September 05, 2023 TIME: 11:06 AM PAGER: documented in this encounter [facility] 08-29-2023 Telephone encounter Note Forwarded back to AA We cannot comment as the pt has never been seen Pt apt is for 09-05-23 [facility] Work Phone: 08-29-2023 Miscellaneous Notes Forwarded back to AA We cannot comment as the pt has never been seen Pt apt is for 09-05-23 Name of Caller: Marino Relationship to patient: patient Last visit in this department: Visit date not found Reason for Call: Other : pt needs a tooth removed and is wondering if he will still be able to have his back surgery . Please advise Callback number: [phone] documented in this encounter [facility] 08-29-2023 Telephone encounter Note Name of Caller: Marino Relationship to patient: patient Last visit in this department: Visit date not found Reason for Call: Other : pt needs a tooth removed and is wondering if he will still be able to have his back surgery . Please advise Callback number: [phone] [facility] 08-10-2023 Note HNO ID: [id number] Author: ANGE ORNELAS PA-C Service: ? Author Type: Physician Comfort Advisor Type: Progress Notes Filed: 08/10/2023 12:32 Note Text: Per Triage: Marino Herrera is a 73 year old male that requests evaluation of spine. Per review, they have symptoms of lower back pain, intermittent right leg pain. Difficulty walking. Intermittent hand numbness. Weakness in arms and legs. Trouble using hands BMI 28.9 Request: 1st available Referring provider: none Patient out of state: no 2nd opinion: yes, offered surgery Prior spine surgery: yes 2000, Cervical Fusion [facility] [address] [place] [address] SCS placed last September ~ 5 years ago, 3 Lumbar surgeries [facility] [address] [place] [address] [facility] --closed CMT: Cervical injections Tylenol Studies (Reports unless indicated) MRI thoracic spine report 05/24/23: Small disc herniation at T3-4, T6-7, T7-8 with mild canal stenosis. SCS wires extend up to T7-8. Susceptibility artifact limiting assessment of T10-L1 levels due to SCS wires Multilevel DDD MRI lumbar spine report 05/24/23: Multilevel spondylosis with moderate foraminal stenosis L3-4. Evidence of prior L4-[address] myelogram lumbar/thoracic report 05/26/23: Laminectomy and fusion L4-5. Right posterolateral spinal stenosis T12-L1 vertebral level due to posterior spondylosis and hypertrophy of the ligamenta flava. Disposition: Based on triage, recommend patient be scheduled with surgeon 1st available for 2nd opinion - offered surgery locally . In-person for exam. If patient would like sooner appointment, is it okay to offer appointment with spine surgical SELINA No (If patient is okay to see first available surgeon, please specify dx to aid in appropriate scheduling, such as ?cervical degenerative disease,? ?scoliosis?) If office visit, please advise pt to hand carry relevant images on CD to the appt so they can be reviewed during the appt Ange Ornelas PA-C [facility] 08-10-2023 History of Present illness Narrative Per Triage: Marino Herrera is a 73 year old male that requests evaluation of spine. Per review, they have symptoms of lower back pain, intermittent right leg pain. Difficulty walking. Intermittent hand numbness. Weakness in arms and legs. Trouble using hands BMI 28.9 Request: 1st available Referring provider: none Patient out of state: no 2nd opinion: yes, offered surgery Prior spine surgery: yes 2000, Cervical Fusion [facility] [address] [place] [address] SCS placed last September ~ 5 years ago, 3 Lumbar surgeries [facility] [address] [facility] [place] [address] [facility] --closed CMT: Cervical injections Tylenol Studies (Reports unless indicated) MRI thoracic spine report 05/24/23: Small disc herniation at T3-4, T6-7, T7-8 with mild canal stenosis. SCS wires extend up to T7-8. Susceptibility artifact limiting assessment of T10-L1 levels due to SCS wires Multilevel DDD MRI lumbar spine report 05/24/23: Multilevel spondylosis with moderate foraminal stenosis L3-4. Evidence of prior L4-[address] myelogram lumbar/thoracic report 05/26/23: Laminectomy and fusion L4-5. Right posterolateral spinal stenosis T12-L1 vertebral level due to posterior spondylosis and hypertrophy of the ligamenta flava. Disposition: Based on triage, recommend patient be scheduled with surgeon 1st available for 2nd opinion - offered surgery locally . In-person for exam. If patient would like sooner appointment, is it okay to offer appointment with spine surgical SELINA No (If patient is okay to see first available surgeon, please specify dx to aid in appropriate scheduling, such as cervical degenerative disease, scoliosis ) If office visit, please advise pt to hand carry relevant images on CD to the appt so they can be reviewed during the appt Ange Ornelas PA-C Patient name: Marino Herrera Are you being referred by a [facility] Provider or Pain Management Provider at [facility]? No If answer is YES please schedule directly with surgeon, triage does not need to be completed. Is this a self-referral Yes If not, who is the Referring Provider Is this a 2nd opinion from another spine surgeon? Yes Were you offered surgery? Yes MRI/CT/myelogram within 12 months? Yes If NO, please refer to medical spine or PCP to complete above imaging, triage does not need to be completed If YES, please ask for the name/address of the facility where the MRI/CT/myelogram was completed: [facility] [address] [place] [address] MRI/CT/myelogram viewable in Epic: No If not, please provide [phone] to fax in imaging reports for review. Also, please inform patient to hand carry imaging disc to appointment. XR (spine) within 12 months: Yes If YES, please ask for the name/address of the facility where the XR was completed: [facility] [address], [place] [address] Dr. Paige's patients: Have you had previous EMG/Nerve Conduction Study, Ultrasound, or MRI for these same symptoms? If YES, please ask for the name/address of the facility where they were completed: Requested provider (First and Last name): any Are you interested in a virtual visit if offered? No 1. Where are you having symptoms related to this visit? Back pain Yes LBP Leg pain Yes R leg, intermittent Arm pain No Neck pain No 2. Are you having any of the following symptoms: Difficulty walking Yes Numbness Yes hands (intermittent) Weakness Yes arms, legs Trouble using your hands? Yes 3. Have you had any injections or physical therapy in the last 12 months? Yes If YES then please ask for the name/address of the facility where the injections and/or physical therapy was completed Injection: (cervical): [facility] [address], [place] [address] Have you tried any other kinds of non-surgical treatments in the last 12 months? (For example: NSAIDS, muscle relaxants, analgesics, oral steroids, Chiropractor, Acupuncture): Tylenol 4. Are you currently taking daily prescribed narcotic medications for your current symptoms (For example Oxycodone, Hydrocodone, Tramadol, Morphine, Other)? No 5. Have you had previous spinal surgery for this same symptoms? Yes If YES please ask for the name of facility/address of where the surgery was completed: 2000, Cervical Fusion [facility] [address] [place] [address] SCS placed last September ~ 5 years ago, 3 Lumbar surgeries [facility] [address] [facility] [address], [place] [address] [facility] --closed Additional Comments [phone] documented in this encounter [facility] 04-28-2022 History of Present illness Narrative QOL Call Tracking Documentation Follow-Up Type: Phone Call Call Attempt: 1st Attempt Call Status: Left Message documented in this encounter [facility] 07-26-2021 History of Present illness Narrative Radiology Service Progress Note PATIENT [...] TIME: 11:00 AM documented in this encounter [facility] 05-04-2021 Miscellaneous Notes SURVEY INFORMATION #1 Registered [...] Maggy Oneill RN documented in this encounter [facility] 04-22-2021 Evaluation note Diagnosis Onset Date H/O coronary artery bypass surgery April 22, 2021 acute History of aortic valve replacement with bioprosthetic valve April 22, 2021 acute History of ascending aorta repair April 22, 2021 acute Hyperlipidemia [facility] Work Phone: 1(325) 673-711303-10-2022 Evaluation note* Diagnosis Onset Date Resolution Status H/O coronary artery bypass surgery April 22, 2021 acute History of aortic valve repl acement with bioprosthetic valve April 22, 2021 acute History of ascending aorta repair April 22, 2021 acute Hyperlipidemia chronic H/O coronary artery bypass surgery April 22, 2021 acute History of aortic valve repl acement with bioprosthetic valve April 22, 2021 acute History of ascending aorta repair April 22, 2021 acute Hyperlipidemia [facility] Work Phone: 1(197) 603-894503-10-2022 Evaluation note* Diagnosis Onset Date Resolution Status History of ascending aorta repair April 22, 2021 acute H/O coronary artery bypass surgery April 22, 2021 chronic History of aortic valve repl acement with bioprosthetic valve April 22, 2021 chronic Hyperlipidemia [facility] Work Phone: 1(258) 683-374003-10-2022 History of Past illness Narrative* Problem Noted Date Resolved Date Postoperative hypovolemia 04/22/20212021 Overview: History: post op Assessment: fluid shifting Plan: PRN volume resuscitation Discharge planning issues 03/22/20212021 Overview: This is a 70 y/o male from [place], [place] here for surgery that may benefit from [facility]. Pre-op testing 03/22/2021 04/26/2021 Overview: HEART [...] no Consults: heme ok to proceed GABBY Hunt DM: No Cardiac Surgical prep: N/A SIGNATURE: Kiran Priest RN DATE of SERVICE: 03/22/2021 TIME of SERVICE: 1:58 PM CHECKED BY: bill documented as of this encounter (statuses as of 05/04/2021) [facility]2022 History of Past illness Narrative* Problem Noted Date Resolved Date Postoperative hypovolemia 04/22/20212021 Overview: History: post op Assessment: fluid shifting Plan: PRN volume resuscitation Discharge planning issues 03/22/20212021 Overview: This is a 70 y/o male from [place] here for surgery that may benefit from [facility]. Pre-op testing 03/22/2021 04/26/2021 Overview: HEART [...] no Consults: heme ok to proceed GABBY Hunt DM: No Cardiac Surgical prep: N/A SIGNATURE: Kiran Priest RN DATE of SERVICE: 03/22/2021 TIME of SERVICE: 1:58 PM CHECKED BY: bill documented as of this encounter (statuses as of 07/27/2021) [facility]-10[facility]2022 History of Past illness Narrative* Problem Noted Date Resolved Date Postoperative hypovolemia 04/22/20212021 Overview: History: post op Assessment: fluid shifting Plan: PRN volume resuscitation Discharge planning issues 03/22/20212021 Overview: This is a 70 y/o male from [place] here for surgery that may benefit from [facility]. Pre-op testing 03/22/2021 04/26/2021 Overview: HEART [...] of this encounter (statuses as of 04/28/2022) [facility] Diagnosis Vascular injury Injury to blood vessels, unspecified site [facility] noteNo assessment information [facility]: Evaluation note* Diagnosis S/P lumbar fusion- Primary Arthrodesis status Spinal stenosis of thoracolumbar region Spinal stenosis of thoracic region documented in this encounter [facility] note* Diagnosis Spinal stenosis of lumbar region without neurogenic claudication- Primary Spinal stenosis, lumbar region, without neurogenic claudication documented in this encounter [facility] note* Diagnosis Spinal stenosis of lumbar region without neurogenic claudication- Primary Spinal stenosis, lumbar region, without neurogenic claudication Radiculopathy, lumbar region Thoracic or lumbosacral neuritis or radiculitis, unspecified Spinal stenosis of lumbar region without neurogenic claudication Spinal stenosis, lumbar region, without neurogenic claudication Radiculopathy, lumbar region Thoracic or lumbosacral neuritis or radiculitis, unspecified documented in this encounter [facility] note* Diagnosis Spinal stenosis of lumbar region without neurogenic claudication- Primary Spinal stenosis, lumbar region, without neurogenic claudication documented in this encounter [facility] note* Diagnosis Spinal stenosis of lumbar region with radiculopathy- Primary Spinal stenosis, lumbar region, without neurogenic claudication Spinal stenosis of lumbar region with radiculopathy Spinal stenosis, lumbar region, without neurogenic claudication documented in this encounter [facility] note* Diagnosis Acquired spondylolisthesis- Primary Anemia following surgery Anemia, unspecified Spinal stenosis of lumbar region with radiculopathy Spinal stenosis, lumbar region, without neurogenic claudication documented in this encounter [facility] note* Diagnosis Spinal stenosis of lumbar region without neurogenic claudication Spinal stenosis, lumbar region, without neurogenic claudication Spinal stenosis of lumbar region with radiculopathy Spinal stenosis, lumbar region, without neurogenic claudication documented in this encounter [facility] note* Diagnosis Pseudoarthrosis of lumbar spine- Primary Nonunion of fracture Pre-op evaluation- Primary Preoperative examination, unspecified Ascending aortic aneurysm, unspecified whether ruptured (HCC) Coronary artery disease involving [place] coronary artery of [place] heart with angina pectoris (HCC) Bicuspid aortic valve Congenital insufficiency of aortic valve Essential hypertension Unspecified essential hypertension BUBBA (obstructive sleep apnea) Obstructive sleep apnea (adult) (pediatric) Dyslipidemia Other and unspecified hyperlipidemia Acquired hypothyroidism Unspecified hypothyroidism PONV (postoperative nausea and vomiting) Nausea with vomiting Gastroesophageal reflux disease, unspecified whether esophagitis present Spinal stenosis of lumbar region with radiculopathy Spinal stenosis, lumbar region, without neurogenic claudication documented in this encounter [facility] note* Diagnosis Spinal stenosis of lumbar region with radiculopathy- Primary Spinal stenosis, lumbar region, without neurogenic claudication Pre-op evaluation- Primary Preoperative examination, unspecified Ascending aortic aneurysm, unspecified whether ruptured (HCC) Coronary artery disease involving [place] coronary artery of [place] heart with angina pectoris (HCC) Bicuspid aortic valve Congenital insufficiency of aortic valve Essential hypertension Unspecified essential hypertension BUBBA (obstructive sleep apnea) Obstructive sleep apnea (adult) (pediatric) Dyslipidemia Other and unspecified hyperlipidemia Acquired hypothyroidism Unspecified hypothyroidism PONV (postoperative nausea and vomiting) Nausea with vomiting Gastroesophageal reflux disease, unspecified whether esophagitis present Spinal stenosis of lumbar region with radiculopathy Spinal stenosis, lumbar region, without neurogenic claudication documented in this encounter [facility] note* Diagnosis Pre-op evaluation- Primary Preoperative examination, unspecified Ascending aortic aneurysm, unspecified whether ruptured (HCC) Coronary artery disease involving [place] coronary artery of [place] heart with angina pectoris (HCC) Bicuspid aortic valve Congenital insufficiency of aortic valve Essential hypertension Unspecified essential hypertension BUBBA (obstructive sleep apnea) Obstructive sleep apnea (adult) (pediatric) Dyslipidemia Other and unspecified hyperlipidemia Acquired hypothyroidism Unspecified hypothyroidism PONV (postoperative nausea and vomiting) Nausea with vomiting Gastroesophageal reflux disease, unspecified whether esophagitis present Spinal stenosis of lumbar region with radiculopathy Spinal stenosis, lumbar region, without neurogenic claudication * Assessment & Plan Note - Vaughn De Los Santos PA-C - 11/01/2023 2:11 PM EDT Associated Problem(s): Esophageal reflux -Was previously on PPI, self d/c'ed. Controls with diet. * Assessment & Plan Note - Vaughn De Los Santos PA-C - 11/01/2023 2:10 PM EDT Associated Problem(s): PONV (postoperative nausea and vomiting) -Per patient * Assessment & Plan Note - Vaughn De Los Santos PA-C - 11/01/2023 2:07 PM EDT Associated Problem(s): Acquired hypothyroidism -S/p thyroidectomy for thyroiditis with goiter -Continue Synthroid * Assessment & Plan Note - Vaughn De Los Santos PA-C - 11/01/2023 2:05 PM EDT Associated Problem(s): Dyslipidemia -Continue statin * Assessment & Plan Note - Vaughn De Los Santos PA-C - 11/01/2023 2:04 PM EDT Associated Problem(s): BUBBA (obstructive sleep apnea) -Compliant with CPAP * Assessment & Plan Note - Vaughn De Los Santos PA-C - 11/01/2023 2:04 PM EDT Associated Problem(s): Essential hypertension -Stable on rx -BP today 133/62 -Denies cardiac symptoms -EKG pending * Assessment & Plan Note - Vaughn De Los Santos PA-C - 11/01/2023 2:03 PM EDT Associated Problem(s): Bicuspid aortic valve -S/p replacement in 04/2021 * Assessment & Plan Note - Vaughn De Los Santos PA-C - 11/01/2023 2:03 PM EDT Associated Problem(s): Coronary artery disease involving [place] coronary artery of [place] heart with angina pectoris (HCC) -S/p CABG x 1 (MAC-LAD) in 04/2021 -Managed on aspirin, statin, metoprolol -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 Toribio at [facility] -EKG pending * Assessment & Plan Note - Vaughn De Los Santos PA-C - 11/01/2023 2:02 PM EDT Associated Problem(s): Thoracic ascending aortic aneurysm (HCC) -S/p repair 04/2021 -Managed on aspirin -Follows OP with cardiology -Denies cardiac symptoms [facility] Diagnosis Pre-op evaluation- Primary Preoperative examination, unspecified Ascending aortic aneurysm, unspecified whether ruptured (HCC) Coronary artery disease involving [place] coronary artery of [place] heart with angina pectoris (HCC) Bicuspid aortic valve Congenital insufficiency of aortic valve Essential hypertension Unspecified essential hypertension BUBBA (obstructive sleep apnea) Obstructive sleep apnea (adult) (pediatric) Dyslipidemia Other and unspecified hyperlipidemia Acquired hypothyroidism Unspecified hypothyroidism PONV (postoperative nausea and vomiting) Nausea with vomiting Gastroesophageal reflux disease, unspecified whether esophagitis present Screening for genitourinary condition Screening for other and unspecified genitourinary condition Spinal stenosis of lumbar region with radiculopathy Spinal stenosis, lumbar region, without neurogenic claudication [facility] Diagnosis Pre-op evaluation- Primary Preoperative examination, unspecified Ascending aortic aneurysm, unspecified whether ruptured (HCC) Coronary artery disease involving [place] coronary artery of [place] heart with angina pectoris (HCC) Bicuspid aortic valve Congenital insufficiency of aortic valve Essential hypertension Unspecified essential hypertension BUBBA (obstructive sleep apnea) Obstructive sleep apnea (adult) (pediatric) Dyslipidemia Other and unspecified hyperlipidemia Acquired hypothyroidism Unspecified hypothyroidism PONV (postoperative nausea and vomiting) Nausea with vomiting Gastroesophageal reflux disease, unspecified whether esophagitis present Spinal stenosis of lumbar region with neurogenic claudication- Primary Spinal stenosis, lumbar region, with neurogenic claudication Spinal stenosis of lumbar region with radiculopathy Spinal stenosis, lumbar region, without neurogenic claudication [facility] Diagnosis Pre-op evaluation- Primary Preoperative examination, unspecified Ascending aortic aneurysm, unspecified whether ruptured (HCC) Coronary artery disease involving [place] coronary artery of [place] heart with angina pectoris (HCC) Bicuspid aortic valve Congenital insufficiency of aortic valve Essential hypertension Unspecified essential hypertension BUBBA (obstructive sleep apnea) Obstructive sleep apnea (adult) (pediatric) Dyslipidemia Other and unspecified hyperlipidemia Acquired hypothyroidism Unspecified hypothyroidism PONV (postoperative nausea and vomiting) Nausea with vomiting Gastroesophageal reflux disease, unspecified whether esophagitis present Acquired spondylolisthesis- Primary Spinal stenosis of lumbar region with radiculopathy Spinal stenosis, lumbar region, without neurogenic claudication [facility] Diagnosis Spinal stenosis of lumbar region with radiculopathy- Primary Spinal stenosis, lumbar region, without neurogenic claudication Post-operative pain Other acute postoperative pain Thoracic ascending aortic aneurysm (HCC) Thoracic aneurysm without mention of rupture BUBBA (obstructive sleep apnea) Obstructive sleep apnea (adult) (pediatric) Dyslipidemia Other and unspecified hyperlipidemia Coronary artery disease involving [place] coronary artery of [place] heart with angina pectoris (HCC) Acquired hypothyroidism Unspecified hypothyroidism Post-operative pain Other acute postoperative pain Pre-op evaluation- Primary Preoperative examination, unspecified Ascending aortic aneurysm, unspecified whether ruptured (HCC) Coronary artery disease involving [place] coronary artery of [place] heart with angina pectoris (HCC) Bicuspid aortic valve Congenital insufficiency of aortic valve Essential hypertension Unspecified essential hypertension BUBBA (obstructive sleep apnea) Obstructive sleep apnea (adult) (pediatric) Dyslipidemia Other and unspecified hyperlipidemia Acquired hypothyroidism Unspecified hypothyroidism PONV (postoperative nausea and vomiting) Nausea with vomiting Gastroesophageal reflux disease, unspecified whether esophagitis present Spinal stenosis of lumbar region with neurogenic claudication- Primary Spinal stenosis, lumbar region, with neurogenic claudication documented [facility] this [facility] Diagnosis Spinal stenosis of lumbar region with radiculopathy- Primary Spinal stenosis, lumbar region, without neurogenic claudication Post-operative pain Other acute postoperative pain Thoracic ascending aortic aneurysm (HCC) Thoracic aneurysm without mention of rupture BUBBA (obstructive sleep apnea) Obstructive sleep apnea (adult) (pediatric) Dyslipidemia Other and unspecified hyperlipidemia Coronary artery disease involving [place] coronary artery of [place] heart with angina pectoris (HCC) Acquired hypothyroidism Unspecified hypothyroidism Post-operative pain Other acute postoperative pain Pre-op evaluation- Primary Preoperative examination, unspecified Ascending aortic aneurysm, unspecified whether ruptured (HCC) Coronary artery disease involving [place] coronary artery of [place] heart with angina pectoris (HCC) Bicuspid aortic valve Congenital insufficiency of aortic valve Essential hypertension Unspecified essential hypertension BUBBA (obstructive sleep apnea) Obstructive sleep apnea (adult) (pediatric) Dyslipidemia Other and unspecified hyperlipidemia Acquired hypothyroidism Unspecified hypothyroidism PONV (postoperative nausea and vomiting) Nausea with vomiting Gastroesophageal reflux disease, unspecified whether esophagitis present Post-operative pain Other acute postoperative pain documented in this encounter [facility] note* Diagnosis Spinal stenosis of lumbar region with radiculopathy- Primary Spinal stenosis, lumbar region, without neurogenic claudication Post-operative pain Other acute postoperative pain Thoracic ascending aortic aneurysm (HCC) Thoracic aneurysm without mention of rupture BUBBA (obstructive sleep apnea) Obstructive sleep apnea (adult) (pediatric) Dyslipidemia Other and unspecified hyperlipidemia Coronary artery disease involving [place] coronary artery of [place] heart with angina pectoris (HCC) Acquired hypothyroidism Unspecified hypothyroidism Post-operative pain Other acute postoperative pain Pre-op evaluation- Primary Preoperative examination, unspecified Ascending aortic aneurysm, unspecified whether ruptured (HCC) Coronary artery disease involving [place] coronary artery of [place] heart with angina pectoris (HCC) Bicuspid aortic valve Congenital insufficiency of aortic valve Essential hypertension Unspecified essential hypertension BUBBA (obstructive sleep apnea) Obstructive sleep apnea (adult) (pediatric) Dyslipidemia Other and unspecified hyperlipidemia Acquired hypothyroidism Unspecified hypothyroidism PONV (postoperative nausea and vomiting) Nausea with vomiting Gastroesophageal reflux disease, unspecified whether esophagitis present Spinal stenosis of lumbar region with neurogenic claudication- Primary Spinal stenosis, lumbar region, with neurogenic claudication documented [facility] this [facility] Diagnosis Spinal stenosis of lumbar region with radiculopathy- Primary Spinal stenosis, lumbar region, without neurogenic claudication Post-operative pain Other acute postoperative pain Thoracic ascending aortic aneurysm (HCC) Thoracic aneurysm without mention of rupture BUBBA (obstructive sleep apnea) Obstructive sleep apnea (adult) (pediatric) Dyslipidemia Other and unspecified hyperlipidemia Coronary artery disease involving [place] coronary artery of [place] heart with angina pectoris (HCC) Acquired hypothyroidism Unspecified hypothyroidism Post-operative pain Other acute postoperative pain Pre-op evaluation- Primary Preoperative examination, unspecified Ascending aortic aneurysm, unspecified whether ruptured (HCC) Coronary artery disease involving [place] coronary artery of [place] heart with angina pectoris (HCC) Bicuspid aortic valve Congenital insufficiency of aortic valve Essential hypertension Unspecified essential hypertension BUBBA (obstructive sleep apnea) Obstructive sleep apnea (adult) (pediatric) Dyslipidemia Other and unspecified hyperlipidemia Acquired hypothyroidism Unspecified hypothyroidism PONV (postoperative nausea and vomiting) Nausea with vomiting Gastroesophageal reflux disease, unspecified whether esophagitis present Spinal stenosis of lumbar region with radiculopathy Spinal stenosis, lumbar region, without neurogenic claudication documented in this [facility] Diagnosis Spinal stenosis of lumbar region with radiculopathy- Primary Spinal stenosis, lumbar region, without neurogenic claudication Post-operative pain Other acute postoperative pain Thoracic ascending aortic aneurysm (HCC) Thoracic aneurysm without mention of rupture BUBBA (obstructive sleep apnea) Obstructive sleep apnea (adult) (pediatric) Dyslipidemia Other and unspecified hyperlipidemia Coronary artery disease involving [place] coronary artery of [place] heart with angina pectoris (HCC) Acquired hypothyroidism Unspecified hypothyroidism Post-operative pain Other acute postoperative pain Pre-op evaluation- Primary Preoperative examination, unspecified Ascending aortic aneurysm, unspecified whether ruptured (HCC) Coronary artery disease involving [place] coronary artery of [place] heart with angina pectoris (HCC) Bicuspid aortic valve Congenital insufficiency of aortic valve Essential hypertension Unspecified essential hypertension BUBBA (obstructive sleep apnea) Obstructive sleep apnea (adult) (pediatric) Dyslipidemia Other and unspecified hyperlipidemia Acquired hypothyroidism Unspecified hypothyroidism PONV (postoperative nausea and vomiting) Nausea with vomiting Gastroesophageal reflux disease, unspecified whether esophagitis present Spinal stenosis of thoracolumbar region- Primary Spinal stenosis of thoracic region S/P lumbar fusion Arthrodesis status documented in this [facility] Diagnosis Spinal stenosis of lumbar region with radiculopathy- Primary Spinal stenosis, lumbar region, without neurogenic claudication Post-operative pain Other acute postoperative pain Thoracic ascending aortic aneurysm (HCC) Thoracic aneurysm without mention of rupture BUBBA (obstructive sleep apnea) Obstructive sleep apnea (adult) (pediatric) Dyslipidemia Other and unspecified hyperlipidemia Coronary artery disease involving [place] coronary artery of [place] heart with angina pectoris (HCC) Acquired hypothyroidism Unspecified hypothyroidism Post-operative pain Other acute postoperative pain Pre-op evaluation- Primary Preoperative examination, unspecified Ascending aortic aneurysm, unspecified whether ruptured (HCC) Coronary artery disease involving [place] coronary artery of [place] heart with angina pectoris (HCC) Bicuspid aortic valve Congenital insufficiency of aortic valve Essential hypertension Unspecified essential hypertension BUBBA (obstructive sleep apnea) Obstructive sleep apnea (adult) (pediatric) Dyslipidemia Other and unspecified hyperlipidemia Acquired hypothyroidism Unspecified hypothyroidism PONV (postoperative nausea and vomiting) Nausea with vomiting Gastroesophageal reflux disease, unspecified whether esophagitis present Spinal stenosis of lumbar region with neurogenic claudication- Primary Spinal stenosis, lumbar region, with neurogenic claudication documented in this [facility] Diagnosis Spinal stenosis of lumbar region with radiculopathy- Primary Spinal stenosis, lumbar region, without neurogenic claudication Post-operative pain Other acute postoperative pain Thoracic ascending aortic aneurysm (HCC) Thoracic aneurysm without mention of rupture BUBBA (obstructive sleep apnea) Obstructive sleep apnea (adult) (pediatric) Dyslipidemia Other and unspecified hyperlipidemia Coronary artery disease involving [place] coronary artery of [place] heart with angina pectoris (HCC) Acquired hypothyroidism Unspecified hypothyroidism Post-operative pain Other acute postoperative pain Pre-op evaluation- Primary Preoperative examination, unspecified Ascending aortic aneurysm, unspecified whether ruptured (HCC) Coronary artery disease involving [place] coronary artery of [place] heart with angina pectoris (HCC) Bicuspid aortic valve Congenital insufficiency of aortic valve Essential hypertension Unspecified essential hypertension BUBBA (obstructive sleep apnea) Obstructive sleep apnea (adult) (pediatric) Dyslipidemia Other and unspecified hyperlipidemia Acquired hypothyroidism Unspecified hypothyroidism PONV (postoperative nausea and vomiting) Nausea with vomiting Gastroesophageal reflux disease, unspecified whether esophagitis present Spinal stenosis of thoracolumbar region- Primary Spinal stenosis of thoracic region S/P lumbar fusion Arthrodesis status documented in this [facility] Diagnosis Spinal stenosis of lumbar region with radiculopathy- Primary Spinal stenosis, lumbar region, without neurogenic claudication Post-operative pain Other acute postoperative pain Thoracic ascending aortic aneurysm Thoracic aneurysm without mention of rupture BUBBA (obstructive sleep apnea) Obstructive sleep apnea (adult) (pediatric) Dyslipidemia Other and unspecified hyperlipidemia Coronary artery disease involving [place] coronary artery of [place] heart with angina pectoris Acquired hypothyroidism Unspecified hypothyroidism Post-operative pain Other acute postoperative pain Pre-op evaluation- Primary Preoperative examination, unspecified Ascending aortic aneurysm, unspecified whether ruptured Coronary artery disease involving [place] coronary artery of [place] heart with angina pectoris Bicuspid aortic valve Congenital insufficiency of aortic valve Essential hypertension Unspecified essential hypertension BUBBA (obstructive sleep apnea) Obstructive sleep apnea (adult) (pediatric) Dyslipidemia Other and unspecified hyperlipidemia Acquired hypothyroidism Unspecified hypothyroidism PONV (postoperative nausea and vomiting) Nausea with vomiting Gastroesophageal reflux disease, unspecified whether esophagitis present S/P lumbar fusion- Primary Arthrodesis status documented in this [facility] Diagnosis Spinal stenosis of lumbar region with radiculopathy- Primary Spinal stenosis, lumbar region, without neurogenic claudication Post-operative pain Other acute postoperative pain Thoracic ascending aortic aneurysm Thoracic aneurysm without mention of rupture BUBBA (obstructive sleep apnea) Obstructive sleep apnea (adult) (pediatric) Dyslipidemia Other and unspecified hyperlipidemia Coronary artery disease involving [place] coronary artery of [place] heart with angina pectoris Acquired hypothyroidism Unspecified hypothyroidism Post-operative pain Other acute postoperative pain Pre-op evaluation- Primary Preoperative examination, unspecified Ascending aortic aneurysm, unspecified whether ruptured Coronary artery disease involving [place] coronary artery of [place] heart with angina pectoris Bicuspid aortic valve Congenital insufficiency of aortic valve Essential hypertension Unspecified essential hypertension BUBBA (obstructive sleep apnea) Obstructive sleep apnea (adult) (pediatric) Dyslipidemia Other and unspecified hyperlipidemia Acquired hypothyroidism Unspecified hypothyroidism PONV (postoperative nausea and vomiting) Nausea with vomiting Gastroesophageal reflux disease, unspecified whether esophagitis present Spinal stenosis of thoracolumbar region- Primary Spinal stenosis of thoracic region S/P lumbar fusion Arthrodesis status documented in this [facility] Diagnosis Spinal stenosis of lumbar region with radiculopathy- Primary Spinal stenosis, lumbar region, without neurogenic claudication Post-operative pain Other acute postoperative pain Thoracic ascending aortic aneurysm Thoracic aneurysm without mention of rupture BUBBA (obstructive sleep apnea) Obstructive sleep apnea (adult) (pediatric) Dyslipidemia Other and unspecified hyperlipidemia Coronary artery disease involving [place] coronary artery of [place] heart with angina pectoris Acquired hypothyroidism Unspecified hypothyroidism Post-operative pain Other acute postoperative pain Pre-op evaluation- Primary Preoperative examination, unspecified Ascending aortic aneurysm, unspecified whether ruptured Coronary artery disease involving [place] coronary artery of [place] heart with angina pectoris Bicuspid aortic valve (HCC) Congenital insufficiency of aortic valve Essential hypertension Unspecified essential hypertension BUBBA (obstructive sleep apnea) Obstructive sleep apnea (adult) (pediatric) Dyslipidemia Other and unspecified hyperlipidemia Acquired hypothyroidism Unspecified hypothyroidism PONV (postoperative nausea and vomiting) Nausea with vomiting Gastroesophageal reflux disease, unspecified whether esophagitis present Spinal stenosis of lumbar region with neurogenic claudication- Primary Spinal stenosis, lumbar region, with neurogenic claudication documented in this [facility] Diagnosis Spinal stenosis of lumbar region with radiculopathy- Primary Spinal stenosis, lumbar region, without neurogenic claudication Post-operative pain Other acute postoperative pain Thoracic ascending aortic aneurysm Thoracic aneurysm without mention of rupture BUBBA (obstructive sleep apnea) Obstructive sleep apnea (adult) (pediatric) Dyslipidemia Other and unspecified hyperlipidemia Coronary artery disease involving [place] coronary artery of [place] heart with angina pectoris Acquired hypothyroidism Unspecified hypothyroidism Post-operative pain Other acute postoperative pain Pre-op evaluation- Primary Preoperative examination, unspecified Ascending aortic aneurysm, unspecified whether ruptured Coronary artery disease involving [place] coronary artery of [place] heart with angina pectoris Bicuspid aortic valve (HCC) Congenital insufficiency of aortic valve Essential hypertension Unspecified essential hypertension BUBBA (obstructive sleep apnea) Obstructive sleep apnea (adult) (pediatric) Dyslipidemia Other and unspecified hyperlipidemia Acquired hypothyroidism Unspecified hypothyroidism PONV (postoperative nausea and vomiting) Nausea with vomiting Gastroesophageal reflux disease, unspecified whether esophagitis present S/P lumbar fusion Arthrodesis status [facility] Work Phone: Reason for referral (narrative)* Diagnostic Procedure Only (Routine) - Closed Specialty Diagnoses / Procedures Referred By Contac t Referred To Contact XR IMAGING Diagnoses Spinal stenosis of lumbar region without neurogenic claudication Procedures XR SCOLIOSIS PA STAND/LAT 2V RADEX ENTIR THRC LMBR CRV SAC SPI W/SKULL 2/3 VW Stephanie Kidd MD [address] [place] [address] X[facility] Imaging [place] [address] Referral ID Status Reason Start Date Expiration Date V isits Requested Visits Authorized [id number] Closed Auto-Generate d Referral 09/05/2023 10/04/2024 1 1 * Diagnostic Procedure Only (Routine) - Closed Specialty Diagnoses / Procedures Referred By Contac t Referred To Contact XR IMAGING Diagnoses Spinal stenosis of lumbar region without neurogenic claudication Procedures XR LUMBAR MOTION 4V AP/LAT/ FLEX/EXT RADEX SPINE LUMBOSACRAL MINIMUM 4 VIEWS Stephanie Kidd MD [address] [place] [address] [facility] [place] [address] Referral ID Status Reason Start Date Expiration Date V isits Requested Visits Authorized [id number] Closed Auto-Generate d Referral 09/05/2023 10/04/2024 [address] [facility] for referral (narrative)* Diagnostic Procedure Only (Routine) - New Request Specialty Diagnoses / Procedures Referred By Contac t Referred To Contact XR IMAGING Diagnoses Spinal stenosis of lumbar region with radiculopathy Procedures XR LUMBAR LIMITED 2V AP/LAT RADEX SPINE LUMBOSACRAL 2/3 VIEWS Jordan Campuzano APRN.SCALE MANAGER [address] Mail Code S[address] [place] [id number] X[facility] [place] [address] Referral ID Status Reason Start Date Expiration Date Visits Requested Visits Authorized [id number] New Request Auto-Generat ed Referral 10/06/2023 11/04/2024 1 1 * Consult, Test, Treat (Routine) - Authorized Specialty Diagnoses / Procedures Referred By Contac t Referred To Contact Diagnoses Spinal stenosis of lumbar region with radiculopathy Procedures REFER TO [facility] - PREOPERATIVE OPTIMIZATION OFFICE/OUTPATIENT NEW HIGH MDM 60 MINUTES Jordan Campuzano APRN.CNP [address] Mail Code S[address] [place] [id number] Referral ID Status Reason Start Date Expiration Date Visits Requested Visits Authorized [id number] Authorized PCP Requested Referral 10/06/2023 10/05/2024 1 1 * Consult, Test, Treat (Routine) - Authorized Specialty Diagnoses / Procedures Referred By Contac t Referred To Contact [facility] [place] Diagnoses Spinal stenosis of lumbar region with radiculopathy Procedures [facility] OFFICE[facility]OUTPATIENT [facility] 60 MINUTES Jordan Campuzano APRN.SCALE MANAGER [address] Mail Code S[address] [place] [id number] Referral ID Status Reason Start Date Expiration Date Visits Requested Visits Authorized [id number] Authorized PCP Requested Referral 10/06/2023 10/05/2024 [address] [facility] for referral (narrative)* Diagnostic Procedure Only (Routine) - Closed Specialty Diagnoses / Procedures Referred By Contac t Referred To Contact XR IMAGING Diagnoses Spinal stenosis of lumbar region without neurogenic claudication Procedures XR SCOLIOSIS PA STAND/LAT 2V RADEX ENTIR THRC LMBR CRV SAC SPI W/SKULL 2/3 VW Stephanie Kidd MD [address] [place] [address] Xr Imaging [facility] Referral ID Status Reason Start Date Expiration Date V isits Requested Visits Authorized [id number] Closed Auto-Generate d Referral 09/05/2023 10/04/2024 1 1 * Diagnostic Procedure Only (Routine) - Closed Specialty Diagnoses / Procedures Referred By Contac t Referred To Contact XR IMAGING Diagnoses Spinal stenosis of lumbar region without neurogenic claudication Procedures XR LUMBAR MOTION 4V AP/LAT/ FLEX/EXT RADEX SPINE LUMBOSACRAL MINIMUM 4 VIEWS Setphanie Kidd MD [address] [place] [address] Xr Imaging [place] [address] Referral ID Status Reason Start Date Expiration Date V isits Requested Visits Authorized [id number] Closed Auto-Generate d Referral 09/05/2023 10/04/2024 [address] [facility] for referral (narrative)* Outpatient Procedure (Routine) - Closed Specialty Diagnoses / Procedures Referred By Contac t Referred To [facility] Diagnoses Pre-op evaluation Procedures ECG COMPLETE ECG ROUTINE ECG W/LEAST 12 LDS W/I&R Vaughn De Los Santos PA-C [address] [place] [address] [facility] [place] [address] [place], [place] [id number] Referral ID Status Reason Start Date Expiration Date V isits Requested Visits Authorized [id number] Closed Auto-Generate d Referral 11/01/2023 10/31/2024 [address] [facility] for referral (narrative)* Diagnostic Procedure Only (Routine) - Closed Specialty Diagnoses / Procedures Referred By Contac t Referred To Contact XR IMAGING Diagnoses Spinal stenosis of lumbar region with radiculopathy Procedures XR LUMBAR LIMITED 2V AP/LAT RADEX SPINE LUMBOSACRAL 2/3 VIEWS Jordan Campuzano APRN.CNP [address], Mail Code [address] [place] [address] [place] [address] Referral ID Status Reason Start Date Expiration Date V isits Requested Visits Authorized [id number] Closed Auto-Generate d Referral 10/06/2023 11/04/2024 1 1 [facility] Summary Purpose Family History No Family History Records Found Relationship Condition Age at Onset Recorded Date/T silvia brother Coronary artery disease Unknown Malignant neoplasm Unknown Myocardial infarction Unknown father Malignant neoplasm Unknown Cerebrovascular accident (CVA) Unknown Coronary artery disease Unknown mother Cardiac disease Unknown Advance Directives No Advanced Directives Records FoundDocuments on File Type Date Recorded 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 Advance Directive(s) 03/27/2021 4:31 PM Advance Directive(s) 03/22/2021 6:47 AM Advance Directive(s) 03/02/2021 2:10 PM Mc Advance Directive(s) 02/25/2021 3:34 PM Advance Directive(s) 02/01/2021 10:19 AM Advance Directive(s) 01/29/2021 4:33 PM Advance Directive(s) 09/25/2017 11:09 AM Advance Directive Response Recorded Date/ Time Living Will Yes May 18, 2021 10:45am Power of Assisted Sales Representative Yes May 18 10:45am Documents on File Type Date Recorded 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 Advance Directive(s) 03/27/2021 4:31 PM Advance Directive(s) 03/22/2021 6:47 AM Advance Directive(s) 03/02/2021 2:10 PM Mc Advance Directive(s) 02/25/2021 3:34 PM Advance Directive(s) 02/01/2021 10:19 AM Advance Directive(s) 01/29/2021 4:33 PM Advance Directive(s) 09/25/2017 11:09 AM Advance Directive Response Recorded Date/ Time Advance Directives on File Yes May 18, 2021 10:45am Living Will Yes May 18, 2021 10:45am Power of Assisted Sales Representative Yes May 18 10:45am Advance Directive Response Recorded Date/ Time Living Will Yes May 18, 2021 9:45am Power of Assisted Sales Representative Yes May 18 9:45am Documents on File Type Date Recorded 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 Advance Directive(s) 03/22/2021 6:47 AM Documents on File Type Date Recorded 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 Advance Directive(s) 03/22/2021 6:47 AM Chief Complaint and Reason for Visit Chief Complaint Amb Documentation S/P CABG HEART VALVE REPLACEMENT 4WK FU S/P CABG/AVR/TAA REPAIR E-ORDER SP CABG w/heart valve (aortic) replacement Reason for Visit H/O coronary artery bypass surgery History of aortic valve replacement with bioprosthetic valve History of ascending aorta repair Hyperlipidemia Chief Complaint Amb Documentation S/P CABG HEART VALVE REPLACEMENT 4WK FU S/P CABG/AVR/TAA REPAIR E-ORDER SP CABG w/heart valve (aortic) replacement SP CABG w/heart valve (aortic) replacement Reason for Visit H/O coronary artery bypass surgery History of aortic valve replacement with bioprosthetic valve History of ascending aorta repair Hyperlipidemia Chief Complaint Amb Documentation S/P CABG HEART VALVE REPLACEMENT 4WK FU S/P CABG/AVR/TAA REPAIR E-ORDER SP CABG w/heart valve (aortic) replacement SP CABG w/heart valve (aortic) replacement SP CABG w/heart valve (aortic) replacement Reason for Visit H/O coronary artery bypass surgery History of aortic valve replacement with bioprosthetic valve History of ascending aorta repair Hyperlipidemia Chief Complaint S/P CABG HEART VALVE REPLACEMENT 4WK FU S/P CABG/AVR/TAA REPAIR E-ORDER SP CABG w/heart valve (aortic) replacement SP CABG w/heart valve (aortic) replacement SP CABG w/heart valve (aortic) replacement SP CABG w/heart valve (aortic) replacement Reason for Visit H/O coronary artery bypass surgery History of aortic valve replacement with bioprosthetic valve History of ascending aorta repair Hyperlipidemia Chief Complaint SP CABG w/heart valv e (aortic) replacement SP CABG w/heart valve (aortic) replacement 4 M FU E ORDER 1 Y FU Reason for Visit H/O coronary artery bypass surgery History of aortic valve replacement with bioprosthetic valve History of ascending aorta repair Hyperlipidemia H/O coronary artery bypass surgery History of aortic valve replacement with bioprosthetic valve History of ascending aorta repair Hyperlipidemia Chief Complaint E ORDER 1 Y FU Reason for Visit H/O coronary artery bypass surgery History of aortic valve replacement with bioprosthetic valve History of ascending aorta repair Hyperlipidemia Chief Complaint Other specified post procedural states Chief Complaint Other specified post procedural states DYSPHAGIA Chief Complaint Other specified post procedural states DYSPHAGIA 6 M FU S/P CABG Reason for Visit History of ascending aorta repair H/O coronary artery bypass surgery History of aortic valve replacement with bioprosthetic valve Hyperlipidemia Reason for Referral Specialty Diagnoses / Procedures Referred By Contac t Referred To Contact CT IMAGING Diagnoses Vascular injury Procedures CTA CHEST (GATED) W IVCON CT ANGIOGRAPHY CHEST W/CONTRAST/NONCONTRAST Jessica Sanford, WHEELCHAIR VAN DRIVER.SCALE MANAGER [id number] [place] [address] Ct Imaging Referral ID Status Reason Start Date Expiration Date V isits Requested Visits Authorized [id number] Closed Auto-Generate d Referral 07/27/2021 05/26/2022 1 1 Specialty Diagnoses / Procedures Referred By Lynette t Referred To Contact Physical Therapy Diagnoses Spinal stenosis of lumbar region with neurogenic claudication Procedures CONSULT TO PHYSICAL THERAPY Stephanie Kidd MD [address] [place] [address] Referral ID Status Reason Start Date Expiration Date Visits Requested Visits Authorized [id number] Authorized PCP Requested Referral 02/27/2024 02/26/2025 99 99 Additional Source Comments (unrecognized sect ion and content) No Status Records FoundNo Status Records FoundNo Status Records FoundNo Status Records FoundNo Status Records Found INFORMATION SOURCE (unrecogn ized section and content) DATE CREATED AUTHOR 08/08/2017 [facility] DATE CREATED AUTHOR AUTHOR'S ORGANIZ ATION 10/04/2023 [facility] DATE CREATED AUTHOR AUTHOR'S ORGANIZ ATION 10/07/2023 [facility] DATE CREATED AUTHOR AUTHOR'S ORGANIZ ATION 08/07/2024 [facility] DATE CREATED AUTHOR AUTHOR'S ORGANIZ ATION [facility] Source Comments (unrecognize d section and content) In the event this informatio n is protected by the Federal Confidentiality of Alcohol and Drug Abuse Patient Records regulations: The Federal rules restrict any use of the information to criminally investigate or prosecute any alcohol or drug abuse patient.[facility]In the event this information is protected by the Federal Confidentiality of Alcohol and Drug Abuse Patient Records regulations: The Federal rules restrict any use of the information to criminally investigate or prosecute any alcohol or drug abuse patient.[facility] ShawIn the event this information is protected by the Federal Confidentiality of Alcohol and Drug Abuse Patient Records regulations: The Federal rules restrict any use of the information to criminally investigate or prosecute any alcohol or drug abuse patient.[facility] ShawIn the event this information is protected by the Federal Confidentiality of Alcohol and Drug Abuse Patient Records regulations: The Federal rules restrict any use of the information to criminally investigate or prosecute any alcohol or drug abuse patient.[facility] ShawIn the event this information is protected by the Federal Confidentiality of Alcohol and Drug Abuse Patient Records regulations: The Federal rules restrict any use of the information to criminally investigate or prosecute any alcohol or drug abuse patient.[facility] ShawIn the event this information is protected by the Federal Confidentiality of Alcohol and Drug Abuse Patient Records regulations: The Federal rules restrict any use of the information to criminally investigate or prosecute any alcohol or drug abuse patient.[facility] ShawIn the event this information is protected by the Federal Confidentiality of Alcohol and Drug Abuse Patient Records regulations: The Federal rules restrict any use of the information to criminally investigate or prosecute any alcohol or drug abuse patient.[facility] ShawIn the event this information is protected by the Federal Confidentiality of Alcohol and Drug Abuse Patient Records regulations: The Federal rules restrict any use of the information to criminally investigate or prosecute any alcohol or drug abuse patient.[facility] ShawIn the event this information is protected by the Federal Confidentiality of Alcohol and Drug Abuse Patient Records regulations: The Federal rules restrict any use of the information to criminally investigate or prosecute any alcohol or drug abuse patient.[facility] ShawIn the event this information is protected by the Federal Confidentiality of Alcohol and Drug Abuse Patient Records regulations: The Federal rules restrict any use of the information to criminally investigate or prosecute any alcohol or drug abuse patient.[facility] ShawIn the event this information is protected by the Federal Confidentiality of Alcohol and Drug Abuse Patient Records regulations: The Federal rules restrict any use of the information to criminally investigate or prosecute any alcohol or drug abuse patient.[facility] ShawIn the event this information is protected by the Federal Confidentiality of Alcohol and Drug Abuse Patient Records regulations: The Federal rules restrict any use of the information to criminally investigate or prosecute any alcohol or drug abuse patient.[facility] ShawIn the event this information is protected by the Federal Confidentiality of Alcohol and Drug Abuse Patient Records regulations: The Federal rules restrict any use of the information to criminally investigate or prosecute any alcohol or drug abuse patient.[facility] ShawIn the event this information is protected by the Federal Confidentiality of Alcohol and Drug Abuse Patient Records regulations: The Federal rules restrict any use of the information to criminally investigate or prosecute any alcohol or drug abuse patient.[facility] ShawIn the event this information is protected by the Federal Confidentiality of Alcohol and Drug Abuse Patient Records regulations: The Federal rules restrict any use of the information to criminally investigate or prosecute any alcohol or drug abuse patient.[facility] ShawIn the event this information is protected by the Federal Confidentiality of Alcohol and Drug Abuse Patient Records regulations: The Federal rules restrict any use of the information to criminally investigate or prosecute any alcohol or drug abuse patient.[facility] ShawIn the event this information is protected by the Federal Confidentiality of Alcohol and Drug Abuse Patient Records regulations: The Federal rules restrict any use of the information to criminally investigate or prosecute any alcohol or drug abuse patient.[facility] ShawIn the event this information is protected by the Federal Confidentiality of Alcohol and Drug Abuse Patient Records regulations: The Federal rules restrict any use of the information to criminally investigate or prosecute any alcohol or drug abuse patient.[facility] ShawIn the event this information is protected by the Federal Confidentiality of Alcohol and Drug Abuse Patient Records regulations: The Federal rules restrict any use of the information to criminally investigate or prosecute any alcohol or drug abuse patient.[facility] ShawIn the event this information is protected by the Federal Confidentiality of Alcohol and Drug Abuse Patient Records regulations: The Federal rules restrict any use of the information to criminally investigate or prosecute any alcohol or drug abuse patient.[facility] ShawIn the event this information is protected by the Federal Confidentiality of Alcohol and Drug Abuse Patient Records regulations: The Federal rules restrict any use of the information to criminally investigate or prosecute any alcohol or drug abuse patient.[facility] ShawIn the event this information is protected by the Federal Confidentiality of Alcohol and Drug Abuse Patient Records regulations: The Federal rules restrict any use of the information to criminally investigate or prosecute any alcohol or drug abuse patient.[facility] ShawIn the event this information is protected by the Federal Confidentiality of Alcohol and Drug Abuse Patient Records regulations: The Federal rules restrict any use of the information to criminally investigate or prosecute any alcohol or drug abuse patient.[facility] ShawIn the event this information is protected by the Federal Confidentiality of Alcohol and Drug Abuse Patient Records regulations: The Federal rules restrict any use of the information to criminally investigate or prosecute any alcohol or drug abuse patient.[facility] ShawIn the event this information is protected by the Federal Confidentiality of Alcohol and Drug Abuse Patient Records regulations: The Federal rules restrict any use of the information to criminally investigate or prosecute any alcohol or drug abuse patient.[facility] ShawIn the event this information is protected by the Federal Confidentiality of Alcohol and Drug Abuse Patient Records regulations: The Federal rules restrict any use of the information to criminally investigate or prosecute any alcohol or drug abuse patient.[facility] ShawIn the event this information is protected by the Federal Confidentiality of Alcohol and Drug Abuse Patient Records regulations: The Federal rules restrict any use of the information to criminally investigate or prosecute any alcohol or drug abuse patient.[facility] ShawIn the event this information is protected by the Federal Confidentiality of Alcohol and Drug Abuse Patient Records regulations: The Federal rules restrict any use of the information to criminally investigate or prosecute any alcohol or drug abuse patient.[facility] ShawIn the event this information is protected by the Federal Confidentiality of Alcohol and Drug Abuse Patient Records regulations: The Federal rules restrict any use of the information to criminally investigate or prosecute any alcohol or drug abuse patient.[facility] ShawIn the event this information is protected by the Federal Confidentiality of Alcohol and Drug Abuse Patient Records regulations: The Federal rules restrict any use of the information to criminally investigate or prosecute any alcohol or drug abuse patient.[facility] ShawIn the event this information is protected by the Federal Confidentiality of Alcohol and Drug Abuse Patient Records regulations: The Federal rules restrict any use of the information to criminally investigate or prosecute any alcohol or drug abuse patient.[facility] ShawIn the event this information is protected by the Federal Confidentiality of Alcohol and Drug Abuse Patient Records regulations: The Federal rules restrict any use of the information to criminally investigate or prosecute any alcohol or drug abuse patient.[facility] ShawIn the event this information is protected by the Federal Confidentiality of Alcohol and Drug Abuse Patient Records regulations: The Federal rules restrict any use of the information to criminally investigate or prosecute any alcohol or drug abuse patient.[facility] ShawIn the event this information is protected by the Federal Confidentiality of Alcohol and Drug Abuse Patient Records regulations: The Federal rules restrict any use of the information to criminally investigate or prosecute any alcohol or drug abuse patient.[facility] ShawIn the event this information is protected by the Federal Confidentiality of Alcohol and Drug Abuse Patient Records regulations: The Federal rules restrict any use of the information to criminally investigate or prosecute any alcohol or drug abuse patient.[facility] ShawIn the event this information is protected by the Federal Confidentiality of Alcohol and Drug Abuse Patient Records regulations: The Federal rules restrict any use of the information to criminally investigate or prosecute any alcohol or drug abuse patient.[facility] ShawIn the event this information is protected by the Federal Confidentiality of Alcohol and Drug Abuse Patient Records regulations: The Federal rules restrict any use of the information to criminally investigate or prosecute any alcohol or drug abuse patient.[facility] ShawIn the event this information is protected by the Federal Confidentiality of Alcohol and Drug Abuse Patient Records regulations: The Federal rules restrict any use of the information to criminally investigate or prosecute any alcohol or drug abuse patient.[facility] ShawIn the event this information is protected by the Federal Confidentiality of Alcohol and Drug Abuse Patient Records regulations: The Federal rules restrict any use of the information to criminally investigate or prosecute any alcohol or drug abuse patient.[facility] ShawIn the event this information is protected by the Federal Confidentiality of Alcohol and Drug Abuse Patient Records regulations: The Federal rules restrict any use of the information to criminally investigate or prosecute any alcohol or drug abuse patient.[facility] ShawIn the event this information is protected by the Federal Confidentiality of Alcohol and Drug Abuse Patient Records regulations: The Federal rules restrict any use of the information to criminally investigate or prosecute any alcohol or drug abuse patient.[facility] ShawIn the event this information is protected by the Federal Confidentiality of Alcohol and Drug Abuse Patient Records regulations: The Federal rules restrict any use of the information to criminally investigate or prosecute any alcohol or drug abuse patient.[facility] ShawIn the event this information is protected by the Federal Confidentiality of Alcohol and Drug Abuse Patient Records regulations: The Federal rules restrict any use of the information to criminally investigate or prosecute any alcohol or drug abuse patient.[facility] ShawIn the event this information is protected by the Federal Confidentiality of Alcohol and Drug Abuse Patient Records regulations: The Federal rules restrict any use of the information to criminally investigate or prosecute any alcohol or drug abuse patient.[facility] ShawIn the event this information is protected by the Federal Confidentiality of Alcohol and Drug Abuse Patient Records regulations: The Federal rules restrict any use of the information to criminally investigate or prosecute any alcohol or drug abuse patient.[facility] ShawIn the event this information is protected by the Federal Confidentiality of Alcohol and Drug Abuse Patient Records regulations: The Federal rules restrict any use of the information to criminally investigate or prosecute any alcohol or drug abuse patient.[facility] Reason for Visit (unrecogniz ed section and content) Reason Comments Follow Up Phone Call Rc all clear Reason Comments Radiology CT Specialty Diagnoses / Procedures Referred By Contac t Referred To Contact CT IMAGING Diagnoses Vascular injury Procedures CTA CHEST (GATED) W IVCON CT ANGIOGRAPHY CHEST W/CONTRAST/NONCONTRAST Jessica Sanford APRN.SCALE MANAGER [id number] [place] [id number] [address] Imaging Referral ID Status Reason Start Date Expiration Date V isits Requested Visits Authorized [id number] Closed Auto-Generate d Referral 07/27/2021 05/26/2022 1 1 Reason Comments Consult Reason Comments Cardiac Clearance Reason Comments Appointment Reason Comments Follow Up Reason Comments Radio Gen RMP Radiology Service Pr oghugo NotePATIENT NAME: Marino AlanN: [id number] OF SERVICE: September 05, 2023TIME: 11:05 AMPATIENT IDENTITY VERIFICATION COMPLETED USING TWO (2) IDENTIFIERS: Name and Date of confirmed by patient verbally.FALL SCREENING: Has the patient had 2 falls in the last year or 1 fall with injury or currently using an Ambulatory Assistive Device (Walker, Cane, Wheelchair, Crutches, etc.)? NoPATIENT GENDER DATA: MalePATIENT RELEVANT IMPLANT DATA REVIEWED: Specialty Diagnoses / Procedures Referred By Lynette t Referred To Contact XR IMAGING Diagnoses Spinal stenosis of lumbar region without neurogenic claudication Procedures XR SCOLIOSIS PA STAND/LAT 2V RADEX ENTIR THRC LMBR CRV SAC SPI W/SKULL 2/3 VW Stephanie Kidd MD [address] [place] [address] Xr Imaging [place] [address] Referral ID Status Reason Start Date Expiration Date V isits Requested Visits Authorized [id number] Closed Auto-Generate d Referral 09/05/2023 10/04/2024 1 1 Reason Comments Pre-Op Exam Reason Comments Orders Reason Comments CARE CONTINUUM ADVISOR ASSESSMENT Reason Onset Date Comments Refill Request 12/18/2023 Reason Comments Post Op Reason Comments Radio Gen RMP Radiology Service Pr oghugo NotePATIENT NAME: Marino Youngblood: [id number] OF SERVICE: January 09, 2024TIME: 11:03 AMPATIENT IDENTITY VERIFICATION COMPLETED USING TWO (2) IDENTIFIERS: Name and Date of confirmed by patient verbally.FALL SCREENING: Has the patient had 2 falls in the last year or 1 fall with injury or currently using an Ambulatory Assistive Device (Walker, Cane, Wheelchair, Crutches, etc.)? Yes, Patient High Risk for Falls What interventions were put in p Specialty Diagnoses / Procedures Referred By Contac t Referred To Contact XR IMAGING Diagnoses Spinal stenosis of lumbar region with radiculopathy Procedures XR LUMBAR LIMITED 2V AP/LAT RADEX SPINE LUMBOSACRAL 2/3 VIEWS Jordan Campuzano APRN.SCALE MANAGER [address] [place] [id number] Xr Imaging [place] [address] Referral ID Status Reason Start Date Expiration Date V isits Requested Visits Authorized [id number] Closed Auto-Generate d Referral 10/06/2023 11/04/2024 1 1 Reason Comments Patient Question Patient Update Reason Onset Date Comments Refill Request 01/26/2024 Reason Comments Follow Up Reason Comments Medication Problem Reason Comments Radio Gen RMP Radiology Service Pr ogress NotePATIENT NAME: Marino GarcíaRN: [id number] OF SERVICE: August 06, 2024TIME: 1:56 PMPATIENT IDENTITY VERIFICATION COMPLETED USING TWO (2) IDENTIFIERS: Name and Date of confirmed by patient verbally.FALL SCREENING: Has the patient had 2 falls in the last year or 1 fall with injury or currently using an Ambulatory Assistive Device (Walker, Cane, Wheelchair, Crutches, etc.)? Yes, Patient High Risk for Falls What interventions were put in place Specialty Diagnoses / Procedures Referred By Contac t Referred To Contact XR IMAGING Diagnoses S/P lumbar fusion Procedures XR LUMBAR LIMITED 2V AP/LAT RADEX SPINE LUMBOSACRAL 2/3 VIEWS Stephanie Kidd MD [address] [place] [address] Phone: tel: fax: XR IMAGING [facility]95 Referral ID Status Reason Start Date Expiration Date V isits Requested Visits Authorized [id number] Closed Auto-Generate d Referral 07/08/2024 08/04/2025 1 1 Care Teams (unrecognized sec tion and content) Hydrostatic Tubing Tester Relationship Specialty Start Date End Date Yecenia Okeefe [address] [place] [address] PCP - General 05/27/03 Catarino, Shane S [address] [place] [address] Referring Cardiology 01/18/21 Ken Quintanilla MD [address] [place], [place] [id number] Primary Staff Physician Cardiology 03/01/21 Hydrostatic Tubing Tester Relationship Specialty Start Date End Date Yecenia Okeefe [address] [facility] [address] [place] [address] PCP - General 05/27/03 Catarino, Shane S [address] [place] [address] Referring Cardiology 01/18/21 Ken Quintanilla MD [address] [place] [address] Primary Staff Physician Cardiology 03/01/21 Team Status: Active Member Role Status Dates Dr. Yecenia Okeefe MD Family Provider Active Dr. Yecenia Okeefe MD Primary Care Provider Active Team Status: Inactive Member Role Status Dates Dr. Yecenia Okeefe MD Primary Care Provider, Referrin g Provider Active Dr. Shane Toribio MD Attending Provider Active Team Status: Inactive Member Role Status Dates Dr. Yecenia Okeefe MD Primary Care Provider Active Dr. Shane Toribio MD Attending Provider Active Team Status: Inactive Member Role Status Dates Dr. Yecenia Okeefe MD Primary Care Provider Active ABHINAV Maier Attending Provider Active Team Status: Inactive Member Role Status Dates Dr. Yecenia Okeefe MD Primary Care Prov ider, Attending Provider, Referring Provider Active Hydrostatic Tubing Tester Relationship Specialty Start Date End Date Yecenia Okeefe [address] [facility] [address] [place] [address] PCP - General 05/27/03 Catarino, Shane S [address] [place] [address] Referring Cardiology 01/18/21 Ken Quintanilla MD [address] [place] [address] Primary Staff Physician Cardiology 03/01/21 Team Status: Inactive Member Role Status Dates Dr. Yecenia Okeefe MD Primary Care Provider Active Dr. Shane Toribio MD Attending Provider, Referring Pro vider Active Team Status: Inactive Member Role Status Dates Dr. Yecenia Okeefe MD Primary Care Provider Active Dr. Ronny Wynn MD Attending Provider, Referring Pr ovider Active Team Status: Inactive Member Role Status Dates Dr. Yecenia Okeefe MD Primary Care Provider, Referrin g Provider Active Reji Treadwell CABLE BRAIDER, CABLE BRAIDER-C Attending Provider Active Team Status: Active Member Role Status Dates Dr. Yecenia Okeefe MD Primary Care Provider Active Dr. Shane Toribio MD Attending Provider Active Hydrostatic Tubing Tester Relationship Specialty Start Date End Date Yecenia Okeefe [address] [place] [address] PCP - General 05/27/03 Shane Toribio MD [address] [place] [address] Referring Cardiology 01/18/21 Ken Quintanilla MD [address] [place] [address] Primary Staff Physician Cardiology 03/01/21 Hydrostatic Tubing Tester Relationship Specialty Start Date End Date Yecenia Okeefe [address] [place] [address] PCP - General 05/27/03 Shane Toribio MD [address] [place] [address] Referring Cardiology 01/18/21 Ken Quintanilla MD [address] [place] [address] Primary Staff Physician Cardiology 03/01/21 Hydrostatic Tubing Tester Relationship Specialty Start Date End Date Yecenia Okeefe [address] [facility] [address] [place] [address] PCP - General 05/27/03 Shane Toribio MD [address] [facility] [address] [place] [address] Referring Cardiology 01/18/21 Ken Quintanilla MD [address] [place] [address] Primary Staff Physician Cardiology 03/01/21 Hydrostatic Tubing Tester Relationship Specialty Start Date End Date Yecenia Okeefe [address] [facility] [address] [place] [address] PCP - General 05/27/03 Shane Toribio MD [address] [facility] [address] [place] [address] Referring Cardiology 01/18/21 Ken Quintanilla MD [address] [place], [place] [id number] Primary Staff Physician Cardiology 03/01/21 Hydrostatic Tubing Tester Relationship Specialty Start Date End Date Yecenia Okeefe [address] [facility] [address] [place], [place] [id number] PCP - General 05/27/03 Shane Toribio MD [address] [place] [address] Referring Cardiology 01/18/21 Ken Quintanilla MD [address] [place] [id number] Primary Staff Physician Cardiology 03/01/21 Hydrostatic Tubing Tester Relationship Specialty Start Date End Date Yecenia Okeefe [address] [facility] [address] [place] [address] PCP - General 05/27/03 Shane Toribio MD [address] [facility] [address] [place] [address] Referring Cardiology 01/18/21 Ken Quintanilla MD [address] [place], [place] [id number] Primary Staff Physician Cardiology 03/01/21 Hydrostatic Tubing Tester Relationship Specialty Start Date End Date Yecenia Okeefe [address] [facility] [address] [place] [address] PCP - General 05/27/03 Shane Toribio MD [address] [facility] [address] [place] [address] Referring Cardiology 01/18/21 Ken Quintanilla MD [address] [place], [place] [id number] Primary Staff Physician Cardiology 03/01/21 Hydrostatic Tubing Tester Relationship Specialty Start Date End Date Yecenia Okeefe [address] [place] [address] PCP - General 05/27/03 Shane Toribio MD [address] [place] [address] Referring Cardiology 01/18/21 Ken Quintanilla MD [address] [place], [place] [id number] Primary Staff Physician Cardiology 03/01/21 Hydrostatic Tubing Tester Relationship Specialty Start Date End Date Yecenia Okeefe [address] [facility] [address] [place] [address] PCP - General 05/27/03 Shane Toribio MD [address] [place] [address] Referring Cardiology 01/18/21 Ken Quintanilla MD [address] [place], [place] [id number] Primary Staff Physician Cardiology 03/01/21 Hydrostatic Tubing Tester Relationship Specialty Start Date End Date Yecenia Okeefe [address] [place] [address] PCP - General 05/27/03 Shane Toribio MD [address] [place] [address] Referring Cardiology 01/18/21 Ken Quintanilla MD [address] [place] [address] Primary Staff Physician Cardiology 03/01/21 Hydrostatic Tubing Tester Relationship Specialty Start Date End Date Yecenia Okeefe [address] [place] [address] PCP - General 05/27/03 Shane Toribio MD [address] [place] [address] Referring Cardiology 01/18/21 Ken Quintanilla MD [address] [place] [address] Primary Staff Physician Cardiology 03/01/21 Hydrostatic Tubing Tester Relationship Specialty Start Date End Date Yecenia Okeefe [address] [place] [address] PCP - General 05/27/03 Shaen Toribio MD [address] [place] [address] Referring Cardiology 01/18/21 Ken Quintanilla MD [address] [place] [address] Primary Staff Physician Cardiology 03/01/21 Hydrostatic Tubing Tester Relationship Specialty Start Date End Date Yecenia Okeefe [address] [place] [address] PCP - General 05/27/03 Shane Toribio MD [address] [place] [address] Referring Cardiology 01/18/21 Ken Quintanilla MD [address] [place] [address] Primary Staff Physician Cardiology 03/01/21 Hydrostatic Tubing Tester Relationship Specialty Start Date End Date Yecenia Okeefe [address] [facility] [address] [place] [address] PCP - General 05/27/03 Shane Toribio MD [address] [facility] [address] [place] [address] Referring Cardiology 01/18/21 Ken Quintanilla MD [address] [place] [address] Primary Staff Physician Cardiology 03/01/21 Hydrostatic Tubing Tester Relationship Specialty Start Date End Date Yecenia Okeefe [address] [facility] [address] [place] [address] PCP - General 05/27/03 Shane Toribio MD [address] [facility] [facility] [address] [place] [address] Referring Cardiology 01/18/21 Ken Quintanilla MD [address] [place], [place] [id number] Primary Staff Physician Cardiology 03/01/21 Hydrostatic Tubing Tester Relationship Specialty Start Date End Date Yecenia Okeefe [address] [facility] [address] [place], [place] [id number] PCP - General 05/27/03 Shane Toribio MD [address] [place] [address] Referring Cardiology 01/18/21 Ken Quintanilla MD [address] [place], [place] [id number] Primary Staff Physician Cardiology 03/01/21 Hydrostatic Tubing Tester Relationship Specialty Start Date End Date Yecenia Okeefe [address] [facility] [address] [place] [address] PCP - General 05/27/03 Shane Toribio MD [address] [place] [address] Referring Cardiology 01/18/21 Ken Quintanilla MD [address] [place], [place] [address] Primary Staff Physician Cardiology 03/01/21 Hydrostatic Tubing Tester Relationship Specialty Start Date End Date Yecenia Okeefe [address] [facility] [address] [place] [address] PCP - General 05/27/03 Shane Toribio MD [address] [facility] [address] [place] [address] Referring Cardiology 01/18/21 Ken Quintanilla MD [address] [place], [place] [id number] Primary Staff Physician Cardiology 03/01/21 Hydrostatic Tubing Tester Relationship Specialty Start Date End Date Yecenia Okeefe [address] [facility] [address] [place] [address] PCP - General 05/27/03 Shane Toribio MD [address] [place] [address] Referring Cardiology 01/18/21 Ken Quintanilla MD [address] [place], [place] [address] Primary Staff Physician Cardiology 03/01/21 Hydrostatic Tubing Tester Relationship Specialty Start Date End Date Yecenia Okeefe [address] [facility] [address] [place] [address] PCP - General 05/27/03 Shane Toribio MD [address] [place] [address] Referring Cardiology 01/18/21 Ken Quintanilla MD [address] [place], [place] [id number] Primary Staff Physician Cardiology 03/01/21 Hydrostatic Tubing Tester Relationship Specialty Start Date End Date Yecenia Okeefe [address] [facility] [address] [place] [address] PCP - General 05/27/03 Shane Toribio MD [address] [place] [address] Referring Cardiology 01/18/21 Ken Quintanilla MD [address] [place] [address] Primary Staff Physician Cardiology 03/01/21 Hydrostatic Tubing Tester Relationship Specialty Start Date End Date Yecenia Okeefe [address] [place], [place] [address] PCP - General 05/27/03 Shane Toribio MD [address] [place], [place] [address] Referring Cardiology 01/18/21 Ken Quintanilla MD [address] [place] [address] Primary Staff Physician Cardiology 03/01/21 Hydrostatic Tubing Tester Relationship Specialty Start Date End Date Yecenia Okeefe [address] [place] [address] PCP - General 05/27/03 Shane Toribio MD [address] [place] [address] Referring Cardiology 01/18/21 Ken Quintanilla MD [address] [place] [address] Primary Staff Physician Cardiology 03/01/21 Hydrostatic Tubing Tester Relationship Specialty Start Date End Date Yecenia Okeefe [address] [place] [address] PCP - General 05/27/03 Shane Toribio MD [address] [place] [address] Referring Cardiology 01/18/21 Ken Quintanilla MD [address] [place] [address] Primary Staff Physician Cardiology 03/01/21 Hydrostatic Tubing Tester Relationship Specialty Start Date End Date Yecenia Okeefe [address] [facility] [address] [place] [address] PCP - General 05/27/03 Shane Toribio MD [address] [facility] [address] [place] [address] Referring Cardiology 01/18/21 Ken Quintanilla MD [address] [place] [address] Primary Staff Physician Cardiology 03/01/21 Hydrostatic Tubing Tester Relationship Specialty Start Date End Date Yecenia Okeefe [address] [facility] [address] [place] [address] PCP - General 05/27/03 Shane Toribio MD [address] [facility] [facility] [address] [place] [address] Referring Cardiology 01/18/21 Ken Quintanilla MD [address] [place] [address] Primary Staff Physician Cardiology 03/01/21 Hydrostatic Tubing Tester Relationship Specialty Start Date End Date Yecenia Okeefe [address] [facility] [address] [place] [address] PCP - General 05/27/03 Shane Toribio MD [address] [place] [address] Referring Cardiology 01/18/21 Ken Quintanilla MD [address] [place], [place] [address] Primary Staff Physician Cardiology 03/01/21 Hydrostatic Tubing Tester Relationship Specialty Start Date End Date Yecenia Okeefe [address] [facility] [address] [place] [address] PCP - General 05/27/03 Shane Toribio MD [address] [place] [address] Referring Cardiology 01/18/21 Ken Quintanilla MD [address] [place], [place] [id number] Primary Staff Physician Cardiology 03/01/21 Hydrostatic Tubing Tester Relationship Specialty Start Date End Date Yecenia Okeefe [address] [facility] [address] [place] [address] PCP - General 05/27/03 Shane Toribio MD [address] [facility] [address] [place] [address] Referring Cardiology 01/18/21 Ken Quintanilla MD [address] [place], [place] [address] Primary Staff Physician Cardiology 03/01/21 Hydrostatic Tubing Tester Relationship Specialty Start Date End Date Yecenia Okeefe [address] [facility] [address] [place] [address] PCP - General 05/27/03 Shane [facility]ibio MD [address] [facility] [address] [place] [address] Referring Cardiology 01/18/21 Ken Quintanilla MD [address] [place], [place] [address] Primary Staff Physician Cardiology 03/01/21 Hydrostatic Tubing Tester Relationship Specialty Start Date End Date Yecenia Okeefe [address] [facility] [address] [place] [address] PCP - General 05/27/03 Shane Toribio MD [address] [facility] [address] [place] [address] Referring Cardiology 01/18/21 Ken Quintanilla MD [address] [place], [place] [id number] Primary Staff Physician Cardiology 03/01/21 Goals (unrecognized section and content) Goals may be documented in a n alternate sectionGoals may be documented in an alternate sectionGoals may be documented in an alternate sectionGoals may be documented in an alternate sectionGoals may be documented in an alternate sectionGoals may be documented in an alternate sectionGoals may be documented in an alternate sectionGoals may be documented in an alternate sectionGoals may be documented in an alternate sectionGoals may be documented in an alternate sectionGoals may be documented in an alternate sectionGoals may be documented in an alternate section FOR RECORDS PERTAINING TO PATIENTS WHO ARE [...] BE BASED ON THE PRIMARY CLINICAL RECORDS. [facility], [facility]. provides no warranty or guarantee of the accuracy or completeness of information in this document.
--- NOTE | 2024-09-02 18:00 | STRESSREP ---
Stress Test Report Pharmacologic myocardial perfusion stress test. 74-year-old male with a history of chest pain Resting EKG demonstrates sinus bradycardia with a rate of 54 bpm. Resting blood pressure is 124/62 mmHg. 0.4 mg of regadenoson was infused per usual protocol followed by rapid intravenous saline flush injection. Continuous EKG monitoring was performed. The maximum heart rate was 73 bpm which was 50% of max impacted heart rate the maximum workload was 1 metabolic equivalent. At rest there were no ST or T wave changes noted to suggest ischemia and at peak infusion nonspecific ST changes were noted which did not meet the criteria for ischemia. No clinical angina is noted. The final blood pressure was 120/70 mmHg. Myocardial perfusion protocol. 13.9 mCi of technetium 99m sestamibi was injected at rest. 0.4 mg of regadenoson was infused per usual protocol. At peak infusion 42.2 mCi of technetium 99m sestamibi was injected stress images were obtained stress and rest images were reconstructed and compared in the short axis vertical long and horizontal long axis. Gated images were also obtained. Perfusion SPECT analysis: Review of the stress images demonstrate normal uptake of tracer noted in all areas of the myocardium. The resting images similar demonstrated normal uptake of tracer noted in all areas of the myocardium. No areas of reversibility are noted to suggest ischemia and no previous infarct is noted. Gated SPECT analysis: The gated ejection fraction is 76%. Conclusion: Normal pharmacologic myocardial perfusion stress test. Preserved ejection fraction.
== END | disposition home or self-care (01) ==
LOC: CVS 07:01
PROVIDERS: PCP Family Medicine; Referring Provider Nurse Practitioner Family; Visit Provider Nurse Practitioner Family
DX: R06.09 Other forms of dyspnea (principal); Z95.3 Presence of xenogenic heart valve; R53.83 Other fatigue; Z95.1 Presence of aortocoronary bypass graft; Z98.890 Other specified postprocedural states
CPT/HCPCS: 78452; 93017; 93306; A9500; A4216; J2785

== ENCOUNTER → 2024-10-24 | Outpatient (CLI) | payer MEDICARE, OTHER, SELFPAY ==
[2021-09-13 00:28] VITALS: BMI 27.8
[2024-10-24 13:06] LABS: Anion Gap 12 (5-15); BUN 17 mg/dL (4-19); BUN/Creat Ratio 20.5 RATIO (10-20); Calcium,Total 9.2 mg/dL (7.6-11.0); Carbon Dioxide 22.8 mmol/L (21.0-32.0); Chloride 105 mmol/L (98-108); Cholesterol 171 mg/dL (<=200); Glucose 96 mg/dL (70-99); Low Density Lipoprotein Calc. 98 mg/dL; Potassium 3.8 mmol/L (3.3-5.1); Triglycerides 99 mg/dL; Very Low Density Lipoprotein 20 mg/dL (5-40); cholesterol:hdl ratio screen 3.24
== END | disposition home or self-care (01) ==
LOC: MFPLAB 10:26
PROVIDERS: PCP Family Medicine; Visit Provider Family Medicine
DX: I10 Essential (primary) hypertension (principal)
CPT/HCPCS: 36415; 80048; 80061; 84443